=== PATIENT | female | born 1930 | race Caucasian/White ===

== ENCOUNTER → 2016-12-18 | Outpatient (CLI) | payer OTHER ==
[~2016-12-18] MED LIST: ALPR0.25 PO; ASPI81TA28 PO; ATOR10TA82 PO; CEPH-571 PO; CMD/25 PO; EFF/375 PO; FAMO20TA11 PO; LEVO75TA5 PO; METO25TA3 PO; PRMVC PV; RIVA1TAB4 PO; SYN50 PO; TPRSR50 PO
[2016-12-18 10:51] LABS: URINE APPEARANCE CLEAR (CLEAR); URINE BILIRUBIN NEG (NEG); URINE COLOR YELLOW; URINE NITRITE NEG (NEG); URINE SPECIFIC GRAVITY 1.016 (1.000-1.030); UROBILINOGEN NEG (NEG)
[2016-12-18 10:59] LABS: MANUAL MICROSCOPIC REQUIRED? NO; REVIEW REQ? NO
--- NOTE | 2016-12-21 13:50 | CODING QUERY NO DIAGNOSIS ---
TREATMENT RENDERED WITHOUT A DIAGNOSIS To promote full compliance with coding requirements relating to patient care, physician participation is requested in all cases of rail operations controller uncertainty. Please assist us with providing a diagnosis/symptom for the test(s) below: A diagnosis/symptom was not documented on your Order. A valid diagnosis/symptom is required to bill all insurances. Please remember that we are unable to code a diagnosis of rule out, probable, possible, questionable, or suspected. Tests that require a diagnosis: DOS 12/18 * Urine Culture DIAGNOSIS: Provider Signature: Date: Thank you Shw[facility] Information Management Once completed, please kindly fax back to [phone] For questions please call [phone]
== END | disposition home or self-care (01) ==
LOC: C.LABSPEC 12:49
PROVIDERS: ATTEND Internal Medicine
DX: N39.0 Urinary tract infection, site not specified (principal)

== ENCOUNTER → 2017-01-11 | Outpatient (CLI) | payer OTHER ==
--- NOTE | 2017-01-11 10:23 | DIAGNOSTIC IMAGING REPORT ---
CT HEAD WITHOUT CONTRAST (CT) CLINICAL HISTORY: Concussion. Head trauma. Patient on Coumadin. COMPARISON STUDY: 12/31/2015 TECHNIQUE: Axial CT of the brain is performed from the vertex to the skull base. IV contrast was not administered for this examination. CT DOSE: 812.17 mGycm FINDINGS: No intra or extra-axial mass lesions are visualized. There is no CT evidence of acute cortical infarction. There is no evidence of midline shift. There is no acute hemorrhage. No calvarial fractures are visualized. There are patchy white matter hypodensities likely on a small vessel basis. Since the prior study, the patient developed bifrontal infarcts. Since the prior study, the patient has developed a lacunar infarct within the left thalamus. There is no evidence of pathologic ventricular dilatation. There is chronic opacification of the right sphenoid. There is opacification of multiple ethmoid air cells. The frontal sinuses are opacified. IMPRESSION: 1. Interval development of bilateral frontal lobe infarcts. These do not appear acute 2. Interval development of a lacunar infarct within the left thalamus 3. No acute hemorrhage 4. Progressive paranasal sinus disease Electronically signed by: Reji Wallace M.D. 01/11/2017 10:22 AM Dictated Date/Time: 01/11/2017 10:19 AM
== END | disposition home or self-care (01) ==
LOC: C.CTS 09:57
PROVIDERS: ATTEND Physician Assistant
DX: S06.0X9A Concussion with loss of consciousness of unspecified duration, initial encounter (principal); X58.XXXA Exposure to other specified factors, initial encounter

== ENCOUNTER → 2017-01-17 | Outpatient (CLI) | payer OTHER ==
--- NOTE | 2017-01-17 10:47 | DIAGNOSTIC IMAGING REPORT ---
(BARIUM SWALLOW) ESOPHAGUS CLINICAL HISTORY: REFLUXdysphagia COMPARISON STUDY: None FLUOROSCOPY TIME: 1.6 minutes. FINDINGS: Patient initiated swallowing function well. There is trace amount penetration. There is no evidence for aspiration. Esophagus is normal in course and caliber. Gastroesophageal junction is normal. Patient ingested the barium tablet easily which passed easily to the stomach. IMPRESSION: 1. Trace penetration during swallowing function.. 2. No evidence for aspiration. 3. Study is otherwise normal. Electronically signed by: Catracho Krishna M.D. 01/17/2017 10:46 AM Dictated Date/Time: 01/17/2017 10:44 AM
== END | disposition home or self-care (01) ==
LOC: C.RAD 09:59
PROVIDERS: ATTEND Internal Medicine
DX: R07.9 Chest pain, unspecified (principal)

== ENCOUNTER → 2017-02-15 | Outpatient (CLI) | payer OTHER ==
[~2017-02-15] MED LIST changes: -ASPI81TA28 PO; -ATOR10TA82 PO; -CEPH-571 PO; -CMD/25 PO; -EFF/375 PO; -FAMO20TA11 PO; -LEVO75TA5 PO; -METO25TA3 PO; -PRMVC PV
[2017-02-15 14:47] LABS: URINE APPEARANCE TURBID (CLEAR); URINE BILIRUBIN NEG (NEG); URINE COLOR YELLOW; URINE EPITHELIAL CELL AUTO 0-5 /lpf (0-5); URINE NITRITE NEG (NEG); URINE PH 6.5 (4.5-7.5); URINE SPECIFIC GRAVITY 1.014 (1.000-1.030); UROBILINOGEN NEG (NEG)
[2017-02-15 14:49] LABS: MANUAL MICROSCOPIC REQUIRED? NO; REVIEW REQ? YES
== END | disposition home or self-care (01) ==
LOC: C.LAB1850 14:05
PROVIDERS: ATTEND Internal Medicine
DX: R35.8 Other polyuria (principal)

== ENCOUNTER → 2017-03-22 | Outpatient (CLI) | payer OTHER ==
--- NOTE | 2017-03-22 14:31 | SWALLOWING EVALUATION ---
HISTORY: This 86 year-old woman, from home, was referred for a VFSS at [facility]. She reports that she has no idea why she is getting this test and that she has no difficulty swallowing. reports state that she is complaining of pill dysphagia however pt. denies this. 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 Barium swallow completed 01/17/17 with no aspiration however trace aspiration. 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 PROCEDURE: The patient was seen in the Radiology Department of [facility] for the VFSS. Cursory examination of the oral cavity revealed adequate dentition. Movement of the articulators was WNL. The patient was seated on a standard chair and was viewed in both the Anterior-Posterior (A-P) and Lateral planes. Volitional phonation exercises completed in the A-P plane revealed bilateral vocal fold movement and vocal intensity was very reduced and it was very difficult to hear pt's speech. In the lateral plane, the patient was given the following barium-infused boluses: 1 tsp thin barium with oral hold 1x, self presented single cup swallow-thin barium 1x, self presented serial cup swallow 1x. 1 tsp nectar thick barium with oral hold 1x, self presented single cup swallow- nectar thick barium 1x, self presented serial cup swallows 1x. 1 tsp barium pudding-self presented 1x. Cracker with barium paste 1x. In the A-P view, pt was given 1 barium pill with water and 1 tsp barium pudding with esophageal scan. RESULTS: Oral Phase: Pt. had no labial escape of any food or liquid items presented. Pt. demonstrated a cohesive bolus between tongue and palatal seal. Timely and efficient chewing and mashing was observed with all consistencies as well as brisk tongue motion and complete oral clearance. Initiation of pharyngeal swallow began with bolus head at posterior angle of hyoid excursion. Overall WFL for oral phase of swallow. Pharyngeal Phase: Soft Palate Elevation was complete for all boluses. Laryngeal elevation was WFL demonstrating complete movement of thyroid cartilage with complete approximation of arytenoids to epiglottic base. Complete Anterior Hyoid excursion was observed as well as complete epiglottic inversion. Laryngeal Vestibular closure was complete and no air or barium noted in laryngeal vestibule. Tongue base retraction was noted with all consistencies and tongue base made effective contact with posterior pharyngeal wall throughout study. No pharyngeal residue was observed resulting in complete pharyngeal clearance of all tested items. Overall WFL for Pharyngeal stage of the swallow Esophageal Phase: Opening and closing of the UES was timely and efficient. Barium pill passes quickly and affectively into her stomach. SUMMARY/RECOMMENDATIONS: Overall pt. presented as WFL. Results of this study indicate no oral or pharyngeal dysphagia. Recommending continuation of regular diet with thin liquids. All results and recommendations were discussed with the pt. and her caregiver. Thank you for referral of this patient. Please contact me at if any additional information is needed.
--- NOTE | 2017-03-22 14:38 | DIAGNOSTIC IMAGING REPORT ---
VIDEO SWALLOW STUDY CLINICAL HISTORY: Stroke. Gastrointestinal bleeding. COMPARISON STUDY: Barium esophagram dated 01/17/2017. FLUOROSCOPY TIME: 3.5 minutes. FINDINGS: Fluoroscopic guidance was provided to the Department of Speech Pathology in performing a video swallow study. The patient swallowed barium-impregnated pudding, cracker with paste, nectar-thick liquid, and thin barium while the swallowing mechanism was observed in real-time. No penetration or aspiration was seen with any of the sampled textures. IMPRESSION: No penetration or aspiration was seen. See dedicated speech pathology report for detailed findings and recommendations. Dictated: 03/22/2017 2:19 PM Transcribed: 03/22/2017 2:37 PM [email or web address] Electronically signed by: Rajan Castro M.D. 03/22/2017 2:39 PM Dictated Date/Time: 03/22/2017 2:19 PM
--- NOTE | 2017-03-29 07:33 | CODING QUERY MEDICAL NECESSITY ---
SUPPORTING DIAGNOSIS NEEDED Dr. Quinones, A supporting diagnosis is required for the test/procedure performed on this patient in order for us to be reimbursed by the patient's insurance. Please provide a supporting diagnosis for the following test/procedure listed below next to the test name along with your signature. *If there is no additional diagnosis for this patient that would support the following test/procedure please document that below next to the test/procedure. Test(s)/Procedure(s) that require a supporting diagnosis: * ([id number]) BARIUM SWALLOW DIAGNOSIS: DATE OF SERVICE: 03/22/17 Provider Signature: Date: Thank you Tony Moncada [facility] Information Management Once completed, please kindly fax back to [phone] For questions please call [phone]
== END | disposition home or self-care (01) ==
LOC: C.RAD 12:53
PROVIDERS: ATTEND Internal Medicine
DX: I63.9 Cerebral infarction, unspecified (principal); K92.2 Gastrointestinal hemorrhage, unspecified; J45.909 Unspecified asthma, uncomplicated; R49.0 Dysphonia

== ENCOUNTER → 2017-05-04 | Outpatient (CLI) | payer OTHER ==
[2017-05-04 19:13] LABS: URINE APPEARANCE CLOUDY (CLEAR); URINE BILIRUBIN NEG (NEG); URINE COLOR YELLOW; URINE NITRITE NEG (NEG); URINE SPECIFIC GRAVITY 1.023 (1.000-1.030); UROBILINOGEN NEG (NEG)
[2017-05-04 19:14] LABS: MANUAL MICROSCOPIC REQUIRED? YES; REVIEW REQ? NO
[2017-05-04 19:36] LABS: URINE BACTERIA 1+ (NEG); URINE RBC >30 /hpf (0-4); URINE WBC >30 /hpf (0-5)
== END | disposition home or self-care (01) ==
LOC: C.LAB 17:32
PROVIDERS: ATTEND Physician Assistant
DX: N39.0 Urinary tract infection, site not specified (principal)

== ENCOUNTER 2017-06-18 13:46 | Emergency (ER) | payer OTHER ==
[~2017-06-18] VITALS: Ht 160 cm; Wt 47.2 kg
[2017-06-18 13:49] VITALS: TEMP 37.1; Ht 160 cm; Wt 47.2 kg
[2017-06-18 14:30] LABS: BASO % 0.7 %; BASO ABS # 0.06 K/uL (0-0.2); COMPLETE YES; EOS % 7.5 %; HEMATOCRIT 37.7 % (37-47); IG% 0.2 %; LYMPH % 17.1 %; MEAN CELL VOLUME 90.8 fL (80-100); MEAN CORPUSCULAR HEMOGLOBIN 30.1 pg (25-34); MEAN CORPUSCULAR HGB CONC 33.2 g/dl (32-36); MEAN PLATELET VOLUME 9.6 fL (7.4-10.4); MONO % 8.3 %; NEUT % 66.2 %; PLATELET COUNT 202 K/uL (130-400); RED BLOOD COUNT 4.15 M/uL (4.2-5.4); WHITE BLOOD COUNT 8.79 K/uL (4.8-10.8)
[2017-06-18 14:37] LABS: URINE APPEARANCE CLEAR (CLEAR); URINE BILIRUBIN NEG (NEG); URINE COLOR YELLOW; URINE EPITHELIAL CELL AUTO 0-5 /lpf (0-5); URINE NITRITE NEG (NEG); URINE SPECIFIC GRAVITY 1.016 (1.000-1.030); UROBILINOGEN NEG (NEG); ZZURINE CULT IF INDIC CATH YES
[2017-06-18 14:44] LABS: MANUAL MICROSCOPIC REQUIRED? NO; REVIEW REQ? NO
[2017-06-18 14:47] LABS: ALT/SGPT 16 U/L (12-78); BLOOD UREA NITROGEN 25 mg/dl (7-18); BUN/CREATININE RATIO 33.4 (10-20); CALCIUM 9.1 mg/dl (8.5-10.1); CARBON DIOXIDE 33 mmol/L (21-32); CHLORIDE 105 mmol/L (98-107); CREATININE 0.74 mg/dl (0.60-1.20); GLUCOSE 77 mg/dl (70-99); POTASSIUM 3.9 mmol/L (3.5-5.1); SODIUM 141 mmol/L (136-145)
[2017-06-18 14:50] LABS: ALKALINE PHOSPHATASE 80 U/L (45-117); AST/SGOT 17 U/L (15-37)
--- NOTE | 2017-06-18 15:00 | DIAGNOSTIC IMAGING REPORT ---
CHEST ONE VIEW PORTABLE CLINICAL HISTORY: 86 years-old Female presenting with weak. TECHNIQUE: Portable upright AP view of the chest was obtained. COMPARISON: 06/03/2016. FINDINGS: Median sternotomy wires and left atrial appendage occlusion device noted. Calcified mediastinal lymph nodes also noted. Mild hyperinflation. Apparent nodular opacities at the right lung base are unchanged since 2012 and may represent overlapping costochondral calcification. No new focal infiltrate. No large effusion or pneumothorax. Skin folds noted over the superior thorax. Osseous structures normal. Upper abdomen normal. IMPRESSION: 1. Mild hyperinflation. Otherwise no acute cardiopulmonary disease. Electronically signed by: Preston Bryson M.D. 06/18/2017 2:59 PM Dictated Date/Time: 06/18/2017 2:54 PM
[2017-06-18] MEDS ORDERED: EFF/375 PO (15:09)
[2017-06-18] MEDS ORDERED: ASPI81TA28 PO (15:09)
[2017-06-18] MEDS ORDERED: LEVO75TA5 PO (15:09)
[2017-06-18] MEDS ORDERED: PRMVC PV (15:09)
[2017-06-18] MEDS ORDERED: FAMO20TA11 PO (15:09)
[2017-06-18] MEDS ORDERED: CMD/25 PO ×2 (15:09)
[2017-06-18] MEDS ORDERED: METO25TA3 PO (15:09)
[2017-06-18] MEDS ORDERED: ATOR10TA82 PO (15:09)
[2017-06-18] MEDS ORDERED: CEFTRIAXONE SOD INJ 1 GM ADDVIAL IV STA (15:10)
[2017-06-18] MEDS ORDERED: CEPH-571 PO (15:26)
[2017-06-18 15:46] LABS: INR 2.6 (0.9-1.1); PROTHROMBIN TIME (PATIENT) 29.2 SECONDS (9.0-12.0)
[2017-06-18 16:20] VITALS: BP 132/64; PULSE 77; O2SAT 98
--- NOTE | 2017-06-18 21:27 | EMERGENCY ROOM VISIT NOTE ---
History Report prepared by Lali: Ravinder Banegas Under the Supervision of: Dr. José Miguel Douglas D.O. First contact with patient: 14:04 Chief Complaint: WEAKNESS Stated Complaint: WEAK, SHAKES, TIRED, BURNING W/URINATION History of Present Illness The patient is an 86 year old female who presents to the Emergency Room with complaints of persistent urinary symptoms that started 5 days ago. She says that she has been having burning and pain with urination, in addition to an increased urinary frequency. She states that after she urinates, she does not feel like she has to go again. The patient notes that she has had 3 bouts of symptoms like this in the past, and during those times she was diagnosed with a UTI. The patient says that she has not seen her primary care physician for this bout yet. She says that her last bowel movement was yesterday and it was normal. The patient denies any chest pain, shortness of breath, nausea, vomiting , diarrhea, or abdominal pain. Environmental Studies Faculty Member at bedside notes that she is currently at her baseline. Source of History: patient Onset: 5 days ago Position: other (global - urinary symptoms) Quality: other (burning urination, pain with urination, frequent urination) Timing: other (persistent) Associated Symptoms: No chest pain, No SOB, No nausea, No vomiting, No abdominal pain, No diarrhea Note: No other associated symptoms noted. Review of Systems See HPI for pertinent positives & negatives. A total of 10 systems reviewed and were otherwise negative. Past Medical & Surgical Medical Problems: (1) History of atrial fibrillation (2) Mitral valve prolapse (3) Palpitations Family History Family history omitted secondary to patient's advanced age. Social History Smoking Status: Former Smoker Alcohol Use: occasionally Drug Use: none Marital Status: Occupation Status: retired Current/Historical Medications Scheduled Aspirin (Aspirin Ec), 81 MG PO DAILY Atorvastatin (Lipitor), 10 MG PO DAILY Cephalexin (Keflex), 1 CAP PO TID Estrogens, Conjugated (Premarin), 1 DOSE PV 2XWK Famotidine (Pepcid), 20 MG PO DAILY Levothyroxine Sodium (Levothyroxine Sodium), 75 MG PO DAILY Metoprolol Succinate (Toprol Xl), 12.5 MG PO BID Venlafaxine Hcl (Effexor), 37.5 MG PO DAILY Warfarin Sod (Coumadin), 5 MG PO DAILY Warfarin Sod (Coumadin), 2.5 MG PO 6XWK Allergies Coded Allergies: Codeine (Verified Allergy, Unknown, UNK, 08/15/15) Ferrous Sulfate (Verified Allergy, Unknown, 0, 08/15/15) Folic Acid (Verified Allergy, Unknown, 0, 08/15/15) Macrolides (Verified Allergy, Unknown, UNK, 08/15/15) Morphine (Verified Allergy, Unknown, uknown, 08/15/15) Pantoprazole (Verified Allergy, Unknown, 0, 08/15/15) Penicillins (Verified Allergy, Unknown, UNK, 08/15/15) Physical Exam Vital Signs Date Time Temp Pulse Resp B/P (MAP) Pulse Ox O2 Delivery O2 Flow Rate FiO2 06/18/17 16:20 77 20 132/64 98 06/18/17 15:39 73 18 159/75 96 Room Air 06/18/17 14:09 80 06/18/17 13:49 37.1 80 18 124/67 99 Room Air Physical Exam GENERAL: Sitting up in bed, cachectic, malnourished, no distress, nontoxic EYE EXAM: normal conjunctiva. PERRL and EOM's grossly intact. OROPHARYNX: no exudate, no erythema, lips, buccal mucosa, and tongue normal and mucous membranes are moist NECK: supple, no nuchal rigidity, no adenopathy, non-tender LUNGS: Clear to auscultation. Normal chest wall mechanics HEART: no murmurs, S1 normal and S2 normal ABDOMEN: abdomen soft, non-tender, normo-active bowel sounds, no masses, no rebound or guarding. BACK: Back is symmetrical on inspection and there is no deformity, no midline tenderness, no CVA tenderness. SKIN: no rashes and no bruising UPPER EXTREMITIES: upper extremities are grossly normal. LOWER EXTREMITIES: No pitting edema. NEURO EXAM: Normal sensorium, cranial nerves II-XII grossly intact, normal speech, no gross weakness of arms, no gross weakness of legs. Medical Decision & Procedures ER Provider Diagnostic Interpretation: X-ray results as stated below per my review and the radiologist's interpretation : CHEST ONE VIEW PORTABLE CLINICAL HISTORY: 86 years-old Female presenting with weak. TECHNIQUE: Portable upright AP view of the chest was obtained. COMPARISON: 06/03/2016. FINDINGS: Median sternotomy wires and left atrial appendage occlusion device noted. Calcified mediastinal lymph nodes also noted. Mild hyperinflation. Apparent nodular opacities at the right lung base are unchanged since 2011 and may represent overlapping costochondral calcification. No new focal infiltrate. No large effusion or pneumothorax. Skin folds noted over the superior thorax. Osseous structures normal. Upper abdomen normal. IMPRESSION: 1. Mild hyperinflation. Otherwise no acute cardiopulmonary disease. Electronically signed by: Preston Bryson M.D. 06/18/2017 2:59 PM Dictated Date/Time: 06/18/2017 2:54 PM Laboratory Results 06/18/17 14:17 Red Blood Count 4.15, Mean Corpuscular Volume 90.8, Mean Corpuscular Hemoglobin 30.1, Mean Corpuscular Hemoglobin Concent 33.2, Mean Platelet Volume 9.6, Neutrophils (%) (Auto) 66.2, Lymphocytes (%) (Auto) 17.1, Monocytes (%) (Auto) 8.3, Eosinophils (%) (Auto) 7.5, Basophils (%) (Auto) 0.7, Neutrophils # (Auto) 5.82, Lymphocytes # (Auto) 1.50, Monocytes # (Auto) 0.73, Eosinophils # (Auto) 0.66, Basophils # (Auto) 0.06 06/18/17 14:17 Test 06/18/17 14:17 06/18/17 14:25 White Blood Count 8.79 K/uL (4.8-10.8) Red Blood Count 4.15 M/uL (4.2-5.4) Hemoglobin 12.5 g/dL (12.0-16.0) Hematocrit 37.7 % (37-47) Mean Corpuscular Volume 90.8 fL (80-100) Mean Corpuscular Hemoglobin 30.1 pg (25-34) Mean Corpuscular Hemoglobin Concent 33.2 g/dl (32-36) Platelet Count 202 K/uL (130-400) Mean Platelet Volume 9.6 fL (7.4-10.4) Neutrophils (%) (Auto) 66.2 % Lymphocytes (%) (Auto) 17.1 % Monocytes (%) (Auto) 8.3 % Eosinophils (%) (Auto) 7.5 % Basophils (%) (Auto) 0.7 % Neutrophils # (Auto) 5.82 K/uL (1.4-6.5) Lymphocytes # (Auto) 1.50 K/uL (1.2-3.4) Monocytes # (Auto) 0.73 K/uL (0.11-0.59) Eosinophils # (Auto) 0.66 K/uL (0-0.5) Basophils # (Auto) 0.06 K/uL (0-0.2) RDW Standard Deviation 43.7 fL (36.4-46.3) RDW Coefficient of Variation 13.2 % (11.5-14.5) Immature Granulocyte % (Auto) 0.2 % Immature Granulocyte # (Auto) 0.02 K/uL (0.00-0.02) Prothrombin Time 29.2 SECONDS (9.0-12.0) Prothromb Time International Ratio 2.6 (0.9-1.1) Anion Gap 3.0 mmol/L (3-11) Est Creatinine Clear Calc Drug Dose 39.9 ml/min Estimated GFR () 84.4 Estimated GFR (Non- 72.8 BUN/Creatinine Ratio 33.4 (10-20) Calcium Level 9.1 mg/dl (8.5-10.1) Total Bilirubin 0.3 mg/dl (0.2-1) Direct Bilirubin < 0.1 mg/dl (0-0.2) Aspartate Amino Transf (AST/SGOT) 17 U/L (15-37) Alanine Aminotransferase (ALT/SGPT) 16 U/L (12-78) Alkaline Phosphatase 80 U/L (45-117) Total Protein 7.8 gm/dl (6.4-8.2) Albumin 3.2 gm/dl (3.4-5.0) Lipase 153 U/L (73-393) Urine Color YELLOW Urine Appearance CLEAR (CLEAR) Urine pH 6.0 (4.5-7.5) Urine Specific [place] 1.016 (1.000-1.030) Urine Protein NEG (NEG) Urine Glucose (UA) NEG (NEG) Urine Ketones NEG (NEG) Urine Occult Blood 1+ (NEG) Urine Nitrite NEG (NEG) Urine Bilirubin NEG (NEG) Urine Urobilinogen NEG (NEG) Urine Leukocyte Esterase LARGE (NEG) Urine WBC (Auto) >30 /hpf (0-5) Urine RBC (Auto) 0-4 /hpf (0-4) Urine Hyaline Casts (Auto) 1-5 /lpf (0-5) Urine Epithelial Cells (Auto) 0-5 /lpf (0-5) Urine Bacteria (Auto) NEG (NEG) Laboratory results per my review. Medications Administered Medications (Trade) Dose Ordered Sig/Garrick Route Start Time Stop Time Status Last Admin Dose Admin Ceftriaxone Sodium (Rocephin Inj) 1 gm NOW STAT IV 06/18/17 15:10 06/18/17 15:11 DC 06/18/17 15:37 1 GM ED Course ED COURSE: Vital signs were reviewed and showed normal vitals. The patients medical record was reviewed The above diagnostic studies were performed and reviewed. ED treatments and interventions as stated above. 1405: The patient was evaluated in room A2. A complete history and physical examination was performed. 1510: Ordered Rocephin Inj 1 gm IV. 1524: Upon reevaluation, the patient is resting comfortably and wants to go home. I discussed my findings with the patient and her family and they understand and agree with the treatment plan. The patient's family are at bedside and say that the patient has been acting appropriately. Based on the patients age, coexisting illnesses, exam and lab findings the decision to treat as an outpatient was made. The patient remained stable while under my care. The patient appeared well at the time of discharge. 1614: I reevaluated the patient and she is doing fine. Medical Decision Differential diagnoses includes but is not limited to gastritis, peptic ulcer disease, GERD, gallbladder disease, pancreatitis, small bowel obstruction, acute coronary syndrome, pericarditis, ischemic bowel, irritable bowel disease, irritable bowel syndrome, appendicitis, diverticulitis, malignancy, hernia, urinary tract infection, torsion, /ectopic , perforation, trauma, infectious. 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 No other complaints with the exception of feeling weak. CBC all BMP, LFTs, bilirubin lipase was unremarkable. INR was therapeutic at 2.6. UA shows esterase and white cells. This is suggestive highly of a UTI especially accommodation with her symptoms. She was given IV Rocephin. She was placed on Keflex. She was discharged follow -up with her PCP per her request. I did shoot a chest x-ray as she notes she has been having a cough as well but this has been present over the past year. Family was updated bedside. She is discharged follow-up with PCP. Discussed with Pt concerning signs and symptoms to watch out for. Pt was instructed to follow up with their PCP and discussed with the patient their option to return to the ED at anytime for persistent or worsening symptoms. The appropriate anticipatory guidance and out-patient management, including indications for return to the emergency department, were explained at length to the patient and understood. Medication Reconcilliation Current Medication List: was personally reviewed by me Blood Pressure Screening Patient's blood pressure: Normal blood pressure Impression Primary Impression: UTI (urinary tract infection) Scribe Attestation The scribe's documentation has been prepared under my direction and personally reviewed by me in its entirety. I confirm that the note above accurately reflects all work, treatment, procedures, and medical decision making performed by me. Departure Information Dispostion Home / Self-Care Prescriptions Cephalexin (KEFLEX) 500 Mg Cap 1 CAP PO TID for 10 Days, #30 CAP Prov: José Miguel Douglas, DO 06/18/17 Referrals No Doctor, Assigned (PCP) Patient Instructions ED UTI Cystitis Female, My [facility] Additional Instructions Please follow up with your primary care doctor with in the next 24 hours. Any worsening of your symptoms, please return to the ED immediately. This includes any fevers greater than 100.4, worsening pain, chest pain, shortness breath, persistent nausea, vomiting, unable to eat or drink, or any other concerning signs or symptoms from your standpoint. Please take your antibiotics as prescribed. Problem Qualifiers Primary Impression: UTI (urinary tract infection) Urinary tract infection type: acute cystitis Hematuria presence: with hematuria Qualified Codes: N30.01 - Acute cystitis with hematuria
== END 2017-06-18 16:20 | disposition home or self-care (01) ==
LOC: C.EDB 13:48 → C.EDA 16:20
DX: N39.0 Urinary tract infection, site not specified (principal); I48.91 Unspecified atrial fibrillation; I34.1 Nonrheumatic mitral (valve) prolapse; Z79.82 Long term (current) use of aspirin; Z79.01 Long term (current) use of anticoagulants; Z87.891 Personal history of nicotine dependence

== ENCOUNTER → 2017-07-11 | Outpatient (CLI) | payer OTHER ==
[~2017-07-11] MED LIST changes: -ALPR0.25 PO; +ASPI81TA28 PO; +ATOR10TA82 PO; +Boost Plus Vanilla PO; +CMD/25 PO; +EFF/375 PO; +FAMO20TA11 PO; +LCTXP PO; +LEVO75TA5 PO; +METO25TA3 PO; +PRMVC PV; -RIVA1TAB4 PO; -SYN50 PO; -TPRSR50 PO; +VANC5CAP PO
[2017-07-12 15:10] LABS: URINE APPEARANCE TURBID (CLEAR); URINE BILIRUBIN NEG (NEG); URINE COLOR DK YELLOW; URINE NITRITE POS (NEG); URINE SPECIFIC GRAVITY 1.027 (1.000-1.030); UROBILINOGEN NEG (NEG); ZZUR CULT IF INDIC CLEAN CATCH YES
[2017-07-12 15:28] LABS: MANUAL MICROSCOPIC REQUIRED? NO; REVIEW REQ? YES
== END | disposition home or self-care (01) ==
LOC: C.LAB1850 11:02
PROVIDERS: ATTEND Physician Assistant
DX: N39.0 Urinary tract infection, site not specified (principal); R39.9 Unspecified symptoms and signs involving the genitourinary system

== ENCOUNTER 2017-07-12 15:21 | Inpatient (IN) | payer OTHER ==
[~2017-07-12] VITALS: Ht 160 cm; Wt 46.7 kg
[~2017-07-12 15:21] MED LIST changes: -Boost Plus Vanilla PO; -LCTXP PO; -VANC5CAP PO
[2017-07-12] MEDS ORDERED: CEFTRIAXONE SOD INJ 1 GM ADDVIAL IV STA (16:14)
--- NOTE | 2017-07-12 16:25 | EMERGENCY ROOM VISIT NOTE ---
History Report prepared by Lali: Aj Chamberlain Under the Supervision of: Dr. Greta Mcqueen D.O. First contact with patient: 15:58 Chief Complaint: ABDOMINAL PAIN Stated Complaint: ABD PAIN/WEIGHT LOSS Nursing Triage Summary: Pt presents accompanied by smog technician. Sent by ZUGGI. Lower abd pain x 6 days. Diarrhea. Urinary freq. History of Present Illness The patient is an 86 year old female who presents to the Emergency Room with complaints of intermittent abdominal pain beginning yesterday. She notes sitting down increases her discomfort. The patient states she has a history of UTIs and infections, and her last UTI was two weeks ago. She reports she has been taking antibiotics, but she is very allergic to them and cannot remember what she was taking. The patient notes she developed diarrhea 6 days ago, and she thinks it was from her health agency, not the antibiotics. She states she has also developed mild, lower back pain from being elevated into bed. The patient reports her urine is also cloudier and has pain with urination. She notes she went to [facility] earlier today and was told to come here. The patient states she has not been eating a lot, and she is having difficulty maintaining her weight. She denies vomiting, fevers, blood in urine, and blood in her diarrhea. The patient reports she has a history of chronic cystitis. Review of EMR showed the patient was here on 06/18 and diagnosed with a UTI but all other labs were stable. The patient was discharged on Keflex. Source of History: patient Onset: yesterday Position: abdomen Timing: intermittent Modifying Factors (Worsening): other (sitting) Associated Symptoms: + back pain, + diarrhea, + urinary symptoms (cloudier and pain with urination), No fevers, No vomiting Note: Associated symptoms: decreased appetite, decreased weight Denies: blood in urine, blood in diarrhea Review of Systems See HPI for pertinent positives & negatives. A total of 10 systems reviewed and were otherwise negative. Past Medical & Surgical Medical Problems: (1) Bronchitis (2) Colitis (3) History of atrial fibrillation (4) Mitral valve prolapse (5) Palpitations (6) Skin problem Family History Diabetes mellitus FH: thyroid disease FHx: cancer Lung disease Social History Smoking Status: Former Smoker Alcohol Use: occasionally Drug Use: none Marital Status: Occupation Status: retired Current/Historical Medications Scheduled Aspirin (Aspirin Ec), 81 MG PO DAILY Atorvastatin (Lipitor), 10 MG PO DAILY Estrogens, Conjugated (Premarin), 1 DOSE PV 2XWK Famotidine (Pepcid), 20 MG PO DAILY Levothyroxine Sodium (Levothyroxine Sodium), 75 MG PO DAILY Metoprolol Succinate (Toprol Xl), 12.5 MG PO BID Venlafaxine Hcl (Effexor), 37.5 MG PO DAILY Warfarin Sod (Coumadin), 5 MG PO WK Warfarin Sod (Coumadin), 2.5 MG PO 6XWK Allergies Coded Allergies: Codeine (Verified Allergy, Unknown, UNK, 07/12/17) Ferrous Sulfate (Verified Allergy, Unknown, 0, 08/15/15) Folic Acid (Verified Allergy, Unknown, 0, 07/12/17) Macrolides (Verified Allergy, Unknown, UNK, 08/15/15) Morphine (Verified Allergy, Unknown, uknown, 07/12/17) Pantoprazole (Verified Allergy, Unknown, 0, 08/15/15) Penicillins (Verified Allergy, Unknown, UNK, 07/12/17) Physical Exam Vital Signs Date Time Temp Pulse Resp B/P (MAP) Pulse Ox O2 Delivery O2 Flow Rate FiO2 07/12/17 18:53 93 18 151/78 95 Room Air 07/12/17 17:11 97 20 134/75 96 Room Air 07/12/17 15:46 37.3 73 18 125/74 95 Room Air Physical Exam GENERAL: alert, well appearing, very thin, no distress, non-toxic, elderly EYE EXAM: normal conjunctiva, PERRL and EOM's grossly intact OROPHARYNX: no exudate, no erythema, lips, buccal mucosa, and tongue normal and mucous membranes are moist NECK: supple, no nuchal rigidity, no adenopathy, non-tender LUNGS: Clear to auscultation. Normal chest wall mechanics HEART: no murmurs, S1 normal and S2 normal ABDOMEN: abdomen soft, with left-sided tenderness with palpation, normo-active bowel sounds, no masses, no rebound or guarding. BACK: Back is symmetrical on inspection and there is no deformity, no midline tenderness, no CVA tenderness. SKIN: no rashes and no bruising UPPER EXTREMITIES: upper extremities are grossly normal. LOWER EXTREMITIES: No pitting edema. NEURO EXAM: Normal sensorium, cranial nerves II-XII grossly intact, normal speech, no gross weakness of arms, no gross weakness of legs. Medical Decision & Procedures ER Provider Diagnostic Interpretation: CT:Per my review, radiologist interpretation. HEAD WITHOUT CONTRAST (CT) CT DOSE: 614.27 mGy.cm HISTORY: Mental status change ams TECHNIQUE: Multiaxial CT images of the head were performed without the use of intravenous contrast. A dose lowering technique was utilized adhering to the principles of ALARA. Comparison: 01/11/2017 Findings: Moderate mucosal thickening of the sphenoid and ethmoid sinuses. Mastoid air cells are clear. Old bifrontal infarcts. Old right temporoparietal infarct. No acute intracranial hemorrhage. Several small old periventricular infarct unchanged. No evidence for new or interval process. Impression: 1. Multiple old infarcts. 2. No acute intracranial abnormality. 3. Moderate mucosal thickening of the sphenoid and ethmoid sinuses. The above report was generated using voice recognition software. It may contain grammatical, syntax or spelling errors. Electronically signed by: Catracho Krishna M.D. 07/12/2017 6:44 PM Dictated Date/Time: 07/12/2017 6:42 PM ABD/PELVIS IV CONTRAST ONLY CT DOSE: 252.23 mGy.cm HISTORY: Pain left abd pain, uti TECHNIQUE: Multiaxial CT images of the abdomen and pelvis were performed following the use of intravenous contrast. A dose lowering technique was utilized adhering to the principles of ALARA. COMPARISON STUDY: None. FINDINGS: Mild bibasilar interstitial change. Mild pleural reactive change left lung base. Liver spleen and pancreas are uniform. Kidneys negative for hydronephrosis. Enhancement characteristics are uniform. Perinephric spaces are unremarkable. There is moderate generalized wall thickening of the bulk of the colon including sigmoid. This appearance suggests a generalized nonspecific colitis. No evidence for abscess collection or obstruction. No significant small bowel distention. No free fluid within the pelvic cul-de-sac. IMPRESSION: 1. Generalized nonspecific colitis. 2. Moderate colonic wall thickening with minimal pericolonic infiltrative change. 3. No evidence for abscess collection or obstruction. 4. Study is otherwise negative The above report was generated using voice recognition software. It may contain grammatical, syntax or spelling errors. Electronically signed by: Catracho Krishna M.D. 07/12/2017 6:47 PM Dictated Date/Time: 07/12/2017 6:45 PM Laboratory Results 07/12/17 16:49 Red Blood Count 4.15, Mean Corpuscular Volume 91.3, Mean Corpuscular Hemoglobin 30.4, Mean Corpuscular Hemoglobin Concent 33.2, Mean Platelet Volume 9.7, Neutrophils (%) (Auto) 78.2, Lymphocytes (%) (Auto) 10.5, Monocytes (%) (Auto) 9.1, Eosinophils (%) (Auto) 1.8, Basophils (%) (Auto) 0.2, Neutrophils # (Auto) 13.12, Lymphocytes # (Auto) 1.76, Monocytes # (Auto) 1.52, Eosinophils # (Auto) 0.30, Basophils # (Auto) 0.03 07/12/17 16:49 Test 07/12/17 16:49 07/12/17 17:15 White Blood Count 16.77 K/uL (4.8-10.8) Red Blood Count 4.15 M/uL (4.2-5.4) Hemoglobin 12.6 g/dL (12.0-16.0) Hematocrit 37.9 % (37-47) Mean Corpuscular Volume 91.3 fL (80-100) Mean Corpuscular Hemoglobin 30.4 pg (25-34) Mean Corpuscular Hemoglobin Concent 33.2 g/dl (32-36) Platelet Count 220 K/uL (130-400) Mean Platelet Volume 9.7 fL (7.4-10.4) Neutrophils (%) (Auto) 78.2 % Lymphocytes (%) (Auto) 10.5 % Monocytes (%) (Auto) 9.1 % Eosinophils (%) (Auto) 1.8 % Basophils (%) (Auto) 0.2 % Neutrophils # (Auto) 13.12 K/uL (1.4-6.5) Lymphocytes # (Auto) 1.76 K/uL (1.2-3.4) Monocytes # (Auto) 1.52 K/uL (0.11-0.59) Eosinophils # (Auto) 0.30 K/uL (0-0.5) Basophils # (Auto) 0.03 K/uL (0-0.2) RDW Standard Deviation 45.0 fL (36.4-46.3) RDW Coefficient of Variation 13.5 % (11.5-14.5) Immature Granulocyte % (Auto) 0.2 % Immature Granulocyte # (Auto) 0.04 K/uL (0.00-0.02) Prothrombin Time 15.1 SECONDS (9.0-12.0) Prothromb Time International Ratio 1.4 (0.9-1.1) Anion Gap 4.0 mmol/L (3-11) Est Creatinine Clear Calc Drug Dose 40.0 ml/min Estimated GFR () 85.8 Estimated GFR (Non- 74.1 BUN/Creatinine Ratio 42.4 (10-20) Lactic Acid Level 1.6 mmol/L (0.4-2.0) Calcium Level 8.8 mg/dl (8.5-10.1) Total Bilirubin 0.4 mg/dl (0.2-1) Aspartate Amino Transf (AST/SGOT) 18 U/L (15-37) Alanine Aminotransferase (ALT/SGPT) 14 U/L (12-78) Alkaline Phosphatase 80 U/L (45-117) Total Protein 8.3 gm/dl (6.4-8.2) Albumin 3.2 gm/dl (3.4-5.0) Globulin 5.1 gm/dl (2.5-4.0) Albumin/Globulin Ratio 0.6 (0.9-2) Lipase 147 U/L (73-393) Chemistry Specimen Hemolysis Urine Color YELLOW Urine Appearance CLOUDY (CLEAR) Urine pH 5.0 (4.5-7.5) Urine Specific [place] 1.027 (1.000-1.030) Urine Protein TRACE (NEG) Urine Glucose (UA) NEG (NEG) Urine Ketones TRACE (NEG) Urine Occult Blood 2+ (NEG) Urine Nitrite POS (NEG) Urine Bilirubin NEG (NEG) Urine Urobilinogen NEG (NEG) Urine Leukocyte Esterase MODERATE (NEG) Urine WBC (Auto) >30 /hpf (0-5) Urine RBC (Auto) 0-4 /hpf (0-4) Urine Hyaline Casts (Auto) >30 /lpf (0-5) Urine Epithelial Cells (Auto) 0-5 /lpf (0-5) Urine Bacteria (Auto) 4+ (NEG) Urine Crystals CALCIUM OXALATE (NONE Laboratory results per my review. Medications Administered Medications (Trade) Dose Ordered Sig/Garrick Route Start Time Stop Time Status Last Admin Dose Admin Ceftriaxone Sodium (Rocephin Inj) 1 gm NOW STAT IV 07/12/17 16:14 07/12/17 16:18 DC 07/12/17 17:11 1 GM Sodium Chloride 1,000 ml @ 999 mls/hr Q1H1M STAT IV 07/12/17 17:44 07/12/17 18:44 DC 07/12/17 18:51 999 MLS/HR Metronidazole (Flagyl Tab) 500 mg NOW STAT PO 07/12/17 19:10 07/12/17 19:11 DC 07/12/17 20:59 500 MG ECG Indication: weakness Rate (beats per minute): 95 Rhythm: normal sinus Findings: no acute ischemic change, other (normal axis, normal intervals) ED Course 1602: The patient was evaluated in room C04. A complete history and physical exam was performed. 1614: Ordered Ceftriaxone Sodium 1 gm IV 1744: Ordered Sodium Chloride 1000 ml @ 999 mls/hr IV 1901: I reevaluated the patient. I discussed her case with her and her caregiver in the room. I also talked with Shanae the patient's POA over the phone. They agree with the treatment plan. The patient will be evaluated for further management and care. 0: Metronidazole 500mg PO 1914: I paged Dr. Candelaria, [facility] Hospitalist. 0: The patient was evaluated by Dr. Candelaria in the department. Medical Decision Differential diagnoses includes but is not limited to gastritis, peptic ulcer disease, GERD, gallbladder disease, pancreatitis, small bowel obstruction, acute coronary syndrome, pericarditis, ischemic bowel, irritable bowel disease, irritable bowel syndrome, appendicitis, diverticulitis, malignancy, hernia, urinary tract infection, torsion, /ectopic , perforation, trauma, infectious. Pt hemodynamically stable. I do not suspect bacteremia/sepsis. Patient with leukocytosis likely in combination from UTI as well as colitis. Concern given recent antibiotics for recent UTI for component of C. difficile. Were waiting stool specimen at the time of admission to send for culture. Patient given one dose of oral Flagyl as a precaution. Patient did appear dehydrated, no other acute pathology noted on CT. Patient given IV Rocephin for UTI. Patient's last urinary culture did not reveal isolated organism. Patient aware of all results and I discussed results and plan with her daughter Shanae, who is also her power of agriculture intern, via the phone. She states that her mother is intermittently confused and has been so ever since sustaining a stroke earlier this year. She feels her mother is currently acting in her usual mental state. Medication Reconcilliation Current Medication List: was personally reviewed by me Blood Pressure Screening Patient's blood pressure: Elevated blood pressure Monitored by hospitalist. Impression Primary Impression: UTI (urinary tract infection) Additional Impressions: Dehydration Confusion Colitis Scribe Attestation The scribe's documentation has been prepared under my direction and personally reviewed by me in its entirety. I confirm that the note above accurately reflects all work, treatment, procedures, and medical decision making performed by me. Departure Information Dispostion Being Evaluated By Hospitalist Referrals Alejandro Quinones M.D. (PCP) Patient Instructions My [facility] Problem Qualifiers Primary Impression: UTI (urinary tract infection) Urinary tract infection type: acute cystitis Hematuria presence: with hematuria Qualified Codes: N30.01 - Acute cystitis with hematuria
[2017-07-12] MEDS ORDERED: OPTIRAY 320 IV PRN (16:30)
[2017-07-12 17:02] LABS: BASO % 0.2 %; BASO ABS # 0.03 K/uL (0-0.2); COMPLETE YES; EOS % 1.8 %; HEMATOCRIT 37.9 % (37-47); IG% 0.2 %; LYMPH % 10.5 %; LYMPH ABS # 1.76 K/uL (1.2-3.4); MEAN CELL VOLUME 91.3 fL (80-100); MEAN CORPUSCULAR HEMOGLOBIN 30.4 pg (25-34); MEAN CORPUSCULAR HGB CONC 33.2 g/dl (32-36); MEAN PLATELET VOLUME 9.7 fL (7.4-10.4); MONO % 9.1 %; NEUT % 78.2 %; PLATELET COUNT 220 K/uL (130-400); RED BLOOD COUNT 4.15 M/uL (4.2-5.4); WHITE BLOOD COUNT 16.77 K/uL (4.8-10.8)
[2017-07-12 17:13] LABS: INR 1.4 (0.9-1.1); PROTHROMBIN TIME (PATIENT) 15.1 SECONDS (9.0-12.0)
[2017-07-12 17:35] LABS: URINE APPEARANCE CLOUDY (CLEAR); URINE BILIRUBIN NEG (NEG); URINE COLOR YELLOW; URINE EPITHELIAL CELL AUTO 0-5 /lpf (0-5); URINE NITRITE POS (NEG); URINE SPECIFIC GRAVITY 1.027 (1.000-1.030); UROBILINOGEN NEG (NEG); ZZUR CULT IF INDIC CLEAN CATCH YES
[2017-07-12 17:38] LABS: ALB/GLOB RATIO 0.6 (0.9-2); BUN/CREATININE RATIO 42.4 (10-20); CALCIUM 8.8 mg/dl (8.5-10.1); CREATININE 0.73 mg/dl (0.60-1.20); POTASSIUM 3.6 mmol/L (3.5-5.1)
[2017-07-12] MEDS ORDERED: SODIUM CHLORIDE 0.9% 1000ML 1,000 ML IV STA (17:44)
[2017-07-12 17:45] LABS: MANUAL MICROSCOPIC REQUIRED? NO; REVIEW REQ? YES
--- NOTE | 2017-07-12 18:46 | DIAGNOSTIC IMAGING REPORT ---
HEAD WITHOUT CONTRAST (CT) CT DOSE: 614.27 mGy.cm HISTORY: Mental status change ams TECHNIQUE: Multiaxial CT images of the head were performed without the use of intravenous contrast. A dose lowering technique was utilized adhering to the principles of ALARA. Comparison: 01/11/2017 Findings: Moderate mucosal thickening of the sphenoid and ethmoid sinuses. Mastoid air cells are clear. Old bifrontal infarcts. Old right temporoparietal infarct. No acute intracranial hemorrhage. Several small old periventricular infarct unchanged. No evidence for new or interval process. Impression: 1. Multiple old infarcts. 2. No acute intracranial abnormality. 3. Moderate mucosal thickening of the sphenoid and ethmoid sinuses. The above report was generated using voice recognition software. It may contain grammatical, syntax or spelling errors. Electronically signed by: Catracho Krishna M.D. 07/12/2017 6:44 PM Dictated Date/Time: 07/12/2017 6:42 PM
--- NOTE | 2017-07-12 18:49 | DIAGNOSTIC IMAGING REPORT ---
ABD/PELVIS IV CONTRAST ONLY CT DOSE: 252.23 mGy.cm HISTORY: Pain left abd pain, uti TECHNIQUE: Multiaxial CT images of the abdomen and pelvis were performed following the use of intravenous contrast. A dose lowering technique was utilized adhering to the principles of ALARA. COMPARISON STUDY: None. FINDINGS: Mild bibasilar interstitial change. Mild pleural reactive change left lung base. Liver spleen and pancreas are uniform. Kidneys negative for hydronephrosis. Enhancement characteristics are uniform. Perinephric spaces are unremarkable. There is moderate generalized wall thickening of the bulk of the colon including sigmoid. This appearance suggests a generalized nonspecific colitis. No evidence for abscess collection or obstruction. No significant small bowel distention. No free fluid within the pelvic cul-de-sac. IMPRESSION: 1. Generalized nonspecific colitis. 2. Moderate colonic wall thickening with minimal pericolonic infiltrative change. 3. No evidence for abscess collection or obstruction. 4. Study is otherwise negative The above report was generated using voice recognition software. It may contain grammatical, syntax or spelling errors. Electronically signed by: Catracho Krishna M.D. 07/12/2017 6:47 PM Dictated Date/Time: 07/12/2017 6:45 PM
[2017-07-12] MEDS ORDERED: METRONIDAZOLE 250 MG TAB PO STA (19:10)
[2017-07-12] MEDS ORDERED: ALUMINUM/MAGNESIUM/SIMETH (MAALOX MAX) 30 ML UDC PO PRN (19:30)
[2017-07-12] MEDS ORDERED: MAGNESIUM HYDROXIDE SUSP 30 ML UDC PO PRN (19:30)
[2017-07-12] MEDS ORDERED: POLYETHYLENE (MIRALAX) 17 GM PACK PO PRN (19:30)
[2017-07-12] MEDS ORDERED: ONDANSETRON INJ 2 MG/ML 2 ML VIAL IV PRN (19:30)
[2017-07-12] MEDS ORDERED: ACETAMINOPHEN 325 MG TAB PO PRN (19:30)
[2017-07-12] MEDS ORDERED: LACTATED RINGER'S 1000ML 1,000 ML IV ONE (19:45)
--- NOTE | 2017-07-12 20:00 | History and Physical ---
History & Physical Date & Time of Service: Jul 12, 2017 at 19:49 Chief Complaint: Abd Pain/Weight Loss Primary Care Physician: Alejandro Quinones M.D. 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 The pt was treated for a UTI with Keflex the previous week. She has since developed diffuse abdominal pain, diarrhea and fevers as reported by her pin or clip fastener. She is a poor historian and seems to have some difficulty gathering her thoughts, although she is able to provide a past history and answers questions appropriately. She denies CP, cough or SOB. She has had some persistent dysuria. Past Medical/Surgical History 1) CVA 12/22 - The pt was in [place] when this occurred. She has recovered physically, however, per her son, she has exhibited marked cognitive decline since that time 2) Paroxysmal atrial fibrillation 3) Mitral regurge - required open repair - completed at [facility] 08/22. She suffered bleeding complications and remained hospitalized for one month 4) Dementia - unspecified 5) Hypothyroidism 6) The pt states she had an KS when visiting her daughter in a [place] in [place] - this apparently occurred 20 yrs ago 7) HPL 8) HTN Family History Diabetes mellitus FH: thyroid disease FHx: cancer Lung disease Social History Smoking Status: Former Smoker Drug Use: none Marital Status: Housing status: lives with family Occupational Status: retired Immunizations History of Influenza Vaccine: Yes History of Tetanus Vaccine?: Unknown History of Pneumococcal: Yes History of Hepatitis B Vaccine: Unknown Multi-Drug Resistant Organisms History of MDRO: No Allergies Coded Allergies: Codeine (Verified Allergy, Unknown, UNK, 07/12/17) Ferrous Sulfate (Verified Allergy, Unknown, 0, 08/15/15) Folic Acid (Verified Allergy, Unknown, 0, 07/12/17) Macrolides (Verified Allergy, Unknown, UNK, 08/15/15) Morphine (Verified Allergy, Unknown, uknown, 07/12/17) Pantoprazole (Verified Allergy, Unknown, 0, 08/15/15) Penicillins (Verified Allergy, Unknown, UNK, 07/12/17) Home Medications Scheduled Aspirin (Aspirin Ec), 81 MG PO DAILY Atorvastatin (Lipitor), 10 MG PO DAILY Estrogens, Conjugated (Premarin), 1 DOSE PV 2XWK Famotidine (Pepcid), 20 MG PO DAILY Levothyroxine Sodium (Levothyroxine Sodium), 75 MG PO DAILY Metoprolol Succinate (Toprol Xl), 12.5 MG PO BID Venlafaxine Hcl (Effexor), 37.5 MG PO DAILY Warfarin Sod (Coumadin), 5 MG PO WK Warfarin Sod (Coumadin), 2.5 MG PO 6XWK Review of Systems Constitutional: + fever, No chills, No sweats Eyes: No worsening of vision ENT: No hearing loss, No nasal symptoms Respiratory: No cough, No wheezing Cardiovascular: No chest pain, No orthopnea, No PND Abdomen: + pain, + nausea, + diarrhea, No vomiting Musculoskeletal: No joint pain Genitourinary - Female: No dysuria, No urinary frequency, No urinary urgency Neurologic: No memory loss, No paralysis, No weakness Psychiatric: No depression symptoms Endocrine: No fatigue Hematologic / Lymphatic: No abnormal bleeding/bruising Integumentary: No rash Allergic / Immunologic: No environmental allergies Physical Exam Vital Signs Date Time Temp Pulse Resp B/P (MAP) Pulse Ox O2 Delivery O2 Flow Rate FiO2 07/12/17 18:53 93 18 151/78 95 Room Air 07/12/17 17:11 97 20 134/75 96 Room Air 07/12/17 15:46 37.3 73 18 125/74 95 Room Air General Appearance: WD/WN, no apparent distress, + pertinent finding (Thin, elederly female in no distress) Head: normocephalic Eyes: normal inspection ENT: normal ENT inspection, pharynx normal Neck: supple, no JVD Respiratory/Chest: chest non-tender, lungs clear, normal breath sounds, + pertinent finding (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 She is AAO x 2 - she is slow to answer questions and cannot report an accurate timeline of her past medical events) Skin: normal color, warm/dry, no rash Diagnostics Laboratory Results Results Past 24 Hours Test 07/12/17 16:49 07/12/17 17:15 Range/Units White Blood Count 16.77 4.8-10.8 K/uL Red Blood Count 4.15 4.2-5.4 M/uL Hemoglobin 12.6 12.0-16.0 g/dL Hematocrit 37.9 37-47 % Mean Corpuscular Volume 91.3 80-100 fL Mean Corpuscular Hemoglobin 30.4 25-34 pg Mean Corpuscular Hemoglobin Concent 33.2 32-36 g/dl Platelet Count 220 130-400 K/uL Mean Platelet Volume 9.7 7.4-10.4 fL Neutrophils (%) (Auto) 78.2 % Lymphocytes (%) (Auto) 10.5 % Monocytes (%) (Auto) 9.1 % Eosinophils (%) (Auto) 1.8 % Basophils (%) (Auto) 0.2 % Neutrophils # (Auto) 13.12 1.4-6.5 K/uL Lymphocytes # (Auto) 1.76 1.2-3.4 K/uL Monocytes # (Auto) 1.52 0.11-0.59 K/uL Eosinophils # (Auto) 0.30 0-0.5 K/uL Basophils # (Auto) 0.03 0-0.2 K/uL RDW Standard Deviation 45.0 36.4-46.3 fL RDW Coefficient of Variation 13.5 11.5-14.5 % Immature Granulocyte % (Auto) 0.2 % Immature Granulocyte # (Auto) 0.04 0.00-0.02 K/uL Prothrombin Time 15.1 9.0-12.0 SECONDS Prothromb Time International Ratio 1.4 0.9-1.1 Sodium Level 138 136-145 mmol/L Potassium Level 3.6 3.5-5.1 mmol/L Chloride Level 103 98-107 mmol/L Carbon Dioxide Level 31 21-32 mmol/L Anion Gap 4.0 3-11 mmol/L Blood Urea Nitrogen 31 7-18 mg/dl Creatinine 0.73 0.60-1.20 mg/dl Est Creatinine Clear Calc Drug Dose 40.0 ml/min Estimated GFR () 85.8 Estimated GFR (Non- 74.1 BUN/Creatinine Ratio 42.4 10-20 Random Glucose 107 70-99 mg/dl Lactic Acid Level 1.6 0.4-2.0 mmol/L Calcium Level 8.8 8.5-10.1 mg/dl Total Bilirubin 0.4 0.2-1 mg/dl Aspartate Amino Transf (AST/SGOT) 18 15-37 U/L Alanine Aminotransferase (ALT/SGPT) 14 12-78 U/L Alkaline Phosphatase 80 45-117 U/L Total Protein 8.3 6.4-8.2 gm/dl Albumin 3.2 3.4-5.0 gm/dl Globulin 5.1 2.5-4.0 gm/dl Albumin/Globulin Ratio 0.6 0.9-2 Lipase 147 73-393 U/L Chemistry Specimen Hemolysis Urine Color YELLOW Urine Appearance CLOUDY CLEAR Urine pH 5.0 4.5-7.5 Urine Specific [place] 1.027 1.000-1.030 Urine Protein TRACE NEG Urine Glucose (UA) NEG NEG Urine Ketones TRACE NEG Urine Occult Blood 2+ NEG Urine Nitrite POS NEG Urine Bilirubin NEG NEG Urine Urobilinogen NEG NEG Urine Leukocyte Esterase MODERATE NEG Urine WBC (Auto) >30 0-5 /hpf Urine RBC (Auto) 0-4 0-4 /hpf Urine Hyaline Casts (Auto) >30 0-5 /lpf Urine Epithelial Cells (Auto) 0-5 0-5 /lpf Urine Bacteria (Auto) 4+ NEG Urine Crystals CALCIUM OXALATE NONE PRSENT Diagnostic Radiology CT abdomen: Generalized - nonspecific colitis EKG Sinus - 1st degree AV Impression Assessment and Plan 86 y/o F Hx recent CVA, mitral regurge, CAD, HPL, hypothyroidism. The pt was treated for a UTI with Keflex the previous week. She has since developed diffuse abdominal pain, diarrhea and fevers a reported by her pin or clip fastener. She is a poor historian and seems to have some difficulty gathering her thoughts, although she is able to provide a past history and answers questions appropriately. She denies CP, cough or SOB. She has had some persistent dysuria. 1) Colitis/abd pain/diarrhea - may be related to antibiotic use. C diff will be ruled out and she is placed on PO Flagyl based on the CT result in the interim. 2) UTI - persists - placed on Ceftriaxone pending cultures 3) PAF - pt is on Coumadin although she states that this is due to her valve repair. Her INR is subtherapeutic - she will receive an additional dose of Coumadin and a dose of Lovenox. INR will be repeated AM. 4) MV repair - as above, we will anticoagulate due to a subtherapeutic INR. 5) Recent CVA, dementia - pt's son has concerns reg her living situation which should likely be addressed with family prior to DC. Full code - Coumadin prophylaxis Total time for this admit including review of labs, meds, imaging - discussion with pt and ER attending - 38 min Level of Care Med/Surg Resuscitation Status FULL RESUSCITATION VTE Prophylaxis VTE Risk Assessment Done? Y/N: Yes Risk Level: Moderate Given or contraindicated: Warfarin (Coumadin)
[2017-07-12 21:45] VITALS: BP 143/75; PULSE 89; TEMP 37.3; O2SAT 96; Ht 160 cm; Wt 46.7 kg
[2017-07-12] MEDS ORDERED: WARFARIN SOD 5 MG TAB PO ONE (22:00)
[2017-07-12] MEDS ORDERED: IV FLUIDS COMPLETED PRN (22:15)
[2017-07-12] MEDS: METOPROLOL SUCC 25MG EXT REL TAB PO SCH (22:36)
[2017-07-12 23:33] VITALS: BP 148/77; PULSE 87; TEMP 36.7; O2SAT 94
[2017-07-13] MEDS: LEVOTHYROXINE 75 MCG TAB PO SCH (06:06)
[2017-07-13 06:30] LABS: MEAN CELL VOLUME 90.4 fL (80-100); MEAN CORPUSCULAR HEMOGLOBIN 29.5 pg (25-34); MEAN CORPUSCULAR HGB CONC 32.6 g/dl (32-36); MEAN PLATELET VOLUME 9.8 fL (7.4-10.4); PLATELET COUNT 195 K/uL (130-400); RED BLOOD COUNT 3.87 M/uL (4.2-5.4); WHITE BLOOD COUNT 11.26 K/uL (4.8-10.8)
[2017-07-13 07:21] LABS: BUN/CREATININE RATIO 33.1 (10-20); CALCIUM 7.8 mg/dl (8.5-10.1); CREATININE 0.57 mg/dl (0.60-1.20); POTASSIUM 2.8 mmol/L (3.5-5.1)
[2017-07-13 07:45] VITALS: BP 120/67; PULSE 85; TEMP 36.6; O2SAT 94
[2017-07-13] MEDS: METRONIDAZOLE 500 MG TAB PO SCH ×3 (08:26→21:16)
[2017-07-13] MEDS: ATORVASTATIN 10 MG TAB PO SCH (08:26)
[2017-07-13] MEDS: ASPIRIN 81 MG ECTAB PO SCH (08:26)
[2017-07-13] MEDS: FAMOTIDINE 20 MG TAB PO SCH (08:26)
[2017-07-13] MEDS: VENLAFAXINE HCL XR 37.5 MG CAPXR PO SCH (08:26)
[2017-07-13] MEDS: METOPROLOL SUCC 25MG EXT REL TAB PO SCH ×2 (08:27→21:15)
[2017-07-13] MEDS: POTASSIUM CHLORIDE INJ 40 MEQ in SODIUM CHLORIDE 0.9% 1000ML 1,000 ML IV SCH ×2 (10:57→21:13)
[2017-07-13 15:28] VITALS: BP 109/63; PULSE 73; TEMP 36.6; O2SAT 92
[2017-07-13 16:19] LABS: BUN/CREATININE RATIO 30.9 (10-20); CALCIUM 7.8 mg/dl (8.5-10.1); CREATININE 0.53 mg/dl (0.60-1.20); POTASSIUM 3.1 mmol/L (3.5-5.1)
[2017-07-13] MEDS: CEFTRIAXONE SOD INJ 1 GM in DEXTROSE 5% ADD-VANTAGE 50ML 50 ML IV SCH (16:37)
[2017-07-13] MEDS: WARFARIN SOD 2.5 MG TAB PO SCH (16:37)
--- NOTE | 2017-07-13 16:54 | Progress Note ---
Subjective Date of Service: Jul 13, 2017. Subjective Pt evaluation today including: conversation w/ patient, physical exam, chart review, lab review 86 yo female who comes in with history of diarrhea. Patient continues to feel somewhat tired, and fatigued. She states she has been having loose stools accompanied by generalized abdominal pain. Problem List Medical Problems: (1) Atrial fibrillation Status: Acute (2) Confusion Status: Acute (3) Dehydration Status: Acute (4) Palpitations Status: Acute (5) UTI (urinary tract infection) Status: Acute (6) UTI (urinary tract infection) Status: Acute Review of Systems Constitutional: No fever, No chills Respiratory: No cough, No sputum Cardiac: No chest pain, No orthopnea Abdomen: No pain, No nausea Musculoskeletal: No joint pain Neurologic: No memory loss, No paralysis Psychiatric: No depression symptoms, No anhedonism Endo: No fatigue Skin: No rash, No itch All Other Systems: Reviewed and Negative Medications Current Inpatient Medications Medications (Trade) Dose Ordered Sig/Garrick Route Start Time Stop Time Status Last Admin Dose Admin Ioversol (Optiray 320) 125 ml UD PRN IV 07/12/17 16:30 07/16/17 16:29 Acetaminophen (Tylenol Tab) 650 mg Q4H PRN PO 07/12/17 19:30 08/11/17 19:29 07/13/17 08:28 650 MG Al Hydrox/Mg Hydrox/Simethicone (Maalox Max Susp) 15 ml Q4H PRN PO 07/12/17 19:30 08/11/17 19:29 Magnesium Hydroxide (Milk Of Magnesia Susp) 30 ml Q6H PRN PO 07/12/17 19:30 08/11/17 19:29 Polyethylene (Miralax Powder Packet) 17 gm DAILY PRN PO 07/12/17 19:30 08/11/17 19:29 Ondansetron HCl (Zofran Inj) 4 mg Q6H PRN IV 07/12/17 19:30 08/11/17 19:29 07/13/17 08:27 4 MG Aspirin (Ecotrin Tab) 81 mg DAILY PO 07/13/17 08:00 08/12/17 08:59 07/14/17 07:58 81 MG Atorvastatin Calcium (Lipitor Tab) 10 mg DAILY PO 07/13/17 08:00 08/12/17 08:59 12/7/17 08:00 10 MG Famotidine (Pepcid Tab) 20 mg DAILY PO 07/13/17 08:00 08/12/17 08:59 07/14/17 07:59 20 MG Levothyroxine Sodium (Synthroid Tab) 75 mcg DAILYBB PO 07/13/17 06:30 08/12/17 06:29 07/14/17 05:24 75 MCG Metoprolol Succinate (Toprol Xl Tab) 12.5 mg BID PO 07/12/17 21:00 08/11/17 20:59 07/14/17 07:59 12.5 MG Venlafaxine HCl (effeXOR EXTENDED REL CAP) 37.5 mg DAILY PO 07/13/17 08:00 08/12/17 08:59 07/14/17 07:59 37.5 MG Warfarin Sodium (Coumadin Tab) 2.5 mg DAILY@1600 PO 07/13/17 16:00 08/12/17 15:59 07/13/17 16:37 2.5 MG Ceftriaxone Sodium 1 gm/ Dextrose 50 ml @ 100 mls/hr Q24H IV 07/13/17 17:00 07/22/17 16:59 07/13/17 16:37 100 MLS/HR Metronidazole (Flagyl Tab) 500 mg TID PO 07/13/17 08:00 07/23/17 07:59 07/14/17 07:59 500 MG Miscellaneous (Iv Fluids Completed) 1 ea PRN PRN N/A 07/12/17 22:15 07/12/18 22:14 07/13/17 10:58 1 EA Potassium Chloride 40 meq/ Sodium Chloride 1,020 ml @ 100 mls/hr [id number] IV 07/13/17 11:00 08/12/17 10:59 07/14/17 07:58 100 MLS/HR Potassium Chloride (Klor-Con M10) 40 meq BID PO 07/13/17 20:00 08/12/17 19:59 07/14/17 07:59 40 MEQ Objective Vital Signs Date Time Temp Pulse Resp B/P (MAP) Pulse Ox O2 Delivery O2 Flow Rate FiO2 07/13/17 15:28 36.6 73 20 109/63 (78) 92 Room Air 07/13/17 10:00 Room Air 07/13/17 07:45 36.6 85 18 120/67 (84) 94 Room Air 07/13/17 00:00 Room Air 07/12/17 23:33 36.7 87 18 148/77 (100) 94 Room Air 07/12/17 21:45 37.3 89 18 143/75 96 Room Air 07/12/17 21:17 96 18 127/67 95 07/12/17 21:00 96 18 127/67 95 Room Air 07/12/17 18:53 93 18 151/78 95 Room Air 07/12/17 17:11 97 20 134/75 96 Room Air Physical Exam General Appearance: WD/WN, no apparent distress Eyes: normal inspection ENT: normal ENT inspection Neck: supple, no adenopathy Respiratory/Chest: chest non-tender, lungs clear, normal breath sounds Cardiovascular: regular rate, rhythm, no edema, no JVD Abdomen: normal bowel sounds, soft, + tenderness (in epigastric region) Extremities: normal range of motion Skin: normal color Lymphatic: no adenopathy Laboratory Results Last 24 Hours Test 07/12/17 17:15 07/13/17 05:52 07/13/17 15:38 Urine Color YELLOW Urine Appearance CLOUDY Urine pH 5.0 Urine Specific [place] 1.027 Urine Protein TRACE Urine Glucose (UA) NEG Urine Ketones TRACE Urine Occult Blood 2+ Urine Nitrite POS Urine Bilirubin NEG Urine Urobilinogen NEG Urine Leukocyte Esterase MODERATE Urine WBC (Auto) >30 /hpf Urine RBC (Auto) 0-4 /hpf Urine Hyaline Casts (Auto) >30 /lpf Urine Epithelial Cells (Auto) 0-5 /lpf Urine Bacteria (Auto) 4+ Urine Crystals CALCIUM OXALATE White Blood Count 11.26 K/uL Red Blood Count 3.87 M/uL Hemoglobin 11.4 g/dL Hematocrit 35.0 % Mean Corpuscular Volume 90.4 fL Mean Corpuscular Hemoglobin 29.5 pg Mean Corpuscular Hemoglobin Concent 32.6 g/dl RDW Standard Deviation 43.9 fL RDW Coefficient of Variation 13.3 % Platelet Count 195 K/uL Mean Platelet Volume 9.8 fL Sodium Level 139 mmol/L 142 mmol/L Potassium Level 2.8 mmol/L 3.1 mmol/L Chloride Level 106 mmol/L 110 mmol/L Carbon Dioxide Level 26 mmol/L 28 mmol/L Anion Gap 7.0 mmol/L 4.0 mmol/L Blood Urea Nitrogen 19 mg/dl 16 mg/dl Creatinine 0.57 mg/dl 0.53 mg/dl Est Creatinine Clear Calc Drug Dose 51.3 ml/min 55.1 ml/min Estimated GFR () 96.6 98.9 Estimated GFR (Non- 83.4 85.4 BUN/Creatinine Ratio 33.1 30.9 Random Glucose 81 mg/dl 81 mg/dl Calcium Level 7.8 mg/dl 7.8 mg/dl Assessment and Plan C. Diff Colitis in an 86 y/o F Hx recent CVA, mitral regurge, CAD, HPL, hypothyroidism. The pt was treated for a UTI with Keflex the previous week. She has since developed diffuse abdominal pain, diarrhea and fevers a reported by her real time operator. She is a poor historian and seems to have some difficulty gathering her thoughts, although she is able to provide a past history and answers questions appropriately. She denies CP, cough or SOB. She has had some persistent dysuria. 1) C. Diff Colitis/abd pain/diarrhea - likely related to antibiotic use. C diff was positive in stools. Clinical picture also looks like C. diff. Will continue contact precautions. Placed on PO Flagyl. Appears to be somewhat improving. On clear liquids, will advance diet as her diarrhea improves. 2) UTI - persists - placed on Ceftriaxone pending cultures 3) PAF - pt is on Coumadin although she states that this is due to her valve repair. Her INR is subtherapeutic - she will receive an additional dose of Coumadin and a dose of Lovenox. INR will be repeated AM. 4) MV repair - as above, we will anticoagulate due to a subtherapeutic INR. 5) Recent CVA, dementia - pt's son has concerns reg her living situation which should likely be addressed with family prior to DC. Full code - Coumadin prophylaxis Continued [facility] stay due to: home environment unsafe for pt Discharge planning: uncertain
[2017-07-13] MEDS: POTASSIUM CHLORIDE 10 MEQ TABCR PO SCH (21:17)
[2017-07-13 23:10] VITALS: BP 130/68; PULSE 80; TEMP 36.8; O2SAT 95
[2017-07-14] MEDS: LEVOTHYROXINE 75 MCG TAB PO SCH (05:24)
[2017-07-14 07:19] VITALS: BP 151/75; PULSE 71; TEMP 37; O2SAT 95
[2017-07-14] MEDS: POTASSIUM CHLORIDE INJ 40 MEQ in SODIUM CHLORIDE 0.9% 1000ML 1,000 ML IV SCH (07:58)
[2017-07-14] MEDS: ASPIRIN 81 MG ECTAB PO SCH (07:58)
[2017-07-14] MEDS: POTASSIUM CHLORIDE 10 MEQ TABCR PO SCH (07:59)
[2017-07-14] MEDS: METRONIDAZOLE 500 MG TAB PO SCH ×2 (07:59→13:13)
[2017-07-14] MEDS: METOPROLOL SUCC 25MG EXT REL TAB PO SCH ×2 (07:59→20:09)
[2017-07-14] MEDS: VENLAFAXINE HCL XR 37.5 MG CAPXR PO SCH (07:59)
[2017-07-14] MEDS: FAMOTIDINE 20 MG TAB PO SCH (07:59)
[2017-07-14 08:00] VITALS: O2SAT 95
[2017-07-14] MEDS: ATORVASTATIN 10 MG TAB PO SCH (08:00)
[2017-07-14 09:23] LABS: BASO % 0.3 %; BASO ABS # 0.03 K/uL (0-0.2); COMPLETE YES; EOS % 7.6 %; HEMATOCRIT 37.1 % (37-47); IG% 0.2 %; LYMPH % 10.8 %; LYMPH ABS # 1.03 K/uL (1.2-3.4); MEAN CELL VOLUME 90.7 fL (80-100); MEAN CORPUSCULAR HEMOGLOBIN 29.6 pg (25-34); MEAN CORPUSCULAR HGB CONC 32.6 g/dl (32-36); MEAN PLATELET VOLUME 9.3 fL (7.4-10.4); MONO % 8.3 %; NEUT % 72.8 %; PLATELET COUNT 185 K/uL (130-400); RED BLOOD COUNT 4.09 M/uL (4.2-5.4); WHITE BLOOD COUNT 9.51 K/uL (4.8-10.8)
[2017-07-14 09:35] LABS: PROTHROMBIN TIME (PATIENT) 30.4 SECONDS (9.0-12.0)
[2017-07-14 09:57] LABS: BUN/CREATININE RATIO 13.7 (10-20); CALCIUM 7.8 mg/dl (8.5-10.1); CREATININE 0.66 mg/dl (0.60-1.20); MAGNESIUM 1.6 mg/dl (1.8-2.4); POTASSIUM 4.3 mmol/L (3.5-5.1)
--- NOTE | 2017-07-14 10:13 | Clinical Documentation Query ---
LEOBARDO Villar : CLINICAL DOCUMENTATION QUERY Documentation includes "altered mental status" and "confusion". Known unspecified dementia, however status altered in a manner prompting acquisition of a CT scan of the head. This was without acute intracranial abnormality. She is being treated for C. difficile colitis and UTI. As appropriate, consider clarification as suggested below. Thank you. In your clinical opinion is this patient being managed for: ( ) Metabolic encephalopathy secondary to C.difficile and/or UTI ( ) Not Agree ( ) Other explanation of clinical findings (Please Explain) ( ) Unable to determine (Please Define) ( ) Need to Discuss The medical record reflects the following clinical findings, treatment, and risk factors. Clinical Indicators: As above Treatment: IVF, Rocephin, Flagyl, stool cultures, CT scan of the head, CT of the abdomen/pelvis. Risk Factors: Age, infection. Please clarify and document your clinical opinion in the progress notes and discharge summary. Terms such as "probable", "suspected", "likely", "questionable", "possible", or "still to be ruled out" are acceptable. IF IN AGREEMENT, YOU MUST DOCUMENT ABOVE DIAGNOSTIC STATEMENT IN DAILY PROGRESS NOTES AND DISCHARGE SUMMARY. This document is not part of the patient's record. Thank You, Sebastian Padron, RN [phone]
[2017-07-14] MEDS: BOOST BREEZE NUTRITION DRINK 1 BOX PO SCH ×2 (13:14→20:35)
[2017-07-14] MEDS ORDERED: VANCOMYCIN HCL 250 MG/5 ML SOLN PO ONE (14:15)
[2017-07-14] MEDS ORDERED: RASPBERRY SYRUP 5 ML UDP PO ONE (14:15)
[2017-07-14 14:49] VITALS: BP 148/73; PULSE 77; TEMP 36.7; O2SAT 94
[2017-07-14] MEDS: CEFTRIAXONE SOD INJ 1 GM in DEXTROSE 5% ADD-VANTAGE 50ML 50 ML IV SCH (17:06)
[2017-07-14] MEDS: RASPBERRY SYRUP 5 ML UDP PO SCH ×2 (17:06→20:08)
[2017-07-14] MEDS: VANCOMYCIN HCL 250 MG/5 ML SOLN PO SCH ×2 (17:07→20:08)
[2017-07-14] MEDS: WARFARIN SOD 2.5 MG TAB PO SCH (17:09)
[2017-07-14] MEDS: SODIUM CHLORIDE 0.9% 1000ML 1,000 ML IV SCH (18:11)
[2017-07-14 20:06] VITALS: BP 167/84; PULSE 78
--- NOTE | 2017-07-14 22:17 | Progress Note ---
Subjective Date of Service: Jul 14, 2017. Subjective Pt evaluation today including: conversation w/ patient, physical exam, chart review 86 yo female is resting comfortably in bed. She states that her abdomen is sensitive". She states that she did have diarrhea. Patient is wondering when she can go home. I discussed case with nurse, she hada bout of bloody stools today, but has not had one since early afternoon. Note: Patient seen at 18:00 Problem List Medical Problems: (1) Atrial fibrillation Status: Acute (2) Confusion Status: Acute (3) Dehydration Status: Acute (4) Palpitations Status: Acute (5) UTI (urinary tract infection) Status: Acute (6) UTI (urinary tract infection) Status: Acute Review of Systems Constitutional: No fever, No chills Respiratory: No cough, No sputum Cardiac: No chest pain Abdomen: + pain, + diarrhea, No nausea, No vomiting Neurologic: No memory loss, No paralysis Skin: No rash, No itch All Other Systems: Reviewed and Negative Medications Current Inpatient Medications Medications (Trade) Dose Ordered Sig/Garrick Route Start Time Stop Time Status Last Admin Dose Admin Ioversol (Optiray 320) 125 ml UD PRN IV 07/12/17 16:30 07/16/17 16:29 Acetaminophen (Tylenol Tab) 650 mg Q4H PRN PO 07/12/17 19:30 08/11/17 19:29 07/13/17 08:28 650 MG Al Hydrox/Mg Hydrox/Simethicone (Maalox Max Susp) 15 ml Q4H PRN PO 07/12/17 19:30 08/11/17 19:29 Magnesium Hydroxide (Milk Of Magnesia Susp) 30 ml Q6H PRN PO 07/12/17 19:30 08/11/17 19:29 Polyethylene (Miralax Powder Packet) 17 gm DAILY PRN PO 07/12/17 19:30 08/11/17 19:29 Ondansetron HCl (Zofran Inj) 4 mg Q6H PRN IV 07/12/17 19:30 08/11/17 19:29 07/13/17 08:27 4 MG Aspirin (Ecotrin Tab) 81 mg DAILY PO 07/13/17 08:00 08/12/17 08:59 07/15/17 08:23 81 MG Atorvastatin Calcium (Lipitor Tab) 10 mg DAILY PO 07/13/17 08:00 08/12/17 08:59 07/15/17 08:23 10 MG Famotidine (Pepcid Tab) 20 mg DAILY PO 07/13/17 08:00 08/12/17 08:59 07/15/17 08:29 20 MG Levothyroxine Sodium (Synthroid Tab) 75 mcg DAILYBB PO 07/13/17 06:30 08/12/17 06:29 07/15/17 06:48 75 MCG Metoprolol Succinate (Toprol Xl Tab) 12.5 mg BID PO 07/12/17 21:00 08/11/17 20:59 07/15/17 08:24 12.5 MG Venlafaxine HCl (effeXOR EXTENDED REL CAP) 37.5 mg DAILY PO 07/13/17 08:00 08/12/17 08:59 07/15/17 08:29 37.5 MG Warfarin Sodium (Coumadin Tab) 2.5 mg DAILY@1600 PO 07/13/17 16:00 08/12/17 15:59 07/14/17 17:09 2.5 MG Ceftriaxone Sodium 1 gm/ Dextrose 50 ml @ 100 mls/hr Q24H IV 07/13/17 17:00 07/22/17 16:59 07/14/17 17:06 100 MLS/HR Miscellaneous (Iv Fluids Completed) 1 ea PRN PRN N/A 07/12/17 22:15 07/12/18 22:14 07/13/17 10:58 1 EA Enteral Nutritional Formula (Boost Breeze Nutritional Drink) 1 box TID PO 07/14/17 14:00 08/13/17 13:59 07/15/17 08:21 1 BOX Vancomycin HCl (Vancomycin Oral Soln) 250 mg QID PO 07/14/17 17:00 07/24/17 16:59 07/15/17 08:21 250 MG Raspberry (Raspberry Syrup 5ml Cup) 5 ml QID PO 07/14/17 17:00 07/28/17 16:59 07/15/17 08:21 5 ML Potassium Chloride 40 meq/ Sodium Chloride 1,020 ml @ 100 mls/hr [id number] IV 07/15/17 09:30 08/14/17 09:29 07/15/17 09:14 100 MLS/HR Potassium Chloride (Klor-Con Tab) 40 meq BID PO 07/15/17 20:00 08/14/17 19:59 Objective Vital Signs Date Time Temp Pulse Resp B/P (MAP) Pulse Ox O2 Delivery O2 Flow Rate FiO2 07/14/17 20:06 78 167/84 (111) 07/14/17 16:01 Room Air 07/14/17 14:49 36.7 77 18 148/73 (98) 94 Room Air 07/14/17 08:00 95 Room Air 07/14/17 07:19 37.0 71 21 151/75 (100) 95 Room Air 07/14/17 00:00 Room Air 07/13/17 23:10 36.8 80 18 130/68 (88) 95 Room Air Physical Exam Comments: General Appearance: WD/WN, no apparent distress Eyes: normal inspection ENT: normal ENT inspection Neck: supple, no adenopathy Respiratory/Chest: chest non-tender, lungs clear, normal breath sounds Cardiovascular: regular rate, rhythm, no edema, no JVD Abdomen: normal bowel sounds, soft, + tenderness (in epigastric region) Extremities: normal range of motion Skin: normal color Lymphatic: no adenopathy Laboratory Results Last 24 Hours Test 07/14/17 09:10 White Blood Count 9.51 K/uL Red Blood Count 4.09 M/uL Hemoglobin 12.1 g/dL Hematocrit 37.1 % Mean Corpuscular Volume 90.7 fL Mean Corpuscular Hemoglobin 29.6 pg Mean Corpuscular Hemoglobin Concent 32.6 g/dl Platelet Count 185 K/uL Mean Platelet Volume 9.3 fL Neutrophils (%) (Auto) 72.8 % Lymphocytes (%) (Auto) 10.8 % Monocytes (%) (Auto) 8.3 % Eosinophils (%) (Auto) 7.6 % Basophils (%) (Auto) 0.3 % Neutrophils # (Auto) 6.92 K/uL Lymphocytes # (Auto) 1.03 K/uL Monocytes # (Auto) 0.79 K/uL Eosinophils # (Auto) 0.72 K/uL Basophils # (Auto) 0.03 K/uL RDW Standard Deviation 43.7 fL RDW Coefficient of Variation 13.2 % Immature Granulocyte % (Auto) 0.2 % Immature Granulocyte # (Auto) 0.02 K/uL Prothrombin Time 30.4 SECONDS Prothromb Time International Ratio 3.0 Sodium Level 139 mmol/L Potassium Level 4.3 mmol/L Chloride Level 109 mmol/L Carbon Dioxide Level 27 mmol/L Anion Gap 4.0 mmol/L Blood Urea Nitrogen 9 mg/dl Creatinine 0.66 mg/dl Est Creatinine Clear Calc Drug Dose 44.3 ml/min Estimated GFR () 92.1 Estimated GFR (Non- 79.4 BUN/Creatinine Ratio 13.7 Random Glucose 148 mg/dl Calcium Level 7.8 mg/dl Magnesium Level 1.6 mg/dl Assessment and Plan C. Diff Colitis in an 86 y/o F Hx recent CVA, mitral regurge, CAD, HPL, hypothyroidism. The pt was treated for a UTI with Keflex the previous week. She has since developed diffuse abdominal pain, diarrhea and fevers a reported by her rat breeder. She is a poor historian and seems to have some difficulty gathering her thoughts, although she is able to provide a past history and answers questions appropriately. She denies CP, cough or SOB. She has had some persistent dysuria. 1) C. Diff Colitis/abd pain/diarrhea - likely related to antibiotic use. C diff was positive in stools. Clinical picture also looks like C. diff. Will continue contact precautions. Placed on PO Flagyl, but developed bloody stools Switched to vancomycin Appears to be somewhat improving. On clear liquids, will advance diet as her diarrhea improves. 2) Hypokalemia Likely from diarrhea. On potassium in IVF and oral intake. It improved, will recheck tomorrow. 3) UTI - persists - Concerned over possibly having pyeloneprhitis given her UA results and fact that she did not improve with oral antibiotics. placed on Ceftriaxone pending cultures 4) PAF - pt is on Coumadin although she states that this is due to her valve repair. Her INR is subtherapeutic - she will receive an additional dose of Coumadin and a dose of Lovenox. INR will be repeated AM. 5) MV repair - as above, we will anticoagulate due to a subtherapeutic INR. 6) Recent CVA, dementia - Has 24/7 care at home Full code - Coumadin prophylaxis Continued [facility] stay due to: home environment unsafe for pt Discharge planning: uncertain
[2017-07-15] VITALS: BP 156/81; PULSE 73; TEMP 36.5; O2SAT 94
[2017-07-15] MEDS: SODIUM CHLORIDE 0.9% 1000ML 1,000 ML IV SCH (03:29)
[2017-07-15] MEDS: LEVOTHYROXINE 75 MCG TAB PO SCH (06:48)
[2017-07-15 07:23] VITALS: BP 180/74; PULSE 78; TEMP 36.3; O2SAT 93
[2017-07-15 08:00] VITALS: O2SAT 93
[2017-07-15 08:04] LABS: BASO % 0.3 %; BASO ABS # 0.03 K/uL (0-0.2); COMPLETE YES; EOS % 12.9 %; HEMATOCRIT 35.9 % (37-47); IG% 0.3 %; LYMPH % 10.8 %; LYMPH ABS # 1.01 K/uL (1.2-3.4); MEAN CELL VOLUME 88.6 fL (80-100); MEAN CORPUSCULAR HEMOGLOBIN 30.1 pg (25-34); MEAN PLATELET VOLUME 9.5 fL (7.4-10.4); MONO % 9.9 %; NEUT % 65.8 %; PLATELET COUNT 224 K/uL (130-400); RED BLOOD COUNT 4.05 M/uL (4.2-5.4); WHITE BLOOD COUNT 9.37 K/uL (4.8-10.8)
[2017-07-15] MEDS: BOOST BREEZE NUTRITION DRINK 1 BOX PO SCH ×3 (08:21→19:58)
[2017-07-15] MEDS: RASPBERRY SYRUP 5 ML UDP PO SCH ×4 (08:21→19:58)
[2017-07-15] MEDS: VANCOMYCIN HCL 250 MG/5 ML SOLN PO SCH ×4 (08:21→19:58)
[2017-07-15] MEDS: ATORVASTATIN 10 MG TAB PO SCH (08:23)
[2017-07-15] MEDS: ASPIRIN 81 MG ECTAB PO SCH (08:23)
[2017-07-15] MEDS: METOPROLOL SUCC 25MG EXT REL TAB PO SCH ×2 (08:24→19:59)
[2017-07-15] MEDS: VENLAFAXINE HCL XR 37.5 MG CAPXR PO SCH (08:29)
[2017-07-15] MEDS: FAMOTIDINE 20 MG TAB PO SCH (08:29)
[2017-07-15 08:41] LABS: BUN/CREATININE RATIO 7.1 (10-20); CREATININE 0.52 mg/dl (0.60-1.20); POTASSIUM 3.5 mmol/L (3.5-5.1)
[2017-07-15] MEDS ORDERED: POTASSIUM CHLORIDE 20 MEQ TABCR PO ONE (08:48)
[2017-07-15] MEDS ORDERED: POTASSIUM CHLORIDE INJ 40 MEQ in SODIUM CHLORIDE 0.9% 1000ML 1,000 ML IV SCH (09:30)
[2017-07-15 15:10] VITALS: BP 127/64; PULSE 81; TEMP 36.3; O2SAT 97
[2017-07-15 16:00] VITALS: O2SAT 95
[2017-07-15] MEDS: CEFTRIAXONE SOD INJ 1 GM in DEXTROSE 5% ADD-VANTAGE 50ML 50 ML IV SCH (17:38)
[2017-07-15] MEDS: WARFARIN SOD 2.5 MG TAB PO SCH (17:38)
[2017-07-15] MEDS ORDERED: NURSING VERBAL MED ORDER ONE (19:15)
[2017-07-15 19:57] VITALS: BP 173/79; PULSE 78
[2017-07-15] MEDS: POTASSIUM CHLORIDE 20 MEQ TABCR PO SCH (19:58)
--- NOTE | 2017-07-15 21:50 | Progress Note ---
Subjective Date of Service: Jul 15, 2017. Subjective Pt evaluation today including: conversation w/ patient, physical exam, chart review 86 yo female reports significant improvement. Patient no longer is having abd. pain. atient reports that she still has loose stools. She reports having 2 episodes today. Patient denies fever, and chills. Patient denies nausea and vomiting. Problem List Medical Problems: (1) Atrial fibrillation Status: Acute (2) Confusion Status: Acute (3) Dehydration Status: Acute (4) Palpitations Status: Acute (5) UTI (urinary tract infection) Status: Acute (6) UTI (urinary tract infection) Status: Acute Review of Systems Constitutional: No fever, No chills Respiratory: No cough, No sputum Cardiac: No chest pain Abdomen: No pain, No nausea, No vomiting Musculoskeletal: No joint pain Neurologic: No memory loss, No paralysis Heme: No abnormal bleeding/bruising Skin: No rash All Other Systems: Reviewed and Negative Medications Current Inpatient Medications Medications (Trade) Dose Ordered Sig/Garrick Route Start Time Stop Time Status Last Admin Dose Admin Ioversol (Optiray 320) 125 ml UD PRN IV 07/12/17 16:30 07/16/17 16:29 Acetaminophen (Tylenol Tab) 650 mg Q4H PRN PO 07/12/17 19:30 08/11/17 19:29 07/13/17 08:28 650 MG Al Hydrox/Mg Hydrox/Simethicone (Maalox Max Susp) 15 ml Q4H PRN PO 07/12/17 19:30 08/11/17 19:29 Magnesium Hydroxide (Milk Of Magnesia Susp) 30 ml Q6H PRN PO 07/12/17 19:30 08/11/17 19:29 Polyethylene (Miralax Powder Packet) 17 gm DAILY PRN PO 07/12/17 19:30 08/11/17 19:29 Ondansetron HCl (Zofran Inj) 4 mg Q6H PRN IV 07/12/17 19:30 08/11/17 19:29 07/13/17 08:27 4 MG Aspirin (Ecotrin Tab) 81 mg DAILY PO 07/13/17 08:00 08/12/17 08:59 07/15/17 08:23 81 MG Atorvastatin Calcium (Lipitor Tab) 10 mg DAILY PO 07/13/17 08:00 08/12/17 08:59 12/8/17 08:23 10 MG Famotidine (Pepcid Tab) 20 mg DAILY PO 07/13/17 08:00 08/12/17 08:59 07/15/17 08:29 20 MG Levothyroxine Sodium (Synthroid Tab) 75 mcg DAILYBB PO 07/13/17 06:30 08/12/17 06:29 07/15/17 06:48 75 MCG Metoprolol Succinate (Toprol Xl Tab) 12.5 mg BID PO 07/12/17 21:00 08/11/17 20:59 07/15/17 19:59 12.5 MG Venlafaxine HCl (effeXOR EXTENDED REL CAP) 37.5 mg DAILY PO 07/13/17 08:00 08/12/17 08:59 07/15/17 08:29 37.5 MG Warfarin Sodium (Coumadin Tab) 2.5 mg DAILY@1600 PO 07/13/17 16:00 08/12/17 15:59 07/15/17 17:38 2.5 MG Ceftriaxone Sodium 1 gm/ Dextrose 50 ml @ 100 mls/hr Q24H IV 07/13/17 17:00 07/22/17 16:59 07/15/17 17:38 100 MLS/HR Miscellaneous (Iv Fluids Completed) 1 ea PRN PRN N/A 07/12/17 22:15 07/12/18 22:14 07/13/17 10:58 1 EA Enteral Nutritional Formula (Boost Breeze Nutritional Drink) 1 box TID PO 07/14/17 14:00 08/13/17 13:59 07/15/17 19:58 1 BOX Vancomycin HCl (Vancomycin Oral Soln) 250 mg QID PO 07/14/17 17:00 07/24/17 16:59 07/15/17 19:58 250 MG Raspberry (Raspberry Syrup 5ml Cup) 5 ml QID PO 07/14/17 17:00 07/28/17 16:59 07/15/17 19:58 5 ML Potassium Chloride (Klor-Con Tab) 40 meq BID PO 07/15/17 20:00 08/14/17 19:59 07/15/17 19:58 40 MEQ Objective Vital Signs Date Time Temp Pulse Resp B/P (MAP) Pulse Ox O2 Delivery O2 Flow Rate FiO2 07/15/17 19:57 78 173/79 (110) 07/15/17 16:00 95 Room Air 07/15/17 15:10 36.3 81 20 127/64 (85) 97 Room Air 07/15/17 08:00 93 Room Air 07/15/17 07:23 36.3 78 20 180/74 (109) 93 Room Air 07/15/17 00:00 36.5 73 20 156/81 (106) 94 Room Air 07/15/17 00:00 Room Air Physical Exam Comments: General Appearance: WD/WN, no apparent distress Eyes: normal inspection ENT: normal ENT inspection Neck: supple, no adenopathy Respiratory/Chest: chest non-tender, lungs clear, normal breath sounds Cardiovascular: regular rate, rhythm, no edema, no JVD Abdomen: normal bowel sounds, soft, + tenderness (in epigastric region) Extremities: normal range of motion Skin: normal color Lymphatic: no adenopathy Laboratory Results Last 24 Hours Test 07/15/17 07:44 White Blood Count 9.37 K/uL Red Blood Count 4.05 M/uL Hemoglobin 12.2 g/dL Hematocrit 35.9 % Mean Corpuscular Volume 88.6 fL Mean Corpuscular Hemoglobin 30.1 pg Mean Corpuscular Hemoglobin Concent 34.0 g/dl Platelet Count 224 K/uL Mean Platelet Volume 9.5 fL Neutrophils (%) (Auto) 65.8 % Lymphocytes (%) (Auto) 10.8 % Monocytes (%) (Auto) 9.9 % Eosinophils (%) (Auto) 12.9 % Basophils (%) (Auto) 0.3 % Neutrophils # (Auto) 6.16 K/uL Lymphocytes # (Auto) 1.01 K/uL Monocytes # (Auto) 0.93 K/uL Eosinophils # (Auto) 1.21 K/uL Basophils # (Auto) 0.03 K/uL RDW Standard Deviation 41.6 fL RDW Coefficient of Variation 12.8 % Immature Granulocyte % (Auto) 0.3 % Immature Granulocyte # (Auto) 0.03 K/uL Sodium Level 140 mmol/L Potassium Level 3.5 mmol/L Chloride Level 105 mmol/L Carbon Dioxide Level 28 mmol/L Anion Gap 6.0 mmol/L Blood Urea Nitrogen 4 mg/dl Creatinine 0.52 mg/dl Est Creatinine Clear Calc Drug Dose 56.2 ml/min Estimated GFR () 99.6 Estimated GFR (Non- 85.9 BUN/Creatinine Ratio 7.1 Random Glucose 89 mg/dl Calcium Level 8.0 mg/dl Assessment and Plan C. Diff Colitis in an 86 y/o F Hx recent CVA, mitral regurge, CAD, HPL, hypothyroidism. The pt was treated for a UTI with Keflex the previous week. She has since developed diffuse abdominal pain, diarrhea and fevers a reported by her standard machine stitcher. She is a poor historian and seems to have some difficulty gathering her thoughts, although she is able to provide a past history and answers questions appropriately. She denies CP, cough or SOB. She has had some persistent dysuria. 1) C. Diff Colitis/abd pain/diarrhea - likely related to antibiotic use. C diff was positive in stools. Clinical picture also looks like C. diff. Will continue contact precautions. Patient has improved today. Placed on PO Flagyl, but developed bloody stools Switched to vancomycin yesterday. will continue on vanco Appears to be somewhat improving. On clear liquids, will advance diet as her diarrhea improves. 2) Hypokalemia Likely from diarrhea. On potassium in IVF and oral intake. It improved, but again became borerline low. restarted IVF with potassium 3) UTI - persists - Concerned over possibly having pyeloneprhitis given her UA results and fact that she did not improve with oral antibiotics. placed on Ceftriaxone pending cultures 4) PAF - pt is on Coumadin although she states that this is due to her valve repair. Her INR is subtherapeutic - she will receive an additional dose of Coumadin and a dose of Lovenox. INR will be repeated AM. 5) MV repair - as above, we will anticoagulate due to a subtherapeutic INR. 6) Recent CVA, dementia - Has 28/02 care at home. will obtain PT/OT Full code - Coumadin prophylaxis May be discharged tomorrow or tuesday. Continued [facility] stay due to: home environment unsafe for pt Discharge planning: uncertain
[2017-07-16 00:30] VITALS: BP 162/77; PULSE 88; TEMP 36.5; O2SAT 91
[2017-07-16] MEDS: LEVOTHYROXINE 75 MCG TAB PO SCH (06:41)
[2017-07-16 07:31] VITALS: BP 155/82; PULSE 82; TEMP 36.8; O2SAT 96
[2017-07-16 07:43] LABS: BASO % 0.4 %; BASO ABS # 0.03 K/uL (0-0.2); COMPLETE YES; EOS % 13.9 %; HEMATOCRIT 37.5 % (37-47); IG% 0.2 %; LYMPH % 16.3 %; LYMPH ABS # 1.31 K/uL (1.2-3.4); MEAN CELL VOLUME 88.2 fL (80-100); MEAN CORPUSCULAR HEMOGLOBIN 29.6 pg (25-34); MEAN CORPUSCULAR HGB CONC 33.6 g/dl (32-36); MEAN PLATELET VOLUME 9.2 fL (7.4-10.4); NEUT % 58.2 %; PLATELET COUNT 222 K/uL (130-400); RED BLOOD COUNT 4.25 M/uL (4.2-5.4); WHITE BLOOD COUNT 8.03 K/uL (4.8-10.8)
[2017-07-16 07:58] LABS: PROTHROMBIN TIME (PATIENT) 39.6 SECONDS (9.0-12.0)
[2017-07-16 08:10] LABS: BUN/CREATININE RATIO 5.2 (10-20); CALCIUM 8.4 mg/dl (8.5-10.1); CREATININE 0.56 mg/dl (0.60-1.20); MAGNESIUM 1.6 mg/dl (1.8-2.4)
[2017-07-16 08:19] LABS: INR 3.9 (0.9-1.1)
[2017-07-16] MEDS: ASPIRIN 81 MG ECTAB PO SCH (08:51)
[2017-07-16] MEDS: BOOST BREEZE NUTRITION DRINK 1 BOX PO SCH (08:51)
[2017-07-16] MEDS: VENLAFAXINE HCL XR 37.5 MG CAPXR PO SCH (08:52)
[2017-07-16] MEDS: FAMOTIDINE 20 MG TAB PO SCH (08:52)
[2017-07-16] MEDS: POTASSIUM CHLORIDE 20 MEQ TABCR PO SCH ×2 (08:52→20:39)
[2017-07-16] MEDS: ATORVASTATIN 10 MG TAB PO SCH (08:52)
[2017-07-16] MEDS: RASPBERRY SYRUP 5 ML UDP PO SCH ×4 (08:53→20:39)
[2017-07-16] MEDS: VANCOMYCIN HCL 250 MG/5 ML SOLN PO SCH ×4 (08:53→20:39)
[2017-07-16] MEDS: METOPROLOL SUCC 25MG EXT REL TAB PO SCH ×2 (08:53→20:42)
[2017-07-16 14:36] VITALS: BP_SYST 116; BP_SYST 163; BP_DIAS 69; BP_DIAS 91; PULSE 104; PULSE 80; TEMP 36.5; TEMP 36.7; O2SAT 92; O2SAT 98
[2017-07-16] MEDS: BOOST PLUS VANILLA PO SCH ×4 (15:23→20:38)
[2017-07-16 16:00] VITALS: O2SAT 98
[2017-07-16] MEDS: WARFARIN SOD 2.5 MG TAB PO SCH (16:00)
[2017-07-16] MEDS: CEFTRIAXONE SOD INJ 1 GM in DEXTROSE 5% ADD-VANTAGE 50ML 50 ML IV SCH (17:31)
[2017-07-16 20:41] VITALS: BP 165/80; PULSE 81
[2017-07-16] MEDS: DiphenhydrAMINE 2%/ZINC 0.1% CREAM 28GM TUBE EXT PRN (21:09)
--- NOTE | 2017-07-16 21:20 | Progress Note ---
Subjective Date of Service: Jul 16, 2017. Subjective Pt evaluation today including: conversation w/ patient, physical exam, chart review 86 year old female continues to complain of loose stool. But overall, she states that she is feeling better. Patient denies any fever, chills, nausea, or vomiting. Problem List Medical Problems: (1) Atrial fibrillation Status: Acute (2) Confusion Status: Acute (3) Dehydration Status: Acute (4) Palpitations Status: Acute (5) UTI (urinary tract infection) Status: Acute (6) UTI (urinary tract infection) Status: Acute Review of Systems Constitutional: No fever, No chills Respiratory: No cough, No sputum Cardiac: No chest pain Abdomen: No see HPI, No pain, No nausea Musculoskeletal: No joint pain Neurologic: No memory loss, No paralysis Endo: No fatigue Skin: No rash, No itch All Other Systems: Reviewed and Negative Medications Current Inpatient Medications Medications (Trade) Dose Ordered Sig/Garrick Route Start Time Stop Time Status Last Admin Dose Admin Acetaminophen (Tylenol Tab) 650 mg Q4H PRN PO 07/12/17 19:30 08/11/17 19:29 07/13/17 08:28 650 MG Al Hydrox/Mg Hydrox/Simethicone (Maalox Max Susp) 15 ml Q4H PRN PO 07/12/17 19:30 08/11/17 19:29 Magnesium Hydroxide (Milk Of Magnesia Susp) 30 ml Q6H PRN PO 07/12/17 19:30 08/11/17 19:29 Polyethylene (Miralax Powder Packet) 17 gm DAILY PRN PO 07/12/17 19:30 08/11/17 19:29 Ondansetron HCl (Zofran Inj) 4 mg Q6H PRN IV 07/12/17 19:30 08/11/17 19:29 07/13/17 08:27 4 MG Aspirin (Ecotrin Tab) 81 mg DAILY PO 07/13/17 08:00 08/12/17 08:59 07/16/17 08:51 81 MG Atorvastatin Calcium (Lipitor Tab) 10 mg DAILY PO 07/13/17 08:00 08/12/17 08:59 07/16/17 08:52 10 MG Famotidine (Pepcid Tab) 20 mg DAILY PO 07/13/17 08:00 1/5/18 08:59 07/16/17 08:52 20 MG Levothyroxine Sodium (Synthroid Tab) 75 mcg DAILYBB PO 07/13/17 06:30 08/12/17 06:29 07/17/17 06:14 75 MCG Metoprolol Succinate (Toprol Xl Tab) 12.5 mg BID PO 07/12/17 21:00 08/11/17 20:59 07/16/17 20:42 12.5 MG Venlafaxine HCl (effeXOR EXTENDED REL CAP) 37.5 mg DAILY PO 07/13/17 08:00 08/12/17 08:59 07/16/17 08:52 37.5 MG Warfarin Sodium (Coumadin Tab) 2.5 mg DAILY@1600 PO 07/13/17 16:00 08/12/17 15:59 07/15/17 17:38 2.5 MG Ceftriaxone Sodium 1 gm/ Dextrose 50 ml @ 100 mls/hr Q24H IV 07/13/17 17:00 07/22/17 16:59 07/16/17 17:31 100 MLS/HR Miscellaneous (Iv Fluids Completed) 1 ea PRN PRN N/A 07/12/17 22:15 07/12/18 22:14 07/13/17 10:58 1 EA Vancomycin HCl (Vancomycin Oral Soln) 250 mg QID PO 07/14/17 17:00 07/24/17 16:59 07/16/17 20:39 250 MG Raspberry (Raspberry Syrup 5ml Cup) 5 ml QID PO 07/14/17 17:00 07/28/17 16:59 07/16/17 20:39 5 ML Potassium Chloride (Klor-Con Tab) 40 meq BID PO 07/15/17 20:00 08/14/17 19:59 07/16/17 20:39 40 MEQ Diphenhydramine HCl (Benadryl Extra Strength Cream) 1 appln Q8H PRN EXT 07/15/17 21:45 08/14/17 21:44 07/17/17 06:16 1 APPLN Enteral Nutritional Formula (Boost Plus Vanilla) 1 can TID PO 07/16/17 14:00 08/15/17 13:59 07/16/17 20:38 1 CAN Objective Vital Signs Date Time Temp Pulse Resp B/P (MAP) Pulse Ox O2 Delivery O2 Flow Rate FiO2 07/16/17 20:41 81 165/80 (108) 07/16/17 16:00 98 Room Air 07/16/17 14:36 36.5 80 18 163/91 (115) 98 Room Air 07/16/17 09:33 Room Air 07/16/17 07:31 36.8 82 20 155/82 (106) 96 07/16/17 00:30 36.5 88 18 162/77 (105) 91 Room Air 07/16/17 00:00 Room Air Physical Exam Comments: General Appearance: WD/WN, no apparent distress Eyes: normal inspection ENT: normal ENT inspection Neck: supple, no adenopathy Respiratory/Chest: chest non-tender, lungs clear, normal breath sounds Cardiovascular: regular rate, rhythm, no edema, no JVD Abdomen: normal bowel sounds, soft, no tenderness Extremities: normal range of motion Skin: normal color Lymphatic: no adenopathy Laboratory Results Last 24 Hours Test 07/16/17 07:28 White Blood Count 8.03 K/uL Red Blood Count 4.25 M/uL Hemoglobin 12.6 g/dL Hematocrit 37.5 % Mean Corpuscular Volume 88.2 fL Mean Corpuscular Hemoglobin 29.6 pg Mean Corpuscular Hemoglobin Concent 33.6 g/dl Platelet Count 222 K/uL Mean Platelet Volume 9.2 fL Neutrophils (%) (Auto) 58.2 % Lymphocytes (%) (Auto) 16.3 % Monocytes (%) (Auto) 11.0 % Eosinophils (%) (Auto) 13.9 % Basophils (%) (Auto) 0.4 % Neutrophils # (Auto) 4.67 K/uL Lymphocytes # (Auto) 1.31 K/uL Monocytes # (Auto) 0.88 K/uL Eosinophils # (Auto) 1.12 K/uL Basophils # (Auto) 0.03 K/uL RDW Standard Deviation 41.5 fL RDW Coefficient of Variation 13.1 % Immature Granulocyte % (Auto) 0.2 % Immature Granulocyte # (Auto) 0.02 K/uL Prothrombin Time 39.6 SECONDS Prothromb Time International Ratio 3.9 Sodium Level 141 mmol/L Potassium Level 4.0 mmol/L Chloride Level 109 mmol/L Carbon Dioxide Level 26 mmol/L Anion Gap 6.0 mmol/L Blood Urea Nitrogen 3 mg/dl Creatinine 0.56 mg/dl Est Creatinine Clear Calc Drug Dose 52.2 ml/min Estimated GFR () 97.2 Estimated GFR (Non- 83.8 BUN/Creatinine Ratio 5.2 Random Glucose 89 mg/dl Calcium Level 8.4 mg/dl Magnesium Level 1.6 mg/dl Assessment and Plan C. Diff Colitis in an 86 y/o F Hx recent CVA, mitral regurge, CAD, HPL, hypothyroidism. The pt was treated for a UTI with Keflex the previous week. She has since developed diffuse abdominal pain, diarrhea and fevers a reported by her primary care coordinator. She is a poor historian and seems to have some difficulty gathering her thoughts, although she is able to provide a past history and answers questions appropriately. She denies CP, cough or SOB. She has had some persistent dysuria. 1) C. Diff Colitis/abd pain/diarrhea - likely related to antibiotic use. Improving with PO vanco Goal is to continue up to 10 days of treatment. C diff was positive in stools. Clinical picture also looks like C. diff. Will continue contact precautions. Initially placed on PO Flagyl, but developed bloody stools Switched to vancomycin 2 days ago. will continue on vanco will continue to advance diet 2) Hypokalemia improved. will monitor. continue to replace. 3) UTI - persists - Concerned over possibly having pyeloneprhitis given her UA results and fact that she did not improve with oral antibiotics. placed on Ceftriaxone will repeat Urine analysis today 4) PAF - INR is supratherapeutic. will hold todays dose. 5) MV repair - as above, we will anticoagulate due to a subtherapeutic INR. 6) Recent CVA, dementia - Has 28/02 care at home. will obtain PT/OT Full code - Coumadin prophylaxis May be discharged tomorrow as home health services not ready today. Continued [facility] stay due to: home environment unsafe for pt Discharge planning: uncertain
[2017-07-16 22:27] LABS: URINE APPEARANCE CLEAR (CLEAR); URINE BILIRUBIN NEG (NEG); URINE COLOR YELLOW; URINE NITRITE NEG (NEG); URINE PH 6.5 (4.5-7.5); URINE SPECIFIC GRAVITY 1.013 (1.000-1.030); UROBILINOGEN NEG (NEG)
[2017-07-16 22:28] LABS: MANUAL MICROSCOPIC REQUIRED? NO; REVIEW REQ? NO
[2017-07-16 23:18] VITALS: BP 145/75; PULSE 78; TEMP 36.3; O2SAT 97
[2017-07-17] MEDS: LEVOTHYROXINE 75 MCG TAB PO SCH (06:14)
[2017-07-17] MEDS: DiphenhydrAMINE 2%/ZINC 0.1% CREAM 28GM TUBE EXT PRN ×2 (06:16→13:39)
[2017-07-17 07:43] VITALS: BP 119/64; PULSE 76; TEMP 36.3; O2SAT 94
[2017-07-17 08:50] LABS: INR 3.4 (0.9-1.1); PROTHROMBIN TIME (PATIENT) 34.7 SECONDS (9.0-12.0)
[2017-07-17] MEDS: METOPROLOL SUCC 25MG EXT REL TAB PO SCH ×2 (10:22→20:29)
[2017-07-17] MEDS: VENLAFAXINE HCL XR 37.5 MG CAPXR PO SCH (10:22)
[2017-07-17] MEDS: ASPIRIN 81 MG ECTAB PO SCH (10:22)
[2017-07-17] MEDS: VANCOMYCIN HCL 250 MG/5 ML SOLN PO SCH ×4 (10:22→20:29)
[2017-07-17] MEDS: RASPBERRY SYRUP 5 ML UDP PO SCH ×4 (10:22→20:29)
[2017-07-17] MEDS: BOOST PLUS VANILLA PO SCH ×6 (10:22→20:00)
[2017-07-17] MEDS: POTASSIUM CHLORIDE 20 MEQ TABCR PO SCH ×2 (10:23→20:28)
[2017-07-17] MEDS: ATORVASTATIN 10 MG TAB PO SCH (10:23)
[2017-07-17] MEDS: FAMOTIDINE 20 MG TAB PO SCH (10:23)
--- NOTE | 2017-07-17 12:20 | Progress Note ---
Subjective Date of Service: Jul 17, 2017. Subjective Pt evaluation today including: conversation w/ patient, physical exam, chart review 86 yo female presents with UTI and C. Diff colitis. Patient today feels like she returned to her baseline. Patient denies any fever , chills, nausea, and vomiting. Patient has continued with a soft diet and does not want to go back to regular food as of yet. ROS today was negative. Problem List Medical Problems: (1) Atrial fibrillation Status: Acute (2) Confusion Status: Acute (3) Dehydration Status: Acute (4) Palpitations Status: Acute (5) UTI (urinary tract infection) Status: Acute (6) UTI (urinary tract infection) Status: Acute Review of Systems All Other Systems: Reviewed and Negative Medications Current Inpatient Medications Medications (Trade) Dose Ordered Sig/Garrick Route Start Time Stop Time Status Last Admin Dose Admin Acetaminophen (Tylenol Tab) 650 mg Q4H PRN PO 07/12/17 19:30 08/11/17 19:29 07/13/17 08:28 650 MG Al Hydrox/Mg Hydrox/Simethicone (Maalox Max Susp) 15 ml Q4H PRN PO 07/12/17 19:30 08/11/17 19:29 Magnesium Hydroxide (Milk Of Magnesia Susp) 30 ml Q6H PRN PO 07/12/17 19:30 08/11/17 19:29 Polyethylene (Miralax Powder Packet) 17 gm DAILY PRN PO 07/12/17 19:30 08/11/17 19:29 Ondansetron HCl (Zofran Inj) 4 mg Q6H PRN IV 07/12/17 19:30 08/11/17 19:29 07/13/17 08:27 4 MG Aspirin (Ecotrin Tab) 81 mg DAILY PO 07/13/17 08:00 08/12/17 08:59 07/17/17 10:22 81 MG Atorvastatin Calcium (Lipitor Tab) 10 mg DAILY PO 07/13/17 08:00 08/12/17 08:59 07/17/17 10:23 10 MG Famotidine (Pepcid Tab) 20 mg DAILY PO 07/13/17 08:00 08/12/17 08:59 07/17/17 10:23 20 MG Levothyroxine Sodium (Synthroid Tab) 75 mcg DAILYBB PO 07/13/17 06:30 08/12/17 06:29 07/17/17 06:14 75 MCG Metoprolol Succinate (Toprol Xl Tab) 12.5 mg BID PO 07/12/17 21:00 08/11/17 20:59 07/17/17 10:22 12.5 MG Venlafaxine HCl (effeXOR EXTENDED REL CAP) 37.5 mg DAILY PO 07/13/17 08:00 08/12/17 08:59 07/17/17 10:22 37.5 MG Warfarin Sodium (Coumadin Tab) 2.5 mg DAILY@1600 PO 07/13/17 16:00 08/12/17 15:59 07/15/17 17:38 2.5 MG Ceftriaxone Sodium 1 gm/ Dextrose 50 ml @ 100 mls/hr Q24H IV 07/13/17 17:00 07/22/17 16:59 07/16/17 17:31 100 MLS/HR Miscellaneous (Iv Fluids Completed) 1 ea PRN PRN N/A 07/12/17 22:15 07/12/18 22:14 07/13/17 10:58 1 EA Vancomycin HCl (Vancomycin Oral Soln) 250 mg QID PO 07/14/17 17:00 07/24/17 16:59 07/17/17 10:22 250 MG Raspberry (Raspberry Syrup 5ml Cup) 5 ml QID PO 07/14/17 17:00 07/28/17 16:59 07/17/17 10:22 5 ML Potassium Chloride (Klor-Con Tab) 40 meq BID PO 07/15/17 20:00 08/14/17 19:59 07/17/17 10:23 40 MEQ Diphenhydramine HCl (Benadryl Extra Strength Cream) 1 appln Q8H PRN EXT 07/15/17 21:45 08/14/17 21:44 07/17/17 06:16 1 APPLN Enteral Nutritional Formula (Boost Plus Vanilla) 1 can TID PO 07/16/17 14:00 08/15/17 13:59 07/17/17 10:22 1 CAN Lactobacillus Acidophilus (Lactinex Granules Pack) 1 gm TIDM PO 07/17/17 12:00 08/16/17 11:59 UNV Objective Vital Signs Date Time Temp Pulse Resp B/P (MAP) Pulse Ox O2 Delivery O2 Flow Rate FiO2 07/17/17 10:43 Room Air 07/17/17 07:43 36.3 76 18 119/64 (82) 94 Room Air 07/17/17 04:00 Room Air 07/16/17 23:18 36.3 78 18 145/75 (98) 97 Room Air 07/16/17 20:41 81 165/80 (108) 07/16/17 16:00 98 Room Air 07/16/17 14:36 36.5 80 18 163/91 (115) 98 Room Air Physical Exam Comments: General Appearance: WD/WN, no apparent distress, + pertinent finding (Thin, elderly female in no distress) Head: normocephalic Eyes: normal inspection ENT: normal ENT inspection, pharynx normal Neck: supple, no JVD Respiratory/Chest: chest non-tender, lungs clear, normal breath sounds, + pertinent finding (large sternotomy scar in central chest) Cardiovascular: regular rate, rhythm, no edema, no gallop, no JVD, + systolic murmur Abdomen/GI: normal bowel sounds, non tender, soft Extremities/Musculoskeletal: normal inspection, no calf tenderness, normal capillary refill Neurologic/Psych: + pertinent finding (There is a degree of global ataxia and she seems to favor her L side - there are no acute deficits. She is AAO x 2 -s) Skin: normal color, warm/dry, no rash Laboratory Results Last 24 Hours Test 07/16/17 21:06 07/17/17 08:25 Urine Color YELLOW Urine Appearance CLEAR Urine pH 6.5 Urine Specific [place] 1.013 Urine Protein NEG Urine Glucose (UA) NEG Urine Ketones NEG Urine Occult Blood NEG Urine Nitrite NEG Urine Bilirubin NEG Urine Urobilinogen NEG Urine Leukocyte Esterase TRACE Urine WBC (Auto) 1-5 /hpf Urine RBC (Auto) 0-4 /hpf Urine Hyaline Casts (Auto) 0 /lpf Urine Epithelial Cells (Auto) 10-20 /lpf Urine Bacteria (Auto) NEG Prothrombin Time 34.7 SECONDS Prothromb Time International Ratio 3.4 Assessment and Plan C. Diff Colitis in an 86 y/o F Hx recent CVA, mitral regurge, CAD, HPL, hypothyroidism. The pt was treated for a UTI with Keflex the previous week. She has since developed diffuse abdominal pain, diarrhea and fevers a reported by her solar panel installer. She is a poor historian and seems to have some difficulty gathering her thoughts, although she is able to provide a past history and answers questions appropriately. She denies CP, cough or SOB. She has had some persistent dysuria. 1) C. Diff Colitis/abd pain/diarrhea - likely related to antibiotic use. Improving with PO vanco. Currently on day 3/10. Started on 12/7 in the afternoon. Goal is to continue up to 10 days of treatment. C diff was positive in stools. Clinical picture also looked like C. diff. Will continue contact precautions. Initially placed on PO Flagyl, but developed bloody stools will continue to advance diet reordered lactobacillus 2) Hypokalemia improved. will monitor. 3) UTI - improved. Patient has had multiple reinfections of likely cystitis Patient has received 4 doses of rocephin while here. Culture finalized. Urine improved today as well. Doubt pyelonephritis as patient did not have costovertebral tenderness, fever chills. However, given the significance of her urine, unsure if this was perhaps an early episode. CT scan did not show any abscess. switch to PO cephalexin tonight. May benefit by prophylactic antibiotics given her recurrent infections. Will see urologist as an outpatient. 4) PAF - INR is supratherapeutic. will hold todays dose. 5) MV repair - as above, we will anticoagulate due to a subtherapeutic INR. 6) Recent CVA, dementia - Has 24/7 care at home. will obtain PT/OT Full code - Coumadin prophylaxis Home health services are not available today. Will discharge patient home tomorrow. Informed daughter. Reordered Physical therapy as she no longer has loose stools. Continued [facility] stay due to: home environment unsafe for pt Discharge planning: uncertain
[2017-07-17] MEDS: LACTOBACILLUS ACIDOPHILUS 1 GM PACK PO SCH ×2 (14:44→16:32)
[2017-07-17 16:00] VITALS: O2SAT 94
[2017-07-17] MEDS: WARFARIN SOD 2.5 MG TAB PO SCH (16:32)
[2017-07-17 20:26] VITALS: BP 115/73; PULSE 76
[2017-07-17] MEDS: CEPHALEXIN MONOHYDRATE 500 MG CAP PO SCH (20:27)
[2017-07-17 23:59] VITALS: BP 121/71; PULSE 74; TEMP 36.4; O2SAT 94
[2017-07-18] MEDS: LEVOTHYROXINE 75 MCG TAB PO SCH (06:27)
[2017-07-18 07:36] VITALS: BP 134/75; PULSE 71; TEMP 36.7; O2SAT 96
[2017-07-18] MEDS: LACTOBACILLUS ACIDOPHILUS 1 GM PACK PO SCH ×2 (08:24→12:02)
[2017-07-18] MEDS: VENLAFAXINE HCL XR 37.5 MG CAPXR PO SCH (08:24)
[2017-07-18] MEDS: ATORVASTATIN 10 MG TAB PO SCH (08:24)
[2017-07-18] MEDS: ASPIRIN 81 MG ECTAB PO SCH (08:24)
[2017-07-18] MEDS: FAMOTIDINE 20 MG TAB PO SCH (08:24)
[2017-07-18] MEDS: RASPBERRY SYRUP 5 ML UDP PO SCH ×2 (08:25→12:02)
[2017-07-18] MEDS: CEPHALEXIN MONOHYDRATE 500 MG CAP PO SCH (08:25)
[2017-07-18] MEDS: POTASSIUM CHLORIDE 20 MEQ TABCR PO SCH (08:25)
[2017-07-18] MEDS: METOPROLOL SUCC 25MG EXT REL TAB PO SCH (08:26)
[2017-07-18] MEDS: BOOST PLUS VANILLA PO SCH ×4 (08:31→12:25)
[2017-07-18] MEDS: VANCOMYCIN HCL 250 MG/5 ML SOLN PO SCH ×2 (08:31→12:02)
[2017-07-18] MEDS ORDERED: VANC5CAP PO (09:26)
[2017-07-18] MEDS ORDERED: LCTXP PO (09:26)
--- NOTE | 2017-07-18 10:54 | Discharge Instructions ---
Discharge Instructions Date of Service Jul 18, 2017. Admission Reason for Admission: Colitis, Uti Discharge Discharge Diagnosis / Problem: Clostridium difficile Colitis Discharge Goals Goal(s): Decrease discomfort, Improve function, Increase independence Activity Recommendations Activity Limitations: resume your previous activity . Instructions / Follow-Up Instructions / Follow-Up Clostridium Difficile Colitis: - This condition is normally caused by antibiotics that cause the good bacteria in the intestines to be killed off allowing C. diff to grow. - Ironically this condition is treated by a different antibiotic. You will continue Vancomycin 125 mg four times a day for 14 days total. You will finish this medication on 07/27/17 - We will provide a prescription for probiotics (good bacteria). You can use these or you can get them over the counter and continue to take to help with the infection - Recommend to stay hydrated and continue to eat foods that do not upset your stomach - We will have you follow-up with your family doctor to monitor this condition - Your stool should continue to get more formed and should reduce in number over the next few days Urinary Tract Infection: - You have completed the treatment for the urinary tract infection - Recommend to see a urologist to better prevent returning urinary tract infections - your family doctor can help set this up too. You may continue taking your previous medications as prescribed. Recommend to see your family doctor in the next 7-10 days Current Hospital Diet Patient's current hospital diet: AHA Diet (Heart Healthy) Discharge Diet Recommended Diet: AHA Diet (Heart Healthy) Pending Studies Studies pending at discharge: no Medical Emergencies . Who to Call and When: Medical Emergencies: If at any time you feel your situation is an emergency, please call 911 immediately. . Non-Emergent Contact Non-Emergency issues call your: Primary Care Provider Call Non-Emergent contact if: you have a fever, your pain is concerning you, you have any medication questions . . "Provider Documentation" section prepared by Arminda Ortez. . VTE Core Measure Inpt VTE Proph given/why not?: Warfarin (Coumadin)
[2017-07-18] MEDS ORDERED: Boost Plus Vanilla PO (10:58)
[2017-07-18 11:28] VITALS: BP 134/75; PULSE 71; TEMP 36.7; O2SAT 96
--- NOTE | 2017-07-18 13:09 | Discharge Summary ---
Discharge Summary Date of Service Jul 18, 2017. Discharge Summary Admission Date: Jul 13, 2017 at 16:54 Discharge Date: Jul 18, 2017 Discharge Disposition: Home with services Principal Diagnosis: C. Diff Colitis Problems/Secondary Diagnoses: 1. CVA (December 2016) - Physically resolved; Son notes marked cognitive decline since 2. Dementia 3. Paroxysmal Atrial Fibrillation 4. Mitral Regurgitation S/P Repair (Aug 2014) 5. Hypothyroidism 6. Possible ID 7. HLD Immunizations: Have You Had Influenza Vaccine: Yes History of Tetanus Vaccine?: Unknown History of Pneumococcal: Yes History of Hepatitis B Vaccine: Unknown Procedures: ABD/PELVIS IV CONTRAST ONLY FINDINGS: Mild bibasilar interstitial change. Mild pleural reactive change left lung base. Liver spleen and pancreas are uniform. Kidneys negative for hydronephrosis. Enhancement characteristics are uniform. Perinephric spaces are unremarkable. There is moderate generalized wall thickening of the bulk of the colon including sigmoid. This appearance suggests a generalized nonspecific colitis. No evidence for abscess collection or obstruction. No significant small bowel distention. No free fluid within the pelvic cul-de-sac. IMPRESSION: 1. Generalized nonspecific colitis. 2. Moderate colonic wall thickening with minimal pericolonic infiltrative change. 3. No evidence for abscess collection or obstruction. 4. Study is otherwise negative HEAD WITHOUT CONTRAST (CT) Findings: Moderate mucosal thickening of the sphenoid and ethmoid sinuses. Mastoid air cells are clear. Old bifrontal infarcts. Old right temporoparietal infarct. No acute intracranial hemorrhage. Several small old periventricular infarct unchanged. No evidence for new or interval process. Impression: 1. Multiple old infarcts. 2. No acute intracranial abnormality. 3. Moderate mucosal thickening of the sphenoid and ethmoid sinuses. Medication Reconciliation New Medications: Vancomycin Hcl (Vancomycin) 125 Mg Cap 125 MG PO QID, #38 TAB Lactobacillus Acidophilus (Lactinex Granules) 1 Gm Pack 1 GM PO TIDM for 14 Days [Boost Plus Vanilla] () 1 CAN LIQD 1 CAN PO TID for 30 Days Continued Medications: Aspirin (Aspirin Ec) 81 Mg Tab 81 MG PO DAILY Atorvastatin (Lipitor) 10 Mg Tab 10 MG PO DAILY, TAB Estrogens, Conjugated (Premarin) 14 Appln/30 Gm Cr 1 DOSE PV 2XWK Famotidine (Pepcid) 20 Mg Tab 20 MG PO DAILY, TAB Levothyroxine Sodium (Levothyroxine Sodium) 75 Mcg Tab 75 MG PO DAILY for 90 Days, TAB 3 Refills Metoprolol Succinate (Toprol Xl) 25 Mg Tabcr 12.5 MG PO BID, #30 TAB Venlafaxine Hcl (Effexor) 37.5 Mg Tab 37.5 MG PO DAILY, TAB Warfarin Sod (Coumadin) 2.5 Mg Tab 5 MG PO WK, TAB Warfarin Sod (Coumadin) 2.5 Mg Tab 2.5 MG PO 6XWK, TAB Discharge Exam Review of Systems: Constitutional: No fever, No chills ENT: No nasal symptoms, No sore throat Respiratory: No cough, No shortness of breath Cardiovascular: No chest pain Abdomen: + diarrhea, No pain, No nausea, No vomiting, No constipation, No GI bleeding Musculoskeletal: No swelling, No calf pain Genitourinary - Female: No dysuria Integumentary: No rash Physical Exam: General Appearance: no apparent distress, + thin Eyes: sclerae normal ENT: hearing grossly normal Neck: supple, no JVD, trachea midline Respiratory/Chest: lungs clear, normal breath sounds, no respiratory distress, no accessory muscle use Cardiovascular: regular rate, rhythm, no gallop, no murmur Abdomen / GI: normal bowel sounds, non tender, soft Extremities: no pedal edema Neurologic/Psychiatric: alert, oriented x 3 Skin: normal color, warm/dry Hospital Course ADMISSION: 86 y/o F Hx CVA 12/22, mitral regurge, PAF, CAD, HPL, hypothyroidism , dementia. The pt was treated for a UTI with Keflex the previous week. She has since developed diffuse abdominal pain, diarrhea and fevers as reported by her mail handler equipment operator. She is a poor historian and seems to have some difficulty gathering her thoughts, although she is able to provide a past history and answers questions appropriately. She denies CP, cough or SOB. She has had some persistent dysuria. HOSPITAL COURSE: Ms. Theodore was admitted for C. Diff Colitis after recent Abx use from UTI. She has completed treatment for UTI and will continue on oral Vancomycin for C. Diff. She will complete a course on 07/27 to cover for 14 days. She will be continued on probiotics and Boost supplementation. She was initially had bloody stools but these have resolved. Recommendations given for outpatient urology visit due to recurrent UTIs. Consideration for possible suppressive antibiotics? Patient was seen by PT services that evaluated that she is functionally safe to return home. She does have 24/7 private caregivers. Follow-up appointments set for PCP and coag-clinic. i personally examined pt and verified all patel points w A Pérez PAC feeling better wants to go home extensive discussions vitals noted nad breathing unlabored no pallor or icterus Cdiff colitis - stable for home UTI - finish abx, outpt urology stable for home Total Time Spent: Greater than 30 minutes This includes examination of the patient, discharge planning, medication reconciliation, and communication with other providers. Discharge Instructions Please refer to the electronic Patient Visit Report (Discharge Instructions) for additional information. Additional Copies To Alejandro Quinones M.D.; Virginia Desai, PA
--- NOTE | 2017-07-21 11:17 | EDITING REQUIRED CODING QUERY ---
CODING QUERY To promote full compliance with coding requirements relating to patient care, provider participation is requested in all cases of engineering supervisor uncertainty. Please assist us with the question(s) below: Coding Question(s): Patient admitted with clostridium difficile due to antibiotics. The Discharge Summary documents Myocardial Infarction. Please check below the diagnosis that was treated during this Inpatient Stay. Thank you. Krzysztof Rosales [facility] Physician's Response(s): The patient was treated for PA, Present on Admission The patient was treated for PA, not Present on Admissio ___xx The patient did not have an PA Other/ Please document: Principal Diagnosis: "_that condition established after study, to be chiefly responsible for occasioning the admission of the patient to the hospital for care." Co-Existing Principal Diagnosis: "_when two or more diagnoses equally meet the criteria for principal diagnosis as determined by the circumstances of admission, diagnostic work up, and/or therapy provided, and the Alphabetic Index, Tabular List, or another coding guideline does not provide sequencing direction, any one of the diagnoses may be sequenced first." "When the physician has documented what appears to be a current diagnosis in the body of the record, but has not included the diagnosis in the final diagnostic statement, the physician should be asked whether the diagnosis should be added." (Source Coding Clinic 2 QTR90. p3-4)
== END 2017-07-18 15:40 | disposition home health service (06) | DRG 918 ==
LOC: C.EDB 15:23 → C.4E 19:33 → ENRESERV 19:47 → OBSVTOIN 07-13 16:54
PROVIDERS: ADMIT Internal Medicine; ATTEND Family Medicine
DX: T36.1X1A Poisoning by cephalosporins and other beta-lactam antibiotics, accidental (unintentional), initial encounter (principal); K52.1 Toxic gastroenteritis and colitis; A04.72 Enterocolitis due to Clostridium difficile, not specified as recurrent; N12 Tubulo-interstitial nephritis, not specified as acute or chronic; I48.0 Paroxysmal atrial fibrillation; Z95.2 Presence of prosthetic heart valve; Z87.891 Personal history of nicotine dependence; Z79.82 Long term (current) use of aspirin; Z79.01 Long term (current) use of anticoagulants; Z88.0 Allergy status to penicillin; E86.0 Dehydration; E78.5 Hyperlipidemia, unspecified; E03.9 Hypothyroidism, unspecified; F03.90 Unspecified dementia, unspecified severity, without behavioral disturbance, psychotic disturbance, mood disturbance, and anxiety; I10 Essential (primary) hypertension; Z86.73 Personal history of transient ischemic attack (TIA), and cerebral infarction without residual deficits; Z87.440 Personal history of urinary (tract) infections; E87.6 Hypokalemia; Z79.2 Long term (current) use of antibiotics; Y92.019 Unspecified place in single-family (private) house as the place of occurrence of the external cause

== ENCOUNTER → 2017-08-15 | Outpatient (CLI) | payer OTHER ==
[~2017-08-15] MED LIST changes: +Boost Plus Vanilla PO; +LCTXP PO; +VANC5CAP PO
== END | disposition home or self-care (01) ==
LOC: C.LAB1850 13:45
PROVIDERS: ATTEND Internal Medicine
DX: I10 Essential (primary) hypertension (principal)

== ENCOUNTER 2017-08-28 16:20 | Inpatient (IN) | payer OTHER ==
[~2017-08-28] VITALS: Ht 160 cm; Wt 47.0 kg
[~2017-08-28 16:20] MED LIST changes: -METO25TA3 PO; +METO25TA4 PO
[2017-08-28] MEDS ORDERED: ONDANSETRON INJ 2 MG/ML 2 ML VIAL IV STA (16:37)
[2017-08-28] MEDS ORDERED: SODIUM CHLORIDE 0.9% 1000ML 1,000 ML IV STA (16:37)
[2017-08-28] MEDS ORDERED: OPTIRAY 320 IV PRN (16:45)
[2017-08-28 17:03] LABS: BASO % 0.3 %; BASO ABS # 0.02 K/uL (0-0.2); EOS % 1.4 %; EOS ABS # 0.08 K/uL (0-0.5); HEMATOCRIT 40.2 % (37-47); HEMOGLOBIN 13.2 g/dL (12.0-16.0); IG# 0.01 K/uL (0.00-0.02); LYMPH % 15.3 %; LYMPH ABS # 0.88 K/uL (1.2-3.4); MEAN CELL VOLUME 91.2 fL (80-100); MEAN CORPUSCULAR HEMOGLOBIN 29.9 pg (25-34); MEAN CORPUSCULAR HGB CONC 32.8 g/dl (32-36); MEAN PLATELET VOLUME 10.2 fL (7.4-10.4); MONO % 15.4 %; MONO ABS # 0.89 K/uL (0.11-0.59); NEUT % 67.4 %; NEUT ABS # 3.89 K/uL (1.4-6.5); PLATELET COUNT 177 K/uL (130-400); RED CELL DISTRIBUTION WIDTH CV 13.9 % (11.5-14.5); RED CELL DISTRIBUTION WIDTH SD 47.1 fL (36.4-46.3); WHITE BLOOD COUNT 5.77 K/uL (4.8-10.8)
[2017-08-28 17:25] LABS: ALBUMIN 3.5 gm/dl (3.4-5.0); ALT/SGPT 22 U/L (12-78); BLOOD UREA NITROGEN 24 mg/dl (7-18); CALCIUM 9.3 mg/dl (8.5-10.1); CARBON DIOXIDE 29 mmol/L (21-32); CREATININE 0.85 mg/dl (0.60-1.20); GLUCOSE 139 mg/dl (70-99); LIPASE 129 U/L (73-393); POTASSIUM 3.6 mmol/L (3.5-5.1); SODIUM 137 mmol/L (136-145)
[2017-08-28 17:28] LABS: ALKALINE PHOSPHATASE 74 U/L (45-117); AST/SGOT 27 U/L (15-37); TOTAL PROTEIN 8.2 gm/dl (6.4-8.2)
[2017-08-28 17:31] LABS: INFLUENZA B ANTIGEN Neg for Influ B (NEG)
--- NOTE | 2017-08-28 18:20 | DIAGNOSTIC IMAGING REPORT ---
ABDOMEN AND PELVIS CT WITH IV CONTRAST CT DOSE: 361.46 mGy.cm HISTORY: Acute generalized abdominal pain. Prior appendectomy. abd pain TECHNIQUE: Multiaxial CT images of the abdomen and pelvis were performed following the use of intravenous contrast. A dose lowering technique was utilized adhering to the principles of ALARA. COMPARISON STUDY: CT abdomen and pelvis 07/12/2017 FINDINGS: Lung bases are generally clear. Minimal dependent subsegmental bibasilar atelectasis. Pleural-based linear nodular densities of the right middle lobe seen anteriorly measuring up to 4 mm. These findings suggest scarring, however follow-up can be considered to exclude progressive abnormality. There is no pneumatosis or pneumoperitoneum. Study is limited secondary to positioning of the patient's arms. The imaged inferior cardiac chambers are mildly enlarged. Coronary arterial disease. Gallbladder is partially collapsed. The liver, spleen, pancreas and right adrenal gland are unremarkable. There is mild thickening of the left adrenal gland. There is of cortical scarring are noted within the interpolar and lower pole left kidney. Right kidney is unremarkable. There is no renal calculi or hydronephrosis. Pelvic structures are subvisualized secondary to streak artifact from bilateral hip arthroplasties. There is suggestion of trace fluid within the endometrial canal. No adnexal mass lesions identified. Moderate atherosclerosis and tortuosity of the abdominal aorta. No bulky adenopathy. No bowel obstruction identified. Extensive colonic diverticulosis without CT evidence of acute diverticulitis. There is mild wall thickening with surrounding stranding involving the splenic flexure and descending colon. Soft tissues are unremarkable. The bones appear intact. Bones are moderately demineralized with severe multilevel discogenic degenerative changes. IMPRESSION: 1. Mild wall thickening of the splenic flexure and descending colon may secondary to nondistention, however is suspicious for mild colitis. Infectious, inflammatory or ischemic etiology should be considered. 2. No bowel obstruction. 3. Colonic diverticulosis without CT evidence of acute diverticulitis. 4. Trace fluid within the endometrial canal could be further evaluated with pelvic ultrasound. 5. 4 mm solid pulmonary nodule of the right middle lobe. Electronically signed by: Vargas Mccord M.D. 08/28/2017 6:19 PM Dictated Date/Time: 08/28/2017 6:09 PM
[2017-08-28] MEDS ORDERED: CEFTRIAXONE SOD INJ 1 GM ADDVIAL IV STA (18:56)
[2017-08-28] MEDS ORDERED: OSELTAMIVIR PHOSPHATE 75 MG CAP PO STA (19:01)
--- NOTE | 2017-08-28 19:15 | DIAGNOSTIC IMAGING REPORT ---
CHEST ONE VIEW PORTABLE HISTORY: 86 years-old Female cough acute cough COMPARISON: Chest radiograph 06/18/2017, CT abdomen and pelvis 08/28/2017 TECHNIQUE: Portable AP view of the chest FINDINGS: Left atrial exclusion device is noted. Prior median sternotomy. Indeterminate 2.9 cm opaque structure overlies the right lung base. There is no pneumothorax, pleural effusion, focal airspace consolidation or overt pulmonary edema. Linear subsegmental atelectasis or scarring of the left lower lobe. The bones of the chest appear demineralized. Fusion hardware of the cervical spine. IMPRESSION: Linear subsegmental atelectasis or scarring of the left lower lobe with otherwise clear chest. The above report was generated using voice recognition software. It may contain grammatical, syntax or spelling errors. Electronically signed by: Vargas Mccord M.D. 08/28/2017 7:13 PM Dictated Date/Time: 08/28/2017 7:12 PM
--- NOTE | 2017-08-28 19:24 | EMERGENCY ROOM VISIT NOTE ---
History Report prepared by Lali: Julieth Rdz Under the Supervision of: Angela GiangO. First contact with patient: 16:29 Chief Complaint: VOMITING Stated Complaint: COUGHING,DIARRHEA, THROWING UP, RUNNY NOSE Nursing Triage Summary: Pt ambulatory slowly to triage. N/V started yesterday. Diarrhea today. Cough, runny nose. Denies fevers. History of Present Illness The patient is a 86 year old female who presents to the Emergency Room with complaints of persistent vomiting that began 1 day ago. The patient states that she began having diarrhea today. She notes she has chills and pain with urination itches been present for the past week. She saw her physician for her urinary symptoms to do not treat. The patient states that she had a stroke one year ago, noting she has left sided weakness. Patient also admits to a cough and runny nose which has been present for the past several days. She notes she had open heart surgery and has a hernia. The patient was recently diagnosed with Cdiff. She was treated for C. difficile in early July. Her symptoms have resolved up until today when her diarrhea restarted. She notes she got a flu shot this year. The shaking diffuse body chills has been present for the past week and getting worse. Pt denies sore throat, abdominal pain, headache, change in vision, chest pain, shortness of breath, and melena. Source of History: patient Onset: 1 day ago Position: other (global) Quality: other (vomiting) Timing: other (persistent) Associated Symptoms: + chills, + cough, + diarrhea, + urinary symptoms, No fevers, No headache, No chest pain, No SOB, No abdominal pain, No melena Review of Systems See HPI for pertinent positives & negatives. A total of 10 systems reviewed and were otherwise negative. Past Medical & Surgical Medical Problems: (1) Bronchitis (2) C. difficile colitis (3) C. difficile diarrhea (4) Colitis (5) History of atrial fibrillation (6) Influenza A (7) Mitral valve prolapse (8) Palpitations (9) Skin problem Family History Diabetes mellitus FH: thyroid disease FHx: cancer Lung disease Social History Smoking Status: Never Smoker Alcohol Use: occasionally Drug Use: none Marital Status: Occupation Status: retired Current/Historical Medications Scheduled Aspirin (Aspirin Ec), 81 MG PO DAILY Atorvastatin (Lipitor), 10 MG PO DAILY Estrogens, Conjugated (Premarin), 1 DOSE PV 2XWK Famotidine (Pepcid), 20 MG PO DAILY Lactobacillus Acidophilus (Lactinex Granules), 1 GM PO TIDM Levothyroxine Sodium (Levothyroxine Sodium), 75 MG PO DAILY Metoprolol Succinate (Toprol Xl), 12.5 MG PO BID Venlafaxine Hcl (Effexor), 37.5 MG PO DAILY Warfarin Sod (Coumadin), 2.5 MG PO QAM Allergies Coded Allergies: Codeine (Verified Allergy, Unknown, UNK, 08/28/17) Ferrous Sulfate (Verified Allergy, Unknown, 0, 08/28/17) Folic Acid (Verified Allergy, Unknown, 0, 08/28/17) Macrolides and Ketolides (Verified Allergy, Unknown, `, 08/28/17) Pantoprazole (Verified Allergy, Unknown, 0, 08/28/17) Penicillins (Verified Allergy, Unknown, UNK-TOLERATES CEPHS, 08/28/17) Morphine (Verified Adverse Reaction, Unknown, HYPOTENSION, 08/28/17) HYPOTENSION Physical Exam Vital Signs Date Time Temp Pulse Resp B/P (MAP) Pulse Ox O2 Delivery O2 Flow Rate FiO2 08/28/17 18:00 36.7 77 16 141/60 96 Room Air 08/28/17 16:23 36.2 79 16 137/73 97 Room Air Physical Exam GENERAL: Sitting up in bed, alert, chronically ill- appearing, diffuse shaking in bed EYE EXAM: normal conjunctiva. OROPHARYNX: no exudate, no erythema, lips, buccal mucosa, and tongue normal and mucous membranes are dry NECK: supple, no nuchal rigidity, no adenopathy, non-tender LUNGS: Diminished sounds at bases. Normal chest wall mechanics HEART: no murmurs, S1 normal and S2 normal ABDOMEN: Faint tenderness in right lower quadrant. Abdomen soft, normo-active bowel sounds, no masses, no rebound or guarding. BACK: Back is symmetrical on inspection and there is no deformity, no midline tenderness, no CVA tenderness. SKIN: no rashes and no bruising UPPER EXTREMITIES: upper extremities are grossly normal. LOWER EXTREMITIES: No pitting edema. NEURO EXAM: Awake, alert, and oriented to person, place, but not year. cranial nerves II-XII grossly intact, normal speech, no gross weakness of arms, no gross weakness of legs. Medical Decision & Procedures ER Provider Diagnostic Interpretation: Radiology results as stated below per my review and the radiologist's interpretation: CHEST ONE VIEW PORTABLE HISTORY: 86 years-old Female cough acute cough COMPARISON: Chest radiograph 06/18/2017, CT abdomen and pelvis 08/28/2017 TECHNIQUE: Portable AP view of the chest FINDINGS: Left atrial exclusion device is noted. Prior median sternotomy. Indeterminate 2.9 cm opaque structure overlies the right lung base. There is no pneumothorax, pleural effusion, focal airspace consolidation or overt pulmonary edema. Linear subsegmental atelectasis or scarring of the left lower lobe. The bones of the chest appear demineralized. Fusion hardware of the cervical spine. IMPRESSION: Linear subsegmental atelectasis or scarring of the left lower lobe with otherwise clear chest. The above report was generated using voice recognition software. It may contain grammatical, syntax or spelling errors. Electronically signed by: Vargas Mccord M.D. 08/28/2017 7:13 PM Dictated Date/Time: 08/28/2017 7:12 PM ABDOMEN AND PELVIS CT WITH IV CONTRAST CT DOSE: 361.46 mGy.cm HISTORY: Acute generalized abdominal pain. Prior appendectomy. abd pain TECHNIQUE: Multiaxial CT images of the abdomen and pelvis were performed following the use of intravenous contrast. A dose lowering technique was utilized adhering to the principles of ALARA. COMPARISON STUDY: CT abdomen and pelvis 07/12/2017 FINDINGS: Lung bases are generally clear. Minimal dependent subsegmental bibasilar atelectasis. Pleural-based linear nodular densities of the right middle lobe seen anteriorly measuring up to 4 mm. These findings suggest scarring, however follow-up can be considered to exclude progressive abnormality. There is no pneumatosis or pneumoperitoneum. Study is limited secondary to positioning of the patient's arms. The imaged inferior cardiac chambers are mildly enlarged. Coronary arterial disease. Gallbladder is partially collapsed. The liver, spleen, pancreas and right adrenal gland are unremarkable. There is mild thickening of the left adrenal gland. There is of cortical scarring are noted within the interpolar and lower pole left kidney. Right kidney is unremarkable. There is no renal calculi or hydronephrosis. Pelvic structures are subvisualized secondary to streak artifact from bilateral hip arthroplasties. There is suggestion of trace fluid within the endometrial canal. No adnexal mass lesions identified. Moderate atherosclerosis and tortuosity of the abdominal aorta. No bulky adenopathy. No bowel obstruction identified. Extensive colonic diverticulosis without CT evidence of acute diverticulitis. There is mild wall thickening with surrounding stranding involving the splenic flexure and descending colon. Soft tissues are unremarkable. The bones appear intact. Bones are moderately demineralized with severe multilevel discogenic degenerative changes. IMPRESSION: 1. Mild wall thickening of the splenic flexure and descending colon may secondary to nondistention, however is suspicious for mild colitis. Infectious, inflammatory or ischemic etiology should be considered. 2. No bowel obstruction. 3. Colonic diverticulosis without CT evidence of acute diverticulitis. 4. Trace fluid within the endometrial canal could be further evaluated with pelvic ultrasound. 5. 4 mm solid pulmonary nodule of the right middle lobe. Electronically signed by: Vargas Mccord M.D. 08/28/2017 6:19 PM Dictated Date/Time: 08/28/2017 6:09 PM Laboratory Results 08/28/17 16:45 Red Blood Count 4.41, Mean Corpuscular Volume 91.2, Mean Corpuscular Hemoglobin 29.9, Mean Corpuscular Hemoglobin Concent 32.8, Mean Platelet Volume 10.2, Neutrophils (%) (Auto) 67.4, Lymphocytes (%) (Auto) 15.3, Monocytes (%) (Auto) 15.4, Eosinophils (%) (Auto) 1.4, Basophils (%) (Auto) 0.3, Neutrophils # (Auto ) 3.89, Lymphocytes # (Auto) 0.88, Monocytes # (Auto) 0.89, Eosinophils # (Auto ) 0.08, Basophils # (Auto) 0.02 08/28/17 16:45 Test 08/28/17 16:45 08/28/17 16:52 08/28/17 17:20 White Blood Count 5.77 K/uL (4.8-10.8) Red Blood Count 4.41 M/uL (4.2-5.4) Hemoglobin 13.2 g/dL (12.0-16.0) Hematocrit 40.2 % (37-47) Mean Corpuscular Volume 91.2 fL (80-100) Mean Corpuscular Hemoglobin 29.9 pg (25-34) Mean Corpuscular Hemoglobin Concent 32.8 g/dl (32-36) Platelet Count 177 K/uL (130-400) Mean Platelet Volume 10.2 fL (7.4-10.4) Neutrophils (%) (Auto) 67.4 % Lymphocytes (%) (Auto) 15.3 % Monocytes (%) (Auto) 15.4 % Eosinophils (%) (Auto) 1.4 % Basophils (%) (Auto) 0.3 % Neutrophils # (Auto) 3.89 K/uL (1.4-6.5) Lymphocytes # (Auto) 0.88 K/uL (1.2-3.4) Monocytes # (Auto) 0.89 K/uL (0.11-0.59) Eosinophils # (Auto) 0.08 K/uL (0-0.5) Basophils # (Auto) 0.02 K/uL (0-0.2) RDW Standard Deviation 47.1 fL (36.4-46.3) RDW Coefficient of Variation 13.9 % (11.5-14.5) Immature Granulocyte % (Auto) 0.2 % Immature Granulocyte # (Auto) 0.01 K/uL (0.00-0.02) Prothrombin Time 14.9 SECONDS (9.0-12.0) Prothromb Time International Ratio 1.4 (0.9-1.1) Anion Gap 11.0 mmol/L (3-11) Est Creatinine Clear Calc Drug Dose 34.6 ml/min Estimated GFR () 71.4 Estimated GFR (Non- 61.6 BUN/Creatinine Ratio 28.5 (10-20) Calcium Level 9.3 mg/dl (8.5-10.1) Total Bilirubin 0.3 mg/dl (0.2-1) Direct Bilirubin < 0.1 mg/dl (0-0.2) Aspartate Amino Transf (AST/SGOT) 27 U/L (15-37) Alanine Aminotransferase (ALT/SGPT) 22 U/L (12-78) Alkaline Phosphatase 74 U/L (45-117) Total Protein 8.2 gm/dl (6.4-8.2) Albumin 3.5 gm/dl (3.4-5.0) Lipase 129 U/L (73-393) Influenza Type A Antigen POS for Influ A (NEG) Influenza Type B Antigen Neg for Influ B (NEG) Bedside Lactic Acid Venous 2.29 mmol/L (0.90-1.70) Urine Color DK YELLOW Urine Appearance CLOUDY (CLEAR) Urine pH 5.0 (4.5-7.5) Urine Specific [place] 1.033 (1.000-1.030) Urine Protein 1+ (NEG) Urine Glucose (UA) NEG (NEG) Urine Ketones TRACE (NEG) Urine Occult Blood NEG (NEG) Urine Nitrite POS (NEG) Urine Bilirubin NEG (NEG) Urine Urobilinogen NEG (NEG) Urine Leukocyte Esterase SMALL (NEG) Urine WBC (Auto) >30 /hpf (0-5) Urine RBC (Auto) 5-10 /hpf (0-4) Urine Hyaline Casts (Auto) 10-30 /lpf (0-5) Urine Epithelial Cells (Auto) 0-5 /lpf (0-5) Urine Bacteria (Auto) 4+ (NEG) Laboratory results per my review. Medications Administered Medications (Trade) Dose Ordered Sig/Garrick Route Start Time Stop Time Status Last Admin Dose Admin Sodium Chloride 1,000 ml @ 999 mls/hr Q1H1M STAT IV 08/28/17 16:37 08/28/17 17:37 DC 08/28/17 16:59 999 MLS/HR Ondansetron HCl (Zofran Inj) 4 mg NOW STAT IV 08/28/17 16:37 08/28/17 16:39 DC 08/28/17 16:58 4 MG Ceftriaxone Sodium (Rocephin Inj) 1 gm NOW STAT IV 08/28/17 18:56 08/28/17 18:57 DC 08/28/17 19:04 1 GM Oseltamivir Phosphate (Tamiflu Cap) 75 mg NOW STAT PO 08/28/17 19:01 08/28/17 19:02 DC 08/28/17 19:01 75 MG ED Course ED COURSE: Vital signs were reviewed and showed normal vitals. The patients medical record was reviewed The above diagnostic studies were performed and reviewed. ED treatments and interventions as stated above. 1630: The patient was evaluated in room B2. A complete history and physical examination was performed. 1637: Ordered Zofran Inj 4mg IV and Sodium Chloride 1000 ml @ 999 mls/hr IV. 1645: Ordered Ioversol 100 ml IV. 1856: Ordered Rocephin Inj 1gm IV. 1901: Ordered Tamiflu Cap 1gm IV. I reevaluated the patient and updated her on test findings. The patient agrees to stay as inpatient. 1908: I reviewed the patient's case with BENIGNO Nicolas. He will evaluate the patient for further management. Medical Decision Differential diagnosis: Etiologies such as viral syndrome, otitis, pharyngitis, pneumonia, influenza, meningitis, urinary tract infection, sepsis, bacteremia, as well as others were entertained. Patient is an 86-year-old female who presents to ER for nausea, vomiting and diarrhea. She has upper respiratory symptoms which have been present for several days. She also admits to dysuria, urgency and frequency which has been present for the past week. She has follow-up with her PCP. She does admit to shaking chills present for 1 week as well. Blood work was obtained. CBC was unremarkable. Lactate was elevated at 2.3. She does have rigors on exam. Influenza A was positive. She was given Tamiflu. She was given IV normal saline. CT of the abdomen and pelvis was unremarkable with exception of a colitis. She was recently treated for C. difficile favor this likely cause. Do not feel as though this is ischemic. UA was positive for a UTI. Previous cultures reviewed. Given Rocephin. Patient family were updated at bedside. Case is discussed with internal medicine for admission for Rigors along with a UTI and influenza A. Medication Reconcilliation Current Medication List: was personally reviewed by me Consults Time Called: 1908 Consulting Physician: BENIGNO Reilly Returned Call: 1908 I reviewed the patient's case with Dr. [facility]. He recommends the patient follow up as an outpatient. Impression Primary Impression: UTI (urinary tract infection) Additional Impressions: Influenza A Lactic acid acidosis Scribe Attestation The scribe's documentation has been prepared under my direction and personally reviewed by me in its entirety. I confirm that the note above accurately reflects all work, treatment, procedures, and medical decision making performed by me. Departure Information Dispostion Being Evaluated By Hospitalist Referrals Alejandro Quinones M.D. (PCP) Forms HOME CARE DOCUMENTATION FORM, IMPORTANT VISIT INFORMATION Patient Instructions My [facility] Problem Qualifiers Primary Impression: UTI (urinary tract infection) Urinary tract infection type: site unspecified Hematuria presence: with hematuria Qualified Codes: N39.0 - Urinary tract infection, site not specified ; R31.9 - Hematuria, unspecified
[2017-08-28] MEDS ORDERED: ALUMINUM/MAGNESIUM/SIMETH (MAALOX MAX) 30 ML UDC PO PRN (19:30)
[2017-08-28] MEDS ORDERED: POLYETHYLENE (MIRALAX) 17 GM PACK PO PRN (19:30)
[2017-08-28] MEDS ORDERED: MAGNESIUM HYDROXIDE SUSP 30 ML UDC PO PRN (19:30)
[2017-08-28] MEDS ORDERED: ACETAMINOPHEN 325 MG TAB PO PRN (19:30)
[2017-08-28] MEDS ORDERED: ONDANSETRON INJ 2 MG/ML 2 ML VIAL IV PRN (19:30)
--- NOTE | 2017-08-28 19:37 | History and Physical ---
History & Physical Date & Time of Service: Aug 28, 2017 at 19:30 Chief Complaint: Coughing,Diarrhea, Throwing Up, Runny Nose Primary Care Physician: Alejandro Quinones M.D. 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 Currently being treated for C diff colitis. Presents with acute onset N/V, weakness and has had persistent diarrhea. Also c/o a cough over the past 2 days. She denies CP, SOB, dysuria. Initial labs reveal a (+) influenza and a (+) UA. She is a poor historian. She is afebrile on admission. A CT abdomen revealed Colitis at the splenic flexure. Past Medical/Surgical History 1) CVA 12/22 - The pt was in [place] when this occurred. She has recovered physically, however, per her son, she has exhibited marked cognitive decline since that time 2) Paroxysmal atrial fibrillation 3) Mitral regurge - required open repair - completed at [facility] 08/22. She suffered bleeding complications and remained hospitalized for one month 4) Dementia - unspecified 5) Hypothyroidism 6) The pt states she had an MA when visiting her [place] in [place] - this apparently occurred 20 yrs ago 7) HPL 8) HTN 9) C diff Family History Diabetes mellitus FH: thyroid disease FHx: cancer Lung disease Social History Smoking Status: Never Smoker Drug Use: none Marital Status: Housing status: lives with family Occupational Status: retired Immunizations History of Influenza Vaccine: Yes History of Tetanus Vaccine?: Unknown History of Pneumococcal: Yes History of Hepatitis B Vaccine: Unknown Multi-Drug Resistant Organisms History of MDRO: No Allergies Coded Allergies: Codeine (Verified Allergy, Unknown, UNK, 08/28/17) Ferrous Sulfate (Verified Allergy, Unknown, 0, 08/28/17) Folic Acid (Verified Allergy, Unknown, 0, 08/28/17) Macrolides (Verified Allergy, Unknown, UNK, 08/28/17) Pantoprazole (Verified Allergy, Unknown, 0, 08/28/17) Penicillins (Verified Allergy, Unknown, UNK-TOLERATES CEPHS, 08/28/17) Morphine (Verified Adverse Reaction, Unknown, HYPOTENSION, 08/28/17) HYPOTENSION Home Medications Scheduled Aspirin (Aspirin Ec), 81 MG PO DAILY Atorvastatin (Lipitor), 10 MG PO DAILY Estrogens, Conjugated (Premarin), 1 DOSE PV 2XWK Famotidine (Pepcid), 20 MG PO DAILY Lactobacillus Acidophilus (Lactinex Granules), 1 GM PO TIDM Levothyroxine Sodium (Levothyroxine Sodium), 75 MG PO DAILY Metoprolol Succinate (Toprol Xl), 12.5 MG PO BID Venlafaxine Hcl (Effexor), 37.5 MG PO DAILY Warfarin Sod (Coumadin), 2.5 MG PO QAM Review of Systems Constitutional: + weakness, No fever, No chills, No sweats Eyes: No worsening of vision ENT: No hearing loss, No unusual epistaxis, No nasal symptoms Respiratory: No cough, No sputum, No wheezing Cardiovascular: No chest pain Abdomen: + nausea, + vomiting, + diarrhea, No pain Musculoskeletal: No joint pain Genitourinary - Female: No dysuria, No urinary frequency Neurologic: + weakness, No memory loss, No paralysis Psychiatric: No depression symptoms Endocrine: No fatigue Hematologic / Lymphatic: No abnormal bleeding/bruising Integumentary: No rash Allergic / Immunologic: No environmental allergies Physical Exam Vital Signs Date Time Temp Pulse Resp B/P (MAP) Pulse Ox O2 Delivery O2 Flow Rate FiO2 08/28/17 18:00 36.7 77 16 141/60 96 Room Air 08/28/17 16:23 36.2 79 16 137/73 97 Room Air General Appearance: no apparent distress, + thin Head: normocephalic Eyes: normal inspection, EOMI ENT: normal ENT inspection, pharynx normal Neck: supple, no JVD Respiratory/Chest: chest non-tender, lungs clear, normal breath sounds Cardiovascular: regular rate, rhythm, no edema, no gallop Back: normal inspection, no CVA tenderness Neurologic/Psych: silo man II-XII nml as tested, no motor/sensory deficits, alert Diagnostics Laboratory Results Results Past 24 Hours Test 08/28/17 16:45 08/28/17 16:52 08/28/17 17:20 Range/Units White Blood Count 5.77 4.8-10.8 K/uL Red Blood Count 4.41 4.2-5.4 M/uL Hemoglobin 13.2 12.0-16.0 g/dL Hematocrit 40.2 37-47 % Mean Corpuscular Volume 91.2 80-100 fL Mean Corpuscular Hemoglobin 29.9 25-34 pg Mean Corpuscular Hemoglobin Concent 32.8 32-36 g/dl Platelet Count 177 130-400 K/uL Mean Platelet Volume 10.2 7.4-10.4 fL Neutrophils (%) (Auto) 67.4 % Lymphocytes (%) (Auto) 15.3 % Monocytes (%) (Auto) 15.4 % Eosinophils (%) (Auto) 1.4 % Basophils (%) (Auto) 0.3 % Neutrophils # (Auto) 3.89 1.4-6.5 K/uL Lymphocytes # (Auto) 0.88 1.2-3.4 K/uL Monocytes # (Auto) 0.89 0.11-0.59 K/uL Eosinophils # (Auto) 0.08 0-0.5 K/uL Basophils # (Auto) 0.02 0-0.2 K/uL RDW Standard Deviation 47.1 36.4-46.3 fL RDW Coefficient of Variation 13.9 11.5-14.5 % Immature Granulocyte % (Auto) 0.2 % Immature Granulocyte # (Auto) 0.01 0.00-0.02 K/uL Sodium Level 137 136-145 mmol/L Potassium Level 3.6 3.5-5.1 mmol/L Chloride Level 98 98-107 mmol/L Carbon Dioxide Level 29 21-32 mmol/L Anion Gap 11.0 3-11 mmol/L Blood Urea Nitrogen 24 7-18 mg/dl Creatinine 0.85 0.60-1.20 mg/dl Est Creatinine Clear Calc Drug Dose 34.6 ml/min Estimated GFR () 71.4 Estimated GFR (Non- 61.6 BUN/Creatinine Ratio 28.5 10-20 Random Glucose 139 70-99 mg/dl Calcium Level 9.3 8.5-10.1 mg/dl Total Bilirubin 0.3 0.2-1 mg/dl Direct Bilirubin < 0.1 0-0.2 mg/dl Aspartate Amino Transf (AST/SGOT) 27 15-37 U/L Alanine Aminotransferase (ALT/SGPT) 22 12-78 U/L Alkaline Phosphatase 74 45-117 U/L Total Protein 8.2 6.4-8.2 gm/dl Albumin 3.5 3.4-5.0 gm/dl Lipase 129 73-393 U/L Influenza Type A Antigen POS for Influ A NEG Influenza Type B Antigen Neg for Influ B NEG Bedside Lactic Acid Venous 2.29 0.90-1.70 mmol/L Urine Color DK YELLOW Urine Appearance CLOUDY CLEAR Urine pH 5.0 4.5-7.5 Urine Specific [place] 1.033 1.000-1.030 Urine Protein 1+ NEG Urine Glucose (UA) NEG NEG Urine Ketones TRACE NEG Urine Occult Blood NEG NEG Urine Nitrite POS NEG Urine Bilirubin NEG NEG Urine Urobilinogen NEG NEG Urine Leukocyte Esterase SMALL NEG Urine WBC (Auto) >30 0-5 /hpf Urine RBC (Auto) 5-10 0-4 /hpf Urine Hyaline Casts (Auto) 10-30 0-5 /lpf Urine Epithelial Cells (Auto) 0-5 0-5 /lpf Urine Bacteria (Auto) 4+ NEG Microbiology Results 08/28/17 Urine Culture, Received Pending Diagnostic Radiology CT abdomen: Colitis at Splenic flexure Impression Assessment and Plan 86 y/o F 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 Currently being treated for C diff colitis. Presents with acute onset N/V, weakness and has had persistent diarrhea. Also c/o a cough over the past 2 days. She denies CP, SOB, dysuria. Initial labs reveal a (+) influenza and a (+) UA. She is a poor historian. She is afebrile on admission. A CT abdomen revealed Colitis at the splenic flexure. 1) Nausea, vomiting, diarrhea - likely related to C -diff - will cont oral vanc - if vomiting persists and she cannot tolerate PO, we will switch to IV Flagyl. IVF provided. 2) Influenza A - Tamiflu provided. 3) UTI - placed on Ceftriaxone pending cultures 4) PAF - cont Coumadin, cont Metoprolol- sinus rhythm on admission 5) CAD - no evidence of ACS - cont ASA, Statin, Bblocker 6) Hypothyroidism - cont Synthroid Full code - Coumadin prophylaxis Total time for this admit including review of labs, meds, imaging, records - discussion with pt and ER attending - 37 min Level of Care Med/Surg Resuscitation Status FULL RESUSCITATION VTE Prophylaxis Given or contraindicated: Warfarin (Coumadin)
[2017-08-28 19:52] LABS: INR 1.4 (0.9-1.1)
[2017-08-28 20:48] VITALS: BP 168/66; PULSE 78; TEMP 37.3; O2SAT 96; Ht 160 cm; Wt 47.0 kg
[2017-08-28] MEDS ORDERED: IV FLUIDS COMPLETED PRN (21:00)
[2017-08-28] MEDS ORDERED: OSELTAMIVIR PHOSPHATE 75 MG CAP PO SCH (21:00)
[2017-08-28] MEDS ORDERED: WARFARIN SOD 2.5 MG TAB PO ONE (22:00)
[2017-08-28] MEDS ORDERED: OSELTAMIVIR PHOSPHATE SUSP 30 MG/5 ML UDP PO ONE (22:00)
[2017-08-28] MEDS: NSS + 20MEQ KCL 1000ML 1,000 ML IV SCH (23:08)
[2017-08-28] MEDS: METOPROLOL SUCC 25MG EXT REL TAB PO SCH (23:09)
[2017-08-29 00:05] VITALS: BP 136/74; PULSE 72; TEMP 37.3; O2SAT 98
[2017-08-29 00:35] VITALS: O2SAT 98
[2017-08-29] MEDS: VANCOMYCIN HCL 250 MG/5 ML SOLN PO SCH ×5 (02:26→21:09)
[2017-08-29] MEDS: RASPBERRY SYRUP 5 ML UDP PO SCH ×5 (02:26→21:09)
[2017-08-29] MEDS: LEVOTHYROXINE 75 MCG TAB PO SCH (06:08)
[2017-08-29 08:20] VITALS: BP 103/64; PULSE 77; TEMP 37.5; O2SAT 94
[2017-08-29] MEDS: VENLAFAXINE HCL 37.5 MG TAB PO SCH (08:40)
[2017-08-29] MEDS: FAMOTIDINE 20 MG TAB PO SCH (08:40)
[2017-08-29] MEDS: ASPIRIN 81 MG ECTAB PO SCH (08:40)
[2017-08-29] MEDS: ATORVASTATIN 10 MG TAB PO SCH (08:40)
[2017-08-29] MEDS: LACTOBACILLUS ACIDOPHILUS 1 GM PACK PO SCH ×3 (08:40→17:13)
[2017-08-29] MEDS: NSS + 20MEQ KCL 1000ML 1,000 ML IV SCH (08:41)
[2017-08-29] MEDS: METOPROLOL SUCC 25MG EXT REL TAB PO SCH ×2 (08:41→21:14)
[2017-08-29] MEDS: OSELTAMIVIR PHOSPHATE SUSP 30 MG/5 ML UDP PO SCH ×2 (08:41→21:10)
[2017-08-29 10:12] LABS: HEMATOCRIT 34.7 % (37-47); HEMOGLOBIN 11.6 g/dL (12.0-16.0); MEAN CELL VOLUME 89.9 fL (80-100); MEAN CORPUSCULAR HEMOGLOBIN 30.1 pg (25-34); MEAN CORPUSCULAR HGB CONC 33.4 g/dl (32-36); PLATELET COUNT 157 K/uL (130-400); RED CELL DISTRIBUTION WIDTH CV 13.8 % (11.5-14.5); RED CELL DISTRIBUTION WIDTH SD 45.6 fL (36.4-46.3); WHITE BLOOD COUNT 2.86 K/uL (4.8-10.8)
[2017-08-29 10:40] LABS: CALCIUM 8.1 mg/dl (8.5-10.1); CREATININE 0.55 mg/dl (0.60-1.20); POTASSIUM 3.5 mmol/L (3.5-5.1)
--- NOTE | 2017-08-29 12:41 | Hospitalist Progress Note ---
Hospitalist Progress Note Date of Service Aug 29, 2017. Subjective Pt evaluation today including: conversation w/ patient, physical exam, chart review, lab review, review of inpatient medication list Voiding: no voiding problems Ms. Theodore reports feeling very weak and fatigued and appears that way as I am talking to her. She denies any further diarrhea, she is nauseas but no vomiting. ROS Constitutional: no chills, aches, sweats or fever Respiratory: no sob,cough, sputum, or wheezing Cardiac: no chest pain, palpitations, edema, orthopnea or lightheadedness GI: see HPI : no dysuria or hesitancy Extremities: no joint pain or weakness Skin: no rash All other systems reviewed and negative Medications Medications Administered Medications (Trade) Dose Ordered Sig/Garrick Route Start Time Stop Time Status Last Admin Dose Admin Sodium Chloride 1,000 ml @ 999 mls/hr Q1H1M STAT IV 08/28/17 16:37 08/28/17 17:37 DC 08/28/17 16:59 999 MLS/HR Ondansetron HCl (Zofran Inj) 4 mg NOW STAT IV 08/28/17 16:37 08/28/17 16:39 DC 08/28/17 16:58 4 MG Ceftriaxone Sodium (Rocephin Inj) 1 gm NOW STAT IV 08/28/17 18:56 08/28/17 18:57 DC 08/28/17 19:04 1 GM Oseltamivir Phosphate (Tamiflu Cap) 75 mg NOW STAT PO 08/28/17 19:01 08/28/17 19:02 DC 08/28/17 19:01 75 MG Potassium Chloride/Sodium Chloride 1,000 ml @ 100 mls/hr Q10H IV 08/28/17 22:00 08/29/17 17:59 08/29/17 08:41 100 MLS/HR Aspirin (Ecotrin Tab) 81 mg DAILY PO 08/29/17 09:00 09/28/17 08:59 08/29/17 08:40 81 MG Atorvastatin Calcium (Lipitor Tab) 10 mg DAILY PO 08/29/17 09:00 09/28/17 08:59 08/29/17 08:40 10 MG Famotidine (Pepcid Tab) 20 mg DAILY PO 08/29/17 09:00 09/28/17 08:59 08/29/17 08:40 20 MG Lactobacillus Acidophilus (Lactinex Granules Pack) 1 gm TIDM PO 08/29/17 08:00 09/28/17 07:59 08/29/17 08:40 1 GM Levothyroxine Sodium (Synthroid Tab) 75 mcg DAILYBB PO 08/29/17 06:30 09/28/17 06:29 08/29/17 06:08 75 MCG Metoprolol Succinate (Toprol Xl Tab) 12.5 mg BID PO 08/28/17 21:00 09/27/17 20:59 08/29/17 08:41 12.5 MG Venlafaxine HCl (effeXOR TAB) 37.5 mg DAILY PO 08/29/17 09:00 09/28/17 08:59 08/29/17 08:40 37.5 MG Ondansetron HCl (Zofran Inj) 4 mg Q6H PRN IV 08/28/17 19:30 09/27/17 19:29 08/29/17 10:30 4 MG Warfarin Sodium (Coumadin Tab) 2.5 mg ONE ONCE PO 08/28/17 22:00 08/28/17 22:01 DC 08/28/17 23:11 2.5 MG Oseltamivir Phosphate (Tamiflu Susp) 30 mg BID PO 08/29/17 09:00 09/03/17 08:59 08/29/17 08:41 30 MG Oseltamivir Phosphate (Tamiflu Susp) 30 mg ONE ONCE PO 08/28/17 22:00 08/28/17 22:01 DC 08/28/17 23:09 30 MG Vancomycin HCl (Vancomycin Oral Soln) 250 mg QID PO 08/29/17 01:30 09/08/17 01:29 08/29/17 08:40 250 MG Raspberry (Raspberry Syrup 5ml Cup) 5 ml QID PO 08/29/17 01:30 09/12/17 01:29 08/29/17 08:40 5 ML Objective Vital Signs Date Time Temp Pulse Resp B/P (MAP) Pulse Ox O2 Delivery O2 Flow Rate FiO2 08/29/17 08:20 37.5 77 18 103/64 (77) 94 08/29/17 08:00 Room Air 08/29/17 00:35 98 Room Air 08/29/17 00:05 37.3 72 18 136/74 (94) 98 Room Air 08/28/17 20:48 37.3 78 16 168/66 96 Room Air 08/28/17 18:00 36.7 77 16 141/60 96 Room Air 08/28/17 16:23 36.2 79 16 137/73 97 Room Air Physical Exam Notes: General: no distress Eyes: normal inspection, PERLL Respiratory: chest non tender, clear to auscultation, normal breath sounds, no respiratory distress, no accessory muscle use Cardiac: regular rate and rhythm, no rub or gallop, no murmur, no edema, no jvd GI/: active bowel sounds, no abd pain or tenderness, soft, non distended Extremities: normal range of motion, normal strength, non tender Neuro/Psych: alert and oriented x 3, normal mood and affect Skin: normal color, dry Laboratory Results Last 24 Hours Test 08/28/17 16:45 08/28/17 16:52 08/28/17 17:20 08/29/17 10:02 White Blood Count 5.77 K/uL 2.86 K/uL Red Blood Count 4.41 M/uL 3.86 M/uL Hemoglobin 13.2 g/dL 11.6 g/dL Hematocrit 40.2 % 34.7 % Mean Corpuscular Volume 91.2 fL 89.9 fL Mean Corpuscular Hemoglobin 29.9 pg 30.1 pg Mean Corpuscular Hemoglobin Concent 32.8 g/dl 33.4 g/dl Platelet Count 177 K/uL 157 K/uL Mean Platelet Volume 10.2 fL 10.0 fL Neutrophils (%) (Auto) 67.4 % Lymphocytes (%) (Auto) 15.3 % Monocytes (%) (Auto) 15.4 % Eosinophils (%) (Auto) 1.4 % Basophils (%) (Auto) 0.3 % Neutrophils # (Auto) 3.89 K/uL Lymphocytes # (Auto) 0.88 K/uL Monocytes # (Auto) 0.89 K/uL Eosinophils # (Auto) 0.08 K/uL Basophils # (Auto) 0.02 K/uL RDW Standard Deviation 47.1 fL 45.6 fL RDW Coefficient of Variation 13.9 % 13.8 % Immature Granulocyte % (Auto) 0.2 % Immature Granulocyte # (Auto) 0.01 K/uL Prothrombin Time 14.9 SECONDS Prothromb Time International Ratio 1.4 Sodium Level 137 mmol/L 139 mmol/L Potassium Level 3.6 mmol/L 3.5 mmol/L Chloride Level 98 mmol/L 103 mmol/L Carbon Dioxide Level 29 mmol/L 30 mmol/L Anion Gap 11.0 mmol/L 6.0 mmol/L Blood Urea Nitrogen 24 mg/dl 15 mg/dl Creatinine 0.85 mg/dl 0.55 mg/dl Est Creatinine Clear Calc Drug Dose 34.6 ml/min 53.5 ml/min Estimated GFR () 71.4 97.7 Estimated GFR (Non- 61.6 84.3 BUN/Creatinine Ratio 28.5 26.8 Random Glucose 139 mg/dl 119 mg/dl Calcium Level 9.3 mg/dl 8.1 mg/dl Total Bilirubin 0.3 mg/dl Direct Bilirubin < 0.1 mg/dl Aspartate Amino Transf (AST/SGOT) 27 U/L Alanine Aminotransferase (ALT/SGPT) 22 U/L Alkaline Phosphatase 74 U/L Total Protein 8.2 gm/dl Albumin 3.5 gm/dl Lipase 129 U/L Influenza Type A Antigen POS for Influ A Influenza Type B Antigen Neg for Influ B Bedside Lactic Acid Venous 2.29 mmol/L Urine Color DK YELLOW Urine Appearance CLOUDY Urine pH 5.0 Urine Specific [place] 1.033 Urine Protein 1+ Urine Glucose (UA) NEG Urine Ketones TRACE Urine Occult Blood NEG Urine Nitrite POS Urine Bilirubin NEG Urine Urobilinogen NEG Urine Leukocyte Esterase SMALL Urine WBC (Auto) >30 /hpf Urine RBC (Auto) 5-10 /hpf Urine Hyaline Casts (Auto) 10-30 /lpf Urine Epithelial Cells (Auto) 0-5 /lpf Urine Bacteria (Auto) 4+ Lactic Acid Level 0.6 mmol/L Assessment and Plan Ms. Theodore is an 86 year old woman here for n/v/d/ and weakness Nausea, vomiting, diarrhea - likely combination of C -diff, UTI, and flu - will cont oral vanc - at the moment she is denying emesis but if vomiting persists and she cannot tolerate PO, we will switch to IV Flagyl. - lactic elevated to 2.29 but has come down wnl with IVF - Potassium 3.5 - IVF with 20K, check mag Influenza A - continue Tamiflu and IVF UTI - placed on Ceftriaxone pending cultures PAF - cont Coumadin - subtherapeutic on admission -possibly due to change in po intake - will keep home dose and trend INR - cont Metoprolol - sinus rhythm on admission CAD - no evidence of ACS - cont ASA, Statin, Bblocker Hypothyroidism - cont Synthroid
[2017-08-29 15:58] VITALS: BP 117/68; PULSE 65; TEMP 36.7; O2SAT 95
[2017-08-29 16:00] VITALS: O2SAT 95
[2017-08-29] MEDS ORDERED: MAGNESIUM SULFATE 1GM / D5W 1 GM in PREMIXED IN D5W 100 ML IV ONE (16:00)
[2017-08-29] MEDS: WARFARIN SOD 2.5 MG TAB PO SCH (16:23)
[2017-08-29] MEDS: CEFTRIAXONE SOD INJ 1 GM in DEXTROSE 5% ADD-VANTAGE 50ML 50 ML IV SCH (18:53)
[2017-08-29 23:27] VITALS: BP 144/78; PULSE 67; TEMP 36.9; O2SAT 92
[2017-08-30] MEDS: LEVOTHYROXINE 75 MCG TAB PO SCH (05:46)
[2017-08-30 08:08] VITALS: BP 146/75; PULSE 66; TEMP 37.1; O2SAT 93
[2017-08-30 08:16] LABS: HEMATOCRIT 38.3 % (37-47); HEMOGLOBIN 12.8 g/dL (12.0-16.0); MEAN CELL VOLUME 90.3 fL (80-100); MEAN CORPUSCULAR HEMOGLOBIN 30.2 pg (25-34); MEAN CORPUSCULAR HGB CONC 33.4 g/dl (32-36); MEAN PLATELET VOLUME 9.8 fL (7.4-10.4); PLATELET COUNT 157 K/uL (130-400); RED CELL DISTRIBUTION WIDTH CV 13.6 % (11.5-14.5); RED CELL DISTRIBUTION WIDTH SD 45.5 fL (36.4-46.3); WHITE BLOOD COUNT 3.66 K/uL (4.8-10.8)
[2017-08-30 08:52] LABS: CALCIUM 8.4 mg/dl (8.5-10.1); CREATININE 0.6 mg/dl (0.60-1.20); POTASSIUM 3.6 mmol/L (3.5-5.1)
[2017-08-30] MEDS: ASPIRIN 81 MG ECTAB PO SCH (09:08)
[2017-08-30] MEDS: LACTOBACILLUS ACIDOPHILUS 1 GM PACK PO SCH ×3 (09:08→17:11)
[2017-08-30] MEDS: VENLAFAXINE HCL 37.5 MG TAB PO SCH (09:08)
[2017-08-30] MEDS: FAMOTIDINE 20 MG TAB PO SCH (09:08)
[2017-08-30] MEDS: VANCOMYCIN HCL 250 MG/5 ML SOLN PO SCH (09:08)
[2017-08-30] MEDS: RASPBERRY SYRUP 5 ML UDP PO SCH (09:08)
[2017-08-30] MEDS: ATORVASTATIN 10 MG TAB PO SCH (09:08)
[2017-08-30] MEDS: OSELTAMIVIR PHOSPHATE SUSP 30 MG/5 ML UDP PO SCH ×2 (09:09→19:43)
[2017-08-30] MEDS: METOPROLOL SUCC 25MG EXT REL TAB PO SCH ×2 (09:09→19:44)
[2017-08-30 15:25] VITALS: BP 128/71; PULSE 67; TEMP 36.4; O2SAT 96
--- NOTE | 2017-08-30 15:38 | Progress Note ---
Subjective Date of Service: Aug 30, 2017. Subjective Pt evaluation today including: conversation w/ patient, physical exam, lab review, review of studies, review of inpatient medication list Pain: no pain PO Intake: improved Voiding: no voiding problems patient with some more energy today no diarrhea, no vomiting, no dyspnea + urinary frequency discussed case with Dr. Quinones her PCP who knows her well will treat the UTI since she has positive culture and > 30WBC on UA Problem List Medical Problems: (1) Atrial fibrillation Status: Acute (2) Confusion Status: Acute (3) Dehydration Status: Acute (4) Lactic acid acidosis Status: Acute (5) Palpitations Status: Acute (6) UTI (urinary tract infection) Status: Acute (7) UTI (urinary tract infection) Status: Acute Review of Systems Constitutional: + weakness, + fatigue Female : + dysuria, + urinary frequency All Other Systems: Reviewed and Negative Medications Current Inpatient Medications Medications (Trade) Dose Ordered Sig/Garrick Route Start Time Stop Time Status Last Admin Dose Admin Ioversol (Optiray 320) 100 ml UD PRN IV 08/28/17 16:45 09/01/17 16:44 Ceftriaxone Sodium 1 gm/ Dextrose 50 ml @ 100 mls/hr Q24H IV 08/29/17 19:00 09/02/17 18:59 08/29/17 18:53 100 MLS/HR Aspirin (Ecotrin Tab) 81 mg DAILY PO 08/29/17 09:00 09/28/17 08:59 08/30/17 09:08 81 MG Atorvastatin Calcium (Lipitor Tab) 10 mg DAILY PO 08/29/17 09:00 09/28/17 08:59 08/30/17 09:08 10 MG Famotidine (Pepcid Tab) 20 mg DAILY PO 08/29/17 09:00 09/28/17 08:59 08/30/17 09:08 20 MG Lactobacillus Acidophilus (Lactinex Granules Pack) 1 gm TIDM PO 08/29/17 08:00 09/28/17 07:59 08/30/17 12:49 1 GM Levothyroxine Sodium (Synthroid Tab) 75 mcg DAILYBB PO 08/29/17 06:30 09/28/17 06:29 08/30/17 05:46 75 MCG Metoprolol Succinate (Toprol Xl Tab) 12.5 mg BID PO 08/28/17 21:00 09/27/17 20:59 08/30/17 09:09 12.5 MG Venlafaxine HCl (effeXOR TAB) 37.5 mg DAILY PO 08/29/17 09:00 09/28/17 08:59 08/30/17 09:08 37.5 MG Warfarin Sodium (Coumadin Tab) 2.5 mg DAILY@1600 PO 08/29/17 16:00 09/28/17 15:59 08/29/17 16:23 2.5 MG Acetaminophen (Tylenol Tab) 650 mg Q4H PRN PO 08/28/17 19:30 09/27/17 19:29 Al Hydrox/Mg Hydrox/Simethicone (Maalox Max Susp) 15 ml Q4H PRN PO 08/28/17 19:30 09/27/17 19:29 Magnesium Hydroxide (Milk Of Magnesia Susp) 30 ml Q6H PRN PO 08/28/17 19:30 09/27/17 19:29 Polyethylene (Miralax Powder Packet) 17 gm DAILY PRN PO 08/28/17 19:30 09/27/17 19:29 Ondansetron HCl (Zofran Inj) 4 mg Q6H PRN IV 08/28/17 19:30 09/27/17 19:29 08/29/17 10:30 4 MG Miscellaneous (Iv Fluids Completed) 1 ea PRN PRN N/A 08/28/17 21:00 08/28/18 20:59 08/29/17 21:51 1 EA Oseltamivir Phosphate (Tamiflu Susp) 30 mg BID PO 08/29/17 09:00 09/03/17 08:59 08/30/17 09:09 30 MG Objective Vital Signs Date Time Temp Pulse Resp B/P (MAP) Pulse Ox O2 Delivery O2 Flow Rate FiO2 08/30/17 15:25 36.4 67 18 128/71 (90) 96 Room Air 08/30/17 08:08 37.1 66 18 146/75 (98) 93 08/30/17 08:00 Room Air 08/30/17 00:00 Room Air 08/29/17 23:27 36.9 67 18 144/78 (100) 92 Room Air 08/29/17 16:00 95 Room Air 08/29/17 15:58 36.7 65 20 117/68 (84) 95 Physical Exam General Appearance: no apparent distress, + thin Eyes: normal inspection, EOMI, sclerae normal ENT: normal ENT inspection, hearing grossly normal, pharynx normal Neck: supple, no adenopathy, no JVD, trachea midline Respiratory/Chest: chest non-tender, lungs clear, normal breath sounds, no respiratory distress, no accessory muscle use Cardiovascular: regular rate, rhythm, no edema, no gallop, no JVD, no murmur Abdomen: normal bowel sounds, non tender, soft, no organomegaly Extremities: normal range of motion, non-tender, normal inspection, no pedal edema, no calf tenderness, pelvis stable Neurologic/Psychiatric: travel registered nurse icu II-XII nml as tested, alert, normal mood/affect, oriented x 3, + motor weakness Skin: normal color, warm/dry, no rash Laboratory Results Last 24 Hours Test 08/30/17 08:02 White Blood Count 3.66 K/uL Red Blood Count 4.24 M/uL Hemoglobin 12.8 g/dL Hematocrit 38.3 % Mean Corpuscular Volume 90.3 fL Mean Corpuscular Hemoglobin 30.2 pg Mean Corpuscular Hemoglobin Concent 33.4 g/dl RDW Standard Deviation 45.5 fL RDW Coefficient of Variation 13.6 % Platelet Count 157 K/uL Mean Platelet Volume 9.8 fL Prothrombin Time 21.1 SECONDS Prothromb Time International Ratio 2.0 Sodium Level 138 mmol/L Potassium Level 3.6 mmol/L Chloride Level 102 mmol/L Carbon Dioxide Level 30 mmol/L Anion Gap 6.0 mmol/L Blood Urea Nitrogen 11 mg/dl Creatinine 0.60 mg/dl Est Creatinine Clear Calc Drug Dose 49.0 ml/min Estimated GFR () 95.0 Estimated GFR (Non- 82.0 BUN/Creatinine Ratio 18.5 Random Glucose 83 mg/dl Calcium Level 8.4 mg/dl Assessment and Plan Ms. Theodore is an 86 year old woman here for nausea, vomiting, diarrhea Weakness, diarrhea - stop Vancomycin PO as her C diff was negative - there was evidence of colitis on CT in the splenic flexure, likely just viral since micro testing negative Influenza A - continue Tamiflu x 5 days, stop IVF - breathing stable on room air UTI - E coli on urine culture, > 30 WBC on UA, + dysuria, no fever - initially treated with Rocephin, switch to Keflex tomorrow PAF - cont Coumadin - INR therapeutic at 2.0 - cont Metoprolol - sinus rhythm on admission H/o stroke after mitral valve repair - mild left sided weakness at baseline, cognitive deficits CAD - no evidence of ACS - cont ASA, Statin, Bblocker Hypothyroidism - cont Synthroid PT/OT consults
[2017-08-30 16:00] VITALS: O2SAT 96
[2017-08-30] MEDS: WARFARIN SOD 2.5 MG TAB PO SCH (16:17)
[2017-08-30] MEDS: CEFTRIAXONE SOD INJ 1 GM in DEXTROSE 5% ADD-VANTAGE 50ML 50 ML IV SCH (19:06)
[2017-08-30 23:37] VITALS: BP 117/74; PULSE 65; TEMP 36.3; O2SAT 96
[2017-08-31] MEDS: LEVOTHYROXINE 75 MCG TAB PO SCH (06:41)
[2017-08-31 07:15] VITALS: BP 135/67; PULSE 66; TEMP 36.6; O2SAT 96
[2017-08-31 07:59] LABS: HEMATOCRIT 36.1 % (37-47); HEMOGLOBIN 12.1 g/dL (12.0-16.0); MEAN CELL VOLUME 89.1 fL (80-100); MEAN CORPUSCULAR HEMOGLOBIN 29.9 pg (25-34); MEAN CORPUSCULAR HGB CONC 33.5 g/dl (32-36); MEAN PLATELET VOLUME 9.9 fL (7.4-10.4); PLATELET COUNT 140 K/uL (130-400); RED CELL DISTRIBUTION WIDTH CV 13.4 % (11.5-14.5); RED CELL DISTRIBUTION WIDTH SD 44.2 fL (36.4-46.3); WHITE BLOOD COUNT 3.17 K/uL (4.8-10.8)
[2017-08-31 08:06] LABS: INR 2.3 (0.9-1.1)
[2017-08-31 08:18] LABS: CALCIUM 8.6 mg/dl (8.5-10.1); CREATININE 0.45 mg/dl (0.60-1.20); POTASSIUM 3.6 mmol/L (3.5-5.1)
--- NOTE | 2017-08-31 09:07 | Clinical Documentation Query ---
CLINICAL DOCUMENTATION QUERY A 86 year old female who presents to the Emergency Room with complaints of persistent vomiting that began 1 day ago. The patient states that she began having diarrhea today. She notes she has chills and pain with urination itches been present for the past week. In order to capture the patient's BMI of 18.4 severity, documentation of the patient's appearance must be present. In your clinical opinion is this patient being managed for: ( ) Cachexia (x ) Underweight ( ) Not Agree ( ) Other explanation of clinical findings (Please Explain) ( ) Unable to determine (Please Define) ( ) Need to Discuss The medical record reflects the following clinical findings, treatment, and risk factors. Clinical Indicators: BMI 18.4, thin description Treatment: I&O, diet Risk Factors: Age, influenza, vomiting, diarrhea Please clarify and document your clinical opinion in the progress notes and discharge summary. Terms such as "probable", "suspected", "likely", "questionable", "possible", or "still to be ruled out" are acceptable. IF IN AGREEMENT, YOU MUST DOCUMENT ABOVE DIAGNOSTIC STATEMENT IN DAILY PROGRESS NOTES AND DISCHARGE SUMMARY. This document is not part of the patient's record. Thank You, Mari Valiente RN [phone]
[2017-08-31] MEDS: LACTOBACILLUS ACIDOPHILUS 1 GM PACK PO SCH ×3 (09:41→17:30)
[2017-08-31] MEDS: VENLAFAXINE HCL 37.5 MG TAB PO SCH (09:42)
[2017-08-31] MEDS: ASPIRIN 81 MG ECTAB PO SCH (09:42)
[2017-08-31] MEDS: OSELTAMIVIR PHOSPHATE SUSP 30 MG/5 ML UDP PO SCH ×2 (09:42→20:55)
[2017-08-31] MEDS: CEPHALEXIN MONOHYDRATE 500 MG CAP PO SCH ×2 (09:42→20:55)
[2017-08-31] MEDS: FAMOTIDINE 20 MG TAB PO SCH (09:42)
[2017-08-31] MEDS: ATORVASTATIN 10 MG TAB PO SCH (09:42)
[2017-08-31] MEDS: METOPROLOL SUCC 25MG EXT REL TAB PO SCH ×2 (09:43→20:55)
[2017-08-31 16:00] VITALS: O2SAT 96
[2017-08-31] MEDS: WARFARIN SOD 2.5 MG TAB PO SCH (16:43)
[2017-08-31 17:03] VITALS: BP 139/76; PULSE 64; TEMP 36.8; O2SAT 95
--- NOTE | 2017-08-31 21:10 | Progress Note ---
Subjective Date of Service: Aug 31, 2017. Subjective Pt evaluation today including: conversation w/ patient, physical exam, lab review, review of inpatient medication list Pain: no pain PO Intake: adequate Voiding: no voiding problems patient c/o diarrhea today, d/w RN, she had one BM that was slightly loose today patient slightly confused appears weak PT/OT pending discussed plan with patient about possible rehab Problem List Medical Problems: (1) Atrial fibrillation Status: Acute (2) Confusion Status: Acute (3) Dehydration Status: Acute (4) Lactic acid acidosis Status: Acute (5) Palpitations Status: Acute (6) UTI (urinary tract infection) Status: Acute (7) UTI (urinary tract infection) Status: Acute Review of Systems Constitutional: + chills, + weakness, + fatigue Abdomen: + diarrhea All Other Systems: Reviewed and Negative Medications Current Inpatient Medications Medications (Trade) Dose Ordered Sig/Garrick Route Start Time Stop Time Status Last Admin Dose Admin Ioversol (Optiray 320) 100 ml UD PRN IV 08/28/17 16:45 09/01/17 16:44 Aspirin (Ecotrin Tab) 81 mg DAILY PO 08/29/17 09:00 09/28/17 08:59 08/31/17 09:42 81 MG Atorvastatin Calcium (Lipitor Tab) 10 mg DAILY PO 08/29/17 09:00 09/28/17 08:59 08/31/17 09:42 10 MG Famotidine (Pepcid Tab) 20 mg DAILY PO 08/29/17 09:00 09/28/17 08:59 08/31/17 09:42 20 MG Lactobacillus Acidophilus (Lactinex Granules Pack) 1 gm TIDM PO 08/29/17 08:00 09/28/17 07:59 08/31/17 17:30 1 GM Levothyroxine Sodium (Synthroid Tab) 75 mcg DAILYBB PO 08/29/17 06:30 09/28/17 06:29 08/31/17 06:41 75 MCG Metoprolol Succinate (Toprol Xl Tab) 12.5 mg BID PO 08/28/17 21:00 09/27/17 20:59 08/31/17 20:55 12.5 MG Venlafaxine HCl (effeXOR TAB) 37.5 mg DAILY PO 08/29/17 09:00 09/28/17 08:59 08/31/17 09:42 37.5 MG Warfarin Sodium (Coumadin Tab) 2.5 mg DAILY@1600 PO 08/29/17 16:00 09/28/17 15:59 08/31/17 16:43 2.5 MG Acetaminophen (Tylenol Tab) 650 mg Q4H PRN PO 08/28/17 19:30 09/27/17 19:29 08/31/17 12:22 650 MG Al Hydrox/Mg Hydrox/Simethicone (Maalox Max Susp) 15 ml Q4H PRN PO 08/28/17 19:30 09/27/17 19:29 Magnesium Hydroxide (Milk Of Magnesia Susp) 30 ml Q6H PRN PO 08/28/17 19:30 09/27/17 19:29 Polyethylene (Miralax Powder Packet) 17 gm DAILY PRN PO 08/28/17 19:30 09/27/17 19:29 Ondansetron HCl (Zofran Inj) 4 mg Q6H PRN IV 08/28/17 19:30 09/27/17 19:29 08/29/17 10:30 4 MG Miscellaneous (Iv Fluids Completed) 1 ea PRN PRN N/A 08/28/17 21:00 08/28/18 20:59 08/29/17 21:51 1 EA Oseltamivir Phosphate (Tamiflu Susp) 30 mg BID PO 08/29/17 09:00 09/03/17 08:59 08/31/17 20:55 30 MG Cephalexin Monohydrate (Keflex Cap) 500 mg BID PO 08/31/17 09:00 09/05/17 08:59 08/31/17 20:55 500 MG Objective Vital Signs Date Time Temp Pulse Resp B/P (MAP) Pulse Ox O2 Delivery O2 Flow Rate FiO2 08/31/17 17:03 36.8 64 18 139/76 (97) 95 Room Air 08/31/17 16:00 96 Room Air 08/31/17 08:45 Room Air 08/31/17 07:15 36.6 66 18 135/67 (89) 96 Room Air 08/31/17 01:59 Room Air 08/30/17 23:37 36.3 65 18 117/74 (88) 96 Room Air Physical Exam General Appearance: no apparent distress, + thin Eyes: normal inspection, EOMI, sclerae normal ENT: normal ENT inspection, hearing grossly normal, pharynx normal Neck: supple, no adenopathy, no JVD, trachea midline Respiratory/Chest: chest non-tender, lungs clear, normal breath sounds, no respiratory distress, no accessory muscle use Cardiovascular: regular rate, rhythm, no edema, no gallop, no JVD, no murmur Abdomen: normal bowel sounds, non tender, soft, no organomegaly Extremities: normal range of motion, non-tender, normal inspection, no pedal edema, no calf tenderness, pelvis stable 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, no motor/sensory deficits, alert, normal mood/affect, oriented x 3 Skin: normal color, warm/dry, no rash Laboratory Results Last 24 Hours Test 08/31/17 07:38 White Blood Count 3.17 K/uL Red Blood Count 4.05 M/uL Hemoglobin 12.1 g/dL Hematocrit 36.1 % Mean Corpuscular Volume 89.1 fL Mean Corpuscular Hemoglobin 29.9 pg Mean Corpuscular Hemoglobin Concent 33.5 g/dl RDW Standard Deviation 44.2 fL RDW Coefficient of Variation 13.4 % Platelet Count 140 K/uL Mean Platelet Volume 9.9 fL Prothrombin Time 23.8 SECONDS Prothromb Time International Ratio 2.3 Sodium Level 139 mmol/L Potassium Level 3.6 mmol/L Chloride Level 104 mmol/L Carbon Dioxide Level 29 mmol/L Anion Gap 6.0 mmol/L Blood Urea Nitrogen 16 mg/dl Creatinine 0.45 mg/dl Est Creatinine Clear Calc Drug Dose 65.3 ml/min Estimated GFR () 104.4 Estimated GFR (Non- 90.1 BUN/Creatinine Ratio 35.6 Random Glucose 82 mg/dl Calcium Level 8.6 mg/dl Assessment and Plan Ms. Theodore is an 86 year old woman here for nausea, vomiting, diarrhea Weakness, diarrhea - stop Vancomycin PO as her C diff was negative - there was evidence of colitis on CT in the splenic flexure, likely just viral since micro testing negative - one loose BM today, does not qualify as diarrhea Influenza A - continue Tamiflu x 5 days, stop IVF - breathing stable on room air UTI - E coli on urine culture, > 30 WBC on UA, + dysuria, no fever - initially treated with Rocephin, switch to Keflex today, complete 7 days treatment PAF - cont Coumadin - INR therapeutic - cont Metoprolol - sinus rhythm on admission 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
[2017-09-01] VITALS (7 sets, daily range): BP systolic 103–132; BP diastolic 64–76; PULSE 61–79; TEMP 36.5–36.8; O2SAT 94–97
[2017-09-01] MEDS: LEVOTHYROXINE 75 MCG TAB PO SCH (06:06)
[2017-09-01 07:12] LABS: HEMATOCRIT 36.9 % (37-47); HEMOGLOBIN 12.4 g/dL (12.0-16.0); MEAN CELL VOLUME 89.3 fL (80-100); MEAN CORPUSCULAR HGB CONC 33.6 g/dl (32-36); PLATELET COUNT 144 K/uL (130-400); RED CELL DISTRIBUTION WIDTH CV 13.6 % (11.5-14.5); WHITE BLOOD COUNT 3.72 K/uL (4.8-10.8)
[2017-09-01 07:22] LABS: INR 2.3 (0.9-1.1)
[2017-09-01] MEDS: OSELTAMIVIR PHOSPHATE SUSP 30 MG/5 ML UDP PO SCH ×2 (07:28→20:47)
[2017-09-01] MEDS: ASPIRIN 81 MG ECTAB PO SCH (07:28)
[2017-09-01] MEDS: FAMOTIDINE 20 MG TAB PO SCH (07:28)
[2017-09-01] MEDS: ATORVASTATIN 10 MG TAB PO SCH (07:29)
[2017-09-01] MEDS: VENLAFAXINE HCL 37.5 MG TAB PO SCH (07:29)
[2017-09-01] MEDS: CEPHALEXIN MONOHYDRATE 500 MG CAP PO SCH ×2 (07:29→20:47)
[2017-09-01] MEDS: LACTOBACILLUS ACIDOPHILUS 1 GM PACK PO SCH ×3 (07:29→16:38)
[2017-09-01] MEDS: METOPROLOL SUCC 25MG EXT REL TAB PO SCH ×2 (07:29→20:47)
[2017-09-01 07:43] LABS: CALCIUM 8.2 mg/dl (8.5-10.1); CREATININE 0.57 mg/dl (0.60-1.20); POTASSIUM 3.5 mmol/L (3.5-5.1)
--- NOTE | 2017-09-01 13:24 | Progress Note ---
Subjective Date of Service: Sep 01, 2017. Subjective Pt evaluation today including: conversation w/ patient, physical exam, lab review, review of inpatient medication list Pain: no pain PO Intake: adequate Voiding: no voiding problems patient doing well today, OOB in chair, eating lunch one loose stool today, no pain, no dysuria labs stable discussed with her child care director at the bedside, they should be at full strength by Tuesday Problem List Medical Problems: (1) Atrial fibrillation Status: Acute (2) Confusion Status: Acute (3) Dehydration Status: Acute (4) Lactic acid acidosis Status: Acute (5) Palpitations Status: Acute (6) UTI (urinary tract infection) Status: Acute (7) UTI (urinary tract infection) Status: Acute Review of Systems Constitutional: + weakness, + fatigue Abdomen: + diarrhea All Other Systems: Reviewed and Negative Medications Current Inpatient Medications Medications (Trade) Dose Ordered Sig/Garrick Route Start Time Stop Time Status Last Admin Dose Admin Ioversol (Optiray 320) 100 ml UD PRN IV 08/28/17 16:45 09/01/17 16:44 Aspirin (Ecotrin Tab) 81 mg DAILY PO 08/29/17 09:00 09/28/17 08:59 09/01/17 07:28 81 MG Atorvastatin Calcium (Lipitor Tab) 10 mg DAILY PO 08/29/17 09:00 09/28/17 08:59 09/01/17 07:29 10 MG Famotidine (Pepcid Tab) 20 mg DAILY PO 08/29/17 09:00 09/28/17 08:59 09/01/17 07:28 20 MG Lactobacillus Acidophilus (Lactinex Granules Pack) 1 gm TIDM PO 08/29/17 08:00 09/28/17 07:59 09/01/17 11:47 1 GM Levothyroxine Sodium (Synthroid Tab) 75 mcg DAILYBB PO 08/29/17 06:30 09/28/17 06:29 09/01/17 06:06 75 MCG Metoprolol Succinate (Toprol Xl Tab) 12.5 mg BID PO 08/28/17 21:00 09/27/17 20:59 09/01/17 07:29 12.5 MG Venlafaxine HCl (effeXOR TAB) 37.5 mg DAILY PO 08/29/17 09:00 09/28/17 08:59 09/01/17 07:29 37.5 MG Warfarin Sodium (Coumadin Tab) 2.5 mg DAILY@1600 PO 08/29/17 16:00 09/28/17 15:59 08/31/17 16:43 2.5 MG Acetaminophen (Tylenol Tab) 650 mg Q4H PRN PO 08/28/17 19:30 09/27/17 19:29 08/31/17 12:22 650 MG Al Hydrox/Mg Hydrox/Simethicone (Maalox Max Susp) 15 ml Q4H PRN PO 08/28/17 19:30 09/27/17 19:29 Magnesium Hydroxide (Milk Of Magnesia Susp) 30 ml Q6H PRN PO 08/28/17 19:30 09/27/17 19:29 Polyethylene (Miralax Powder Packet) 17 gm DAILY PRN PO 08/28/17 19:30 09/27/17 19:29 Ondansetron HCl (Zofran Inj) 4 mg Q6H PRN IV 08/28/17 19:30 09/27/17 19:29 08/29/17 10:30 4 MG Miscellaneous (Iv Fluids Completed) 1 ea PRN PRN N/A 08/28/17 21:00 08/28/18 20:59 08/29/17 21:51 1 EA Oseltamivir Phosphate (Tamiflu Susp) 30 mg BID PO 08/29/17 09:00 09/03/17 08:59 09/01/17 07:28 30 MG Cephalexin Monohydrate (Keflex Cap) 500 mg BID PO 08/31/17 09:00 09/05/17 08:59 09/01/17 07:29 500 MG Objective Vital Signs Date Time Temp Pulse Resp B/P (MAP) Pulse Ox O2 Delivery O2 Flow Rate FiO2 09/01/17 08:13 36.5 65 16 132/71 (91) 97 09/01/17 08:00 Room Air 09/01/17 00:19 96 Room Air 09/01/17 00:10 36.8 61 20 127/68 (87) 94 Room Air 08/31/17 17:03 36.8 64 18 139/76 (97) 95 Room Air 08/31/17 16:00 96 Room Air Physical Exam General Appearance: no apparent distress, + thin Eyes: normal inspection, EOMI, sclerae normal ENT: normal ENT inspection, hearing grossly normal, pharynx normal Neck: supple, no adenopathy, no JVD, trachea midline Respiratory/Chest: chest non-tender, lungs clear, normal breath sounds, no respiratory distress, no accessory muscle use Cardiovascular: regular rate, rhythm, no edema, no gallop, no JVD, no murmur Abdomen: normal bowel sounds, non tender, soft, no organomegaly Extremities: normal range of motion, non-tender, normal inspection, no pedal edema, no calf tenderness, pelvis stable 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, no motor/sensory deficits, alert, normal mood/affect, oriented x 3 Skin: normal color, warm/dry, no rash Lymphatic: no adenopathy Laboratory Results Last 24 Hours Test 09/01/17 06:35 White Blood Count 3.72 K/uL Red Blood Count 4.13 M/uL Hemoglobin 12.4 g/dL Hematocrit 36.9 % Mean Corpuscular Volume 89.3 fL Mean Corpuscular Hemoglobin 30.0 pg Mean Corpuscular Hemoglobin Concent 33.6 g/dl RDW Standard Deviation 45.0 fL RDW Coefficient of Variation 13.6 % Platelet Count 144 K/uL Mean Platelet Volume 10.0 fL Prothrombin Time 23.8 SECONDS Prothromb Time International Ratio 2.3 Sodium Level 138 mmol/L Potassium Level 3.5 mmol/L Chloride Level 104 mmol/L Carbon Dioxide Level 30 mmol/L Anion Gap 4.0 mmol/L Blood Urea Nitrogen 19 mg/dl Creatinine 0.57 mg/dl Est Creatinine Clear Calc Drug Dose 51.6 ml/min Estimated GFR () 96.6 Estimated GFR (Non- 83.4 BUN/Creatinine Ratio 33.4 Random Glucose 71 mg/dl Calcium Level 8.2 mg/dl Assessment and Plan Ms. Theodore is an 86 year old woman here for nausea, vomiting, diarrhea Weakness, diarrhea - stop Vancomycin PO as her C diff was negative - there was evidence of colitis on CT in the splenic flexure, likely just viral since micro testing negative - one loose BM daily, not consistent with diarrhea Influenza A - continue Tamiflu x 5 days, today is day #4 - breathing stable on room air UTI - E coli on urine culture, > 30 WBC on UA, + dysuria, no fever - initially treated with Rocephin, switch to Keflex on 08/31, complete 7 days treatment PAF - cont Coumadin - INR therapeutic at 2.3 - cont Metoprolol - sinus rhythm on admission 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
--- NOTE | 2017-09-01 13:57 | Medical Student: [facility] ---
Med Student Progress Note Date of Service Sep 01, 2017. Subjective Ms. Theodore is a 86-year-old female with at history of CVA in December of 2016, MR, PAF, CAD, HLD, hypothyroidism, and recurrent UTI who presented to [facility] with nausea, vomiting, and diarrhea and influenza positive. She says she is "sometimes good and sometimes bad." On further elaboration she describes struggle with being in the hospital where she isn't being cared for by her home health nurse who can "anticipate her every need." She is also concerned that she is being wiped improperly, worsening her UTI. She denies SOB, fevers, chills , dysuria. She is eating and sleeping well. Has 1-2 loose stools daily. Review of Systems Notes: see hpi Objective Vital Signs Date Time Temp Pulse Resp B/P (MAP) Pulse Ox O2 Delivery O2 Flow Rate FiO2 09/01/17 08:13 36.5 65 16 132/71 (91) 97 09/01/17 08:00 Room Air 09/01/17 00:19 96 Room Air 09/01/17 00:10 36.8 61 20 127/68 (87) 94 Room Air 08/31/17 17:03 36.8 64 18 139/76 (97) 95 Room Air 08/31/17 16:00 96 Room Air Physical Exam General Appearance: WD/WN, no apparent distress (sitting up in bedside chair) Respiratory/Chest: no respiratory distress, + crackles Cardiovascular: regular rate, rhythm, no edema, no gallop, + systolic murmur ( over mitral area) Abdomen: normal bowel sounds, non tender, soft Extremities: normal inspection, no pedal edema, no calf tenderness Laboratory Results Last 24 Hours Test 09/01/17 06:35 White Blood Count 3.72 K/uL Red Blood Count 4.13 M/uL Hemoglobin 12.4 g/dL Hematocrit 36.9 % Mean Corpuscular Volume 89.3 fL Mean Corpuscular Hemoglobin 30.0 pg Mean Corpuscular Hemoglobin Concent 33.6 g/dl RDW Standard Deviation 45.0 fL RDW Coefficient of Variation 13.6 % Platelet Count 144 K/uL Mean Platelet Volume 10.0 fL Prothrombin Time 23.8 SECONDS Prothromb Time International Ratio 2.3 Sodium Level 138 mmol/L Potassium Level 3.5 mmol/L Chloride Level 104 mmol/L Carbon Dioxide Level 30 mmol/L Anion Gap 4.0 mmol/L Blood Urea Nitrogen 19 mg/dl Creatinine 0.57 mg/dl Est Creatinine Clear Calc Drug Dose 51.6 ml/min Estimated GFR () 96.6 Estimated GFR (Non- 83.4 BUN/Creatinine Ratio 33.4 Random Glucose 71 mg/dl Calcium Level 8.2 mg/dl Assessment and Plan Assessment and Plan: This is a 86 yo F admitted for diarrhea, influenza, and UTI. Continues to improve clinically but is dissatisfied with care in hospital compared to home nursing who knows her well. DIARRHEA C diff negative - likely secondary to abx usage though. Continue lactobacillus INFLUENZA Pt reports continued cough, but overall improvement. Continue Tamiflu UTI Denies dysuria Continue Keflex PAF & hx of CVA Continue Coumadin HYPOTHYROIDISM Continue synthroid GERD Continue famotidine
[2017-09-01] MEDS: WARFARIN SOD 2.5 MG TAB PO SCH (15:54)
[2017-09-02] VITALS: O2SAT 97
[2017-09-02] MEDS: LEVOTHYROXINE 75 MCG TAB PO SCH (04:32)
[2017-09-02 06:37] LABS: HEMATOCRIT 38.9 % (37-47); HEMOGLOBIN 13.3 g/dL (12.0-16.0); MEAN CELL VOLUME 88.6 fL (80-100); MEAN CORPUSCULAR HEMOGLOBIN 30.3 pg (25-34); MEAN CORPUSCULAR HGB CONC 34.2 g/dl (32-36); MEAN PLATELET VOLUME 9.9 fL (7.4-10.4); PLATELET COUNT 153 K/uL (130-400); RED CELL DISTRIBUTION WIDTH CV 13.5 % (11.5-14.5); RED CELL DISTRIBUTION WIDTH SD 43.9 fL (36.4-46.3); WHITE BLOOD COUNT 4.21 K/uL (4.8-10.8)
[2017-09-02 06:46] LABS: INR 2.5 (0.9-1.1)
[2017-09-02 07:07] LABS: CALCIUM 8.7 mg/dl (8.5-10.1); CREATININE 0.65 mg/dl (0.60-1.20); POTASSIUM 3.7 mmol/L (3.5-5.1)
[2017-09-02 07:27] VITALS: BP 106/69; PULSE 74; TEMP 36.6; O2SAT 97
[2017-09-02] MEDS: LACTOBACILLUS ACIDOPHILUS 1 GM PACK PO SCH ×3 (08:27→16:34)
[2017-09-02] MEDS: CEPHALEXIN MONOHYDRATE 500 MG CAP PO SCH ×2 (08:27→20:43)
[2017-09-02] MEDS: METOPROLOL SUCC 25MG EXT REL TAB PO SCH ×2 (08:28→20:43)
[2017-09-02] MEDS: ATORVASTATIN 10 MG TAB PO SCH (08:28)
[2017-09-02] MEDS: FAMOTIDINE 20 MG TAB PO SCH (08:28)
[2017-09-02] MEDS: VENLAFAXINE HCL 37.5 MG TAB PO SCH (08:28)
[2017-09-02] MEDS: ASPIRIN 81 MG ECTAB PO SCH (08:28)
[2017-09-02] MEDS: OSELTAMIVIR PHOSPHATE SUSP 30 MG/5 ML UDP PO SCH ×2 (08:35→20:43)
[2017-09-02 15:56] VITALS: BP 111/65; PULSE 74; TEMP 36.3; O2SAT 98
[2017-09-02] MEDS: WARFARIN SOD 2.5 MG TAB PO SCH (16:34)
--- NOTE | 2017-09-02 19:39 | Progress Note ---
Subjective Date of Service: Sep 02, 2017. Subjective Pt evaluation today including: conversation w/ patient, physical exam, lab review, review of inpatient medication list Pain: no pain PO Intake: adequate Voiding: no voiding problems patient feeling well, sitting up in chair, ambulating better she feels ready to go home, explained that she will need to wait til her caregivers are better Problem List Medical Problems: (1) Atrial fibrillation Status: Acute (2) Confusion Status: Acute (3) Dehydration Status: Acute (4) Lactic acid acidosis Status: Acute (5) Palpitations Status: Acute (6) UTI (urinary tract infection) Status: Acute (7) UTI (urinary tract infection) Status: Acute Review of Systems Constitutional: + weakness, + fatigue All Other Systems: Reviewed and Negative Medications Current Inpatient Medications Medications (Trade) Dose Ordered Sig/Garrick Route Start Time Stop Time Status Last Admin Dose Admin Aspirin (Ecotrin Tab) 81 mg DAILY PO 08/29/17 09:00 09/28/17 08:59 09/02/17 08:28 81 MG Atorvastatin Calcium (Lipitor Tab) 10 mg DAILY PO 08/29/17 09:00 09/28/17 08:59 09/02/17 08:28 10 MG Famotidine (Pepcid Tab) 20 mg DAILY PO 08/29/17 09:00 09/28/17 08:59 09/02/17 08:28 20 MG Lactobacillus Acidophilus (Lactinex Granules Pack) 1 gm TIDM PO 08/29/17 08:00 09/28/17 07:59 09/02/17 16:34 1 GM Levothyroxine Sodium (Synthroid Tab) 75 mcg DAILYBB PO 08/29/17 06:30 09/28/17 06:29 09/02/17 04:32 75 MCG Metoprolol Succinate (Toprol Xl Tab) 12.5 mg BID PO 08/28/17 21:00 09/27/17 20:59 09/02/17 08:28 12.5 MG Venlafaxine HCl (effeXOR TAB) 37.5 mg DAILY PO 08/29/17 09:00 09/28/17 08:59 09/02/17 08:28 37.5 MG Warfarin Sodium (Coumadin Tab) 2.5 mg DAILY@1600 PO 08/29/17 16:00 09/28/17 15:59 09/02/17 16:34 2.5 MG Acetaminophen (Tylenol Tab) 650 mg Q4H PRN PO 08/28/17 19:30 09/27/17 19:29 08/31/17 12:22 650 MG Al Hydrox/Mg Hydrox/Simethicone (Maalox Max Susp) 15 ml Q4H PRN PO 08/28/17 19:30 09/27/17 19:29 Magnesium Hydroxide (Milk Of Magnesia Susp) 30 ml Q6H PRN PO 08/28/17 19:30 09/27/17 19:29 Polyethylene (Miralax Powder Packet) 17 gm DAILY PRN PO 08/28/17 19:30 09/27/17 19:29 Ondansetron HCl (Zofran Inj) 4 mg Q6H PRN IV 08/28/17 19:30 09/27/17 19:29 08/29/17 10:30 4 MG Miscellaneous (Iv Fluids Completed) 1 ea PRN PRN N/A 08/28/17 21:00 08/28/18 20:59 08/29/17 21:51 1 EA Oseltamivir Phosphate (Tamiflu Susp) 30 mg BID PO 08/29/17 09:00 09/03/17 08:59 09/02/17 08:35 30 MG Cephalexin Monohydrate (Keflex Cap) 500 mg BID PO 08/31/17 09:00 09/05/17 08:59 09/02/17 08:27 500 MG Objective Vital Signs Date Time Temp Pulse Resp B/P (MAP) Pulse Ox O2 Delivery O2 Flow Rate FiO2 09/02/17 15:56 36.3 74 18 111/65 (80) 98 Room Air 09/02/17 08:30 Room Air 09/02/17 07:27 36.6 74 18 106/69 (81) 97 Room Air 09/02/17 00:00 97 Room Air 09/01/17 23:13 36.5 66 16 131/76 (94) 96 Room Air 09/01/17 20:47 73 112/64 (80) 09/01/17 20:04 Room Air Physical Exam General Appearance: no apparent distress, + thin Eyes: normal inspection, EOMI, sclerae normal ENT: normal ENT inspection, hearing grossly normal, pharynx normal Neck: supple, no adenopathy, no JVD, trachea midline Respiratory/Chest: chest non-tender, lungs clear, normal breath sounds, no respiratory distress, no accessory muscle use Cardiovascular: regular rate, rhythm, no edema, no gallop, no JVD, no murmur Abdomen: normal bowel sounds, non tender, soft, no organomegaly Extremities: normal range of motion, non-tender, normal inspection, no pedal edema, no calf tenderness, pelvis stable Neurologic/Psychiatric: 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 tested, no motor/sensory deficits, alert, normal mood/affect, oriented x 3 Skin: normal color, warm/dry, no rash Laboratory Results Last 24 Hours Test 09/02/17 06:08 White Blood Count 4.21 K/uL Red Blood Count 4.39 M/uL Hemoglobin 13.3 g/dL Hematocrit 38.9 % Mean Corpuscular Volume 88.6 fL Mean Corpuscular Hemoglobin 30.3 pg Mean Corpuscular Hemoglobin Concent 34.2 g/dl RDW Standard Deviation 43.9 fL RDW Coefficient of Variation 13.5 % Platelet Count 153 K/uL Mean Platelet Volume 9.9 fL Prothrombin Time 26.1 SECONDS Prothromb Time International Ratio 2.5 Sodium Level 138 mmol/L Potassium Level 3.7 mmol/L Chloride Level 104 mmol/L Carbon Dioxide Level 29 mmol/L Anion Gap 5.0 mmol/L Blood Urea Nitrogen 18 mg/dl Creatinine 0.65 mg/dl Est Creatinine Clear Calc Drug Dose 45.2 ml/min Estimated GFR () 92.5 Estimated GFR (Non- 79.8 BUN/Creatinine Ratio 28.3 Random Glucose 84 mg/dl Calcium Level 8.7 mg/dl Assessment and Plan Ms. Theodore is an 86 year old woman here for nausea, vomiting, diarrhea Weakness, diarrhea - C diff was negative - there was evidence of colitis on CT in the splenic flexure, likely just viral since micro testing negative - one loose BM daily, not consistent with diarrhea, eating well Influenza A - continue Tamiflu x 5 days, today is day #5 - breathing stable on room air UTI - E coli on urine culture, > 30 WBC on UA, + dysuria, no fever - initially treated with Rocephin, switch to Keflex on 08/31, complete 7 days treatment PAF - cont Coumadin - INR therapeutic at 2.5 - cont Metoprolol - sinus rhythm on admission 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
[2017-09-02 20:38] VITALS: BP 118/69; PULSE 73
[2017-09-03 00:28] VITALS: BP 113/64; PULSE 70; TEMP 36.3; O2SAT 96
[2017-09-03] MEDS: LEVOTHYROXINE 75 MCG TAB PO SCH (06:31)
[2017-09-03 06:55] LABS: HEMATOCRIT 39.3 % (37-47); HEMOGLOBIN 13.2 g/dL (12.0-16.0); MEAN CELL VOLUME 89.1 fL (80-100); MEAN CORPUSCULAR HEMOGLOBIN 29.9 pg (25-34); MEAN CORPUSCULAR HGB CONC 33.6 g/dl (32-36); PLATELET COUNT 173 K/uL (130-400); RED CELL DISTRIBUTION WIDTH CV 13.4 % (11.5-14.5); RED CELL DISTRIBUTION WIDTH SD 44.3 fL (36.4-46.3); WHITE BLOOD COUNT 4.18 K/uL (4.8-10.8)
[2017-09-03 07:05] LABS: INR 2.4 (0.9-1.1)
[2017-09-03 07:27] LABS: CALCIUM 8.7 mg/dl (8.5-10.1); CREATININE 0.68 mg/dl (0.60-1.20); POTASSIUM 3.6 mmol/L (3.5-5.1)
[2017-09-03 07:28] VITALS: BP 115/70; PULSE 71; TEMP 36.9; O2SAT 95
[2017-09-03] MEDS: ATORVASTATIN 10 MG TAB PO SCH (09:30)
[2017-09-03] MEDS: LACTOBACILLUS ACIDOPHILUS 1 GM PACK PO SCH ×3 (09:30→17:28)
[2017-09-03] MEDS: FAMOTIDINE 20 MG TAB PO SCH (09:30)
[2017-09-03] MEDS: ASPIRIN 81 MG ECTAB PO SCH (09:30)
[2017-09-03] MEDS: METOPROLOL SUCC 25MG EXT REL TAB PO SCH (09:30)
[2017-09-03] MEDS: VENLAFAXINE HCL 37.5 MG TAB PO SCH (09:30)
[2017-09-03] MEDS: CEPHALEXIN MONOHYDRATE 500 MG CAP PO SCH ×2 (09:31→17:28)
--- NOTE | 2017-09-03 11:07 | Discharge Instructions ---
Discharge Instructions Date of Service Sep 03, 2017. Admission Reason for Admission: Influenza A, E coli UTI Discharge Discharge Diagnosis / Problem: Influenza A, E coli UTI Discharge Goals Goal(s): Decrease discomfort, Improve function Activity Recommendations Activity Limitations: resume your previous activity . Instructions / Follow-Up Instructions / Follow-Up Medications: no new medications Influenza A: you completed 5 days of Tamiflu and were treated with IV fluids no further treatment needed E coli UTI: sensitive to cephalosporins, you were started on Rocephin, changed to Keflex, completed 7 days of treatment, no further treatment needed no fever, WBC normal, vitals stable FOLLOW UP - Dr. Quinones next week, call his office to arrange for follow up visit Current Hospital Diet Patient's current hospital diet: AHA Diet (Heart Healthy) Discharge Diet Recommended Diet: AHA Diet (Heart Healthy) Pending Studies Studies pending at discharge: no Medical Emergencies . Who to Call and When: Medical Emergencies: If at any time you feel your situation is an emergency, please call 911 immediately. . Non-Emergent Contact Non-Emergency issues call your: Primary Care Provider Call Non-Emergent contact if: you have any medication questions . . "Provider Documentation" section prepared by Reggie Werner. . VTE Core Measure Inpt VTE Proph given/why not?: Warfarin (Coumadin) [place] Drug Monitoring Program Search Results: no issues identified
[2017-09-03] MEDS ORDERED: NURSING VERBAL MED ORDER ONE (11:15)
[2017-09-03 15:11] VITALS: BP 100/62; PULSE 74; TEMP 37; O2SAT 97
[2017-09-03] MEDS: WARFARIN SOD 2.5 MG TAB PO SCH (15:49)
--- NOTE | 2017-09-04 08:33 | Discharge Summary ---
Discharge Summary Date of Service Sep 03, 2017. 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 Immunizations: Have You Had Influenza Vaccine: Yes History of Tetanus Vaccine?: Unknown History of Pneumococcal: Yes History of Hepatitis B Vaccine: Unknown Procedures: none Consultations: none Medication Reconciliation Continued Medications: Aspirin (Aspirin Ec) 81 Mg Tab 81 MG PO DAILY Atorvastatin (Lipitor) 10 Mg Tab 10 MG PO DAILY, TAB Estrogens, Conjugated (Premarin) 14 Appln/30 Gm Cr 1 DOSE PV 2XWK SATURDAYS & TUESDAYS Famotidine (Pepcid) 20 Mg Tab 20 MG PO DAILY, TAB Lactobacillus Acidophilus (Lactinex Granules) 1 Gm Pack 1 GM PO TIDM for 14 Days Levothyroxine Sodium (Levothyroxine Sodium) 75 Mcg Tab 75 MG PO DAILY for 90 Days, TAB 3 Refills Metoprolol Succinate (Toprol Xl) 25 Mg Tabcr 12.5 MG PO BID, #30 TAB Venlafaxine Hcl (Effexor) 37.5 Mg Tab 37.5 MG PO DAILY, TAB Warfarin Sod (Coumadin) 2.5 Mg Tab 2.5 MG PO QAM, TAB PER CAREGIVER, PT IS ON 1 TABLET OF 2.5MG 7 DAYS A WEEK Discharge Exam Patient was doing well, sitting up in chair eating lunch. No new complaints. Breathing stable. No further diarrhea. Review of Systems: Constitutional: + weakness (chronic), + fatigue, No fever, No chills, No sweats, No weight loss, No problem reported Eyes: No worsening of vision, No eye pain, No redness, No discharge, No diplopia, No problem reported ENT: No hearing loss, No unusual epistaxis, No nasal symptoms, No sore throat, No tinnitus, No dental problems, No trouble swallowing, No problem reported Respiratory: + cough (non-productive), No sputum, No wheezing, No shortness of breath, No dyspnea on exertion, No dyspnea at rest, No hemoptysis, No problem reported Cardiovascular: No chest pain, No orthopnea, No PND, No edema, No claudication, No palpitations, No problem reported Abdomen: + diarrhea (one loose stool a day, not true diarrhea), No pain, No nausea, No vomiting, No constipation, No GI bleeding, No problem reported Musculoskeletal: No joint pain, No muscle pain, No swelling, No calf pain, No problem reported Genitourinary - Female: No dysuria, No urinary frequency, No urinary urgency , No urinary incontinence Neurologic: + weakness (left sided, from prior stroke), No memory loss, No paralysis, No numbness/tingling, No vertigo, No balance problems, No problem reported Psychiatric: No depression symptoms, No anhedonism, No anxiety, No insomnia , No substance abuse, No problem reported Hematologic / Lymphatic: No abnormal bleeding/bruising, No clotting problems , No swollen lymph nodes, No night sweats, No problem reported Integumentary: No rash, No itch, No new/changing skin lesions, No color change, No bleeding, No problem reported Physical Exam: General Appearance: no apparent distress, + thin Eyes: normal inspection, EOMI, sclerae normal ENT: normal ENT inspection, hearing grossly normal, pharynx normal Neck: supple, no adenopathy, no JVD, trachea midline Respiratory/Chest: chest non-tender, lungs clear, normal breath sounds, no respiratory distress, no accessory muscle use Cardiovascular: regular rate, rhythm, no edema, no gallop, no JVD, no murmur , normal peripheral pulses Abdomen / GI: normal bowel sounds, non tender, soft, no organomegaly Extremities: normal inspection, no calf tenderness, normal capillary refill , no pedal edema, normal range of motion, pelvis stable Neurologic/Psychiatric: detasseler II-XII nml as tested, alert, normal mood/affect , normal reflexes, oriented x 3, + motor weakness (generalized, more on the left side, chronic) Skin: normal color, warm/dry, no rash Lymphatic: no adenopathy Hospital Course Ms. Theodore is an 86 year old woman here for nausea, vomiting, diarrhea Weakness, diarrhea - C diff was negative - there was evidence of colitis on CT in the splenic flexure, likely just viral since micro testing negative - one loose BM daily, not consistent with diarrhea, eating well Influenza A - completed 5 days of Tamiflu, no further treatment needed - breathing stable on room air UTI - E coli on urine culture, > 30 WBC on UA, + dysuria, no fever - initially treated with Rocephin, switched to Keflex on 08/31, completed 7 days treatment while inpatient - no further dysuria, no fevers PAF - cont Coumadin - INR therapeutic at 2.5 - cont Metoprolol - sinus rhythm on admission H/o stroke after mitral valve repair - mild left sided weakness at baseline, cognitive deficits - 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 Discharge Instructions Please refer to the electronic Patient Visit Report (Discharge Instructions) for additional information. Follow-Up Dr. Quinones in one week Additional Copies To Alejandro Quinones M.D.
--- NOTE | 2017-09-26 09:12 | EDITING REQUIRED CODING QUERY ---
BMI To promote full compliance with coding requirements relating to patient care, physician participation is requested in all cases of plant changer uncertainty. Please assist us with the question(s) below: Please place an X within the parenthesis (x). If other, please document: BMI 18.4 was documented in this record for this patient. If the BMI is significant, please check the box that provides a more specific associated diagnosis: ( ) Overweight/Obese ( ) Obesity ( ) Morbid obesity ( ) Obesity Hypoventilation Syndrome (OHS) ( x ) Heathy weight, not significant ( ) Underweight/Thin ( ) Other, please specify Thank you Teressa Epstein
== END 2017-09-03 18:00 | disposition home health service (06) | DRG 194 ==
LOC: C.EDB 16:21 → C.MS2W 19:39 → UNDOADMOB 19:39 → ENRESERV 20:01 → INTOOBSV 08-30 13:10 → OBSVTOIN 08-30 13:10
PROVIDERS: ADMIT Internal Medicine; ATTEND Internal Medicine
DX: J10.1 Influenza due to other identified influenza virus with other respiratory manifestations (principal); N39.0 Urinary tract infection, site not specified; Z68.1 Body mass index [BMI] 19.9 or less, adult; E78.5 Hyperlipidemia, unspecified; I48.0 Paroxysmal atrial fibrillation; E03.9 Hypothyroidism, unspecified; F03.90 Unspecified dementia, unspecified severity, without behavioral disturbance, psychotic disturbance, mood disturbance, and anxiety; I10 Essential (primary) hypertension; A49.8 Other bacterial infections of unspecified site; Z87.440 Personal history of urinary (tract) infections; Z79.01 Long term (current) use of anticoagulants; Z86.73 Personal history of transient ischemic attack (TIA), and cerebral infarction without residual deficits; Z95.2 Presence of prosthetic heart valve; Z88.5 Allergy status to narcotic agent; Z88.0 Allergy status to penicillin; Z79.82 Long term (current) use of aspirin; Z80.9 Family history of malignant neoplasm, unspecified; Z83.3 Family history of diabetes mellitus

== ENCOUNTER 2017-09-04 15:06 | Emergency (ER) | payer OTHER ==
[~2017-09-04] VITALS: Ht 160 cm; Wt 45.0 kg
[~2017-09-04 15:06] MED LIST changes: -Boost Plus Vanilla PO; +METO25TA3 PO; -METO25TA4 PO; -VANC5CAP PO
[2017-09-04 15:34] VITALS: TEMP 36.8; Ht 160 cm; Wt 45.0 kg
[2017-09-04] MEDS ORDERED: SODIUM CHLORIDE 0.9% 1000ML 1,000 ML IV STA (15:42)
--- NOTE | 2017-09-04 16:47 | EMERGENCY ROOM VISIT NOTE ---
History Report prepared by Lali: Bonnie Desai Under the Supervision of: Dr. Liz Galloway M.D. First contact with patient: 15:40 Chief Complaint: FLU LIKE SX Stated Complaint: FLU History of Present Illness The patient is an 86 year old female who presents to the Emergency Room with complaints of sudden flu-like symptoms starting yesterday. The patient states that she was just discharged from the hospital at 1800 yesterday. She reports that when she got home, she started having diarrhea and dry heaving. The patient notes that she did not have either symptom in the hospital. She states that she has had two episodes of diarrhea today with the last being 5 hours ago. The patient complains of being shaky and unsteady. The patient denies vomiting, loss of appetite, and fever. The patient notes abdominal pain from a right sided hernia. The daughter notes that she thinks the patient has C-Diff since she was on antibiotics in the hospital. Source of History: patient, family Onset: yesterday Position: other (gloal) Quality: other (flu-like) Timing: other (sudden) Associated Symptoms: + abdominal pain, + diarrhea, No fevers, No vomiting Note: The patient complains of dry heaving, being shaky, and unsteady. The patient denies loss of appetite. Review of Systems See HPI for pertinent positives & negatives. A total of 10 systems reviewed and were otherwise negative. Past Medical & Surgical Medical Problems: (1) Bronchitis (2) C. difficile colitis (3) C. difficile diarrhea (4) Colitis (5) History of atrial fibrillation (6) Influenza A (7) Mitral valve prolapse (8) Palpitations (9) Skin problem Family History Diabetes mellitus FH: thyroid disease FHx: cancer Lung disease Social History Smoking Status: Never Smoker Alcohol Use: occasionally Drug Use: none Marital Status: Housing Status: assisted living Occupation Status: retired Current/Historical Medications Scheduled Aspirin (Aspirin Ec), 81 MG PO DAILY Atorvastatin (Lipitor), 10 MG PO DAILY Estrogens, Conjugated (Premarin), 1 DOSE PV Q2D Levothyroxine Sodium (Levothyroxine Sodium), 75 MG PO DAILY Metoprolol Succinate (Toprol Xl), 25 MG PO DAILY Venlafaxine Hcl (Effexor), 37.5 MG PO DAILY Warfarin Sod (Coumadin), 2.5 MG PO QAM Allergies Coded Allergies: Codeine (Verified Allergy, Unknown, UNK, 09/04/17) Ferrous Sulfate (Verified Allergy, Unknown, 0, 09/04/17) Folic Acid (Verified Allergy, Unknown, 0, 09/04/17) Macrolides and Ketolides (Verified Allergy, Unknown, `, 09/04/17) Pantoprazole (Verified Allergy, Unknown, 0, 09/04/17) Penicillins (Verified Allergy, Unknown, UNK-TOLERATES CEPHS, 09/04/17) Morphine (Verified Adverse Reaction, Unknown, HYPOTENSION, 08/28/17) HYPOTENSION Physical Exam Vital Signs Date Time Temp Pulse Resp B/P (MAP) Pulse Ox O2 Delivery O2 Flow Rate FiO2 09/04/17 18:48 72 18 135/62 97 09/04/17 17:54 76 20 159/71 99 Room Air 09/04/17 16:24 70 09/04/17 15:34 36.8 77 20 123/66 99 Room Air Physical Exam Vital signs reviewed. General: Chronically ill-appearing, elderly, in no significant distress. HEENT: No scleral icterus, PERRLA, neck supple. Atraumatic. Cardiovascular: Regular rate and rhythm, no extra sounds. Pulmonary: Clear to auscultation bilaterally, normal work of breathing. Abdomen: Soft, nondistended, positive bowel sounds, mild right sided abdominal tenderness without rebound or guarding. Musculoskeletal: Atraumatic, no peripheral edema. Neurologic: Patient awake alert and oriented x 3, full strength in all 4 extremities. Cranial nerves 2 through 12 grossly intact. Skin: Warm, dry, no rash Medical Decision & Procedures ER Provider Diagnostic Interpretation: Radiology results as stated below per my review and radiologist interpretation: CHEST AND ABDOMEN 2 VIEWS HISTORY: influenza, weakness, diarrhea COMPARISON: Chest and abdomen and pelvis CT 08/28/2017. FINDINGS: The lungs are clear. The cardiomediastinal silhouette is within normal limits. Cervical spinal fusion hardware. Poststernotomy changes. Calcified AP window lymph nodes. Bilateral total hip arthroplasties. There is no pneumoperitoneum or pneumatosis. The bowel gas pattern is unremarkable. No evidence for bowel obstruction. No renal or ureteral calculi. IMPRESSION: No acute cardiopulmonary process. No evidence for bowel obstruction. Electronically signed by: Ankit Castaneda M.D. 09/04/2017 5:51 PM Dictated Date/Time: 09/04/2017 5:48 PM Laboratory Results 09/04/17 16:29 Red Blood Count 4.47, Mean Corpuscular Volume 89.3, Mean Corpuscular Hemoglobin 29.8, Mean Corpuscular Hemoglobin Concent 33.3, Mean Platelet Volume 10.1, Neutrophils (%) (Auto) 75.8, Lymphocytes (%) (Auto) 13.3, Monocytes (%) (Auto) 9.5, Eosinophils (%) (Auto) 0.8, Basophils (%) (Auto) 0.3, Neutrophils # (Auto) 6.08, Lymphocytes # (Auto) 1.06, Monocytes # (Auto) 0.76, Eosinophils # (Auto) 0.06, Basophils # (Auto) 0.02 09/04/17 16:29 Test 09/04/17 16:29 09/04/17 17:55 White Blood Count 8.00 K/uL (4.8-10.8) Red Blood Count 4.47 M/uL (4.2-5.4) Hemoglobin 13.3 g/dL (12.0-16.0) Hematocrit 39.9 % (37-47) Mean Corpuscular Volume 89.3 fL (80-100) Mean Corpuscular Hemoglobin 29.8 pg (25-34) Mean Corpuscular Hemoglobin Concent 33.3 g/dl (32-36) Platelet Count 180 K/uL (130-400) Mean Platelet Volume 10.1 fL (7.4-10.4) Neutrophils (%) (Auto) 75.8 % Lymphocytes (%) (Auto) 13.3 % Monocytes (%) (Auto) 9.5 % Eosinophils (%) (Auto) 0.8 % Basophils (%) (Auto) 0.3 % Neutrophils # (Auto) 6.08 K/uL (1.4-6.5) Lymphocytes # (Auto) 1.06 K/uL (1.2-3.4) Monocytes # (Auto) 0.76 K/uL (0.11-0.59) Eosinophils # (Auto) 0.06 K/uL (0-0.5) Basophils # (Auto) 0.02 K/uL (0-0.2) RDW Standard Deviation 44.4 fL (36.4-46.3) RDW Coefficient of Variation 13.5 % (11.5-14.5) Immature Granulocyte % (Auto) 0.3 % Immature Granulocyte # (Auto) 0.02 K/uL (0.00-0.02) Anion Gap 5.0 mmol/L (3-11) Est Creatinine Clear Calc Drug Dose 37.5 ml/min Estimated GFR () 83.1 Estimated GFR (Non- 71.7 BUN/Creatinine Ratio 32.2 (10-20) Calcium Level 9.1 mg/dl (8.5-10.1) Magnesium Level 1.9 mg/dl (1.8-2.4) Total Bilirubin 0.5 mg/dl (0.2-1) Direct Bilirubin < 0.1 mg/dl (0-0.2) Aspartate Amino Transf (AST/SGOT) 15 U/L (15-37) Alanine Aminotransferase (ALT/SGPT) 15 U/L (12-78) Alkaline Phosphatase 79 U/L (45-117) Total Protein 8.1 gm/dl (6.4-8.2) Albumin 3.2 gm/dl (3.4-5.0) Lipase 112 U/L (73-393) Urine Color YELLOW Urine Appearance CLEAR (CLEAR) Urine pH 6.0 (4.5-7.5) Urine Specific [place] 1.023 (1.000-1.030) Urine Protein NEG (NEG) Urine Glucose (UA) NEG (NEG) Urine Ketones NEG (NEG) Urine Occult Blood TRACE (NEG) Urine Nitrite NEG (NEG) Urine Bilirubin NEG (NEG) Urine Urobilinogen NEG (NEG) Urine Leukocyte Esterase NEG (NEG) Urine WBC (Auto) 1-5 /hpf (0-5) Urine RBC (Auto) 5-10 /hpf (0-4) Urine Hyaline Casts (Auto) 0 /lpf (0-5) Urine Epithelial Cells (Auto) 5-10 /lpf (0-5) Urine Bacteria (Auto) NEG (NEG) Laboratory results per my review. Medications Administered Medications (Trade) Dose Ordered Sig/Garrick Route Start Time Stop Time Status Last Admin Dose Admin Sodium Chloride 1,000 ml @ 200 mls/hr Q5H STAT IV 09/04/17 15:42 09/04/17 19:19 DC 09/04/17 15:42 200 MLS/HR ECG Indication: abdominal pain Rate (beats per minute): 71 Rhythm: normal sinus Findings: nonspecific-ST abn, no acute ischemic change, other (Poor quality baseline) Comparison ECG Date: 08/29/2017 Change: no significant change Change: Patient's electrocardiogram interpreted by me. ED Course 1542: Ordered NSS 1000 ml @ 200 mls/hr IV. 1548: Past medical records reviewed. The patient was evaluated in room B6. A complete history and physical examination was performed. 1753: Upon reevaluation, the patient appeared to have improvement of her symptoms. I discussed findings with her. She verbalized agreement of the treatment plan. The patient was discharged home. Medical Decision Differential diagnosis: Etiologies such as metabolic, infection, hypo/hyperglycemia, electrolyte abnormalities, cardiac sources, intracerebral event, toxicologic, neurologic, as well as others were entertained. This patient was evaluated and appeared to be in no significant distress. IV access was obtained and laboratory work was drawn. The patient was hydrated with normal saline solution. Laboratory work reveals a stable H&H. Stool specimen is negative for C. difficile. Laboratory work is otherwise unrevealing. The patient was informed of the findings. She will be advised to follow-up with gastroenterology as soon as possible for reevaluation and consideration of further imaging. The patient was made aware of this plan and agrees. Medication Reconcilliation Current Medication List: was personally reviewed by me Blood Pressure Screening Patient's blood pressure: Elevated blood pressure Blood pressure disposition: Elevated BP felt to be situational Impression Primary Impression: Diarrhea Additional Impression: Nausea in adult Scribe Attestation The scribe's documentation has been prepared under my direction and personally reviewed by me in its entirety. I confirm that the note above accurately reflects all work, treatment, procedures, and medical decision making performed by me. Departure Information Dispostion Home / Self-Care Referrals No Doctor, Assigned (PCP) Forms HOME CARE DOCUMENTATION FORM, IMPORTANT VISIT INFORMATION Patient Instructions My [facility] Additional Instructions Diagnosis: Nausea, diarrhea Zofran 4 mg ODT every 6 hours as needed for nausea. Drink plenty of clear fluids. Obtain a stool specimen for C. difficile testing. Follow-up with your physician this week for reevaluation. Return to the ER for worsening of symptoms or any medical concerns. Problem Qualifiers
[2017-09-04 16:54] LABS: BASO % 0.3 %; BASO ABS # 0.02 K/uL (0-0.2); EOS % 0.8 %; EOS ABS # 0.06 K/uL (0-0.5); HEMATOCRIT 39.9 % (37-47); HEMOGLOBIN 13.3 g/dL (12.0-16.0); IG# 0.02 K/uL (0.00-0.02); LYMPH % 13.3 %; LYMPH ABS # 1.06 K/uL (1.2-3.4); MEAN CELL VOLUME 89.3 fL (80-100); MEAN CORPUSCULAR HEMOGLOBIN 29.8 pg (25-34); MEAN CORPUSCULAR HGB CONC 33.3 g/dl (32-36); MEAN PLATELET VOLUME 10.1 fL (7.4-10.4); MONO % 9.5 %; MONO ABS # 0.76 K/uL (0.11-0.59); NEUT % 75.8 %; NEUT ABS # 6.08 K/uL (1.4-6.5); PLATELET COUNT 180 K/uL (130-400); RED CELL DISTRIBUTION WIDTH CV 13.5 % (11.5-14.5); RED CELL DISTRIBUTION WIDTH SD 44.4 fL (36.4-46.3)
[2017-09-04 17:13] LABS: ALBUMIN 3.2 gm/dl (3.4-5.0); ALT/SGPT 15 U/L (12-78); AST/SGOT 15 U/L (15-37); BLOOD UREA NITROGEN 24 mg/dl (7-18); CALCIUM 9.1 mg/dl (8.5-10.1); CARBON DIOXIDE 32 mmol/L (21-32); CREATININE 0.75 mg/dl (0.60-1.20); GLUCOSE 111 mg/dl (70-99); LIPASE 112 U/L (73-393); SODIUM 141 mmol/L (136-145)
[2017-09-04 17:16] LABS: ALKALINE PHOSPHATASE 79 U/L (45-117); TOTAL PROTEIN 8.1 gm/dl (6.4-8.2)
--- NOTE | 2017-09-04 17:52 | DIAGNOSTIC IMAGING REPORT ---
CHEST AND ABDOMEN 2 VIEWS HISTORY: influenza, weakness, diarrhea COMPARISON: Chest and abdomen and pelvis CT 08/28/2017. FINDINGS: The lungs are clear. The cardiomediastinal silhouette is within normal limits. Cervical spinal fusion hardware. Poststernotomy changes. Calcified AP window lymph nodes. Bilateral total hip arthroplasties. There is no pneumoperitoneum or pneumatosis. The bowel gas pattern is unremarkable. No evidence for bowel obstruction. No renal or ureteral calculi. IMPRESSION: No acute cardiopulmonary process. No evidence for bowel obstruction. Electronically signed by: Ankit Castaneda M.D. 09/04/2017 5:51 PM Dictated Date/Time: 09/04/2017 5:48 PM
[2017-09-04 18:48] VITALS: BP 135/62; PULSE 72; O2SAT 97
== END 2017-09-04 18:50 | disposition home or self-care (01) ==
LOC: C.EDB 15:07
DX: R19.7 Diarrhea, unspecified (principal); R11.0 Nausea; I48.91 Unspecified atrial fibrillation; I34.1 Nonrheumatic mitral (valve) prolapse; Z83.3 Family history of diabetes mellitus; Z80.9 Family history of malignant neoplasm, unspecified; Z79.82 Long term (current) use of aspirin; Z79.899 Other long term (current) drug therapy; Z79.01 Long term (current) use of anticoagulants

== ENCOUNTER → 2017-11-21 | Outpatient (CLI) | payer OTHER ==
[~2017-11-21] MED LIST changes: -FAMO20TA11 PO; -LCTXP PO; -METO25TA3 PO; +METO25TA4 PO
== END | disposition home or self-care (01) ==
LOC: C.LAB1850 13:16
PROVIDERS: ATTEND Internal Medicine
DX: R39.9 Unspecified symptoms and signs involving the genitourinary system (principal)

== ENCOUNTER 2017-12-19 19:29 | Emergency (ER) | payer OTHER ==
[~2017-12-19] VITALS: Ht 160 cm; Wt 43.9 kg
[2017-12-19 19:35] VITALS: Ht 160 cm; Wt 43.9 kg
--- NOTE | 2017-12-19 20:50 | DIAGNOSTIC IMAGING REPORT ---
R HIP UNILATERAL 2 VIEWS CLINICAL HISTORY: 87 years-old Female presenting with Fall, hip pain. TECHNIQUE: Frontal and frog-leg lateral views right hip were obtained. COMPARISON: CT from 08/28/2017. FINDINGS: Post surgical changes of total right hip arthroplasty. No hardware complication. No periprosthetic fracture or malalignment. Visualized portion of the bony pelvis intact. No radiographic soft tissue abnormality. IMPRESSION: Total right hip arthroplasty without complication. No acute osseous injury. Electronically signed by: Preston Bryson M.D. 12/19/2017 8:49 PM Dictated Date/Time: 12/19/2017 8:47 PM
[2017-12-19 21:09] LABS: INR 1.6 (0.9-1.1)
--- NOTE | 2017-12-19 21:43 | DIAGNOSTIC IMAGING REPORT ---
HEAD WITHOUT CONTRAST (CT) CLINICAL HISTORY: 87 years-old Female presenting with fall. TECHNIQUE: Multidetector CT imaging of the head was performed without the use of intravenous contrast. IV contrast: None. A dose lowering technique was used consistent with the principles of ALARA (as low as reasonably achievable). COMPARISON: 07/12/2017. CT DOSE (mGy.cm): The estimated cumulative dose is 537.48 mGy.cm. FINDINGS: Political Cartoonist topogram: Unremarkable. Proportional ventricular and sulcal prominence, likely age-related parenchymal volume loss. Periventricular and subcortical white matter hypoattenuation, nonspecific but likely indicative of chronic small vessel ischemic change. Chronic infarct in the bilateral frontal lobes and right posterior temporoparietal region. Old lacunar infarcts in the left thalamus and bilateral caudate heads. No mass effect or midline shift. No hemorrhage or acute territorial infarct. No extra-axial fluid collection. Extensive opacification of the left frontal sinus, right sphenoid sinus, and ethmoid air cells. Calvarium intact. IMPRESSION: 1. No significant change compared to the prior study. Chronic infarcts unchanged. No acute intracranial abnormality. 2. Extensive sinus opacification, unchanged. Electronically signed by: Preston Bryson M.D. 12/19/2017 9:41 PM Dictated Date/Time: 12/19/2017 9:37 PM
--- NOTE | 2017-12-19 22:09 | EMERGENCY ROOM VISIT NOTE ---
History Report prepared by Lali: Cortney Bell Under the Supervision of: Dr. Fab Cook M.D. First contact with patient: 19:50 Chief Complaint: FALL Stated Complaint: FALL, HEAD & HIP PAIN History of Present Illness The patient is an 87 year old female who presents to the Emergency Room with complaints of an episode of fall around 0 today. The patient fell outside while waiting for the door to be opened. She grabbed a flower pot on the way down. She landed mostly on her right hip and buttock and hit her head on the brick. She currently complains of head pain and right hip pain. She is on Coumadin. Her INR was last checked 4 days ago. She has a history of stroke, mitral valve prolapse, and hypertension. Pt denies LOC, visual changes, neck pain, chest pain, breathing difficulties, nausea, vomiting, abdominal pain, back pain, other extremity pain, numbness, weakness, open wounds, active bleeding, or other complaints. Source of History: patient, nursing staff Onset: 1900 Position: head, other (right hip) Quality: other (fall) Timing: other (episodic) Associated Symptoms: + headache Note: Pt reports right hip pain. Review of Systems See HPI for pertinent positives and negatives. A total of ten systems were reviewed and were otherwise negative. Past Medical & Surgical Medical Problems: (1) Bronchitis (2) C. difficile colitis (3) C. difficile diarrhea (4) Colitis (5) History of atrial fibrillation (6) Influenza A (7) Mitral valve prolapse (8) Palpitations (9) Skin problem Family History Diabetes mellitus FH: thyroid disease FHx: cancer Lung disease Social History Smoking Status: Never Smoker Alcohol Use: occasionally Drug Use: none Marital Status: Housing Status: assisted living Occupation Status: retired Current/Historical Medications Scheduled Aspirin (Aspirin Ec), 81 MG PO DAILY Atorvastatin (Lipitor), 10 MG PO DAILY Estrogens, Conjugated (Premarin), 1 DOSE PV Q2D Levothyroxine Sodium (Levothyroxine Sodium), 75 MG PO DAILY Metoprolol Succinate (Toprol Xl), 25 MG PO DAILY Venlafaxine Hcl (Effexor), 37.5 MG PO DAILY Warfarin Sod (Coumadin), 2.5 MG PO QAM Allergies Coded Allergies: Codeine (Verified Allergy, Unknown, UNK, 09/04/17) Ferrous Sulfate (Verified Allergy, Unknown, 0, 09/04/17) Folic Acid (Verified Allergy, Unknown, 0, 09/04/17) Macrolides and Ketolides (Verified Allergy, Unknown, `, 09/04/17) Pantoprazole (Verified Allergy, Unknown, 0, 09/04/17) Penicillins (Verified Allergy, Unknown, UNK-TOLERATES CEPHS, 09/04/17) Morphine (Verified Adverse Reaction, Unknown, HYPOTENSION, 08/28/17) HYPOTENSION Physical Exam Vital Signs Date Time Temp Pulse Resp B/P (MAP) Pulse Ox O2 Delivery O2 Flow Rate FiO2 12/19/17 20:55 86 14 165/118 97 Room Air 12/19/17 19:35 81 14 183/78 94 Room Air Physical Exam GENERAL: Awake, alert, uncomfortable appearing, no distress HEAD: Mild contusion on the scalp. No fish sign. No raccoon eyes. EYES: Normal conjunctiva. PERRL. EARS: External ears normal. Right TM normal. Left TM normal. NOSE: Atraumatic OROPHARYNX: Lips, tongue, and mucosa unremarkable. No erythema or exudate. NECK: Supple. FROM. No tracheal deviation or JVD. No posterior midline tenderness. No step offs noted. RESPIRATORY: CTA bilaterally. Breath sounds equal. No wheezes. No rhonchi. Normal respiratory effort. CARDIAC: Regular rate, normal rhythm. No murmurs. No rubs. ABDOMEN: Inspection reveals no abnormalities. Soft, non distended. No tenderness to palpation. No hernias. BACK: Kyphotic. No midline step offs or tenderness to palpation. PELVIS: Stable to rock. SKIN: Normal. LYMPH: No adenopathy. MUSCULOSKELETAL: Tenderness in the right hip, ROM somewhat limited secondary to pain. Upper extremities, LLE, and remainder of RLE atraumatic. NEURO: GCS 15. Normal sensorium. No sensory or motor deficits noted. Medical Decision & Procedures ER Provider Diagnostic Interpretation: Radiology results as stated below per my review and radiologist interpretation: R HIP UNILATERAL 2 VIEWS CLINICAL HISTORY: 87 years-old Female presenting with Fall, hip pain. TECHNIQUE: Frontal and frog-leg lateral views right hip were obtained. COMPARISON: CT from 08/28/2017. FINDINGS: Post surgical changes of total right hip arthroplasty. No hardware complication. No periprosthetic fracture or malalignment. Visualized portion of the bony pelvis intact. No radiographic soft tissue abnormality. IMPRESSION: Total right hip arthroplasty without complication. No acute osseous injury. Electronically signed by: Preston Bryson M.D. 12/19/2017 8:49 PM Dictated Date/Time: 12/19/2017 8:47 PM HEAD WITHOUT CONTRAST (CT) CLINICAL HISTORY: 87 years-old Female presenting with fall. TECHNIQUE: Multidetector CT imaging of the head was performed without the use of intravenous contrast. IV contrast: None. A dose lowering technique was used consistent with the principles of ALARA (as low as reasonably achievable). COMPARISON: 07/12/2017. CT DOSE (mGy.cm): The estimated cumulative dose is 537.48 mGy.cm. FINDINGS: Pellet Post Inspector topogram: Unremarkable. Proportional ventricular and sulcal prominence, likely age-related parenchymal volume loss. Periventricular and subcortical white matter hypoattenuation, nonspecific but likely indicative of chronic small vessel ischemic change. Chronic infarct in the bilateral frontal lobes and right posterior temporoparietal region. Old lacunar infarcts in the left thalamus and bilateral caudate heads. No mass effect or midline shift. No hemorrhage or acute territorial infarct. No extra-axial fluid collection. Extensive opacification of the left frontal sinus, right sphenoid sinus, and ethmoid air cells. Calvarium intact. IMPRESSION: 1. No significant change compared to the prior study. Chronic infarcts unchanged. No acute intracranial abnormality. 2. Extensive sinus opacification, unchanged. Electronically signed by: Preston Bryson M.D. 12/19/2017 9:41 PM Dictated Date/Time: 12/19/2017 9:37 PM Laboratory Results Test 12/19/17 20:30 Prothrombin Time 16.7 SECONDS (9.0-12.0) Prothromb Time International Ratio 1.6 (0.9-1.1) Activated Partial Thromboplast Time 29.0 SECONDS (21.0-31.0) Partial Thromboplastin Ratio 1.1 Laboratory results reviewed by me ED Course 1952: The patient was evaluated in room A3. A complete history and physical exam was performed. 2142: I reevaluated the patient. She is doing well. I updated her on the results. 2146: I reevaluated the patient. Discussed results and discharge instructions: She verbalized understanding and agreement. The patient is ready for discharge. Medical Decision Prior records/ancillary studies reviewed. Triage Nursing notes reviewed and agree them. Additional history obtained from family. The patient's history was concerning for traumatic head and hip injury Differential diagnosis: Etiologies such as contusion, fracture, subdural hematoma, concussion, epidural hematoma, intraparenchymal hemorrhage, as well as other traumatic pathologies were entertained. Physical examination findings: As above. ER treatment provided: Patient declined any analgesia Ice pack On reassessment the patient felt better. Diagnostics interpreted by me: The labs revealed a slightly subtherapeutic INR. The patient will continue her current medication and follow-up as an outpatient. Imaging studies: X-ray and CAT scans as above It appears the patient has a very slight concussion. The patient was able to ambulate without difficulty. There is no evidence of periprosthetic fracture or dislocation of her hip. By the evaluation outlined above emergent etiologies such as fracture, subdural hematoma, epidural hematoma, intraparenchymal hemorrhage, as well as others were deemed relatively unlikely. The patient and family were informed about the findings as listed above. All questions were answered and they were pleased with the treatment. Return instructions were outlined and the patient was discharged in stable condition. Referral: The patient was referred back to her primary care physician for follow-up in 2 to 3 days for a recheck of the current condition. Head Trauma GCS Score: 15 Medication Reconcilliation Current Medication List: was personally reviewed by me Blood Pressure Screening Patient's blood pressure: Elevated blood pressure Blood pressure disposition: Referred to PCP Impression Primary Impression: Fall Additional Impressions: Closed head injury Contusion of right hip Scribe Attestation The scribe's documentation has been prepared under my direction and personally reviewed by me in its entirety. I confirm that the note above accurately reflects all work, treatment, procedures, and medical decision making performed by me. Departure Information Dispostion Home / Self-Care Referrals Alejandro Quinones M.D. Forms HOME CARE DOCUMENTATION FORM, IMPORTANT VISIT INFORMATION Patient Instructions My [facility] Additional Instructions Rest and avoid strenuous activities for the next few days. Get 8-10 hours of sleep per night. Tylenol(acetaminophen) may be used for headaches. Use 650 mg every six hours as needed. Ice compresses for 20 minutes at a time four times daily for 2-3 days. Avoid anti-inflammatories such as aspirin, ibuprofen, Alleve, naprosyn, Motrin, or Advil as these can interfere with blood clotting and lead to bleeding within the brain after a traumatic injury. FOLLOW UP INSTRUCTIONS: Follow-up with your primary care physician in 2 to 3 days for a recheck of your current condition. Problems could arise over the next 24 to 48 hours. You should not be left alone and MUST go to the hospital immediately if you: -Have a headache that suddenly gets worse. -Are very drowsy or cannot be woken up from sleep. -Can't recognize people or places. -Have repeated vomiting. -Behave unusually, seemed confused, or start acting irritable. -Have a seizure (arms and legs start jerking uncontrollably). -Have weak or numb arms or legs. -Are unsteady on your feet -Experience slurred speech or difficulty speaking. Problem Qualifiers
[2017-12-19] MEDS ORDERED: ACETAMINOPHEN 325 MG TAB PO STA (22:20)
[2017-12-19 22:27] VITALS: BP 168/90; PULSE 82; O2SAT 96
== END 2017-12-19 22:29 | disposition home or self-care (01) ==
LOC: EDBD 19:29 → C.EDA 19:29
DX: S09.90XA Unspecified injury of head, initial encounter (principal); S70.01XA Contusion of right hip, initial encounter; W19.XXXA Unspecified fall, initial encounter; Y92.019 Unspecified place in single-family (private) house as the place of occurrence of the external cause; Z86.73 Personal history of transient ischemic attack (TIA), and cerebral infarction without residual deficits; I10 Essential (primary) hypertension; I34.1 Nonrheumatic mitral (valve) prolapse; Z79.01 Long term (current) use of anticoagulants; Z79.82 Long term (current) use of aspirin; Z79.899 Other long term (current) drug therapy; Z88.5 Allergy status to narcotic agent; Z88.8 Allergy status to other drugs, medicaments and biological substances; Z88.0 Allergy status to penicillin

== ENCOUNTER → 2017-12-22 | Outpatient (CLI) | payer OTHER | END | disposition home or self-care (01) | LOC: C.LAB1850 13:25 | PROVIDERS: ATTEND Internal Medicine Cardiovascular Disease | DX: I63.9 Cerebral infarction, unspecified (principal) ==

== ENCOUNTER → 2018-03-07 | Outpatient (CLI) | payer OTHER ==
[~2018-03-07] MED LIST changes: +FAMO20TA11 PO; +WARF2.5T8 PO
== END | disposition home or self-care (01) ==
LOC: C.LAB1850 12:55
PROVIDERS: ATTEND Internal Medicine
DX: N39.0 Urinary tract infection, site not specified (principal)

== ENCOUNTER 2019-04-06 15:02 | Inpatient (IN) ==
[2019-04-06 15:52] LABS: Basophils # (auto) 0.03 K/uL (0-0.2); Basophils % (auto) 0.5 %; Eosinophils # (auto) 0.38 K/uL (0-0.5); Hematocrit (blood only) 36.3 % (37-47); Hemoglobin 12.2 g/dL (12.0-16.0); Lymphocytes # (auto) 1.14 K/uL (1.2-3.4); Mean Corpuscular Hemoglobin 29.9 pg (25-34); Mean Corpuscular Hgb Conc 33.6 g/dL (32-36); Mean Platelet Volume 9.8 fL (7.4-10.4); Monocytes # (auto) 0.69 K/uL (0.11-0.59); Monocytes % (auto) 10.9 %; Neutrophils # (auto) 4.09 K/uL (1.4-6.5); Neutrophils % (auto) 64.6 %; Platelet Count 184 K/uL (130-400); RDW Coefficient of Variation 13.4 % (11.5-14.5); RDW Standard Deviation 43.2 fL (36.4-46.3); Red Blood Count 4.08 M/uL (4.2-5.4); White Blood Count 6.33 K/uL (4.8-10.8)
[2019-04-06 16:03] LABS: INR 1.1 (0.9-1.1); Partial Thromboplastin Time 27.2 Seconds (21.0-31.0)
[2019-04-06 16:25] LABS: Albumin Globulin Ratio 0.7 (0.9-2); Albumin Level 3.2 gm/dl (3.4-5.0); BUN Creatinine Ratio 25.8 (10-20); Bilirubin,Total 0.3 mg/dl (0.2-1); Calcium 8.6 mg/dl (8.5-10.1); Est GFR (African American) 54.5; Globulin 4.6 gm/dl (2.5-4.0); Total Protein 7.8 gm/dl (6.4-8.2)
--- NOTE | 2019-04-06 17:10 | History & Physical Report ---
Date of Service April 06, 2019 Assessment & Plan (1) GI bleed: - Admit to tele - Heme positive in the ER, guiac all stools, differential would include external hemorrhoid vs internal bleed secondary to being anticoagulated, will ask GI to make recommendations. Allow full liquid diet for now, NPO after midnight if needs for c-scope. - Hold xarelto - Famotidine 20 mg IV BID - Gi consult, follows with [facility] - Cardiology consult, Dr. Farncois - Follow am cbc, trend troponin - INR normal - Heme positive in the ER, guiac all stools, possible that this is due to an external hemorrhoid, so will ask GI to make recommendations. Allow full liquid diet for now, NPO after midnight if needs for c-scope. (2) intermediate (current) use of anticoagulants: - Hold xarelto for now, pt is currently NSR. Appears afib has been well controlled for some time per her outpatient PCP notes. Discussed the risk of CVA in the setting of holding xarelto vs the benefit of holding it secondary to having acute GI bleed. Pt is agreeable to holding the medication at this time. (3) CVA (cerebral vascular accident): - Hx of such, ischemic right frontotemporoparietal in November 2016 with resultant aphasia and mild left hemiparesis. Aphasia still is an issue, and vascular dementia worsened after the VCA. She requires assistance by caregivers for the majority of ADLs. (4) Vascular dementia: - noted, developed after CVA (5) Vascular parkinsonism: - noted (6) Atrial fibrillation: - Hx of such, paroxysmal, s/p MAZE in Aug 2015. Hold xarelto as above. (7) Hypothyroidism: - Cont levothyroxine 75 mg daily (8) Hx of recurrent urinary tract infection: - Multiple bouts of e.coli UTI, continue on trimethoprim 50 mg HS as prophylaxis for now. Was started in February [address] Quinones. 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 This repair and MAZE was done at [facility] 09/05/15. Postoperative course was complicated by excessive bleeded that required 19 U PRBCs, platelets, plasma. She had issues with afib with RVR and eventually required electrical cardioversion. (10) Left hemiparesis: - PT/OT consults (11) DVT prophylaxis: - teds, no chemical ppx in the setting of GI bleed Dispo: From home, PT/OT consults, admit to the hospital for 2 days. History of Present Illness Primary Care Provider: Alejandro Quinones MD This is an 88 yo F with PMHx of afib on xarelto, hx of mitral valve repair, HTN, HLD, hx of CVA in , vascular dementia, seizure who presents with the acute onset of rectal bleeding x 2 days. Pt has 2 caregivers at bedside. They note that she has been developing blood streaking on toilet paper but has not seen large quantity of BRBPR. She reports having streaking blood on toilet paper since Tuesday with each BM. She had eaten prunes on Tuesday and Tuesday as was dealing with constipation. She had loose stools since tuesday after eating the prunes. Caregivers deny that she has had any dark tarry stools, hematemesis, nausea, vomiting, or abdominal pain. She has been eating and drinking without any difficulty. She has used sanitary napkin/disposable briefs but has not soaked through with blood on these. Patient's caregivers also not that she has woken up and had some of what appeared to be dried blood on the sides of her mouth in the past 2 days. She denies any seizure like trauma, painful lesions, ulcers, dental issues or nasal bleeds. Patient notes that she was told by her PCP, Dr. Quinones, that she would be better suited being watched in the hospital than at home in case bleeding progressed. Allergies Allergy/AdvReac Type Severity Reaction Status Date / Time codeine Allergy Unknown UNK Verified 04/06/19 16:13 ferrous sulfate Allergy Unknown 0 Verified 04/06/19 16:13 folic acid Allergy Unknown 0 Verified 04/06/19 16:13 Macrolide Antibiotics Allergy Unknown ` Verified 04/06/19 16:13 pantoprazole Allergy Unknown 0 Verified 04/06/19 16:13 Penicillins Allergy Unknown UNK-TOLERATES Verified 04/06/19 16:13 CEPHS morphine AdvReac Unknown HYPOTENSION Verified 04/06/19 16:13 Home Medications Home Medications Medication Instructions Recorded Confirmed Type aspirin 81 mg PO QAM #0 06/18/17 04/06/19 History atorvastatin 10 mg PO QAM #0 tab 06/18/17 04/06/19 History levothyroxine 75 mg PO QAM 90 Days #0 tab 06/18/17 04/06/19 History metoprolol succinate 25 mg PO QAM #30 tab 06/18/17 04/06/19 History venlafaxine 37.5 mg PO QAM #0 tab 06/18/17 04/06/19 History famotidine 20 mg PO QAM #0 tab 02/07/18 04/06/19 History cranberry 450 mg PO BID 06/26/18 04/06/19 History Saccharomyces boulardii [Florastor] 250 mg PO QAM 08/29/18 04/06/19 History trimethoprim 100 mg tablet 50 mg PO HS tab 03/06/19 04/06/19 History acetaminophen 500 mg tablet 500 mg PO Q4 PRN tab MDD 6 TABS 03/22/19 04/06/19 History DAILY rivaroxaban [Xarelto] 15 mg PO DAILY 04/06/19 04/06/19 History Past Med/Surg History Medical History CVA (cerebral vascular accident) Vascular parkinsonism Vascular dementia Mitral valve prolapse (Chronic) History of atrial fibrillation (Chronic) Atrial fibrillation (Chronic) Seizure Syncope (Acute) UTI (urinary tract infection) (Acute) Social History Preferred Language: Korean Communication Ability: Impaired Visual Impairment: No Limitations Hearing Ability: Normal Wicker Worker Required: No Beliefs That Will Affect Care: None Current Living Situation: Alone Current Living Situation Comment: 28/02 caregivers current occupational status: retired Other Information That Helps Us Care for You: No Feels Safe at Home: Yes Smoking Status: Never smoker Do You Dip or Chew Tobacco: No ; Second Hand Exposure: No ; Tobacco Cessation Education Requested by Patient: No Hx Alcohol Use: Yes Alcohol type: wine Hx Substance Use: No Review of Systems Review of Systems: Constitutional: No fever, sweats or chills Eyes: No diplopia, no worsening or blurred vision ENT: normal hearing, no trouble swallowing Respiratory: No cough, sputum, dyspnea at rest or on exertion Cardiovascular: No chest pain, tightness or palpitations Abdomen: No pain, nausea, vomiting, diarrhea or constipation Musculoskeletal: No joint pain, calf pain, swelling Neurologic: No weakness, numbness/tingling, or balance problems Psychiatric: No anxiety or depression Skin: No rash or itch Physical Exam Physical Exam: General: awake, alert, no apparent distress, + thin Head: Normocephalic, atraumatic ENT: PERRL, EOMI, no pharyngeal exudate, mucous membranes moist, no trauma or ulcerations. Chest: Clear to auscultation, on room air, no adventitious breath sounds Cardiac: Regular rate and rhythm, no murmur, no JVD, normal peripheral pulses, good capillary refill Abdominal: NABS x 4 quadrants, soft, nontender to palpation, no rebound, guarding or tenderness Extremities: Normal inspection, no peripheral edema or erythema, calfs nontender to palpation Psych: Normal mood and affect Neuro: AAO x 3, no gross motor deficits, speech is clear, no peripheral sensory deficits Results & Data Vital Signs (Past 12 Hours) Vital Signs Temp Pulse Pulse Resp BP Pulse Ox 04/06/19 16:03 70 19 132/69 97 04/06/19 16:00 70 21 96 04/06/19 15:43 72 17 97 04/06/19 15:38 72 19 95 04/06/19 15:06 36.6 C 83 20 135/62 98 ECG Additional Comments: 06-APR-2019 15:31:15 [facility]-EDSTAT ROUTINE RETRIEVAL Normal sinus rhythm Incomplete right bundle branch block Borderline ECG When compared with ECG of 29-DEC-2018 15:20, No significant change was found 25mm/s 10mm/mV 150Hz 9.0.9 12SL 241 TACO: 16 Referred by: Alejandro Quinones Unconfirmed Vent. rate 73 BPM MA interval 194 ms QRS duration 108 ms QT/QTc 432/475 ms P-R-T axes 71 67 70 Code Status & VTE Plan Code Status DNR - discussed with the patient at bedside, as well as two caregivers. Supervising Physician Co-Signing Physician Notes I have seen the patient with Moni Alicia and agree with exam , assessment and plan. PG Care Time/CCT Total # of Minutes Spent Total Time Spent with Patient: Total time spent is greater than 50% in coordination of care (as documented) at patient's floor/unit and/or counseling patient:
[2019-04-06] MEDS ORDERED: ACETAMINOPHEN 325 MG TAB PO PRN (17:32)
[2019-04-06] MEDS ORDERED: ONDANSETRON INJ 2 MG/ML 2 ML VIAL IV PRN (17:32)
--- NOTE | 2019-04-06 20:13 | Emergency Department Note ---
Entered by Pratima Berry acting as a scribe for History of Present Illness General Chief complaint: Rectal Bleed Stated complaint: RECTAL BLEEDING - REF DR. QUINONES Time Seen by Provider: 04/06/19 15:12 Source: patient History of Present Illness Provider complaint: Rectal Bleeding Onset (ago): day(s) 4 Location: buttocks Pain Consistency: + intermittent Relieved By: + none Exacerbated By: + none Associated symptoms: + denies other symptoms (Negative Abdominal Pain); no nausea/vomiting The patient is a 88 year old white female w/ PMHx of atrial fibrillation, dementia, hypertension, and hyperlipidemia who presents to the ED w/ CC of intermittent rectal bleeding that started 4 days prior. The patient was referred here by Dr. Quinones for her symptoms. The patient denies any abdominal pain, nausea, or vomiting. Additionally, the patient's family denies any alcohol or tobacco usage. The patient's family reports the patient uses a walker at home and a cane the rest of the time. The patient's family mentioned the patient's last colonoscopy was about 8 years ago and she has a history of a stroke which left her on 24 hour care. Home Medications Home Medications Medication Instructions Recorded Confirmed Type aspirin 81 mg PO QAM #0 06/18/17 04/06/19 History atorvastatin 10 mg PO QAM #0 tab 06/18/17 04/06/19 History levothyroxine 75 mg PO QAM 90 Days #0 tab 06/18/17 04/06/19 History metoprolol succinate 25 mg PO QAM #30 tab 06/18/17 04/06/19 History venlafaxine 37.5 mg PO QAM #0 tab 06/18/17 04/06/19 History famotidine 20 mg PO QAM #0 tab 02/07/18 04/06/19 History cranberry 450 mg PO BID 06/26/18 04/06/19 History Saccharomyces boulardii [Florastor] 250 mg PO QAM 08/29/18 04/06/19 History trimethoprim 100 mg tablet 50 mg PO HS tab 03/06/19 04/06/19 History acetaminophen 500 mg tablet 500 mg PO Q4 PRN tab MDD 6 TABS 03/22/19 04/06/19 History DAILY rivaroxaban [Xarelto] 15 mg PO DAILY 04/06/19 04/06/19 History Allergies Allergy/AdvReac Type Severity Reaction Status Date / Time codeine Allergy Unknown UNK Verified 04/06/19 16:13 ferrous sulfate Allergy Unknown 0 Verified 04/06/19 16:13 folic acid Allergy Unknown 0 Verified 04/06/19 16:13 Macrolide Antibiotics Allergy Unknown ` Verified 04/06/19 16:13 pantoprazole Allergy Unknown 0 Verified 04/06/19 16:13 Penicillins Allergy Unknown UNK-TOLERATES Verified 04/06/19 16:13 CEPHS morphine AdvReac Unknown HYPOTENSION Verified 04/06/19 16:13 Past Med/Surg History Medical History CVA (cerebral vascular accident) Vascular parkinsonism Vascular dementia Mitral valve prolapse (Chronic) History of atrial fibrillation (Chronic) Atrial fibrillation (Chronic) Seizure Syncope (Acute) UTI (urinary tract infection) (Acute) Social History Preferred Language: Occitan Communication Ability: Impaired Visual Impairment: No Limitations Hearing Ability: Normal 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 and A total of 10 systems reviewed and were otherwise negative Physical Exam Vital Signs Vital Signs - 24 hr 04/06/19 15:06 04/06/19 15:38 04/06/19 15:43 Temperature 36.6 C Temperature Source Oral Sepsis Recent Fever Within 48 Hours No Sepsis Action Taken by Nursing No Action Required Pulse Rate 83 72 Pulse Rate [Finger] 72 Pulse Rate from SpO2 Sensor 72 Pulse Rhythm [Finger] Pulse Strength Normal Pulse Strength [Finger] Respiratory Rate 20 19 17 Respiratory Effort / Characteristics Non-Labored Respiratory Depth Normal Respiratory Pattern Regular Blood Pressure 135/62 Blood Pressure [Left Arm] Blood Pressure Mean 86 Blood Pressure Mean [Left Arm] Blood Pressure Position [Left Arm] Pulse Oximetry 98 95 97 Oxygen Delivery Method Room Air Room Air 04/06/19 16:00 04/06/19 16:03 04/06/19 17:24 Temperature Temperature Source Sepsis Recent Fever Within 48 Hours Sepsis Action Taken by Nursing Pulse Rate 70 70 Pulse Rate [Finger] 74 Pulse Rate from SpO2 Sensor 70 71 Pulse Rhythm [Finger] Regular Pulse Strength Pulse Strength [Finger] Normal Respiratory Rate 21 19 18 Respiratory Effort / Characteristics Non-Labored Spontaneous Respiratory Depth Normal Respiratory Pattern Blood Pressure 132/69 Blood Pressure [Left Arm] 160/79 H Blood Pressure Mean 90 Blood Pressure Mean [Left Arm] 106 Blood Pressure Position [Left Arm] Lying Pulse Oximetry 96 97 98 Oxygen Delivery Method GENERAL: Well appearing, well nourished, NAD, non-toxic. Appears younger than stated age. EYE EXAM: Normal conjunctiva. PERRL, no anisocoria and EOM's grossly intact w/o pain. OROPHARYNX: Moist mucous membranes. No exudate, posterior pharynx is clear, no tonsillar/uvular deviation or swelling. No obvious gingival or oral bleeding. NECK: Supple, no nuchal rigidity, no adenopathy, non-tender. No signs of meningismus. LUNGS: Clear to auscultation. Normal chest wall mechanics. HEART: NSR, no MRG. ABDOMEN: Abdomen soft, non-tender, normo-active bowel sounds, no masses, no rebound or guarding. BACK: No CVA TTP. SKIN: No rashes and no bruising. UPPER EXTREMITIES: Upper extremities are grossly normal. RECTAL: Non-bleeding, non-thrombosed hemorrhoid at 6 o'clock position. No fissures. Trace bright red blood per rectum. Heme positive stool. LOWER EXTREMITIES: No pitting edema. No calf pain. NEURO EXAM: A&O x3, cranial nerves II-XII grossly intact, normal speech, moves all 4 extremities on command w/o issue. Course 1522: Past medical records reviewed. The patient was evaluated in room A03. A complete history and physical exam was performed. 1706: I spoke with Moni Alicia- Hospitalist about the patient's case and the patient will be referred to Dr. Lim for further evaluation. Medical Decision Making Differential Diagnosis Differential diagnosis: Etiologies such as esophagitis, variceal bleed, [place], [place] tear, gastritis, peptic ulcer disease, AVM, inflammatory bowel disease, ischemia, diverticulosis, colitis, malignancy, coagulopathy, thrombocytopenia, fissure, hemorrhoid, epistaxis , as well as others were entertained. Medical Records Attestation: I reviewed the patient's medical records. Home Medications Current Medication List: was personally reviewed by me Laboratory Data Attestation: I reviewed the patient's lab results. Result diagrams: 04/06/19 15:40 04/06/19 15:40 Lab Results 04/06/19 04/06/19 04/06/19 Range/Units 15:40 15:40 15:40 WBC 6.33 (4.8-10.8) K/uL RBC 4.08 L (4.2-5.4) M/uL Hgb 12.2 (12.0-16.0) g/dL Hct 36.3 L (37-47) % MCV 89.0 (80-100) fL MCH 29.9 (25-34) pg MCHC 33.6 (32-36) g/dL RDW Std Deviation 43.2 (36.4-46.3) fL RDW Coeff of Clarita 13.4 (11.5-14.5) % Plt Count 184 (130-400) K/uL MPV 9.8 (7.4-10.4) fL Immature Gran % (Auto) 0.0 % Neut % (Auto) 64.6 % Lymph % (Auto) 18.0 % [place] % (Auto) 10.9 % Eos % (Auto) 6.0 % Baso % (Auto) 0.5 % Immature Gran # (Auto) 0.00 (0.00-0.02) K/uL Neut # (Auto) 4.09 (1.4-6.5) K/uL Lymph # (Auto) 1.14 L (1.2-3.4) K/uL [place] # (Auto) 0.69 H (0.11-0.59) K/uL Eos # (Auto) 0.38 (0-0.5) K/uL Baso # (Auto) 0.03 (0-0.2) K/uL PT 11.0 (9.0-12.0) Seconds INR 1.1 (0.9-1.1) APTT 27.2 (21.0-31.0) Seconds PTT Ratio 1.0 Sodium 141 (136-145) mmol/L Potassium 4.0 (3.5-5.1) mmol/L Chloride 106 (98-107) mmol/L Carbon Dioxide 30 (21-32) mmol/L Anion Gap 5.0 (3-11) BUN 27 H (7-18) mg/dl Creatinine 1.05 (0.6-1.2) mg/dl Est Cr Clr Drug Dosing 28.0 ml/min Est GFR ( Amer) 54.5 Est GFR (Non-Af Amer) 47.0 BUN/Creatinine Ratio 25.8 H (10-20) Glucose 101 H (70-99) mg/dl Calcium 8.6 (8.5-10.1) mg/dl Total Bilirubin 0.3 (0.2-1) mg/dl AST 16 (15-37) U/L ALT 12 (12-78) U/L Alkaline Phosphatase 92 (45-117) U/L Total Protein 7.8 (6.4-8.2) gm/dl Albumin 3.2 L (3.4-5.0) gm/dl Globulin 4.6 H (2.5-4.0) gm/dl Albumin/Globulin Ratio 0.7 L (0.9-2) Specimen Hemolysis POC Stool Occult Blood (Negative) Blood Type Antibody Screen 04/06/19 04/06/19 Range/Units 15:41 15:53 WBC (4.8-10.8) K/uL RBC (4.2-5.4) M/uL Hgb (12.0-16.0) g/dL Hct (37-47) % MCV (80-100) fL MCH (25-34) pg MCHC (32-36) g/dL RDW Std Deviation (36.4-46.3) fL RDW Coeff of Clarita (11.5-14.5) % Plt Count (130-400) K/uL MPV (7.4-10.4) fL Immature Gran % (Auto) % Neut % (Auto) % Lymph % (Auto) % [place] % (Auto) % Eos % (Auto) % Baso % (Auto) % Immature Gran # (Auto) (0.00-0.02) K/uL Neut # (Auto) (1.4-6.5) K/uL Lymph # (Auto) (1.2-3.4) K/uL [place] # (Auto) (0.11-0.59) K/uL Eos # (Auto) (0-0.5) K/uL Baso # (Auto) (0-0.2) K/uL PT (9.0-12.0) Seconds INR (0.9-1.1) APTT (21.0-31.0) Seconds PTT Ratio Sodium (136-145) mmol/L Potassium (3.5-5.1) mmol/L Chloride (98-107) mmol/L Carbon Dioxide (21-32) mmol/L Anion Gap (3-11) BUN (7-18) mg/dl Creatinine (0.6-1.2) mg/dl Est Cr Clr Drug Dosing ml/min Est GFR ( Amer) Est GFR (Non-Af Amer) BUN/Creatinine Ratio (10-20) Glucose (70-99) mg/dl Calcium (8.5-10.1) mg/dl Total Bilirubin (0.2-1) mg/dl AST (15-37) U/L ALT (12-78) U/L Alkaline Phosphatase (45-117) U/L Total Protein (6.4-8.2) gm/dl Albumin (3.4-5.0) gm/dl Globulin (2.5-4.0) gm/dl Albumin/Globulin Ratio (0.9-2) Specimen Hemolysis POC Stool Occult Blood Positive A (Negative) Blood Type Cancelled Antibody Screen Cancelled Blood Pressure Blood Pressure Findings: Normal blood pressure MDM Narrative The patient is a 88 year old white female w/ PMHx of atrial fibrillation, dementia, hypertension, and hyperlipidemia who presents to the ED w/ CC of intermittent rectal bleeding that started 4 days prior. Patient was seen and evaluated the bedside. The patient does present with concern for vaginal but primarily rectal bleeding. The patient was on Coumadin and was transitioned to Xarelto. The patient noticed some blood on the stool today and is present with her primary caregiver. The patient's son is the power of workers compensation defense attorney and medical decision maker. The patient does not complain of any abdominal pain. The patient relates that she did have a self-reported unremarkable colonoscopy years ago. The patient was referred here from her primary Dr. Quinones. The patient did have blood work completed in for lab work appears stable. The patient's INR is not elevated. The patient does have a positive rectal exam. Given the concern for the A. fib with the continued anticoagulant use and associated rectal bleeding without an obvious source I did speak the on-call hospitalist agreed to further evaluate treat the patient. The patient was admitted to the medicine service. Impression & Plan Rectal bleeding, History of anticoagulant use Discharge Plan Visit Data *Final* Discharge Date/Time: 04/06/19 18:51 Chief Complaint: Rectal Bleed Stated Complaint: RECTAL BLEEDING - REF DR. QUINONES ED Provider: Francisco Andersen Discharge Problem: Rectal bleeding, History of anticoagulant use Patient Disposition: Admitted As Inpatient Discharge Instructions Interventions: ED Discharge Assessment Last Done: 04/06/19 18:51 The scribe's documentation has been prepared under my direction and personally reviewed by me in its entirety. I confirm that the note above accurately reflects all work, treatment, procedures, and medical decision making performed by me.
[2019-04-06] MEDS: FAMOTIDINE 20 MG in SYRINGE 3 ML IV SCH (20:33)
[2019-04-06] MEDS ORDERED: FAMOTIDINE 20MG/5ML IV PUSH IV SCH (21:00)
[2019-04-07 00:43] LABS: Basophils # (auto) 0.04 K/uL (0-0.2); Basophils % (auto) 0.7 %; Eosinophils % (auto) 6.8 %; Hematocrit (blood only) 33.6 % (37-47); Hemoglobin 11.3 g/dL (12.0-16.0); Lymphocytes # (auto) 1.55 K/uL (1.2-3.4); Lymphocytes % (auto) 26.5 %; Mean Corpuscular Hemoglobin 29.6 pg (25-34); Mean Corpuscular Hgb Conc 33.6 g/dL (32-36); Mean Platelet Volume 9.3 fL (7.4-10.4); Monocytes % (auto) 10.3 %; Neutrophils # (auto) 3.26 K/uL (1.4-6.5); Neutrophils % (auto) 55.7 %; Platelet Count 161 K/uL (130-400); RDW Coefficient of Variation 13.3 % (11.5-14.5); RDW Standard Deviation 42.8 fL (36.4-46.3); Red Blood Count 3.82 M/uL (4.2-5.4); White Blood Count 5.85 K/uL (4.8-10.8)
[2019-04-07] MEDS: LEVOTHYROXINE SODIUM 75 MCG TABLET PO SCH (05:16)
[2019-04-07 06:15] LABS: Hematocrit (blood only) 35.8 % (37-47); Hemoglobin 12.1 g/dL (12.0-16.0); Mean Corpuscular Hemoglobin 29.7 pg (25-34); Mean Corpuscular Hgb Conc 33.8 g/dL (32-36); Platelet Count 176 K/uL (130-400); RDW Coefficient of Variation 13.2 % (11.5-14.5); RDW Standard Deviation 42.8 fL (36.4-46.3); Red Blood Count 4.07 M/uL (4.2-5.4); White Blood Count 5.06 K/uL (4.8-10.8)
[2019-04-07 06:25] LABS: INR 1.1 (0.9-1.1); Prothrombin Time 10.8 Seconds (9.0-12.0)
[2019-04-07 06:44] LABS: BUN Creatinine Ratio 26.5 (10-20); Calcium 8.6 mg/dl (8.5-10.1); Creatinine Clr Calc Pharmacy 35.6 ml/min; Est GFR (African American) 73.5; Est GFR (Non-African American) 63.4; Potassium 3.8 mmol/L (3.5-5.1)
[2019-04-07 06:47] LABS: Albumin Globulin Ratio 0.7 (0.9-2); Bilirubin,Total 0.6 mg/dl (0.2-1); Globulin 4.1 gm/dl (2.5-4.0); Total Protein 7.1 gm/dl (6.4-8.2)
[2019-04-07] MEDS: ATORVASTATIN 10 MG TAB PO SCH (08:15)
[2019-04-07] MEDS: METOPROLOL SUCC 25MG EXT REL TAB PO SCH (08:15)
[2019-04-07] MEDS: ASPIRIN 81 MG ECTAB PO SCH (08:15)
[2019-04-07] MEDS: VENLAFAXINE HCL 37.5 MG TAB PO SCH (08:15)
[2019-04-07] MEDS: FAMOTIDINE 20 MG in SYRINGE 3 ML IV SCH (08:18)
[2019-04-07 08:26] LABS: Hematocrit (blood only) 35.4 % (37-47); Hemoglobin 11.9 g/dL (12.0-16.0); Mean Corpuscular Hemoglobin 29.5 pg (25-34); Mean Corpuscular Hgb Conc 33.6 g/dL (32-36); Mean Corpuscular Volume 87.8 fL (80-100); Mean Platelet Volume 9.9 fL (7.4-10.4); Platelet Count 171 K/uL (130-400); RDW Coefficient of Variation 13.3 % (11.5-14.5); RDW Standard Deviation 42.7 fL (36.4-46.3); Red Blood Count 4.03 M/uL (4.2-5.4); White Blood Count 5.13 K/uL (4.8-10.8)
--- NOTE | 2019-04-07 09:27 | History & Physical Report ---
Date of Service April 07, 2019 History of Present Illness Chief Complaint: Rectal bleeding Primary Care Provider: Alejandro Quinones MD 88 yo fm with a history of prior cva, afib on xarelto, htn, hl, admitted overn e. GI consulted for rectal bleeding per the request of Estrella Alicia. Per chart review, she has been noticing blood with wiping primarily since Tuesday. Admitted for rectal bleeding. No overt GI bleeding hematochezia noted. Vitals have been stable. Hgb relatively stable. Chronic bun elevation without significant rise. Overnite- Xarelto held. No belly pain noted. Caregiver at bedside- states her bowel movements are always hard. No brisk bleeding or hematochezia, still with pain when she wipes. no overt pain with bowel movements. Allergies Allergy/AdvReac Type Severity Reaction Status Date / Time codeine Allergy Unknown UNK Verified 04/06/19 16:13 ferrous sulfate Allergy Unknown 0 Verified 04/06/19 16:13 folic acid Allergy Unknown 0 Verified 04/06/19 16:13 Macrolide Antibiotics Allergy Unknown ` Verified 04/06/19 16:13 pantoprazole Allergy Unknown 0 Verified 04/06/19 16:13 Penicillins Allergy Unknown UNK-TOLERATES Verified 04/06/19 16:13 CEPHS morphine AdvReac Unknown HYPOTENSION Verified 04/06/19 16:13 Home Medications Home Medications Medication Instructions Recorded Confirmed Type aspirin 81 mg PO QAM #0 06/18/17 04/06/19 History atorvastatin 10 mg PO QAM #0 tab 06/18/17 04/06/19 History levothyroxine 75 mg PO QAM 90 Days #0 tab 06/18/17 04/06/19 History metoprolol succinate 25 mg PO QAM #30 tab 06/18/17 04/06/19 History venlafaxine 37.5 mg PO QAM #0 tab 06/18/17 04/06/19 History famotidine 20 mg PO QAM #0 tab 02/07/18 04/06/19 History cranberry 450 mg PO BID 06/26/18 04/06/19 History Saccharomyces boulardii [Florastor] 250 mg PO QAM 08/29/18 04/06/19 History trimethoprim 100 mg tablet 50 mg PO HS tab 03/06/19 04/06/19 History acetaminophen 500 mg tablet 500 mg PO Q4 PRN tab MDD 6 TABS 03/22/19 04/06/19 History DAILY rivaroxaban [Xarelto] 15 mg PO DAILY 04/06/19 04/06/19 History Past Med/Surg History Medical History CVA (cerebral vascular accident) Vascular parkinsonism Vascular dementia Mitral valve prolapse (Chronic) History of atrial fibrillation (Chronic) Atrial fibrillation (Chronic) Seizure Syncope (Acute) UTI (urinary tract infection) (Acute) Social History Preferred Language: Pakistani Communication Ability: Effective Visual Impairment: No Limitations Hearing Ability: Normal 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 Beliefs That Will Affect Care: None marital status: / Current Living Situation: Alone Current Living Situation Comment: 28/02 caregivers current occupational status: retired Other Information That Helps Us Care for You: No Feels Safe at Home: Yes Smoking Status: Never smoker Do You Dip or Chew Tobacco: No ; Second Hand Exposure: No ; Tobacco Cessation Education Requested by Patient: No Hx Alcohol Use: Yes Alcohol type: wine Hx Substance Use: No Review of Systems All systems reviewed & are unremarkable except as noted in HPI & below Physical Exam Physical Exam: Thin frail white female in nad Eyes: PERRL, conjunctivae normal, anicteric sclerae Cardiovascular: RRR, no murmur, no edema Gastrointestinal (Abdomen): normal bowel sounds, soft, nontender, no hepatosplenomegaly Rectal exam with diaper on - what felt like a palpable he morhoid at lois 12-1 o clock. Results & Data Vital Signs (Past 12 Hours) Vital Signs Temp Pulse Resp BP BP Pulse Ox 04/07/19 07:20 37.0 C 72 16 122/77 96 04/07/19 04:46 36.5 C 74 20 152/84 H 96 04/06/19 23:42 36.4 C L 70 18 117/71 92 Labs reviewed hgb stable Bun stable No new imaging Last egd/colon in 2011- basically findings of sigmoid tics Supervising Physician Co-Signing Physician Notes 88 yo fm with a history of afib on xarelto (being held), htn, hl, prior cva, has 2 caretakers, for which GI is being consulted for rectal bleeding that is described as when she wipes. She appears to have been hemodynamically stable without significant bun rise to exclude an ugi source for rectal bleeding. Known sigmoid tics per [place] [address] Smith. The bleeding she describes is more with wiping suggestive of a hemorrhoid. PE with rectal exam today also suggestive of an external hemorrhoid. She stated to me she pulled it out. At the current time, IV pepcid is fine. Trend hgb. Would ensure she is on a bowel regimen to help bowel movements to be soft, miralax and every other day dulcolax. Prn sitz baths. Suspect this is outlet in origin. No indication or plans for c-scope as will likely be low yield.
[2019-04-07] MEDS: HYDROCORTISONE ACETATE 25 MG SUPP PR SCH ×3 (14:33→21:18)
[2019-04-07 16:29] LABS: Hematocrit (blood only) 36.5 % (37-47); Hemoglobin 12.3 g/dL (12.0-16.0); Mean Corpuscular Hemoglobin 29.9 pg (25-34); Mean Corpuscular Hgb Conc 33.7 g/dL (32-36); Mean Corpuscular Volume 88.8 fL (80-100); Mean Platelet Volume 9.6 fL (7.4-10.4); Platelet Count 177 K/uL (130-400); RDW Coefficient of Variation 13.3 % (11.5-14.5); RDW Standard Deviation 43.3 fL (36.4-46.3); Red Blood Count 4.11 M/uL (4.2-5.4); White Blood Count 6.06 K/uL (4.8-10.8)
--- NOTE | 2019-04-07 17:51 | Cardiology Consultation ---
Date of Consultation April 07, 2019 Assessment & Plan (1) Atrial fibrillation: The patient carries a history of paroxysmal atrial fibrillation having undergone a MAZE procedure back in August of 2015. Currently, her Xarelto has been placed on hold due to rectal bleeding (the patient aggravated a hemorrhoid). Would resume Xarelto once her rectal bleeding resolves. (2) Rectal bleeding: As above, the patient pulled on 1 of her external hemorrhoids and likely caused her rectal bleeding. (3) History of anticoagulant use: As above, Xarelto currently on hold. (4) S/P mitral valve repair: The patient underwent a mitral valve repair because of a partial flail for posterior mitral leaflet and severe mitral regurgitation. This occurred in August 2015. Her postoperative course was complicated. History of Present Illness Attending Physician: Alejandro Monroe History of Present Illness Mrs. Theodore is an 88-year-old admitted yesterday with rectal bleeding. This consultation order to assist in her management. Of note, the patient is well known to me from the outpatient setting. The patient was in her usual state of health until approximately 2 days prior to presentation. She began to note blood on her toilet tissue. She admits to pulling on her hemorrhoid" just prior to noticing blood on her toilet tissue. The patient carries a history of paroxysmal atrial fibrillation. She was seen in the office on March 22 and she was changed from warfarin to Xarelto. The patient's cardiac history began in August 2015 when she underwent a mitral valve repair because of posterior mitral leaflet partial flail and severe mitral regurgitation. She also had a MAZE procedure performed because of her paroxysmal atrial fibrillation. Unfortunately, following her surgery, she had significant hemorrhagic complications and required 19 units of packed red blood cells, platelets, and plasma. The patient did well until March 2017 which she suffered an ischemic right- sided CVA (frontotemporoparietal event). The patient does not experience exertional chest pain or limiting dyspnea. She further denies syncope, presyncope, PND, orthopnea, lower extremity edema, and claudication. Past medical and surgical history 1. Hypertension 2. LVH 3. Diastolic dysfunction 4. Mitral valve repair-August 2015-see above 5. MAZE procedure-August 2015 6. Paroxysmal atrial fibrillation 7. 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 Vascular dementia 9. Seizure disorder 10. Hypothyroidism Social history , lives alone 24 hour care No tobacco or alcohol Family history Noncontributory Review of systems A 10 point review of systems was undertaken and negative except for that described above. Allergies Allergy/AdvReac Type Severity Reaction Status Date / Time codeine Allergy Unknown UNK Verified 04/06/19 16:13 ferrous sulfate Allergy Unknown 0 Verified 04/06/19 16:13 folic acid Allergy Unknown 0 Verified 04/06/19 16:13 Macrolide Antibiotics Allergy Unknown ` Verified 04/06/19 16:13 pantoprazole Allergy Unknown 0 Verified 04/06/19 16:13 Penicillins Allergy Unknown UNK-TOLERATES Verified 04/06/19 16:13 CEPHS morphine AdvReac Unknown HYPOTENSION Verified 04/06/19 16:13 Home Medications Home Medications Medication Instructions Recorded Confirmed Type aspirin 81 mg PO QAM #0 06/18/17 04/06/19 History atorvastatin 10 mg PO QAM #0 tab 06/18/17 04/06/19 History levothyroxine 75 mg PO QAM 90 Days #0 tab 06/18/17 04/06/19 History metoprolol succinate 25 mg PO QAM #30 tab 06/18/17 04/06/19 History venlafaxine 37.5 mg PO QAM #0 tab 06/18/17 04/06/19 History famotidine 20 mg PO QAM #0 tab 02/07/18 04/06/19 History cranberry 450 mg PO BID 06/26/18 04/06/19 History Saccharomyces boulardii [Florastor] 250 mg PO QAM 08/29/18 04/06/19 History trimethoprim 100 mg tablet 50 mg PO HS tab 03/06/19 04/06/19 History acetaminophen 500 mg tablet 500 mg PO Q4 PRN tab MDD 6 TABS 03/22/19 04/06/19 History DAILY rivaroxaban [Xarelto] 15 mg PO DAILY 04/06/19 04/06/19 History Patient History Medical History CVA (cerebral vascular accident) Vascular parkinsonism Vascular dementia Mitral valve prolapse (Chronic) History of atrial fibrillation (Chronic) Atrial fibrillation (Chronic) Seizure Syncope (Acute) UTI (urinary tract infection) (Acute) Social History Preferred Language: Japanese Communication Ability: Effective Visual Impairment: No Limitations Hearing Ability: Normal 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 HEENT exam is negative. Neck is supple with full carotid upstrokes. There are no carotid bruits. Jugular venous pressure is flat at 90. There is no thyromegaly. Cardiovascular exam reveals a regular rhythm with a normal S1 and S2. No S3, S4, or murmurs are noted. Chest reveals a well-healed midline scar. Lungs are clear without rales, rhonchi, or wheezes. Abdomen is soft and nontender without bruits. Extremities reveal intact radial artery and posterior tibial pulses bilaterally. There is no peripheral edema. Results & Data Vital Signs (Past 12 Hours) Vital Signs Temp Pulse Pulse Resp BP BP Pulse Ox 04/07/19 15:06 36.2 C L 80 18 105/58 L 92 04/07/19 15:01 85 04/07/19 11:15 36.5 C 71 16 137/75 95 04/07/19 09:00 66 04/07/19 07:20 37.0 C 72 16 122/77 96 Laboratory Results CBC notes hemoglobin 11.9, hematocrit 35.4, white count 5.1, platelet count [id number]. Electrolytes note a sodium of 142, potassium 3.8, chloride 1 await, bicarb 31, BUN 22, creatinine 0.82, glucose of 81. Troponin I levels less than 0.015. Diagnostic Findings EKG notes normal sinus rhythm and an incomplete right bundle-branch block. potline monitor is benign. No atrial fibrillation. PG Care Time/CCT Total # of Minutes Spent Total Time Spent with Patient: Total time spent is greater than 50% in coordination of care (as documented) at patient's floor/unit and/or counseling patient:
--- NOTE | 2019-04-07 18:45 | Hospitalist Progress Note ---
Date of Service April 07, 2019 Assessment & Plan (1) Rectal bleeding: likely due to internal hemorrhoids. STABLE. H/H stable at 12 since admission. start anusol HC [place] qid x 5-7 days. should be on bowel regimen as well. has diverticular disease on past CT abd/pelvis but would suspect that if this was diverticular it would be larger volume and there would be more of a drop in H/H since admission. additionally she has had no brbpr since admission. (2) Hemorrhoids, internal, with bleeding: has had such on prior colonoscopy and I can feel them on LOUIE today. LOUIE was chaperoned by nursing staff. start anusol suppositories 25mg q6h for 5-7 days. bowel regimen. (3) History of anticoagulant use: holding xarelto. if no bleeding never 2-3 days then could likely resume it. (4) Hypothyroidism: TSH 06/2018 wnl. cont synthroid. will be due for TSH check later this fall. (5) Vascular dementia: noted no issues/behavioral disturbance at this time. (6) Atrial fibrillation: cont metoprolol stable telemetry holding anticoagulation as above (7) Chronic kidney disease, stage 3a: creatinine stable (8) DVT prophylaxis: SCDs for now hold xarelto if stable overnight can likely d/c home tomorrow left message for son on his [employer] - 04/08/19 advance diet Subjective staff report no gross rectal bleeding today. pt w/ history of hemorrhoids and over the last week the patient has been complaining of rectal discomfort. she has been taking her hand and placing it in the rectal area because of this irritation. ?bleeding from the mouth this week as well (per the caregiver at bedside). no epistaxis by report. no dysphagia, oral lesions or oral pain. no abd pain. tele stable overnight. Review of Systems Review of Systems: Unobtainable due to cognitive status Physical Exam Constitutional: + thin and + altered mental status (mild confusion due to dementia); no acute distress ENMT: external ear and nose normal, oropharynx normal Nose: no external nose abnormality, no nasal mucous membrane abnormality, no septum abnormality, no nasal discharge and no epistaxis Respiratory: normal respiratory effort, lungs clear to auscultation Cardiovascular: Rate/Rhythm: regular rate and regular rhythm Heart Sounds: normal S1 and normal S2 Vessels: posterior tibial pulses present and dorsalis pedis pulses present; no JVD Gastrointestinal (Abdomen): normal bowel sounds, soft, nontender, no hepatosplenomegaly Rectal Exam: + hemorrhoids (internal - mildly tender to palpation; no gross blood); no rectal mass, no stool abnormal, no fecal impaction and no rectal fissure Psychiatric: Orientation: alert and oriented to person; + not oriented to place and + not oriented to time Results & Data Vital Signs (Past 12 Hours) Vital Signs Temp Pulse Pulse Resp BP BP Pulse Ox 04/07/19 15:06 36.2 C L 80 18 105/58 L 92 04/07/19 15:01 85 04/07/19 11:15 36.5 C 71 16 137/75 95 04/07/19 09:00 66 04/07/19 07:20 37.0 C 72 16 122/77 96 Laboratory Results Hemoglobin about 12 since admission on serial checks PG Care Time/CCT Total # of Minutes Spent Total Time Spent with Patient: Total time spent is greater than 50% in coordination of care (as documented) at patient's floor/unit and/or counseling patient: (1) Hypothyroidism Hypothyroidism type: acquired Qualified Code(s): E03.9 - Hypothyroidism, unspecified (2) Vascular dementia Dementia behavioral disturbance: without behavioral disturbance Qualified Code(s): F01.50 - Vascular dementia without behavioral disturbance (3) Atrial fibrillation Atrial fibrillation type: paroxysmal Qualified Code(s): I48.0 - Paroxysmal atrial fibrillation
[2019-04-08] MEDS: LEVOTHYROXINE SODIUM 75 MCG TABLET PO SCH (05:41)
[2019-04-08 06:56] LABS: Hematocrit (blood only) 36.1 % (37-47); Hemoglobin 12.2 g/dL (12.0-16.0); Mean Corpuscular Hemoglobin 29.7 pg (25-34); Mean Corpuscular Hgb Conc 33.8 g/dL (32-36); Mean Corpuscular Volume 87.8 fL (80-100); Mean Platelet Volume 10.1 fL (7.4-10.4); Platelet Count 169 K/uL (130-400); RDW Coefficient of Variation 13.2 % (11.5-14.5); RDW Standard Deviation 42.6 fL (36.4-46.3); Red Blood Count 4.11 M/uL (4.2-5.4); White Blood Count 5.16 K/uL (4.8-10.8)
[2019-04-08 07:05] VITALS: TEMP 98.1
[2019-04-08 07:36] LABS: Albumin Level 2.8 gm/dl (3.4-5.0); BUN Creatinine Ratio 26.2 (10-20); Calcium 8.8 mg/dl (8.5-10.1); Creatinine Clr Calc Pharmacy 37.4 ml/min; Est GFR (African American) 79.3; Est GFR (Non-African American) 68.5; Potassium 3.9 mmol/L (3.5-5.1)
[2019-04-08 07:39] LABS: Albumin Globulin Ratio 0.7 (0.9-2); Bilirubin,Total 0.4 mg/dl (0.2-1); Total Protein 6.8 gm/dl (6.4-8.2)
[2019-04-08] MEDS: VENLAFAXINE HCL 37.5 MG TAB PO SCH (08:21)
[2019-04-08] MEDS: ASPIRIN 81 MG ECTAB PO SCH (08:21)
[2019-04-08] MEDS: METOPROLOL SUCC 25MG EXT REL TAB PO SCH (08:21)
[2019-04-08] MEDS: HYDROCORTISONE ACETATE 25 MG SUPP PR SCH (08:21)
[2019-04-08] MEDS: ATORVASTATIN 10 MG TAB PO SCH (08:21)
[2019-04-08] MEDS ORDERED: FAMOTIDINE 20 MG TAB PO SCH (09:00)
--- NOTE | 2019-04-08 09:52 | Gastroenterology Progress Note ---
Date of Service April 08, 2019 Supervising Physician Co-Signing Physician Notes Chart reviewed and hgb stable, no reports of further bleeding Hemorrhoid on yesterday's exam- outlet bleeding likely the cause for her rectal bleeding. Discussed risks/benefits of colonoscopy with her yesterday- she would like to defer this and i think the yield would be low. Resume AC if necessary. GI will sign off- ensure she is on a regular bowel regimen to help her bowel movements be soft. Results & Data Vital Signs (Past 12 Hours) Vital Signs Temp Pulse Pulse Resp BP Pulse Ox 04/08/19 08:34 67 04/08/19 07:02 36.7 C 63 17 133/72 96 04/08/19 03:32 36.4 C L 64 19 104/61 96 04/08/19 00:46 64 04/07/19 23:33 36.8 C 66 19 117/69 94
[2019-04-08 11:48] VITALS: PULSE 80
[2019-04-08 13:26] VITALS: BP 122/77
--- NOTE | 2019-04-08 14:40 | Cardiology Progress Note ---
Date of Service April 08, 2019 Assessment & Plan (1) Atrial fibrillation: The patient has a history of paroxysmal atrial fibrillation having undergone a MAZE procedure in August of 2015. Currently, her Xarelto has been placed on hold due to rectal bleeding (the patient aggravated a hemorrhoid). Would resume Xarelto once her rectal bleeding resolves. (2) Rectal bleeding: As above, the patient pulled on one of her external hemorrhoids and likely caused her rectal bleeding. (3) History of anticoagulant use: As above, Xarelto currently on hold. 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 This occurred in August 2015. Her postoperative course was complicated requiring numerous transfusions. Subjective The patient is resting comfortably bedside chair without complaints of chest pain, dyspnea, or palpitations. Physical Exam Physical Exam: In general this is a thin, elderly white female in no acute distress. HEENT exam is negative. Neck is supple with full carotid upstrokes. There are no carotid bruits. Jugular venous pressure is flat at 90. There is no thyromegaly. Cardiovascular exam reveals a regular rhythm with a normal S1 and S2. No S3, S4, or murmurs are noted. Chest reveals a well-healed midline scar. Lungs are clear without rales, rhonchi, or wheezes. Abdomen is soft and nontender without bruits. Extremities reveal intact radial artery and posterior tibial pulses bilaterally. There is no peripheral edema. Results & Data Vital Signs (Past 12 Hours) Vital Signs Temp Pulse Pulse Resp BP BP Pulse Ox 04/08/19 13:24 36.7 C 80 20 122/77 101/62 96 04/08/19 11:45 36.7 C 80 20 101/62 96 04/08/19 08:34 67 04/08/19 07:02 36.7 C 63 17 133/72 96 04/08/19 03:32 36.4 C L 64 19 104/61 96 Diagnostic Findings transport analyst notes normal sinus rhythm. There are no paroxysms of atrial fibrillation. PG Care Time/CCT Total # of Minutes Spent Total Time Spent with Patient: Total time spent is greater than 50% in coordination of care (as documented) at patient's floor/unit and/or counseling patient: (1) Atrial fibrillation Atrial fibrillation type: paroxysmal Qualified Code(s): I48.0 - Paroxysmal atrial fibrillation
[2019-04-08 14:52] VITALS: O2SAT 98
--- NOTE | 2019-04-16 05:32 | Discharge Summary ---
Date of Service date of admission - 04/06/19 date of discharge - 04/08/19 Admission HPI Per Admitting Provider 88 yo female with PMHx of afib on xarelto, hx of mitral valve repair, HTN, HLD, hx of CVA in , vascular dementia, seizure who presents with the acute onset of rectal bleeding x 2 days. Pt has 2 caregivers at bedside. They note that she has been developing blood streaking on toilet paper but has not seen large quantity of BRBPR. She reports having streaking blood on toilet paper since Tuesday with each BM. She had eaten prunes on Tuesday and Tuesday as was dealing with constipation. She had loose stools since tuesday after eating the prunes. Caregivers deny that she has had any dark tarry stools, hematemesis, nausea, vomiting, or abdominal pain. She has been eating and drinking without any difficulty. She has used sanitary napkin/disposable briefs but has not so aked through with blood on these. Patient's caregivers also not that she has woken up and had some of what appeared to be dried blood on the sides of her mouth in the past 2 days. She denies any seizure like trauma, painful lesions, ulcers, dental issues or nasal bleeds. Principal Diagnosis bright red blood per rectum 2nd to hemorrhoids Discharge Exam Constitutional + thin and + altered mental status (mild confusion due to dementia); no acute distress ENMT external ear and nose normal, oropharynx normal Nose: no external nose abnormality, no nasal mucous membrane abnormality, no se ptum abnormality, no nasal discharge and no epistaxis Respiratory normal respiratory effort, lungs clear to auscultation Cardiovascular Rate/Rhythm: regular rate and regular rhythm Heart Sounds: normal S1 and normal S2 Vessels: posterior tibial pulses present and dorsalis pedis pulses present; no JVD Gastrointestinal (Abdomen) normal bowel sounds, soft, nontender, no hepatosplenomegaly Rectal Exam: + hemorrhoids (internal - mildly tender to palpation; no gross blood); no rectal mass, no stool abnormal, no fecal impaction and no rectal fissure Psychiatric Orientation: alert and oriented to person; + not oriented to place and + not oriented to time Discharge Data Allergies Allergy/AdvReac Type Severity Reaction Status Date / Time codeine Allergy Unknown UNK Verified 04/12/19 11:25 ferrous sulfate Allergy Unknown 0 Verified 04/12/19 11:25 folic acid Allergy Unknown 0 Verified 04/12/19 11:25 Macrolide Antibiotics Allergy Unknown ` Verified 04/12/19 11:25 pantoprazole Allergy Unknown 0 Verified 04/12/19 11:25 Penicillins Allergy Unknown UNK-TOLERATES Verified 04/12/19 11:25 CEPHS morphine AdvReac Unknown HYPOTENSION Verified 04/12/19 11:25 Consultations [facility]astroenter[facility] Cardiology PT Hospital Course (1) Rectal bleeding: Likely due to internal hemorrhoids. STABLE, improved, no further bleeding while hospitalized. Hemoglobin was 12.2 at admission. Discharge hemoglobin was 12.2 as well. Seen by [facility] - they, too, felt that bleeding was due to hemorrhoids. Has diverticular disease on past CT abd/pelvis but would suspect that if the bleeding was diverticular it would be larger volume and there would be more of a drop in H/H since admission. Started anusol HC [place] qid x 5-7 days. Advised to use at home for a few days. Should be on bowel regimen as well to avoid straining at stool. (2) Hemorrhoids, internal, with bleeding: Had such on prior colonoscopy and they were palpable on LOUIE. started anusol suppositories 25mg q6h for 5-7 days. bowel regimen. (3) History of anticoagulant use: aspirin and xarelto were both held during the hospitalization. advised that if no bleeding for an additional 24 hours post-discharge could cautiously resume the xarelto and aspirin at that time. (4) Hypothyroidism: TSH 06/2018 wnl. cont synthroid. will be due for TSH check later this fall. (5) Vascular dementia: no issues/behavioral disturbance during the visit. (6) Atrial fibrillation: cont metoprolol stable telemetry while hospitalized held anticoagulation as above; can likely resume 24 hours post-discharge (7) Chronic kidney disease, stage 3a: creatinine stable at 0.77 to 1 during the visit Total Time Total Time Spent Total Time Spent (In Minutes): 25 Total Time Includes: Examination of the Patient, Discharge Planning and Medication Reconciliation Discharge Plan Discharge Items Patient Disposition: Home - Home Health Services Reason For Visit: rectal bleeding Discharge Diagnosis: rectal bleeding - likely due to hemorrhoids. blood counts (red cells) remained stable your entire stay. Discharge Goals: Decrease discomfort, Diagnostic testing and Therapeutic intervention Activity: Resume your previous activity Non-emergency contact: Primary Care Provider Call non-emergency contact if: you have any medication questions, your symptoms worsen, your pain is not controlled, your pain is worsening and your temperature is above 100.5 Follow-up/Referrals: Alejandro Quinones MD [Primary Care Provider] - (see Dr Quinones within 5-7 days) Diet: Regular Addtl Provider Instructions: You were admitted for bleeding from your rectum. It was felt that the bleeding was due to hemorrhoids. These could be seen and felt on examination. Despite the recent blood your hemoglobin (blood counts / red cells) stayed stable the entire stay at about 12. You were seen by the gastrointestinal specialist and she, too, felt your bleeding was due to hemorrhoids. Recommendations - 1. HOLD your aspirin and xarelto today, 04/08/19. If you have no further bleeding from your rectum you can resume both medications on 04/09/19. 2. Continue the anusol suppositories 3-4 times each day (about 6 hours apart) for 5 more days. This will shrink the hemorrhoid and make it more comfortable. Hopefully it will also help prevent additional bleeding. 3. Take miralax (glycolax, polyethylene glycol) [id number] 1 packet or serving EVERY DAY for prevention/treatment of constipation. Constipation will make your hemorrhoids worse. Follow-up - see Dr Quinones late this week. Return to [facility] if - * you have severe abdominal pain * you have large amounts of blood in your stools or in the toilet bowl * you have severe rectal pain * you have dizziness or lightheadedness * any other concerns Prescriptions: Continued atorvastatin 10 mg Tablet 10 mg PO QAM Qty: 0 RF: 0 aspirin 81 mg Tablet,Delayed Release (Dr/Ec) 81 mg PO QAM Qty: 0 RF: 0 levothyroxine 75 mcg Tablet 75 mg PO QAM 90 Days Qty: 0 RF: 3 venlafaxine 37.5 mg Tablet 37.5 mg PO QAM Qty: 0 RF: 0 metoprolol succinate 25 mg Tablet Extended Release 24 Hr 25 mg PO QAM Qty: 30 RF: 0 famotidine 20 mg Tablet 20 mg PO QAM Qty: 0 RF: 0 trimethoprim 100 mg tablet 50 mg PO HS RF: 0 cranberry 450 mg Tablet 450 mg PO BID RF: 0 acetaminophen [Acetaminophen Extra Strength] 500 mg tablet 500 mg PO Q4 MDD 6 TABS DAILY PRN (Reason: pain/fever) RF: 0 No Action trimethoprim 50 mg/5 mL solution 100 mg PO Q12H RF: 0 Xarelto 15 mg tablet 20 mg PO DAILY RF: 0 Florastor 250 mg capsule 250 mg PO QAM Qty: 90 RF: 3 Stand-Alone Forms: [facility]/Other Patient Handouts: Hydrocortisone Acetate Rectal suppository, Polyethylene Glycol 3350 Oral solution, Bleeding Gastrointestinal, Hemorrhoids Self Care, Hemorrhoids Discharge Orders: Discharge Order (Routine); Ordered 04/08/19 Ordered By: Alejandro Monroe Admission Data Admit Date/Time: 04/06/19 17:32 Attending Provider: Alejandro Monroe Admit Provider: Estrella Alicia Primary Care Provider: Alejandro Quinones Other Providers: Kar Francois Service: Telemetry Other Interventions: Discharge Summary Assessment (RN) Last Done: 04/08/19 13:24 Pending Studies at Discharge: No DC Date/Time DO NOT enter until pt leaves facility: 04/08/19 14:01
== END 2019-04-08 14:01 | disposition home health service (06) | DRG 394 ==
LOC: ED 15:02 → SUATTDRO 17:32 → 2S 17:32
DX: I69.354 Hemiplegia and hemiparesis following cerebral infarction affecting left non-dominant side; Z87.440 Personal history of urinary (tract) infections; F01.50 Vascular dementia, unspecified severity, without behavioral disturbance, psychotic disturbance, mood disturbance, and anxiety; G21.4 Vascular parkinsonism; E78.5 Hyperlipidemia, unspecified; Z88.5 Allergy status to narcotic agent; Z79.899 Other long term (current) drug therapy; N18.3 Chronic kidney disease, stage 3 (moderate); Z88.1 Allergy status to other antibiotic agents; Z88.8 Allergy status to other drugs, medicaments and biological substances; I12.9 Hypertensive chronic kidney disease with stage 1 through stage 4 chronic kidney disease, or unspecified chronic kidney disease; Z88.0 Allergy status to penicillin; K64.4 Residual hemorrhoidal skin tags; I69.320 Aphasia following cerebral infarction; Z79.82 Long term (current) use of aspirin; I69.319 Unspecified symptoms and signs involving cognitive functions following cerebral infarction; I48.0 Paroxysmal atrial fibrillation; Z79.01 Long term (current) use of anticoagulants; E03.9 Hypothyroidism, unspecified; Z86.79 Personal history of other diseases of the circulatory system; Z66 Do not resuscitate

== ENCOUNTER 2019-05-21 19:20 | Inpatient (IN) ==
[2019-05-21] MEDS ORDERED: SODIUM CHLORIDE 0.9% 500 ML IV ONE (20:01)
--- NOTE | 2019-05-21 20:31 | XRay Report ---
XR chest 1V portable CLINICAL HISTORY: 88 years-old Female presenting with Chest Pain. TECHNIQUE: Portable upright AP view of the chest was obtained. COMPARISON: 12/29/2018. FINDINGS: Median sternotomy wires and left atrial appendage occlusion device. Atherosclerosis of the aortic arc h. Cardiac silhouette normal in size. Lungs are hyperinflated. No focal opacity. No pleural effusion or pneumothorax. Osteopenia may be present. Cervical fusion hardware noted. Upper abdomen normal. IMPRESSION: 1. Findings suggest emphysema. No focal infiltrate to suggest pneumonia. Electronically signed by: Preston Bryson M.D. 05/21/2019 8:30 PM
[2019-05-21 20:42] LABS: Basophils # (auto) 0.02 K/uL (0-0.2); Basophils % (auto) 0.2 %; Eosinophils # (auto) 0.08 K/uL (0-0.5); Eosinophils % (auto) 0.9 %; Hematocrit (blood only) 39.3 % (37-47); Hemoglobin 13.1 g/dL (12.0-16.0); Immature Granulocytes # (auto) 0.01 K/uL (0.00-0.02); Immature Granulocytes % (auto) 0.1 %; Lymphocytes # (auto) 0.68 K/uL (1.2-3.4); Lymphocytes % (auto) 7.4 %; Mean Corpuscular Hemoglobin 30.2 pg (25-34); Mean Corpuscular Hgb Conc 33.3 g/dL (32-36); Mean Corpuscular Volume 90.6 fL (80-100); Mean Platelet Volume 9.9 fL (7.4-10.4); Monocytes # (auto) 0.65 K/uL (0.11-0.59); Neutrophils # (auto) 7.79 K/uL (1.4-6.5); Neutrophils % (auto) 84.4 %; Platelet Count 175 K/uL (130-400); RDW Coefficient of Variation 13.3 % (11.5-14.5); RDW Standard Deviation 44.1 fL (36.4-46.3); Red Blood Count 4.34 M/uL (4.2-5.4); White Blood Count 9.23 K/uL (4.8-10.8)
[2019-05-21 20:50] LABS: INR 1.1 (0.9-1.1); Prothrombin Time 11.3 Seconds (9.0-12.0)
[2019-05-21 20:52] LABS: iSTAT Hemoglobin 12.6 g/dl (12.0-16.0); iSTAT Ionized Calcium 1.08 mmol/l (1.12-1.32); iSTAT Potassium 4.2 mEq/L (3.3-5.0)
[2019-05-21 21:08] LABS: Albumin Level 3.3 gm/dl (3.4-5.0); BUN Creatinine Ratio 27.1 (10-20); Blood Urea Nitrogen 27 mg/dl (7-18); Calcium 9.1 mg/dl (8.5-10.1); Carbon Dioxide 28 mmol/L (21-32); Chloride 104 mmol/L (98-107); Est GFR (African American) 57.2; Est GFR (Non-African American) 49.3; Glucose 103 mg/dl (70-99); Lipase 64 U/L (73-393); Magnesium 1.9 mg/dl (1.8-2.4); Potassium 4.2 mmol/L (3.5-5.1); Sodium 138 mmol/L (136-145)
--- NOTE | 2019-05-21 21:09 | CT Scan Report ---
CT head/brain wo con CLINICAL HISTORY: 88 years-old Female presenting with confusion. TECHNIQUE: Multidetector CT imaging of the head was performed without the use of intravenous contrast . IV contrast: None. One or more dose lowering techniques were used consistent with the principles of ALARA (as low as reasonably achievable), including automatic exposure control, mA or kV adjustment t o individual patient size, and/or use of iterative reconstruction. COMPARISON: 08/29/2018. CT DOSE (mGy.cm): The estimated cumulative dose is 537.48 mGy.cm. FINDINGS: Card Dealer topogram: Unremarkable. Proportional ventricular and sulcal prominence, likely age-related parenchymal volume loss. No hemorr mabel. Periventricular and subcortical white matter hypoattenuation, nonspecific but likely indicative of chronic small vessel ischemic change. Old infarcts in the frontal lobes, right greater than left. Additional cortical infarct in the right temporal lobe. These are unchanged from prior. Old lacunar infarct in the left thalamus. No acute territorial infarct. No mass effect or midline shift. No extra -axial fluid collection. Extensive mucosal thickening in ethmoid air cells and sphenoid sinuses as we ll as the left frontal sinus. Aerated secretions in the sphenoid sinuses. Calvarium intact. IMPRESSION: 1. Chronic small vessel ischemic change and multifocal old infarcts. No acute intracranial abnormali ty. 2. Paranasal sinus disease with findings suggesting acute sinusitis in the sphenoid sinuses. Correla te clinically. Electronically signed by: Preston Bryson M.D. 05/21/2019 9:08 PM
[2019-05-21 21:19] LABS: Alanine Aminotransferase 10 U/L (12-78); Albumin Globulin Ratio 0.8 (0.9-2); Alkaline Phosphatase 87 U/L (45-117); Aspartate Aminotransferase 14 U/L (15-37); Bilirubin,Total 0.5 mg/dl (0.2-1); Globulin 4.3 gm/dl (2.5-4.0); Phosphorus 3.6 mg/dl (2.5-4.9); Thyroid Stimulating Hormone 0.242 uIu/ml (0.300-4.500); Total Protein 7.6 gm/dl (6.4-8.2); Troponin I 0.018 ng/ml (0-0.045)
[2019-05-21 21:31] LABS: T4 Free Thyroxine 1.81 ng/dl (0.8-1.6)
--- NOTE | 2019-05-21 23:37 | History & Physical Report ---
Date of Service May 21, 2019 Assessment & Plan (1) Confusion and disorientation: No metabolic or infectious explanation is apparent. CT of head without acute findings other than a sphenoid sinusitis, which will be treated with ceftriaxone IV We will order an MRI of the brain without contrast to assess for possible new occult CVA. Admit to monitored bed. 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 She will be getting an MRI of the brain as noted above, and if there is no other explanation for symptoms, a trial of levodopa/carbidopa may be indicated. Present on Admission?: Yes (3) Vascular dementia: Would suggest secondary to CVA 3 years ago. Her field operations technician reports that she did have some decline in function associated with that CVA. 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 When she is out and about, she uses a cane. When she is home she uses a walker. Present on Admission?: Yes (6) Atrial fibrillation: Atrial fibrillation/long-term use of anticoagulation- Continue Xarelto 15 mg p.o. at bedtime, and metoprolol succinate 25 mg every morning. 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 Present on Admission?: Yes (9) Hyperlipidemia LDL goal <70: Continue atorvastatin 10 mg daily. Check a fasting lipid panel Present on Admission?: Yes (10) Anxiety: Continue venlafaxine 37.5 mg every morning. Present on Admission?: Yes (11) Hypothyroidism: Continue levothyroxine sodium 75 mcg every morning. Laboratories reveal a TSH of 0.242, and free T4 of 1.81. She should follow-up with her outpatient physician, as it is unknown if she is on this for suppressive indications. Not likely contributing to her present confusion and disorientation Present on Admission?: Yes (12) Chronic kidney disease, stage 3a: BMP stable. Present on Admission?: Yes History of Present Illness Chief Complaint: The patient is brought to the emergency department with report of worsening lethargy, disorientation, generalized weakness and fatigue over the past 5 days. Primary Care Provider: Alejandro Quinones MD The patient is an 88-year-old female with a past medical history including dementia, UTI, chronic kidney disease, residual left hemiparesis from CVA 3 years ago, status post mitral valve repair, parkinsonism, and atrial fibrillation. She was brought to the emergency department after 1 of her caretakers was told that the patient was confused, had worsening generalized weakness, lethargic and disoriented over the past 5 days. Her field operations technician describes her as being "listless", often staring off into space. Allergies Allergy/AdvReac Type Severity Reaction Status Date / Time codeine Allergy Unknown UNK Verified 05/19/19 10:55 ferrous sulfate Allergy Unknown 0 Verified 05/19/19 10:55 folic acid Allergy Unknown 0 Verified 05/19/19 10:55 Macrolide Antibiotics Allergy Unknown ` Verified 05/19/19 10:55 pantoprazole Allergy Unknown 0 Verified 05/19/19 10:55 Penicillins Allergy Unknown UNK-TOLERATES Verified 05/19/19 10:55 CEPHS morphine AdvReac Unknown HYPOTENSION Verified 05/19/19 10:55 Home Medications Home Medications Medication Instructions Recorded Confirmed Type aspirin 81 mg PO QAM #0 06/18/17 05/21/19 History atorvastatin 10 mg PO QAM #0 tab 06/18/17 05/21/19 History levothyroxine 75 mg PO QAM 90 Days #0 tab 06/18/17 05/21/19 History metoprolol succinate 25 mg PO QAM #30 tab 06/18/17 05/21/19 History venlafaxine 37.5 mg PO QAM #0 tab 06/18/17 05/21/19 History famotidine 20 mg PO QAM #0 tab 02/07/18 05/21/19 History cranberry 450 mg PO BID 06/26/18 05/21/19 History acetaminophen 500 mg tablet 500 mg PO Q4 PRN tab MDD 6 TABS 03/22/19 05/21/19 History DAILY benzonatate 100 mg capsule 100 mg PO TID PRN #30 cap 05/19/19 05/21/19 Rx fluticasone propionate 50 2 sprays INTNAS DAILY #15.8 gm 05/19/19 05/21/19 Rx mcg/actuation nasal spray,suspension Saccharomyces boulardii [Florastor] 250 mg PO Q12H 05/21/19 05/21/19 History rivaroxaban [Xarelto] 15 mg PO HS 05/21/19 05/21/19 History trimethoprim 50 mg PO HS 05/21/19 05/21/19 History Past Med/Surg History Medical History Rectal bleeding (Acute) History of anticoagulant use (Acute) Left hemiparesis (Chronic) Hx of recurrent urinary tract infection (Chronic) Hypothyroidism (Chronic) GI bleed (Acute) 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 (Acute) CVA (cerebral vascular accident) (Inactive) Vascular parkinsonism (Chronic) Vascular dementia (Chronic) Mitral valve prolapse (Chronic) History of atrial fibrillation (Chronic) Chest pain on breathing (Acute) Atrial fibrillation (Chronic) Seizure (Ruled-out) Syncope (Inactive) UTI (urinary tract infection) (Acute) Surgical History S/P mitral valve repair (Chronic) Family History Other Anxiety Atrial fibrillation Chest pain on breathing GI bleed History of anticoagulant use History of atrial fibrillation Hx of recurrent urinary tract infection Hypothyroidism Left hemiparesis group home (current) use of anticoagulants Mitral valve prolapse Rectal bleeding S/P mitral valve repair Seizure Stroke Syncope Vascular dementia Vascular parkinsonism Social History Preferred Language: Nepalese Communication Ability: Effective Visual Impairment: No Limitations Hearing Ability: Normal Physicist Acoustics Required: No Beliefs That Will Affect Care: None marital status: / Current Living Situation: Alone Current Living Situation Comment: caregivers current occupational status: retired Feels Safe at Home: Yes Safety Concerns: Feels Safe At This Time Smoking Status: Never smoker Second Hand Exposure: No ; Hx Alcohol Use: No Hx Substance Use: No Review of Systems Review of Systems: The patient denies chest pain, palpitations, shortness of breath, dyspnea on exertion, cough, lower extremity swelling, sore throat, fevers, chills, sweats,nausea, vomiting, diarrhea, constipation, abdominal pain, pelvic pain, blood in urine or stool, dysuria, urinary frequency or urgency, loss of consciousness, rash, abnormal bruising or bleeding, generalized arthralgias or myalgias, back or neck pain, or night sweats. The review of systems is otherwise negative other than for that already noted above, and at least 10 systems have been reviewed. Physical Exam Physical Exam: The patient is somewhat lethargic, masked facies, sitting upright in bed and in no acute distress. HEENT--PERRL, EOMI, mucous membranes and oropharynx dry. Neck--supple. No JVD. No bruits. Thyroid normal, trachea midline, no adenopathy. Heart--normal S1 and S2. No murmurs, rubs or gallops. Lungs--clear bilaterally, no respiratory distress, no accessory muscle use. Abdomen--normal bowel sounds and soft. Nontender. Nondistended. Extremities--no cyanosis or clubbing. No edema. There are good distal pulses b/l. Dermatologic--normal skin turgor, normal color, no abnormal lymph nodes, no rash. Neurologic--cranial nerves II through XII grossly intact. Left-sided weakness. Rheumatologic--limited examination Psychiatric--flat affect Results & Data Vital Signs (Past 12 Hours) Vital Signs Temp Pulse Resp BP Pulse Ox 05/21/19 23:32 69 23 154/84 H 96 05/21/19 22:04 75 18 159/71 H 97 05/21/19 21:47 125/62 05/21/19 20:23 98 05/21/19 19:25 97.9 F 83 16 116/73 95 Laboratory Results Laboratory Results WBC 9.23 K/uL (4.8-10.8) 05/21/19 20:02 RBC 4.34 M/uL (4.2-5.4) 05/21/19 20:02 Hgb 13.1 g/dL (12.0-16.0) 05/21/19 20:02 POC Hgb 12.6 g/dl (12.0-16.0) 05/21/19 20:39 Hct 39.3 % (37-47) 05/21/19 20:02 POC Hct 37 % (37-47) 05/21/19 20:39 MCV 90.6 fL (80-100) 05/21/19 20:02 MCH 30.2 pg (25-34) 05/21/19 20:02 MCHC 33.3 g/dL (32-36) 05/21/19 20:02 RDW Std Deviation 44.1 fL (36.4-46.3) 05/21/19 20:02 RDW Coeff of Clarita 13.3 % (11.5-14.5) 05/21/19 20:02 Plt Count 175 K/uL (130-400) 05/21/19 20:02 MPV 9.9 fL (7.4-10.4) 05/21/19 20:02 Immature Gran % (Auto) 0.1 % 05/21/19 20:02 Neut % (Auto) 84.4 % 05/21/19 20: Lymph % (Auto) 7.4 % 05/21/19 20:02 [place] % (Auto) 7.0 % 05/21/19 20:02 Eos % (Auto) 0.9 % 05/21/19 20: Baso % (Auto) 0.2 % 05/21/19 20:02 Immature Gran # (Auto) 0.01 K/uL (0.00-0.02) 05/21/19 20:02 Neut # (Auto) 7.79 K/uL (1.4-6.5) H 05/21/19 20:02 Lymph # (Auto) 0.68 K/uL (1.2-3.4) L 05/21/19 20:02 [place] # (Auto) 0.65 K/uL (0.11-0.59) H 05/21/19 20:02 Eos # (Auto) 0.08 K/uL (0-0.5) 05/21/19 20:02 Baso # (Auto) 0.02 K/uL (0-0.2) 05/21/19 20: PT 11.3 Seconds (9.0-12.0) 05/21/19 20:02 INR 1.1 (0.9-1.1) 05/21/19 20:02 POC Sodium 139 mEq/L (135-144) 05/21/19 20:39 Sodium 138 mmol/L (136-145) 05/21/19 20:02 POC Potassium 4.2 mEq/L (3.3-5.0) 05/21/19 20:39 Potassium 4.2 mmol/L (3.5-5.1) 05/21/19 20:02 POC Chloride 104 mEq/L (101-112) 05/21/19 20:39 Chloride 104 mmol/L (98-107) 05/21/19 20:02 Carbon Dioxide 28 mmol/L (21-32) 05/21/19 20:02 POC Total CO2 27 mEq/l (24-31) 05/21/19 20:39 Anion Gap 6.0 (3-11) 05/21/19 20:02 POC Anion Gap 13.0 mmol/L (16-25) L 05/21/19 20:39 POC BUN 28 mg/dl (7-18) H 05/21/19 20:39 BUN 27 mg/dl (7-18) H 05/21/19 20:02 Creatinine 1.01 mg/dl (0.6-1.2) 05/21/19 20:02 POC Creatinine 1.0 mg/dl (0.6-1.3) 05/21/19 20:39 Est Cr Clr Drug Dosing Not Reportable 05/21/19 20:02 Est GFR ( Amer) 57.2 05/21/19 20:02 Est GFR (Non-Af Amer) 49.3 05/21/19 20:02 BUN/Creatinine Ratio 27.1 (10-20) H 05/21/19 20:02 Glucose 103 mg/dl (70-99) H 05/21/19 20:02 POC Glucose (other) 101 mg/dl (70-99) H 05/21/19 20:39 Calcium 9.1 mg/dl (8.5-10.1) 05/21/19 20:02 POC Ioniz Calcium Johnathan 1.08 mmol/l (1.12-1.32) L 05/21/19 20: Phosphorus 3.6 mg/dl (2.5-4.9) 05/21/19 20:02 Magnesium 1.9 mg/dl (1.8-2.4) 05/21/19 20:02 Total Bilirubin 0.5 mg/dl (0.2-1) 05/21/19 20:02 AST 14 U/L (15-37) L 05/21/19 20:02 ALT 10 U/L (12-78) L 05/21/19 20:02 Alkaline Phosphatase 87 U/L (45-117) 05/21/19 20:02 Troponin I 0.018 ng/ml (0-0.045) 05/21/19 20:02 Total Protein 7.6 gm/dl (6.4-8.2) 05/21/19 20:02 Albumin 3.3 gm/dl (3.4-5.0) L 05/21/19 20:02 Globulin 4.3 gm/dl (2.5-4.0) H 05/21/19 20:02 Albumin/Globulin Ratio 0.8 (0.9-2) L 05/21/19 20: Lipase 64 U/L (73-393) L 05/21/19 20: TSH 0.242 uIu/ml (0.300-4.500) L 05/21/19 20:02 Free T4 1.81 ng/dl (0.8-1.6) H 05/21/19 20:02 Urine Color Yellow 05/21/19 23:30 Urine Appearance Clear (Clear) 05/21/19 23:30 Urine pH 5.5 (4.5-7.5) 05/21/19 23:30 Ur Specific [place] 1.018 (1.000-1.030) 05/21/19 23:30 Urine Protein Negative (Negative) 05/21/19 23:30 Urine Glucose (UA) Negative (Negative) 05/21/19 23:30 Urine Ketones 1+ (Negative) H 05/21/19 23:30 Urine Blood Trace (Negative) H 05/21/19 23:30 Urine Nitrite Positive (Negative) A 05/21/19 23:30 Urine Bilirubin Negative (Negative) 05/21/19 23:30 Urine Urobilinogen Negative (Negative) 05/21/19 23:30 Ur Leukocyte Esterase 1+ (Negative) H 05/21/19 23:30 Urine WBC (Auto) 10-30 /hpf (0-5) H 05/21/19 23:30 Urine RBC (Auto) 0-4 /hpf (0-4) 05/21/19 23:30 U Hyaline Cast (Auto) 1-5 /lpf (0-5) 05/21/19 23:30 U Epithel Cells (Auto) 0-5 /lpf (0-5) 05/21/19 23:30 Urine Bacteria (Auto) 4+ (Negative) H 05/21/19 23:[address] [facility], [place] [phone] XRay Report Patient: KRISTAN AGUSTINAdmit Date: 05/21/19 MR#: [id number]: [address] Acct ID:[id number]: Date: 1930[facility] Zip: [place] [address] Age: 88Location: ED Sex: F Room/Bed: Att Phy:Diagnosis: LETHARGIC,DISORIENTED,NECK PAIN Dominga Phy: Alejandro Quinoneservice Date: 05/21/19 Fam Phy:Interpreting Phy: Preston Bryson MD Admit Phy: Ordering Phy: Bruce Shepard M.D. cc: ~ XR chest 1V portable CLINICAL HISTORY: 88 years-old Female presenting with Chest Pain. TECHNIQUE: Portable upright AP view of the chest was obtained. COMPARISON: 12/29/2018. FINDINGS: Median sternotomy wires and left atrial appendage occlusion device. Atherosclerosis of the aortic arch. Cardiac silhouette normal in size. Lungs are hyperinflated. No focal opacity. No pleural effusion or pneumothorax. Osteopenia may be present. Cervical fusion hardware noted. Upper abdomen normal. IMPRESSION: 1. Findings suggest emphysema. No focal infiltrate to suggest pneumonia. Electronically signed by: Preston Bryson M.D. 05/21/2019 8:30 PM Dictated: 05/21/192028 Transcribed: 05/21/192028 [facility], [place] [phone] CT Scan Report Patient: KRISTAN AGUSTINAdmit Date: 05/21/19 MR#: [id number]: [address] Acct ID:[id number]: Date: 1930[facility] Zip: [place] [address] Age: 88Location: ED Sex: F Room/Bed: Att Phy:Diagnosis: LETHARGIC,DISORIENTED,NECK PAIN Dominga Phy: Alejandro Quinones MDService Date: 05/21/19 Fam Phy:Interpreting Phy: Preston Bryosn MD Admit Phy: Ordering Phy: Bruce Shepard M.D. cc: ~ CT head/brain wo con CLINICAL HISTORY: 88 years-old Female presenting with confusion. TECHNIQUE: Multidetector CT imaging of the head was performed without the use of intravenous contrast. IV contrast: None. One or more dose lowering techniques were used consistent with the principles of ALARA (as low as reasonably achievable), including automatic exposure control, mA or kV adjustment to individual patient size, and/or use of iterative reconstruction. COMPARISON: 08/29/2018. CT DOSE (mGy.cm): The estimated cumulative dose is 537.48 mGy.cm. FINDINGS: Processing Lead topogram: Unremarkable. Proportional ventricular and sulcal prominence, likely age-related parenchymal volume loss. No hemorrhage. Periventricular and subcortical white matter hypoattenuation, nonspecific but likely indicative of chronic small vessel ischemic change. Old infarcts in the frontal lobes, right greater than left. Additional cortical infarct in the right temporal lobe. These are unchanged from prior. Old lacunar infarct in the left thalamus. No acute territorial infarct. No mass effect or midline shift. No extra-axial fluid collection. Extensive mucosal thickening in ethmoid air cells and sphenoid sinuses as well as the left frontal sinus. Aerated secretions in the sphenoid sinuses. Calvarium intact. IMPRESSION: 1. Chronic small vessel ischemic change and multifocal old infarcts. No acute intracranial abnormality. 2. Paranasal sinus disease with findings suggesting acute sinusitis in the sphenoid sinuses. Correlate clinically. Electronically signed by: Preston Bryson M.D. 05/21/2019 9:08 PM Dictated: 05/21/192103 Transcribed: 05/21/192103 Code Status & VTE Plan Code Status DNR/DNI VTE Prophylaxis Plan VTE Prophylaxis will be ordered: Yes PG Care Time/CCT Total # of Minutes Spent Total Time Spent with Patient: Total time spent is greater than 50% in coordination of care (as documented) at patient's floor/unit and/or counseling patient: (1) Hypothyroidism Hypothyroidism type: acquired Qualified Code(s): E03.9 - Hypothyroidism, unspecified (2) Vascular dementia Dementia behavioral disturbance: without behavioral disturbance Qualified Code(s): F01.50 - Vascular dementia without behavioral disturbance (3) Atrial fibrillation Atrial fibrillation type: paroxysmal Qualified Code(s): I48.0 - Paroxysmal atrial fibrillation
[2019-05-22 00:01] LABS: Appearance Urine Clear (Clear); Bacteria Urine Automated 4+ (Negative); Bilirubin Urine Negative (Negative); Blood Urine Trace (Negative); Color Urine Yellow; Epithelial Cell Urine Auto 0-5 /lpf (0-5); Glucose Urine UA Negative (Negative); Ketones Urine 1+ (Negative); Leukocyte Esterase Urine 1+ (Negative); Nitrite Urine Positive (Negative); Protein Urine Negative (Negative); RBC Urine Automated 0-4 /hpf (0-4); Specific Gravity Urine 1.018 (1.000-1.030); Urobilinogen Urine Negative (Negative); pH Urine 5.5 (4.5-7.5)
--- NOTE | 2019-05-22 00:23 | Emergency Department Note ---
Entered by Pratima Berry acting as a scribe for Bruce Shepard MD History of Present Illness General Chief complaint: Lethargic Stated complaint: LETHARGIC,DISORIENTED,NECK PAIN Time Seen by Provider: 05/21/19 20:01 Source: patient History of Present Illness Provider complaint: Lethargic Onset (ago): day(s) 5 Radiation: non-radiation Relieved By: + none Exacerbated By: + none Associated symptoms: + confusion, + weakness and + other (Neck pain) The patient is a 88 year old female who presents to the Emergency Room with complaints of lethargy that began 5 days ago. The patient's hydraulic operator states the patient's symptoms do not radiate anywhere else on her body and are not relieved nor exacerbated by anything specific. The patient's hydraulic operator reports the patient has been experiencing confusion, weakness, and neck pain. Home Medications Home Medications Medication Instructions Recorded Confirmed Type aspirin 81 mg PO QAM #0 06/18/17 05/21/19 History atorvastatin 10 mg PO QAM #0 tab 06/18/17 05/21/19 History levothyroxine 75 mg PO QAM 90 Days #0 tab 06/18/17 05/21/19 History metoprolol succinate 25 mg PO QAM #30 tab 06/18/17 05/21/19 History venlafaxine 37.5 mg PO QAM #0 tab 06/18/17 05/21/19 History famotidine 20 mg PO QAM #0 tab 02/07/18 05/21/19 History cranberry 450 mg PO BID 06/26/18 05/21/19 History acetaminophen 500 mg tablet 500 mg PO Q4 PRN tab MDD 6 TABS 03/22/19 05/21/19 History DAILY benzonatate 100 mg capsule 100 mg PO TID PRN #30 cap 05/19/19 05/21/19 Rx fluticasone propionate 50 2 sprays INTNAS DAILY #15.8 gm 05/19/19 05/21/19 Rx mcg/actuation nasal spray,suspension Saccharomyces boulardii [Florastor] 250 mg PO Q12H 05/21/19 05/21/19 History rivaroxaban [Xarelto] 15 mg PO HS 05/21/19 05/21/19 History trimethoprim 50 mg PO HS 05/21/19 05/21/19 History Allergies Allergy/AdvReac Type Severity Reaction Status Date / Time codeine Allergy Unknown UNK Verified 05/19/19 10:55 ferrous sulfate Allergy Unknown 0 Verified 05/19/19 10:55 folic acid Allergy Unknown 0 Verified 05/19/19 10:55 Macrolide Antibiotics Allergy Unknown ` Verified 05/19/19 10:55 pantoprazole Allergy Unknown 0 Verified 05/19/19 10:55 Penicillins Allergy Unknown UNK-TOLERATES Verified 05/19/19 10:55 CEPHS morphine AdvReac Unknown HYPOTENSION Verified 05/19/19 10:55 Past Med/Surg History Medical History Rectal bleeding (Acute) History of anticoagulant use (Acute) Left hemiparesis (Chronic) Hx of recurrent urinary tract infection (Chronic) Hypothyroidism (Chronic) GI bleed (Acute) jail (current) use of anticoagulants (Acute) CVA (cerebral vascular accident) (Inactive) Vascular parkinsonism (Chronic) Vascular dementia (Chronic) Mitral valve prolapse (Chronic) History of atrial fibrillation (Chronic) Chest pain on breathing (Acute) Atrial fibrillation (Chronic) Seizure (Ruled-out) Syncope (Inactive) UTI (urinary tract infection) (Acute) Surgical History S/P mitral valve repair (Chronic) Family History Other Anxiety Atrial fibrillation Chest pain on breathing GI bleed History of anticoagulant use History of atrial fibrillation Hx of recurrent urinary tract infection Hypothyroidism 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 Mitral valve prolapse Rectal bleeding S/P mitral valve repair Seizure Stroke Syncope Vascular dementia Vascular parkinsonism Social History Preferred Language: Bulgarian Communication Ability: Effective Visual Impairment: No Limitations Hearing Ability: Normal Car Dryer Required: No Beliefs That Will Affect Care: None marital status: / Current Living Situation: Alone Current Living Situation Comment: caregivers current occupational status: retired Feels Safe at Home: Yes Safety Concerns: Feels Safe At This Time Smoking Status: Never smoker Second Hand Exposure: No ; Hx Alcohol Use: No Hx Substance Use: No Review of Systems See HPI for pertinent positives & negatives. and A total of 10 systems reviewed and were otherwise negative Physical Exam Vital Signs Vital Signs - 24 hr 05/21/19 19:25 05/21/19 20:23 05/21/19 21:47 Temperature 36.6 C Temperature Source Oral Sepsis Recent Fever Within 48 Hours No Sepsis Action Taken by Nursing No Action Required Pulse Rate 83 Pulse Rate from SpO2 Sensor Respiratory Rate 16 Respiratory Depth Normal Respiratory Pattern Regular Blood Pressure 116/73 125/62 Blood Pressure Mean 87 83 Pulse Oximetry 95 98 Oxygen Delivery Method Room Air Room Air 05/21/19 22:04 05/21/19 23:32 Temperature Temperature Source Sepsis Recent Fever Within 48 Hours Sepsis Action Taken by Nursing Pulse Rate 75 69 Pulse Rate from SpO2 Sensor 73 71 Respiratory Rate 18 23 Respiratory Depth Respiratory Pattern Blood Pressure 159/71 H 154/84 H Blood Pressure Mean 100 107 Pulse Oximetry 97 96 Oxygen Delivery Method GENERAL: Awake, alert, fatigued-appearing, in no distress HENT: Normocephalic, atraumatic. Oropharynx with dry mucous membranes and otherwise unremarkable. EYES: Normal conjunctiva. Sclera non-icteric. EOMI. No nystamgus. PEARRL. NECK: Supple. No nuchal rigidity. FROM. No JVD. RESPIRATORY: CTAB. CARDIAC: Regular rate, normal rhythm. Extremities warm and well perfused. Pulses equal. ABDOMEN: Soft, non-distended. No tenderness to palpation. No rebound or guarding. No masses. RECTAL: Deferred. MUSCULOSKELETAL: Chest examination reveals no tenderness. The back is symmetrical on inspection without obvious abnormality. There is no CVA tenderness to palpation. No joint edema. LOWER EXTREMITIES: Calves are equal size bilaterally and non-tender. No edema. No discoloration. NEURO: Normal sensorium. No sensory or motor deficits noted. 5/5 strength and SILT x4 extremities. Intake finger to nose. Course 2008: Past medical records reviewed. The patient was evaluated in room C11B. A complete history and physical exam was performed. 2041: I spoke with the patient's son and he says the patient has severe dementia and her functional status has been waning over the past year. The son thinks that it may be time to consider placing the patient in a correction facility but the patient prefers to stay at home. 2219: I spoke with Dr. [facility] about the patient's case and he will accept the patient for further evaluation. Administered Medications Discontinued Medications Sodium Chloride (Nss) 500 mls @ 999 mls/hr IV .Q31M ONE Stop: 05/21/19 20:31 Last Infusion: 05/21/19 21:07 Dose: 0 mls/hr Documented by: [id number] Admin: 05/21/19 20:39 Dose: 999 mls/hr Documented by: [id number] Medical Decision Making Differential Diagnosis Differential Diagnosis includes but is not limited to dehydration, stroke, anemia, hypoglycemia, hyponatremia, hypernatremia, urinary tract infection, pneumonia, bronchitis, sepsis, gastroenteritis, additional abdominal pathology, metabolic abnormalities and infections. Medical Records Attestation: I reviewed the patient's medical records. Home Medications Current Medication List: was personally reviewed by me Laboratory Data Attestation: I reviewed the patient's lab results. Result diagrams: 05/21/19 20:02 05/21/19 20:02 Lab Results 05/21/19 05/21/19 05/21/19 Range/Units 20:02 20:02 20:02 WBC 9.23 (4.8-10.8) K/uL RBC 4.34 (4.2-5.4) M/uL Hgb 13.1 (12.0-16.0) g/dL POC Hgb (12.0-16.0) g/dl Hct 39.3 (37-47) % POC Hct (37-47) % MCV 90.6 (80-100) fL MCH 30.2 (25-34) pg MCHC 33.3 (32-36) g/dL RDW Std Deviation 44.1 (36.4-46.3) fL RDW Coeff of Clarita 13.3 (11.5-14.5) % Plt Count 175 (130-400) K/uL MPV 9.9 (7.4-10.4) fL Immature Gran % (Auto) 0.1 % Neut % (Auto) 84.4 % Lymph % (Auto) 7.4 % Charlotte % (Auto) 7.0 % Eos % (Auto) 0.9 % Baso % (Auto) 0.2 % Immature Gran # (Auto) 0.01 (0.00-0.02) K/uL Neut # (Auto) 7.79 H (1.4-6.5) K/uL Lymph # (Auto) 0.68 L (1.2-3.4) K/uL Charlotte # (Auto) 0.65 H (0.11-0.59) K/uL Eos # (Auto) 0.08 (0-0.5) K/uL Baso # (Auto) 0.02 (0-0.2) K/uL PT 11.3 (9.0-12.0) Seconds INR 1.1 (0.9-1.1) POC Sodium (135-144) mEq/L Sodium 138 (136-145) mmol/L POC Potassium (3.3-5.0) mEq/L Potassium 4.2 (3.5-5.1) mmol/L POC Chloride (101-112) mEq/L Chloride 104 (98-107) mmol/L Carbon Dioxide 28 (21-32) mmol/L POC Total CO2 (24-31) mEq/l Anion Gap 6.0 (3-11) POC Anion Gap (16-25) mmol/L POC BUN (7-18) mg/dl BUN 27 H (7-18) mg/dl Creatinine 1.01 (0.6-1.2) mg/dl POC Creatinine (0.6-1.3) mg/dl Est Cr Clr Drug Dosing Not Reportable Est GFR ( Amer) 57.2 Est GFR (Non-Af Amer) 49.3 BUN/Creatinine Ratio 27.1 H (10-20) Glucose 103 H (70-99) mg/dl POC Glucose (other) (70-99) mg/dl Calcium 9.1 (8.5-10.1) mg/dl POC Ioniz Calcium Johnathan (1.12-1.32) mmol/l Phosphorus 3.6 (2.5-4.9) mg/dl Magnesium 1.9 (1.8-2.4) mg/dl Total Bilirubin 0.5 (0.2-1) mg/dl AST 14 L (15-37) U/L ALT 10 L (12-78) U/L Alkaline Phosphatase 87 (45-117) U/L Troponin I 0.018 (0-0.045) ng/ml Total Protein 7.6 (6.4-8.2) gm/dl Albumin 3.3 L (3.4-5.0) gm/dl Globulin 4.3 H (2.5-4.0) gm/dl Albumin/Globulin Ratio 0.8 L (0.9-2) Lipase 64 L (73-393) U/L TSH 0.242 L (0.300-4.500) uIu/ml Free T4 1.81 H (0.8-1.6) ng/dl Urine Color Urine Appearance (Clear) Urine pH (4.5-7.5) Ur Specific Taiban (1.000-1.030) Urine Protein (Negative) Urine Glucose (UA) (Negative) Urine Ketones (Negative) Urine Blood (Negative) Urine Nitrite (Negative) Urine Bilirubin (Negative) Urine Urobilinogen (Negative) Ur Leukocyte Esterase (Negative) Urine WBC (Auto) (0-5) /hpf Urine RBC (Auto) (0-4) /hpf U Hyaline Cast (Auto) (0-5) /lpf U Epithel Cells (Auto) (0-5) /lpf Urine Bacteria (Auto) (Negative) 05/21/19 05/21/19 Range/Units 20:39 23:30 WBC (4.8-10.8) K/uL RBC (4.2-5.4) M/uL Hgb (12.0-16.0) g/dL POC Hgb 12.6 (12.0-16.0) g/dl Hct (37-47) % POC Hct 37 (37-47) % MCV (80-100) fL MCH (25-34) pg MCHC (32-36) g/dL RDW Std Deviation (36.4-46.3) fL RDW Coeff of Clarita (11.5-14.5) % Plt Count (130-400) K/uL MPV (7.4-10.4) fL Immature Gran % (Auto) % Neut % (Auto) % Lymph % (Auto) % Charlotte % (Auto) % Eos % (Auto) % Baso % (Auto) % Immature Gran # (Auto) (0.00-0.02) K/uL Neut # (Auto) (1.4-6.5) K/uL Lymph # (Auto) (1.2-3.4) K/uL Charlotte # (Auto) (0.11-0.59) K/uL Eos # (Auto) (0-0.5) K/uL Baso # (Auto) (0-0.2) K/uL PT (9.0-12.0) Seconds INR (0.9-1.1) POC Sodium 139 (135-144) mEq/L Sodium (136-145) mmol/L POC Potassium 4.2 (3.3-5.0) mEq/L Potassium (3.5-5.1) mmol/L POC Chloride 104 (101-112) mEq/L Chloride (98-107) mmol/L Carbon Dioxide (21-32) mmol/L POC Total CO2 27 (24-31) mEq/l Anion Gap (3-11) POC Anion Gap 13.0 L (16-25) mmol/L POC BUN 28 H (7-18) mg/dl BUN (7-18) mg/dl Creatinine (0.6-1.2) mg/dl POC Creatinine 1.0 (0.6-1.3) mg/dl Est Cr Clr Drug Dosing Est GFR ( Amer) Est GFR (Non-Af Amer) BUN/Creatinine Ratio (10-20) Glucose (70-99) mg/dl POC Glucose (other) 101 H (70-99) mg/dl Calcium (8.5-10.1) mg/dl POC Ioniz Calcium Johnathan 1.08 L (1.12-1.32) mmol/l Phosphorus (2.5-4.9) mg/dl Magnesium (1.8-2.4) mg/dl Total Bilirubin (0.2-1) mg/dl AST (15-37) U/L ALT (12-78) U/L Alkaline Phosphatase (45-117) U/L Troponin I (0-0.045) ng/ml Total Protein (6.4-8.2) gm/dl Albumin (3.4-5.0) gm/dl Globulin (2.5-4.0) gm/dl Albumin/Globulin Ratio (0.9-2) Lipase (73-393) U/L TSH (0.300-4.500) uIu/ml Free T4 (0.8-1.6) ng/dl Urine Color Yellow Urine Appearance Clear (Clear) Urine pH 5.5 (4.5-7.5) Ur Specific Taiban 1.018 (1.000-1.030) Urine Protein Negative (Negative) Urine Glucose (UA) Negative (Negative) Urine Ketones 1+ H (Negative) Urine Blood Trace H (Negative) Urine Nitrite Positive A (Negative) Urine Bilirubin Negative (Negative) Urine Urobilinogen Negative (Negative) Ur Leukocyte Esterase 1+ H (Negative) Urine WBC (Auto) 10-30 H (0-5) /hpf Urine RBC (Auto) 0-4 (0-4) /hpf U Hyaline Cast (Auto) 1-5 (0-5) /lpf U Epithel Cells (Auto) 0-5 (0-5) /lpf Urine Bacteria (Auto) 4+ H (Negative) Imaging Data Radiologist's Impression: Radiology results as stated below per my review and the radiologist's interpretation: XR chest 1V portable CLINICAL HISTORY: 88 years-old Female presenting with Chest Pain. TECHNIQUE: Portable upright AP view of the chest was obtained. COMPARISON: 12/29/2018. FINDINGS: Median sternotomy wires and left atrial appendage occlusion device. Atherosclerosis of the aortic arch. Cardiac silhouette normal in size. Lungs are hyperinflated. No focal opacity. No pleural effusion or pneumothorax. Os teopenia may be present. Cervical fusion hardware noted. Upper abdomen normal. IMPRESSION: 1. Findings suggest emphysema. No focal infiltrate to suggest pneumonia. Electronically signed by: Preston Bryson M.D. 05/21/2019 8:[address] head/brain wo con CLINICAL HISTORY: 88 years-old Female presenting with confusion. TECHNIQUE: Multidetector CT imaging of the head was performed without the use of intravenous contrast. IV contrast: None. One or more dose lowering techniques were used consistent with the principles of ALARA (as low as reasonably achiev able), including automatic exposure control, mA or kV adjustment to individual patient size, and/or use of iterative reconstruction. COMPARISON: 08/29/2018. CT DOSE (mGy.cm): The estimated cumulative dose is 537.48 mGy.cm. FINDINGS: Rnp topogram: Unremarkable. Proportional ventricular and sulcal prominence, likely age-related parenchymal volume loss. No hemorrhage. Periventricular and subcortical white matter hypoattenuation, nonspecific but likely indicative of chronic small vessel ischemic change. Old infarcts in the frontal lobes, right greater than left. Additional cortical infarct in the right temporal lobe. These are unchanged from prior. Old lacunar infarct in the left thalamus. No acute territorial infarct. No mass effect or midline shift. No extra-axial fluid collection. Extensive mucosal thickening in ethmoid air cells and sphenoid sinuses as well as the left frontal sinus. Aerated secretions in the sphenoid sinuses. Calvarium intact. IMPRESSION: 1. Chronic small vessel ischemic change and multifocal old infarcts. No acute intracranial abnormality. 2. Paranasal sinus disease with findings suggesting acute sinusitis in the sphenoid sinuses. Correlate clinically. Electronically signed by: Preston Bryson M.D. 05/21/2019 9:08 PM ECG Data Attestation: I personally reviewed and interpreted this ECG as follows: Indication: other (Lethargy) Rate (beats per minute): 74 Rhythm: sinus rhythm Findings: + RBBB (Incomplete); no PAC, no PVC and no acute ischemic change Blood Pressure Blood Pressure Findings: Normal blood pressure Blood Pressure Disposition: further management by hospitalist MDM Narrative The patient is a pleasant 88-year-old woman with a past medical history of CVA, afib on Xarelto, dementia who presents emergency department accompanied by her caregiver for worsening confusion and weakness over the past several days per hpi. On arrival the patient is no acute distress, afebrile stable vital signs. Patient appears clinically dry. Patient is pleasantly confused alert to self and place. When asked if she knew why she was in the hospital she reported her "heart stopped last night". Patient exhibits no focal neurologic deficits and is moving all extremities equally. EKG without overt acute ischemia. Chest x- ray negative for acute process. WBC, H/H and platelets within normal limits. Chemistry without acidosis. BUN/creatinine > 20 consistent with the patient's clinically dry appearance. Troponin within normal limits. TSH 0.24 with free T4 slightly elevated at 0.8. CT head negative for acute process. UA was ordered and pending. However, the hydraulic operator at the bedside does explain that the patient's generalized weakness has worsened to the degree where she is no longer able to function safely at home and therefore believes admission would be appropriate. The patient is agreeable with admission. Although it should be noted that she is unable to clearly describe her medical condition and risks and benefits of treatments and alternatives and therefore does not have medical decision-making capacity. I did discuss the patient's visit with her son over the phone Bryant Theodore who further explains that he feels the patient has been worsening over the past several months and while they were attempting to keep the patient at home with 24/7 caregivers he feels it is likely time to consider placement. He agrees with plan for admission. Case was discussed with Dr. Cooper, [facility] hospitalist, who will evaluate the patient for admission. UA subsequently c/w UTI with nitrite, LE, WBC and bacteria. Treatment per admitting team. Impression & Plan Generalized weakness, Dementia, Dehydration, UTI (urinary tract infection) Discharge Plan Visit Data *Final* Discharge Date/Time: 05/22/19 01:15 Chief Complaint: Lethargic Stated Complaint: LETHARGIC,DISORIENTED,NECK PAIN ED Provider: Bruce Shepard Discharge Problem: Generalized weakness, Dementia, Dehydration, UTI (urinary tract infection) Patient Disposition: Admitted As Inpatient Discharge Instructions Interventions: ED Discharge Assessment Last Done: 05/22/19 01:15 The scribe's documentation has been prepared under my direction and personally reviewed by me in its entirety. I confirm that the note above accurately reflects all work, treatment, procedures, and medical decision making performed by me.
[2019-05-22] MEDS ORDERED: ALUMINUM/MAGNESIUM SUSP 30 ML UDC PO PRN (01:41)
[2019-05-22] MEDS ORDERED: ONDANSETRON INJ 2 MG/ML 2 ML VIAL IV PRN (01:41)
[2019-05-22] MEDS ORDERED: MAGNESIUM HYDROXIDE SUSP 30 ML UDC PO PRN (01:41)
[2019-05-22] MEDS ORDERED: ACETAMINOPHEN 325 MG TAB PO PRN (01:41)
[2019-05-22] MEDS: cefTRIAXone SODIUM 1,000 MG in DEXTROSE 5% 50 ML IV SCH (05:40)
[2019-05-22] MEDS: FAMOTIDINE 20 MG TAB PO SCH (08:44)
[2019-05-22] MEDS: SACCHAROMYCES BOULARDII 250 MG CAP PO SCH ×2 (08:45→19:58)
[2019-05-22] MEDS: METOPROLOL SUCC 25MG EXT REL TAB PO SCH (08:45)
[2019-05-22] MEDS: VENLAFAXINE HCL 37.5 MG TAB PO SCH (08:45)
[2019-05-22] MEDS: ASPIRIN 81 MG ECTAB PO SCH (08:45)
[2019-05-22] MEDS: LEVOTHYROXINE SODIUM 75 MCG TABLET PO SCH (08:45)
[2019-05-22] MEDS: ATORVASTATIN 10 MG TAB PO SCH (08:45)
--- NOTE | 2019-05-22 10:14 | Magnetic Resonance Report ---
MR brain wo con HISTORY: Mental status change altered mental status TECHNIQUE: Multiplanar multisequence MRI of the brain was performed without the use of contrast. COMPARISON STUDY: 04/08/2018 FINDINGS: There are no areas of restricted diffusion to suggest acute infarction. The midline structu res are intact. The paranasal sinuses are clear. The mastoid air cells are clear. The ventricles and sulci are within normal limits for age. There is no mass, hematoma, midline shift. The major vascular flow-voids at the skull base are well maintained. Several periventricular old infarcts are present. Considerable chronic small vessel change is present. The ventricular system is midline. Mild compensa tory prominence of the ventricular system is present. Small focus of small vessel ischemic change med ial aspect left cerebellum also consider pre-existing. IMPRESSION: 1. No acute intracranial abnormality. 2. No evidence for an acute ischemic event. 3. Several old periventricular infarct with considerable chronic small vessel change and moderate atr ophy. 4. Incidental note is made of moderate mucosal thickening of the ethmoid and sphenoid sinuses. The above report was generated using voice recognition software. It may contain grammatical, syntax or spelling errors. Electronically signed by: Catracho Krishna M.D. 05/22/2019 10:13 AM
--- NOTE | 2019-05-22 17:20 | Family Medicine Progress Note ---
Date of Service May 22, 2019 Assessment & Plan (1) Confusion and disorientation: - Ms. Theodore has a history of underlying vascular dementia but is awake, alert and oriented x 3 on exam today. - Electrolytes WNL, LFTs WNL (no apparent metabolic derangements) - UA + for nitrites, 1+ for leuk est, 4+ bacteria (possible infectious etiology); started on ceftriaxone IV; urine culture pending - CT of head without acute findings (no subdural hematoma) other than a sphenoid sinusitis (possible infectious etiology) - MRI of brain: no acute intracranial abnormality or ischemic event Dispo: Floor FENGI: Regular Diet DVT: on Xaraelto Code Status: DNR/DNI (2) Vascular dementia: - Known CVA 3 year ago - head CT shows chronic small vessel ischemic change and multifocal old infarcts - continue home ASA 81mg and Atorvastatin 10 for risk factor management (3) Vascular parkinsonism: (4) CVA (cerebral vascular accident): - suffered approximately 3 years ago - as residual left hemiparesis - no acute findings on head CT or brain MRI 05/22 (5) Left hemiparesis: Secondary to CVA of 3 years ago. (6) Atrial fibrillation: Continue Xarelto 15 mg p.o. at bedtime, and metoprolol succinate 25 mg qAM -EKG on admission showed sinus rhythm with a rate of 74 (7) halfway (current) use of anticoagulants: secondary to a-fib INR 1.1 today (8) S/P mitral valve repair: Stable. (9) Hyperlipidemia LDL goal <70: Continue atorvastatin 10 mg daily (10) Anxiety: Continue venlafaxine 37.5 mg every morning. (11) Hypothyroidism: Continue levothyroxine sodium 75 mcg every morning. Laboratories reveal a TSH of 0.242, and free T4 of 1.81. levels may be altered in acute illness; unlikely relevant to current admission (12) Chronic kidney disease, stage 3a: Cr 1.01 on admission Supervising Physician Co-Signing Physician Notes Patient seen and examined with Dr. Cornelius. I agree with their exam findings, review of systems, assessment and plan. I have personally reviewed the lab work and imaging from today. patient awake and conversive, oriented x 3, remembers recent history she denies pain, fevers, nausea discussed plan for treating UTI, hope to return home, she agrees Exam: thin female, NAD, AAOx 3, lungs CTA bilaterally, normal effort, heart regular no murmurs, abdomen soft, NT, ND, +BS - Metabolic encephalopathy due to UTI: resolved with antibiotics - Possible UTI: follow up on final urine cultures, continue on Rocephin - Acute sinusitis: symptoms of sinus tenderness for a week, post nasal drip, sinusitis findings on CT head treat with Rocephin for now PT/OT consults, hope for d/c to home on 05/23 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 Patient reports preceding history of rhinorrhea, post-nasal drip, and sinus headaches. eating well Review of Systems Ear, Nose, Mouth, Throat: as per Subjective / HPI Physical Exam Constitutional: + frail appearing; no acute distress Eyes: + anicteric sclerae ENMT: external ear and nose normal, oropharynx normal Nose: + facial tenderness (bilateral frontal sinuses); no nasal discharge No allergic cobblestoning on posterior oropharynx Neck: trachea midline Respiratory: normal respiratory effort, lungs clear to auscultation Cardiovascular: RRR, no murmur, no edema Heart Sounds: normal S1 and normal S2 Extremities: no pedal edema Gastrointestinal (Abdomen): Inspection/Auscultation: abdomen normal to inspection; abdomen not distended Percussion/Palpation: abdomen soft; abdomen nontender Skin: no rashes, warm and dry Psychiatric: A+Ox3, euthymic affect Results & Data Vital Signs (Past 12 Hours) Vital Signs Temp Pulse Pulse Resp BP BP BP 05/22/19 12:16 36.4 C L 64 16 146/65 H 05/22/19 08:33 68 05/22/19 07:59 36.6 C 63 18 182/76 H 05/22/19 04:00 36.5 C 66 20 128/68 05/22/19 01:25 36.4 C L 65 18 188/85 H 05/22/19 01:15 78 18 147/71 H Pulse Ox 05/22/19 12:16 95 05/22/19 08:33 05/22/19 07:59 96 05/22/19 04:00 95 05/22/19 01:25 98 05/22/19 01:15 97 Laboratory Results 05/21/19 05/21/19 05/21/19 Range/Units 23:30 20:39 20:02 WBC (4.8-10.8) K/uL RBC (4.2-5.4) M/uL Hgb (12.0-16.0) g/dL POC Hgb 12.6 (12.0-16.0) g/dl Hct (37-47) % POC Hct 37 (37-47) % MCV (80-100) fL MCH (25-34) pg MCHC (32-36) g/dL RDW Std Deviation (36.4-46.3) fL RDW Coeff of Clarita (11.5-14.5) % Plt Count (130-400) K/uL MPV (7.4-10.4) fL Immature Gran % (Auto) % Neut % (Auto) % Lymph % (Auto) % Pike % (Auto) % Eos % (Auto) % Baso % (Auto) % Immature Gran # (Auto) (0.00-0.02) K/uL Neut # (Auto) (1.4-6.5) K/uL Lymph # (Auto) (1.2-3.4) K/uL Pike # (Auto) (0.11-0.59) K/uL Eos # (Auto) (0-0.5) K/uL Baso # (Auto) (0-0.2) K/uL PT (9.0-12.0) Seconds INR (0.9-1.1) POC Sodium 139 (135-144) mEq/L Sodium 138 (136-145) mmol/L POC Potassium 4.2 (3.3-5.0) mEq/L Potassium 4.2 (3.5-5.1) mmol/L POC Chloride 104 (101-112) mEq/L Chloride 104 (98-107) mmol/L Carbon Dioxide 28 (21-32) mmol/L POC Total CO2 27 (24-31) mEq/l Anion Gap 6.0 (3-11) POC Anion Gap 13.0 L (16-25) mmol/L POC BUN 28 H (7-18) mg/dl BUN 27 H (7-18) mg/dl Creatinine 1.01 (0.6-1.2) mg/dl POC Creatinine 1.0 (0.6-1.3) mg/dl Est Cr Clr Drug Dosing Not Reportable Est GFR ( Amer) 57.2 Est GFR (Non-Af Amer) 49.3 BUN/Creatinine Ratio 27.1 H (10-20) Glucose 103 H (70-99) mg/dl POC Glucose (other) 101 H (70-99) mg/dl Calcium 9.1 (8.5-10.1) mg/dl POC Ioniz Calcium Johnathan 1.08 L (1.12-1.32) mmol/l Phosphorus 3.6 (2.5-4.9) mg/dl Magnesium 1.9 (1.8-2.4) mg/dl Total Bilirubin 0.5 (0.2-1) mg/dl AST 14 L (15-37) U/L ALT 10 L (12-78) U/L Alkaline Phosphatase 87 (45-117) U/L Troponin I 0.018 (0-0.045) ng/ml Total Protein 7.6 (6.4-8.2) gm/dl Albumin 3.3 L (3.4-5.0) gm/dl Globulin 4.3 H (2.5-4.0) gm/dl Albumin/Globulin Ratio 0.8 L (0.9-2) Lipase 64 L (73-393) U/L TSH 0.242 L (0.300-4.500) uIu/ml Free T4 1.81 H (0.8-1.6) ng/dl Urine Color Yellow Urine Appearance Clear (Clear) Urine pH 5.5 (4.5-7.5) Ur Specific Roslyn 1.018 (1.000-1.030) Urine Protein Negative (Negative) Urine Glucose (UA) Negative (Negative) Urine Ketones 1+ H (Negative) Urine Blood Trace H (Negative) Urine Nitrite Positive A (Negative) Urine Bilirubin Negative (Negative) Urine Urobilinogen Negative (Negative) Ur Leukocyte Esterase 1+ H (Negative) Urine WBC (Auto) 10-30 H (0-5) /hpf Urine RBC (Auto) 0-4 (0-4) /hpf U Hyaline Cast (Auto) 1-5 (0-5) /lpf U Epithel Cells (Auto) 0-5 (0-5) /lpf Urine Bacteria (Auto) 4+ H (Negative) 05/21/19 05/21/19 Range/Units 20:02 20:02 WBC 9.23 (4.8-10.8) K/uL RBC 4.34 (4.2-5.4) M/uL Hgb 13.1 (12.0-16.0) g/dL POC Hgb (12.0-16.0) g/dl Hct 39.3 (37-47) % POC Hct (37-47) % MCV 90.6 (80-100) fL MCH 30.2 (25-34) pg MCHC 33.3 (32-36) g/dL RDW Std Deviation 44.1 (36.4-46.3) fL RDW Coeff of Clarita 13.3 (11.5-14.5) % Plt Count 175 (130-400) K/uL MPV 9.9 (7.4-10.4) fL Immature Gran % (Auto) 0.1 % Neut % (Auto) 84.4 % Lymph % (Auto) 7.4 % Pike % (Auto) 7.0 % Eos % (Auto) 0.9 % Baso % (Auto) 0.2 % Immature Gran # (Auto) 0.01 (0.00-0.02) K/uL Neut # (Auto) 7.79 H (1.4-6.5) K/uL Lymph # (Auto) 0.68 L (1.2-3.4) K/uL Pike # (Auto) 0.65 H (0.11-0.59) K/uL Eos # (Auto) 0.08 (0-0.5) K/uL Baso # (Auto) 0.02 (0-0.2) K/uL PT 11.3 (9.0-12.0) Seconds INR 1.1 (0.9-1.1) POC Sodium (135-144) mEq/L Sodium (136-145) mmol/L POC Potassium (3.3-5.0) mEq/L Potassium (3.5-5.1) mmol/L POC Chloride (101-112) mEq/L Chloride (98-107) mmol/L Carbon Dioxide (21-32) mmol/L POC Total CO2 (24-31) mEq/l Anion Gap (3-11) POC Anion Gap (16-25) mmol/L POC BUN (7-18) mg/dl BUN (7-18) mg/dl Creatinine (0.6-1.2) mg/dl POC Creatinine (0.6-1.3) mg/dl Est Cr Clr Drug Dosing Est GFR ( Amer) Est GFR (Non-Af Amer) BUN/Creatinine Ratio (10-20) Glucose (70-99) mg/dl POC Glucose (other) (70-99) mg/dl Calcium (8.5-10.1) mg/dl POC Ioniz Calcium Johnathan (1.12-1.32) mmol/l Phosphorus (2.5-4.9) mg/dl Magnesium (1.8-2.4) mg/dl Total Bilirubin (0.2-1) mg/dl AST (15-37) U/L ALT (12-78) U/L Alkaline Phosphatase (45-117) U/L Troponin I (0-0.045) ng/ml Total Protein (6.4-8.2) gm/dl Albumin (3.4-5.0) gm/dl Globulin (2.5-4.0) gm/dl Albumin/Globulin Ratio (0.9-2) Lipase (73-393) U/L TSH (0.300-4.500) uIu/ml Free T4 (0.8-1.6) ng/dl Urine Color Urine Appearance (Clear) Urine pH (4.5-7.5) Ur Specific Roslyn (1.000-1.030) Urine Protein (Negative) Urine Glucose (UA) (Negative) Urine Ketones (Negative) Urine Blood (Negative) Urine Nitrite (Negative) Urine Bilirubin (Negative) Urine Urobilinogen (Negative) Ur Leukocyte Esterase (Negative) Urine WBC (Auto) (0-5) /hpf Urine RBC (Auto) (0-4) /hpf U Hyaline Cast (Auto) (0-5) /lpf U Epithel Cells (Auto) (0-5) /lpf Urine Bacteria (Auto) (Negative) Diagnostic Findings MR brain wo con HISTORY: Mental status change altered mental status TECHNIQUE: Multiplanar multisequence MRI of the brain was performed without the use of contrast. COMPARISON STUDY: 04/08/2018 FINDINGS: There are no areas of restricted diffusion to suggest acute infarction. The midline structures are intact. The paranasal sinuses are clear. The mastoid air cells are clear. The ventricles and sulci are within normal limits for age. There is no mass, hematoma, midline shift. The major vascular flow-voids at the skull base are well maintained. Several periventricular old infarcts are present. Considerable chronic small vessel change is present. The ventricular system is midline. Mild compensatory prominence of the ventricular system is present. Small focus of small vessel ischemic change medial aspect left cerebellum also consider pre-existing. IMPRESSION: 1. No acute intracranial abnormality. 2. No evidence for an acute ischemic event. 3. Several old periventricular infarct with considerable chronic small vessel change and moderate atrophy. 4. Incidental note is made of moderate mucosal thickening of the ethmoid and sphenoid sinuses. PG Care Time/CCT Total # of Minutes Spent Total Time Spent with Patient: Total time spent is greater than 50% in coordination of care (as documented) at patient's floor/unit and/or counseling patient: Resident Activity Tracking Resident Involvement: Resident Care Provided Care Provided: Adult Hospital Medicine (1) Vascular dementia Dementia behavioral disturbance: without behavioral disturbance Qualified Code(s): F01.50 - Vascular dementia without behavioral disturbance (2) Atrial fibrillation Atrial fibrillation type: paroxysmal Qualified Code(s): I48.0 - Paroxysmal atrial fibrillation (3) Hypothyroidism Hypothyroidism type: acquired Qualified Code(s): E03.9 - Hypothyroidism, unspecified
[2019-05-22] MEDS ORDERED: RIVAROXABAN 15 MG TAB PO SCH (21:00)
[2019-05-23] MEDS: cefTRIAXone SODIUM 1,000 MG in DEXTROSE 5% 50 ML IV SCH (05:55)
[2019-05-23] MEDS: LEVOTHYROXINE SODIUM 75 MCG TABLET PO SCH (05:56)
[2019-05-23 07:54] VITALS: TEMP 97.5; O2SAT 97
[2019-05-23] MEDS: ASPIRIN 81 MG ECTAB PO SCH (08:07)
[2019-05-23] MEDS: METOPROLOL SUCC 25MG EXT REL TAB PO SCH (08:07)
[2019-05-23] MEDS: FAMOTIDINE 20 MG TAB PO SCH (08:08)
[2019-05-23] MEDS: ATORVASTATIN 10 MG TAB PO SCH (08:08)
[2019-05-23] MEDS: VENLAFAXINE HCL 37.5 MG TAB PO SCH (08:08)
[2019-05-23] MEDS: SACCHAROMYCES BOULARDII 250 MG CAP PO SCH (08:08)
--- NOTE | 2019-05-23 09:57 | Discharge Summary ---
Date of Service May 23, 2019 Admission HPI Per Admitting Provider The patient is an 88-year-old female with a past medical history including dementia, UTI, chronic kidney disease, residual left hemiparesis from CVA 3 years ago, status post mitral valve repair, parkinsonism, and atrial fibrillation. She was brought to the emergency department after 1 of her caretakers was told that the patient was confused, had worsening generalized weakness, lethargic and disoriented over the past 5 days. 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 Admission Exam Per Admitting Provider The patient is somewhat lethargic, masked facies, sitting upright in bed and in no acute distress. HEENT--PERRL, EOMI, mucous membranes and oropharynx dry. Neck--supple. No JVD. No bruits. Thyroid normal, trachea midline, no adenopathy. Heart--normal S1 and S2. No murmurs, rubs or gallops. Lungs--clear bilaterally, no respiratory distress, no accessory muscle use. Abdomen--normal bowel sounds and soft. Nontender. Nondistended. Extremities--no cyanosis or clubbing. No edema. There are good distal pulses b/l. Dermatologic--normal skin turgor, normal color, no abnormal lymph nodes, no rash. Neurologic--cranial nerves II through XII grossly intact. Left-sided weakness. Rheumatologic--limited examination Psychiatric--flat affect Principal Diagnosis Urinary Tract Infection Discharge Exam Constitutional + frail appearing; no acute distress Eyes + anicteric sclerae ENMT external ear and nose normal, oropharynx normal Nose: + facial tenderness (bilateral frontal sinuses); no nasal discharge Neck trachea midline Respiratory normal respiratory effort, lungs clear to auscultation Cardiovascular RRR, no murmur, no edema Heart Sounds: normal S1 and normal S2 Extremities: no pedal edema Gastrointestinal (Abdomen) Inspection/Auscultation: abdomen normal to inspection; abdomen not distended Percussion/Palpation: abdomen soft; abdomen nontender Skin no rashes, warm and dry Psychiatric A+Ox3, euthymic affect Discharge Data Allergies Allergy/AdvReac Type Severity Reaction Status Date / Time codeine Allergy Unknown UNK Verified 05/19/19 10:55 ferrous sulfate Allergy Unknown 0 Verified 05/19/19 10:55 folic acid Allergy Unknown 0 Verified 05/19/19 10:55 Macrolide Antibiotics Allergy Unknown ` Verified 05/19/19 10:55 pantoprazole Allergy Unknown 0 Verified 05/19/19 10:55 Penicillins Allergy Unknown UNK-TOLERATES Verified 05/19/19 10:55 CEPHS morphine AdvReac Unknown HYPOTENSION Verified 05/19/19 10:55 Consultations 05/21/19 23:00 ED Decision to Admit Stat Ordered Studies 05/21/19 20:43 CT head/brain wo con Stat IMPRESSION: 1. Chronic small vessel ischemic change and multifocal old infarcts. No acute intracranial abnormality. 2. Paranasal sinus disease with findings suggesting acute sinusitis in the sphenoid sinuses. Correlate clinically 05/22/19 05:09 MR brain wo con Routine IMPRESSION: 1. No acute intracranial abnormality. 2. No evidence for an acute ischemic event. 3. Several old periventricular infarct with considerable chronic small vessel change and moderate atrophy. 4. Incidental note is made of moderate mucosal thickening of the ethmoid and sphenoid sinuses. Hospital Course (1) Confusion and disorientation: Ms. Theodore is a 88 yo woman with a PMHx of underlying vascular dementia who was admitted to [facility] on 05/21/19 when her caregivers noticed a change from her baseline mental status. Throughout her hospital stay Ms. Theodore was alert and oriented to person, place and time. The work-up for her altered mental status revealed no metabolic derangements, as her electrolytes and liver function tests were WNL. Both a head CT and a brain MRI were performed, which showed no acute changes except for a sphenoid sinusitis. Ms. Theodore did admit to having rhinorrhea and frontal headaches in the days preceding her admission. Despite her compliance with trimethoprim, 50mg, daily for UTI prophylaxis, Ms. Theodore's urine analysis on admission was + for nitrites, 1+ for leuk est, and 4+ bacteria. Urine culture subsequently grew out e.coli. Sensitivities were not available prior to discharge, but review of previous urine cultures in the EMR showed a history of castro-sensitive e.coli. Ms. Theodore was treated with IV Rocephin during her hospital stay, and was sent home with a script for Levaquin. Pharmacy was consulted and recommended taking 500mg dose for 1 day starting the day after discharge, followed by a 250mg dose for 4 days. Levaquin was selected for coverage of both the UTI and the potential sinusitis. (2) Vascular dementia: Known CVA approximately [address] 05/21 showed chronic small vessel ischemic change and multifocal old infarcts. Brain MRI 05/22 showed several old periventricular infarcts with considerable chronic small vessel change and moderate atrophy but no evidence for an acute ischemic event. Ms. Theodore's home ASA 81mg and Atorvastatin 10mg were continued during her hospital stay for risk factor management. (3) Vascular parkinsonism: MRI report as attached. It does not appear Ms. Theodore is currently on carbidopa/levodopa. Outpatient items to do: consider trial of carbidopa/levodopa (4) CVA (cerebral vascular accident): Suffered approximately 3 years ago. Patient with residual left hemiparesis. No acute findings on head CT 05/21 or brain MRI 05/22. Continue risk factor management. (5) Left hemiparesis: Secondary to CVA of 3 years ago. (6) Atrial fibrillation: EKG on admission showed sinus rhythm with a rate of 74. Xarelto 15 mg p.o. at bedtime, and metoprolol succinate 25 mg qAM were continued during hospital stay. 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 INR 1.1 on 05/21. Xarelto 15 mg p.o. at bedtime continued while hospitalized. (8) S/P mitral valve repair: Stable. (9) Hyperlipidemia LDL goal <70: Continue atorvastatin 10 mg daily Outpatient items to do: follow lipid panels (10) Anxiety: Continue venlafaxine 37.5 mg every morning. (11) Hypothyroidism: Continue levothyroxine sodium 75 mcg every morning. Laboratories 05/21 reveal a TSH of 0.242, and free T4 of 1.81. Mild abnormality may be secondary to acute illness Outpatient items to do: repeat TSH and free T4 levels (12) Chronic kidney disease, stage 3a: Cr 1.01 on admission Total Time Total Time Spent Total Time Spent (In Minutes): see attending attestation Discharge Plan Discharge Items Patient Disposition: Home - Home Health Services Reason For Visit: altered mental status Discharge Diagnosis: Urinary Tract Infection Activity: Resume your previous activity Non-emergency contact: Primary Care Provider Call non-emergency contact if: you have any medication questions Follow-up/Referrals: Alejandro Quinones MD [Primary Care Provider] - Diet: Regular Addtl Attending Provider Instructions: You were admitted to [facility] on 05/21/19 to 05/23/19 for evaluation of altered mental status. You were found to have a urinary tract infection. This was initially treated with IV antibiotics. You were prescribed an antibiotic to take at home for 5 days to completely treat the infection. Please take Levaquin, 250mg, 2 capsules, by mouth, for one day, beginning the day after discharge. Take Levaquin, 250mg, 1 capsule, by mouth for the following four days. A cat scan of your head was also performed during your visit, which showed a congestion in your sinuses. It is possible you may be suffering from a sinus infection. The antibiotic Levquin will treat both the urine and the potential sinus infection. Please follow up with your primary care doctor within 1-2 weeks after discharge. Pending Studies at Discharge: No Stand-Alone Forms: My [facility] Medications and DC Order Prescriptions: New levofloxacin [Levaquin] 500 mg tablet 250 mg PO DAILY 5 Days Qty: 6 RF: 0 Continued atorvastatin 10 mg Tablet 10 mg PO QAM Qty: 0 RF: 0 aspirin 81 mg Tablet,Delayed Release (Dr/Ec) 81 mg PO QAM Qty: 0 RF: 0 levothyroxine 75 mcg Tablet 75 mcg PO QAM 90 Days Qty: 0 RF: 3 venlafaxine 37.5 mg Tablet 37.5 mg PO QAM Qty: 0 RF: 0 metoprolol succinate 25 mg Tablet Extended Release 24 Hr 25 mg PO QAM Qty: 30 RF: 0 famotidine 20 mg Tablet 20 mg PO QAM Qty: 0 RF: 0 benzonatate [Tessalon Perles] 100 mg capsule 100 mg PO TID PRN (Reason: cough) Qty: 30 RF: 0 fluticasone propionate [Flonase Allergy Relief] 50 mcg/actuation spray,suspension 2 sprays INTNAS DAILY Qty: 15.8 RF: 0 cranberry 450 mg Tablet 450 mg PO BID RF: 0 acetaminophen [Acetaminophen Extra Strength] 500 mg tablet 500 mg PO Q4 MDD 6 TABS DAILY PRN (Reason: pain/fever) RF: 0 Florastor 250 mg capsule 250 mg PO Q12H RF: 0 Xarelto 15 mg tablet 15 mg PO HS RF: 0 trimethoprim 100 mg tablet 50 mg PO HS RF: 0 Discharge Orders: Discharge Order (Routine); Ordered 05/23/19 Ordered By: Rahel Cornelius Admission Data Admit Date/Time: 05/21/19 23:53 Attending Provider: Reggie Werner Admit Provider: Néstor Cooper Primary Care Provider: Alejandro Quinones Other Providers: Néstor Cooper Other Interventions: Discharge Summary Assessment (RN) Last Done: 05/23/19 10:06 DC Date/Time DO NOT enter until pt leaves facility: 05/23/19 11:28 Supervising Physician Co-Signing Physician Notes Patient seen and examined with Dr. Cornelius. I agree with their exam findings, review of systems, assessment and plan. I have personally reviewed the lab work and imaging from today. patient feeling well, back to baseline, eating well, no dyspnea, no pain reviewed culture showing E coli Exam: thin female, NAD, AAOx 3, lungs CTA bilaterally, normal effort, heart re gular no murmurs, abdomen soft, NT, ND, +BS - Metabolic encephalopathy due to UTI: resolved with antibiotics - E coli UTI: change to Levaquin PO on discharge to treat sinusitis simultaneously, complete 500mg tomorrow then 250mg daily - Acute sinusitis: symptoms of sinus tenderness for a week, post nasal drip, sinusitis findings on CT head will finish a five day course of Levaquin on discharge, see above d/c to home with 24 hour care, f/u with PCP Resident Activity Tracking Resident Involvement: Resident Care Provided Care Provided: Adult Hospital Medicine
[2019-05-23 10:10] VITALS: BP 116/57; PULSE 82
== END 2019-05-23 11:28 | disposition home health service (06) | DRG 689 ==
LOC: ED 19:20 → 2N 23:53 → SUATTDRO 23:53 → 2N 05-22 01:15

== ENCOUNTER 2019-07-30 14:21 | Inpatient (IN) ==
[2019-07-30] MEDS ORDERED: SODIUM CHLORIDE 0.9% 1000ML 500 ML IV ONE (14:57)
--- NOTE | 2019-07-30 15:04 | Emergency Department Note ---
ED Visit Note This patient was seen in concert with Dr. Andersen and we discussed and agreed upon the history, physical, assessment and plan. See attending's note for details. Resident Activity Tracking Resident Involvement: Resident Care Provided Care Provided: Pediatric Care ED
[2019-07-30 15:33] LABS: Basophils # (auto) 0.03 K/uL (0-0.2); Basophils % (auto) 0.5 %; Eosinophils # (auto) 0.44 K/uL (0-0.5); Eosinophils % (auto) 7.4 %; Hematocrit (blood only) 35.4 % (37-47); Hemoglobin 11.7 g/dL (12.0-16.0); Lymphocytes # (auto) 1.23 K/uL (1.2-3.4); Lymphocytes % (auto) 20.8 %; Mean Corpuscular Hemoglobin 30.5 pg (25-34); Mean Corpuscular Hgb Conc 33.1 g/dL (32-36); Mean Corpuscular Volume 92.4 fL (80-100); Mean Platelet Volume 9.9 fL (7.4-10.4); Monocytes # (auto) 0.61 K/uL (0.11-0.59); Monocytes % (auto) 10.3 %; Neutrophils # (auto) 3.61 K/uL (1.4-6.5); Platelet Count 197 K/uL (130-400); RDW Coefficient of Variation 13.5 % (11.5-14.5); RDW Standard Deviation 45.4 fL (36.4-46.3); Red Blood Count 3.83 M/uL (4.2-5.4); White Blood Count 5.92 K/uL (4.8-10.8)
[2019-07-30 15:48] LABS: Alanine Aminotransferase 16 U/L (12-78); Aspartate Aminotransferase 16 U/L (15-37); BUN Creatinine Ratio 29.8 (10-20); Blood Urea Nitrogen 27 mg/dl (7-18); Calcium 8.8 mg/dl (8.5-10.1); Carbon Dioxide 30 mmol/L (21-32); Chloride 107 mmol/L (98-107); Est GFR (African American) 66.6; Est GFR (Non-African American) 57.5; Glucose 83 mg/dl (70-99); Sodium 141 mmol/L (136-145)
[2019-07-30 15:51] LABS: Albumin Globulin Ratio 0.7 (0.9-2); Alkaline Phosphatase 88 U/L (45-117); Bilirubin,Total 0.4 mg/dl (0.2-1); Globulin 4.1 gm/dl (2.5-4.0); Total Protein 7.1 gm/dl (6.4-8.2)
--- NOTE | 2019-07-30 15:51 | CT Scan Report ---
CT OF THE HEAD WITHOUT CONTRAST CLINICAL HISTORY: falls, dementia, worsening mental status COMPARISON STUDY: Head CT May 21, 2019. MRI of the brain May 22, 2019. CT DOSE: 729.78 mGycm TECHNIQUE: Helical axial images of the head were obtained without IV contrast. Automated exposure con trol was utilized for the study. A dose lowering technique was utilized adhering to the principles o f ALARA. FINDINGS: No acute intracranial hemorrhage, midline shift or mass effect is present. Ventricular syst em is stable. The basilar cisterns are patent. There are no extra-axial collections. Multiple old inf arcts are unchanged since MRI of May 22, [address] May 21, 2019. A left anterior infer ior frontal lobe infarct is new since prior exams, shown on axial images and . However, th is does not appear acute. There is no calvarial fracture. Left frontal, ethmoid and right sphenoid si nus opacification is noted. This is likely chronic. IMPRESSION: 1. No acute intracranial hemorrhage or mass effect. 2. Interval, but likely chronic, infarct within the left frontal lobe since prior imaging studies. 3. Numerous additional old infarcts. 4. Left frontal, ethmoid and right sphenoid sinus opacification. ACT 112: Negative or not required by law. Electronically signed by: Alek Mcqueen M.D. 07/30/2019 3:50 PM
[2019-07-30] MEDS ORDERED: SODIUM CHLORIDE 0.9% 1000ML 1,000 ML IV ONE (15:52)
[2019-07-30 15:55] LABS: Appearance Urine Clear (Clear); Bilirubin Urine Negative (Negative); Blood Urine Negative (Negative); Color Urine Yellow; Glucose Urine UA Negative (Negative); Ketones Urine Negative (Negative); Leukocyte Esterase Urine Negative (Negative); Nitrite Urine Negative (Negative); Protein Urine Negative (Negative); Specific Gravity Urine 1.013 (1.000-1.030); Urobilinogen Urine Negative (Negative)
[2019-07-30] MEDS ORDERED: ASPIRIN CHEW 324 MG PO STA (16:49)
[2019-07-30] MEDS ORDERED: OPTIRAY 320 125ml IV PRN (17:15)
--- NOTE | 2019-07-30 17:31 | CT Scan Report ---
CT angio head w con CLINICAL HISTORY: hx vascular dementia, subacute ischemic stroke TECHNIQUE: CT angiography of the head was performed in a dynamic helical fashion during intravenous a dministration of 117 cc of Optiray 320. MIP imaging was performed. A dose lowering technique was util ized adhering to the principles of ALARA. CT DOSE: 353.60 mGy.cm COMPARISON STUDY: Noncontrast head CT dated 07/30/2019 FINDINGS: There are no lesion suspicious for aneurysm. There are no major intracranial branch occlusi ons. The dural venous sinuses appear patent. There are no pathologically enhancing masses. There are multiple bilateral infarcts. Inflammatory changes are present within the paranasal sinuses. IMPRESSION: 1. No evidence of major intracranial branch occlusion 2. No evidence of major intracranial stenosis 3. No evidence of aneurysm ACT 112: Negative or not required by law. Electronically signed by: Reji Wallace M.D. 07/30/2019 5:30 PM
--- NOTE | 2019-07-30 17:32 | Emergency Department Note ---
Entered by Rae Lopez acting as a scribe for History of Present Illness General Chief complaint: Urinary Symptoms Stated complaint: L FOOT PAIN Time Seen by Provider: 07/30/19 14:42 Source: patient and other (caretakers) Mode of arrival: wheelchair Limitations: altered mental status (history of dementia) History of Present Illness Onset (ago): day(s) 2 Location: pelvis (urinary) Radiation: non-radiation Pain Consistency: + constant Relieved By: + none Exacerbated By: + none Associated symptoms: + weakness Treatments prior to arrival: other (Cipro 250 mg BID) The patient is an 88 year old white female w/ PMHx of CKD, UTI, Hypothyroidism, CVA and atrial fibrillation who presents to the ED w/ CC of urinary symptoms beginning a few days [employer]. She does have a history of recurrent UTIs. She saw her PCP in the office on 07/19 and a UA showed greater than 30 WBC, and was positive for nitrates. A urine culture on the was castro sensitive to e-coli. She was then placed on Cipro 250 mg BID. Since then, she complains of increased urinary frequency. Her morning caregivers found her to be increasingly weak today, and state they had a hard time getting her out of bed. The patient has also been refusing oral intake, so they decided to bring her to the ED. Home Medications Home Medications Medication Instructions Recorded Confirmed Type aspirin 81 mg PO QAM #0 06/18/17 07/30/19 History acetaminophen 500 mg tablet 500 mg PO Q4 PRN tab MDD 6 tabs 03/22/19 07/30/19 History Florastor 250 mg PO Q12H 05/21/19 07/30/19 History Xarelto 15 mg PO HS 05/21/19 07/30/19 History trimethoprim 50 mg PO HS 05/21/19 07/30/19 History venlafaxine 37.5 mg tablet 37.5 mg PO QAM #90 tab 07/02/19 07/30/19 Rx atorvastatin [Lipitor] 10 mg PO QAM 07/30/19 07/30/19 History benzonatate [Tessalon Perles] 100 mg PO TID PRN 07/30/19 07/30/19 History ciprofloxacin HCl [Cipro] 250 mg PO BID 07/30/19 07/30/19 History cranberry 450 mg PO BID 07/30/19 07/30/19 History diclofenac sodium [Voltaren] 2 gm TOP QID PRN 07/30/19 07/30/19 History docusate sodium [Colace] 100 mg PO QAM 07/30/19 07/30/19 History famotidine [Pepcid] 20 mg PO QAM 07/30/19 07/30/19 History levothyroxine [Synthroid] 75 mcg PO QAM 07/30/19 07/30/19 History metoprolol succinate [Toprol XL] 25 mg PO QAM 07/30/19 07/30/19 History Allergies Allergy/AdvReac Type Severity Reaction Status Date / Time codeine Allergy Unknown UNK Verified 07/30/19 16:50 ferrous sulfate Allergy Unknown 0 Verified 07/30/19 16:50 folic acid Allergy Unknown 0 Verified 07/30/19 16:50 Macrolide Antibiotics Allergy Unknown ` Verified 07/30/19 16:50 pantoprazole Allergy Unknown 0 Verified 07/30/19 16:50 Penicillins Allergy Unknown UNK-TOLERATES Verified 07/30/19 16:50 CEPHS morphine AdvReac Unknown HYPOTENSION Verified 07/30/19 16:50 Past Med/Surg History Social History Preferred Language: Bhutanese Communication Ability: Effective Visual Impairment: No Limitations Hearing Ability: Normal [employer] Architect Required: No Beliefs That Will Affect Care: None marital status: / Current Living Situation: Alone Current Living Situation Comment: caregivers current occupational status: retired Feels Safe at Home: Yes Safety Concerns: Feels Safe At This Time Smoking Status: Never smoker Second Hand Exposure: No ; Hx Alcohol Use: No Hx Substance Use: No Review of Systems See HPI for pertinent positives & negatives. and A total of 10 systems reviewed and were otherwise negative Physical Exam Vital Signs Vital Signs - 24 hr 07/30/19 14:25 07/30/19 16:22 07/30/19 18:23 Temperature 36.3 C L Temperature Source Oral Pulse Rate 74 Pulse Rate [Finger] 63 Pulse Rhythm [Finger] Regular Respiratory Rate 20 18 18 Respiratory Effort / Characteristics Non-Labored Spontaneous Non-Labored Spontaneous Respiratory Depth Normal Normal Respiratory Pattern Regular Blood Pressure 139/78 Blood Pressure [Right Arm] 169/78 H Blood Pressure Mean 98 Blood Pressure Mean [Right Arm] 108 Pulse Oximetry 96 96 Oxygen Delivery Method Room Air Room Air Sepsis Recent Fever Within 48 Hours Yes Sepsis New/Unexplained Change in Mental Status Yes Sepsis Action Taken by Nursing No Action Required GENERAL: NAD, non-toxic. EYE EXAM: Normal conjunctiva. PERRL, no anisocoria and EOM's grossly intact w/o pain. OROPHARYNX: Dry mucous membranes. Grossly normal dentition. NECK: Supple, no nuchal rigidity, no adenopathy, non-tender. No signs of meningismus. LUNGS: Clear to auscultation. Normal chest wall mechanics. HEART: NSR, no MRG. ABDOMEN: Abdomen soft, non-tender, normo-active bowel sounds, no masses, no rebound or guarding. BACK: No CVA TTP. SKIN: No rashes and no bruising. UPPER EXTREMITIES: Upper extremities are grossly normal. LOWER EXTREMITIES: No pitting edema. No calf pain. No obvious wounds, redness or deformity to the bilateral feet. NEURO EXAM: A&O x3, cranial nerves II-XII grossly intact, normal speech, moves all 4 extremities on command w/o issue. Course Course 1500: The patient was evaluated in room A12B and a complete history and physical were performed. 1645: I discussed the patients case with Dr. Lilly, [facility] Neurology. He recommended additional imaging. 1650: We spoke with the POA, they would like the testing done versus more conservative treatment. 1657: I discussed the patients case with Dr. Marino, [facility] Hospitalist. The patient will be further evaluated. Administered Medications Ioversol (Optiray 320 125ml) 117 ml IV ONCE PRN PRN Reason: Interaction Checking Stop: 08/03/19 17:14 Last Admin: 07/30/19 17:15 Dose: 117 ml Documented by: [id number] Discontinued Medications Aspirin (Aspirin) 324 mg PO NOW STA Stop: 07/30/19 16:50 Last Admin: 07/30/19 17:27 Dose: 324 mg Documented by: [id number] Sodium Chloride (Nss 1000ml) 500 mls @ 999 mls/hr IV .Q31M ONE Stop: 07/30/19 15:27 Last Infusion: 07/30/19 16:39 Dose: 0 mls/hr Documented by: [id number] Admin: 07/30/19 15:12 Dose: 999 mls/hr Documented by: [id number] Sodium Chloride (Nss 1000ml) 1,000 mls @ 999 mls/hr IV .Q1H1M ONE Stop: 07/30/19 16:52 Last Infusion: 07/30/19 17:46 Dose: 0 mls/hr Documented by: [id number] Admin: 07/30/19 16:42 Dose: 999 mls/hr Documented by: [id number] Medical Decision Making Differential Diagnosis Differential diagnoses includes but is not limited to toxic, metabolic, infectious, traumatic, cardiac, neurologic, hematologic, psychiatric and inflammatory etiologies. Medical Records Attestation: I reviewed the patient's medical records. Home Medications Current Medication List: was personally reviewed by me Laboratory Data Attestation: I reviewed the patient's lab results. Result diagrams: 07/30/19 15:10 07/30/19 15:10 Lab Results 07/30/19 07/30/19 07/30/19 Range/Units 15:10 15:10 15:10 WBC 5.92 (4.8-10.8) K/uL RBC 3.83 L (4.2-5.4) M/uL Hgb 11.7 L (12.0-16.0) g/dL Hct 35.4 L (37-47) % MCV 92.4 (80-100) fL MCH 30.5 (25-34) pg MCHC 33.1 (32-36) g/dL RDW Std Deviation 45.4 (36.4-46.3) fL RDW Coeff of Clarita 13.5 (11.5-14.5) % Plt Count 197 (130-400) K/uL MPV 9.9 (7.4-10.4) fL Immature Gran % (Auto) 0.0 % Neut % (Auto) 61.0 % Lymph % (Auto) 20.8 % [place] % (Auto) 10.3 % Eos % (Auto) 7.4 % Baso % (Auto) 0.5 % Immature Gran # (Auto) 0.00 (0.00-0.02) K/uL Neut # (Auto) 3.61 (1.4-6.5) K/uL Lymph # (Auto) 1.23 (1.2-3.4) K/uL [place] # (Auto) 0.61 H (0.11-0.59) K/uL Eos # (Auto) 0.44 (0-0.5) K/uL Baso # (Auto) 0.03 (0-0.2) K/uL Sodium 141 (136-145) mmol/L Potassium 4.0 (3.5-5.1) mmol/L Chloride 107 (98-107) mmol/L Carbon Dioxide 30 (21-32) mmol/L Anion Gap 4.0 (3-11) BUN 27 H (7-18) mg/dl Creatinine 0.89 (0.6-1.2) mg/dl Est Cr Clr Drug Dosing Not Reportable Est GFR ( Amer) 66.6 Est GFR (Non-Af Amer) 57.5 BUN/Creatinine Ratio 29.8 H (10-20) Glucose 83 (70-99) mg/dl Calcium 8.8 (8.5-10.1) mg/dl Total Bilirubin 0.4 (0.2-1) mg/dl AST 16 (15-37) U/L ALT 16 (12-78) U/L Alkaline Phosphatase 88 (45-117) U/L Total Protein 7.1 (6.4-8.2) gm/dl Albumin 3.0 L (3.4-5.0) gm/dl Globulin 4.1 H (2.5-4.0) gm/dl Albumin/Globulin Ratio 0.7 L (0.9-2) Urine Color Yellow Urine Appearance Clear (Clear) Urine pH 6.0 (4.5-7.5) Ur Specific [place] 1.013 (1.000-1.030) Urine Protein Negative (Negative) Urine Glucose (UA) Negative (Negative) Urine Ketones Negative (Negative) Urine Blood Negative (Negative) Urine Nitrite Negative (Negative) Urine Bilirubin Negative (Negative) Urine Urobilinogen Negative (Negative) Ur Leukocyte Esterase Negative (Negative) Imaging Data Radiologist's Impression: Radiology results as stated below per my review and the radiologist's interpretation: CT OF THE HEAD WITHOUT CONTRAST CLINICAL HISTORY: falls, dementia, worsening mental status COMPARISON STUDY: Head CT May 21, 2019. MRI of the brain May 22, 2019. CT DOSE: 729.78 mGycm TECHNIQUE: Helical axial images of the head were obtained without IV contrast. Automated exposure control was utilized for the study. A dose lowering technique was utilized adhering to the principles of ALARA. FINDINGS: No acute intracranial hemorrhage, midline shift or mass effect is present. Ventricular system is stable. The basilar cisterns are patent. There are no extra-axial collections. Multiple old infarcts are unchanged since MRI of May 22, [address] May 21, 2019. A left anterior inferior frontal lobe infarct is new since prior exams, shown on axial images and 15 . However, this does not appear acute. There is no calvarial fracture. Left frontal, ethmoid and right sphenoid sinus opacification is noted. This is likely chronic. IMPRESSION: 1. No acute intracranial hemorrhage or mass effect. 2. Interval, but likely chronic, infarct within the left frontal lobe since prior imaging studies. 3. Numerous additional old infarcts. 4. Left frontal, ethmoid and right sphenoid sinus opacification. ACT 112: Negative or not required by law. Electronically signed by: Alek Mcqueen M.D. 07/30/2019 3:50 PM Blood Pressure Blood Pressure Findings: Elevated blood pressure Blood Pressure Disposition: further management by hospitalist MDM Narrative The patient is an 88 year old white female w/ PMHx of CKD, UTI, Hypothyroidism, CVA and atrial fibrillation who presents to the ED w/ CC of urinary symptoms beginning a few days [employer]. Resident Physician Supervision Note: I did perform an independent evaluation and examination of this patient as described. I also saw this patient in conjunction with the resident, Dr. Rahel Cornelius MD , and guided management for the patient. Patient was seen and evaluated the after being seen and evaluated by the resident physician. The patient had had a slight change in mental status. The patient on my exam was awake alert and follows basic commands. The patient only complaint is mild foot pain and she had seen the corporate claims examiner earlier today for some ingrown toenail. Did examine the feet which appear unremarkable no obvious deformities and no concerning redness or cellulitic change or abscess or drainage. The patient did have a CT of the head along with some blood work completed. There was a new left frontal lobe finding. Given this concern and her history of vascular dementia with an unremarkable blood work and urinalysis did speak with the on-call neurologist who recommended additional imaging. The resident did speak with the patient's POA who is the son we did discuss that we could do further testing but the treatment may be no different. Nevertheless, the son would like the testing done. Patient was given full dose aspirin and was subsequently admitted to the medicine service pending additional imaging. Impression & Plan Frontal lobe and executive function deficit following cerebral infarction, Dehydration, Altered mental status Discharge Plan Visit Data *Final* Discharge Date/Time: 07/30/19 18:57 Chief Complaint: Urinary Symptoms Stated Complaint: L FOOT PAIN ED Provider: Francisco Andersen ED Midlevel Provider: Rahel Cornelius Discharge Problem: Frontal lobe and executive function deficit following cerebral infarction, Dehydration, Altered mental status Patient Disposition: Admitted As Inpatient Discharge Instructions Interventions: ED Discharge Assessment Last Done: 07/30/19 18:57 The scribe's documentation has been prepared under my direction and personally reviewed by me in its entirety. I confirm that the note above accurately ref lects all work, treatment, procedures, and medical decision making performed by me.
--- NOTE | 2019-07-30 17:42 | CT Scan Report ---
CT ANGIOGRAPHY OF THE NECK WITH CONTRAST CLINICAL HISTORY: hx vascular dementia; subacute stroke COMPARISON STUDY: Carotid ultrasound April 08, 2018. Technique: CT angiography of the carotid and vertebral arteries was obtained using StepOneraLoladex 320 IV and 3D reconstruction on an independent workstation. NASCET criteria was utilized. Automated exposure c ontrol was utilized for the study. A dose lowering technique was utilized adhering to the principles of ALARA. Findings: Biapical scarring within the lungs is unchanged. There is mild interlobular septal thickeni ng. The bilateral common carotid, cervical internal carotid and vertebral arteries are patent. There is mild plaque within the major vessels of the neck. There is no stenosis or dissection within these vessels. 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 The CTA of the head will be reported separately. Patient is status post C5-C7 anterior discectomy and fu ale. There is no cervical spine fracture. IMPRESSION: Unremarkable CTA of the neck. Mild plaque. No stenosis. ACT 112: Negative or not required by law. Electronically signed by: Alek Mcqueen M.D. 07/30/2019 5:40 PM
--- NOTE | 2019-07-30 17:52 | XRay Report ---
KUB CLINICAL HISTORY: Abdominal pain. COMPARISON STUDY: CT of the abdomen and pelvis June 26, 2018. FINDINGS: There is contrast within the collecting systems, ureters and bladder from recent contrast-e nhanced CT. No hydronephrosis is present. Bilateral hip arthroplasties are partially imaged. There ar e median sternotomy wires. The bowel gas pattern is normal. There is a moderate amount of stool withi n the right colon. IMPRESSION: 1. No evidence for a bowel obstruction. 2. Moderate amount of stool within the right colon. ACT 112: Negative or not required by law. Electronically signed by: Alek Mcqueen M.D. 07/30/2019 5:51 PM
[2019-07-30] MEDS ORDERED: ONDANSETRON INJ 2 MG/ML 2 ML VIAL IV PRN (18:45)
[2019-07-30] MEDS ORDERED: ZOLPIDEM TARTRATE 5 MG TAB PO PRN (18:45)
[2019-07-30] MEDS ORDERED: ACETAMINOPHEN 325 MG TAB PO PRN (18:45)
[2019-07-30] MEDS ORDERED: BENZONATATE 100 MG CAPSULE PO PRN (18:45)
[2019-07-30] MEDS ORDERED: PHARMACIST DISCHARGE MED REC CONSULT PRN (18:45)
--- NOTE | 2019-07-30 18:45 | History & Physical Report ---
Date of Service July 30, 2019 Assessment & Plan (1) CVA (cerebral vascular accident): As noted on initial CT scan, patient has an interval development of a left frontal lobe infarct that was felt to be chronic. This can certainly account for the patient's change in mental status. We will admit the patient under stroke protocol. Patient is on atorvastatin and low-dose aspirin which we will continue. She is chronically anticoagulated with Xarelto which we will continue as well. (2) Vascular dementia: Patient will require ongoing supportive care. I am concerned that she may not be able to return to her previous living arrangements in the short-term. We will ask PT/OT to evaluate for possible placement in the short-term. (3) UTI (urinary tract infection): Patient has been on ciprofloxacin for possible urinary tract infection. However, with normal urine, and no sign of infection including fever or white count, will discontinue this today. (4) History of atrial fibrillation: History of Present Illness Chief Complaint: Change in mental status Primary Care Provider: Alejandro Quinones MD This is an 88-year-old female with past medical history of vascular dementia and previous CVAs, atrial fibrillation that presents with possible change in mental status and weakness. Patient is unable to give any history. She is accompanied by an aide from home who unfortunately cannot give much more information. The aide tells me that the patient lives at home with 24-hour supervision provided by the staff. She does have a history of dementia but is able to ambulate and is typically easy to engage. They noted earlier today that the patient was having difficulty getting up and seemed to be more confused than prior. Patient was recently treated with urinary tract infection and they were concerned that the infection had returned. However work-up showed a negative urinalysis. However, the patient does appear to have a extension of of a chronic CVA is seen on CT scan. Patient is therefore being admitted for further work-up and therapy. The patient herself is confused vote does verbalize. She tells me she is concerned she had another stroke as she was told she would not have 1 without appropriate medication. She was unable to give any further history. Allergies Allergy/AdvReac Type Severity Reaction Status Date / Time codeine Allergy Unknown UNK Verified 07/30/19 16:50 ferrous sulfate Allergy Unknown 0 Verified 07/30/19 16:50 folic acid Allergy Unknown 0 Verified 07/30/19 16:50 Macrolide Antibiotics Allergy Unknown ` Verified 07/30/19 16:50 pantoprazole Allergy Unknown 0 Verified 07/30/19 16:50 Penicillins Allergy Unknown UNK-TOLERATES Verified 07/30/19 16:50 CEPHS morphine AdvReac Unknown HYPOTENSION Verified 07/30/19 16:50 Home Medications Home Medications Medication Instructions Recorded Confirmed Type aspirin 81 mg PO QAM #0 06/18/17 07/30/19 History acetaminophen 500 mg tablet 500 mg PO Q4 PRN tab MDD 6 tabs 03/22/19 07/30/19 History Florastor 250 mg PO Q12H 05/21/19 07/30/19 History Xarelto 15 mg PO HS 05/21/19 07/30/19 History trimethoprim 50 mg PO HS 05/21/19 07/30/19 History venlafaxine 37.5 mg tablet 37.5 mg PO QAM #90 tab 07/02/19 07/30/19 Rx atorvastatin [Lipitor] 10 mg PO QAM 07/30/19 07/30/19 History benzonatate [Tessalon Perles] 100 mg PO TID PRN 07/30/19 07/30/19 History ciprofloxacin HCl [Cipro] 250 mg PO BID 07/30/19 07/30/19 History cranberry 450 mg PO BID 07/30/19 07/30/19 History diclofenac sodium [Voltaren] 2 gm TOP QID PRN 07/30/19 07/30/19 History docusate sodium [Colace] 100 mg PO QAM 07/30/19 07/30/19 History famotidine [Pepcid] 20 mg PO QAM 07/30/19 07/30/19 History levothyroxine [Synthroid] 75 mcg PO QAM 07/30/19 07/30/19 History metoprolol succinate [Toprol XL] 25 mg PO QAM 07/30/19 07/30/19 History Past Med/Surg History Social History Preferred Language: Estonian Communication Ability: Impaired Visual Impairment: No Limitations Hearing Ability: Normal District Attorney Required: No Beliefs That Will Affect Care: None marital status: / Current Living Situation: Alone Current Living Situation Comment: caregivers current occupational status: retired Feels Safe at Home: Yes Smoking Status: Never smoker Second Hand Exposure: No ; Hx Alcohol Use: No Hx Substance Use: No Review of Systems Review of Systems: Unobtainable due to cognitive status Would not consider review of systems unreliable in this patient. Physical Exam Constitutional: well nourished, + altered mental status (Per aide, patient is not at baseline but is awake and alert.) and cooperative; no acute distress Neck: trachea midline, no thyromegaly Respiratory: normal respiratory effort, lungs clear to auscultation Auscultation: lungs clear to auscultation bilaterally Cardiovascular: RRR, no murmur, no edema Rate/Rhythm: regular rate and regular rhythm Heart Sounds: normal S1 and normal S2 Gastrointestinal (Abdomen): normal bowel sounds, soft, nontender, no hepatosplenomegaly Musculoskeletal: no cyanosis or clubbing, extremities motor strength 5/5 Skin: no rashes, warm and dry Psychiatric: Orientation: alert and oriented to person Results & Data Vital Signs (Past 12 Hours) Vital Signs Temp Pulse Pulse Resp BP BP Pulse Ox 07/30/19 16:22 63 18 169/78 H 96 07/30/19 14:25 36.3 C L 74 20 139/78 96 Laboratory Results Laboratory work reviewed. Patient is mildly anemic at 11.7/35.4. Blood sugar is 83. Patient's UA is essentially normal Diagnostic Findings CT OF THE HEAD WITHOUT CONTRAST CLINICAL HISTORY: falls, dementia, worsening mental status COMPARISON STUDY: Head CT May 21, 2019. MRI of the brain May 22, 2019. CT DOSE: 729.78 mGycm TECHNIQUE: Helical axial images of the head were obtained without IV contrast. Automated exposure control was utilized for the study. A dose lowering technique was utilized adhering to the principles of ALARA. FINDINGS: No acute intracranial hemorrhage, midline shift or mass effect is present. Ventricular system is stable. The basilar cisterns are patent. There are no extra-axial collections. Multiple old infarcts are unchanged since MRI of May 22, [address] May 21, 2019. A left anterior inferior frontal lobe infarct is new since prior exams, shown on axial images and 15 . However, this does not appear acute. There is no calvarial fracture. Left frontal, ethmoid and right sphenoid sinus opacification is noted. This is likely chronic. IMPRESSION: 1. No acute intracranial hemorrhage or mass effect. 2. Interval, but likely chronic, infarct within the left frontal lobe since prior imaging studies. 3. Numerous additional old infarcts. 4. Left frontal, ethmoid and right sphenoid sinus opacification. --- CT ANGIOGRAPHY OF THE NECK WITH CONTRAST CLINICAL HISTORY: hx vascular dementia; subacute stroke COMPARISON STUDY: Carotid ultrasound April 08, 2018. Technique: CT angiography of the carotid and vertebral arteries was obtained using Optiray 320 IV and 3D reconstruction on an independent workstation. NASCET criteria was utilized. Automated exposure control was utilized for the study. A dose lowering technique was utilized adhering to the principles of ALARA. Findings: Biapical scarring within the lungs is unchanged. There is mild interlobular septal thickening. The bilateral common carotid, cervical internal carotid and vertebral arteries are patent. There is mild plaque within the major vessels of the neck. There is no stenosis or dissection within these vessels. 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 The CTA of the head will be reported separately. Patient is status post C5-C7 anterior discectomy and fusion. There is no cervical spine fracture. IMPRESSION: Unremarkable CTA of the neck. Mild plaque. No stenosis. --- CT angio head w con CLINICAL HISTORY: hx vascular dementia, subacute ischemic stroke TECHNIQUE: CT angiography of the head was performed in a dynamic helical fashion during intravenous administration of 117 cc of Optiray 320. MIP imaging was performed. A dose lowering technique was utilized adhering to the principles of ALARA. CT DOSE: 353.60 mGy.cm COMPARISON STUDY: Noncontrast head CT dated 07/30/2019 FINDINGS: There are no lesion suspicious for aneurysm. There are no major intracranial branch occlusions. The dural venous sinuses appear patent. There are no pathologically enhancing masses. There are multiple bilateral infarcts. Inflammatory changes are present within the paranasal sinuses. IMPRESSION: 1. No evidence of major intracranial branch occlusion 2. No evidence of major intracranial stenosis 3. No evidence of aneurysm PG Care Time/CCT Total # of Minutes Spent Total Time Spent with Patient: Total time spent is greater than 50% in coordination of care (as documented) at patient's floor/unit and/or counseling patient: (1) UTI (urinary tract infection) Hematuria presence: without hematuria Urinary tract infection type: site unspecified Qualified Code(s): N39.0 - Urinary tract infection, site not specified (2) Vascular dementia Dementia behavioral disturbance: without behavioral disturbance Qualified Code(s): F01.50 - Vascular dementia without behavioral disturbance
[2019-07-30] MEDS: SACCHAROMYCES BOULARDII 250 MG CAP PO SCH (20:49)
[2019-07-30] MEDS ORDERED: RIVAROXABAN 15 MG TAB PO SCH (21:00)
[2019-07-30] MEDS ORDERED: NON-FORMULARY MEDICATION (Cranberry Fruit [Cranberry] 450 MG) PO SCH (21:00)
--- NOTE | 2019-07-30 21:47 | Magnetic Resonance Report ---
MRI OF THE BRAIN WITHOUT CONTRAST CLINICAL HISTORY: Worsening mental status. SUBACUTE INFARCT. HISTORY OF VASCULAR DEMENTIA. COMPARISON STUDY: CT scan the head dated 07/30/2019, MRI the brain dated 05/22/2019 FINDINGS: Sagittal T1, axial diffusion, proton density and T2 weighted axial, coronal FLAIR, and axial T1-weigh nayana images were acquired. No intra or extra-axial mass lesions are visualized Axial diffusion-weighted images reveal no evidence of acute or subacute infarction. There is mild ventricular prominence, finding which is felt to be secondary to volume loss. Proton density T2-weighted and FLAIR images reveal scattered foci of increased T2 signal within the w bryant matter, likely on a small vessel basis. There are old bilateral infarcts the largest of which in volves the right frontal lobe. Old infarcts are also visualized within the left frontal lobe, right p arietal lobe, and left thalamus. There are no abnormal flow voids. Inflammatory changes are visualized within the paranasal sinuses. IMPRESSION: 1. No acute intracranial findings 2. No evidence of acute or subacute infarction 3. Multiple old infarcts. ACT 112: Negative or not required by law. Electronically signed by: Reji Wallace M.D. 07/30/2019 9:46 PM
[2019-07-31 04:26] LABS: Basophils # (auto) 0.02 K/uL (0-0.2); Basophils % (auto) 0.3 %; Eosinophils # (auto) 0.51 K/uL (0-0.5); Eosinophils % (auto) 8.8 %; Hematocrit (blood only) 34.1 % (37-47); Hemoglobin 11.4 g/dL (12.0-16.0); Immature Granulocytes # (auto) 0.02 K/uL (0.00-0.02); Immature Granulocytes % (auto) 0.3 %; Lymphocytes # (auto) 1.46 K/uL (1.2-3.4); Lymphocytes % (auto) 25.3 %; Mean Corpuscular Hemoglobin 30.6 pg (25-34); Mean Corpuscular Hgb Conc 33.4 g/dL (32-36); Mean Corpuscular Volume 91.7 fL (80-100); Mean Platelet Volume 9.4 fL (7.4-10.4); Monocytes # (auto) 0.57 K/uL (0.11-0.59); Monocytes % (auto) 9.9 %; Neutrophils % (auto) 55.4 %; Platelet Count 165 K/uL (130-400); RDW Coefficient of Variation 13.3 % (11.5-14.5); RDW Standard Deviation 44.7 fL (36.4-46.3); Red Blood Count 3.72 M/uL (4.2-5.4); White Blood Count 5.78 K/uL (4.8-10.8)
[2019-07-31 04:48] LABS: BUN Creatinine Ratio 29.1 (10-20); Calcium 8.3 mg/dl (8.5-10.1); Creatinine Clr Calc Pharmacy 42.5 ml/min; Est GFR (African American) 87.5; Est GFR (Non-African American) 75.5; Potassium 3.6 mmol/L (3.5-5.1)
[2019-07-31 06:05] LABS: Estimated Average Glucose 114 mg/dl; Hemoglobin A1C 5.6 % (4.5-5.6)
[2019-07-31] MEDS ORDERED: LEVOTHYROXINE SODIUM 75 MCG TABLET PO SCH (06:30)
[2019-07-31 07:53] VITALS: PULSE 76
[2019-07-31] MEDS: SACCHAROMYCES BOULARDII 250 MG CAP PO SCH (08:16)
[2019-07-31] MEDS ORDERED: FAMOTIDINE 20 MG TAB PO SCH (09:00)
[2019-07-31] MEDS ORDERED: METOPROLOL SUCC 25MG EXT REL TAB PO SCH (09:00)
[2019-07-31] MEDS ORDERED: ATORVASTATIN 10 MG TAB PO SCH (09:00)
[2019-07-31] MEDS ORDERED: ASPIRIN 81 MG ECTAB PO SCH (09:00)
[2019-07-31] MEDS ORDERED: VENLAFAXINE HCL 37.5 MG TAB PO SCH (09:00)
[2019-07-31] MEDS ORDERED: DOCUSATE SODIUM 100 MG CAP PO SCH (09:00)
--- NOTE | 2019-07-31 10:19 | Neurology Consultation ---
Date of Consultation July 31, 2019 Assessment & Plan (1) CVA (cerebral vascular accident): Interval development of a basal left frontal lobe infarct not seen on previous imaging done this past May. Nonetheless, the finding is chronic, probably at least 3 to 4 weeks old as there is no associated restricted diffusion on MRI. Patient's history of atrial fibrillation is likely her most significant stroke risk factor. There is no evidence of a hemodynamically significant stenosis within the cranial or cervical circulation. A PFO may not be completely excluded. This more recent left frontal lobe infarct may further contribute to this patient's tendency for confusion when under physiologic stress. Infection, antibiotic therapy, confusion, lethargy and weakness have been a recurrent clinical scenario. She probably has a baseline mild vascular dementia as well. She appears to be clinically stable this morning and is probably back to her baseline functional status. Patient should continue with her current medication regimen including daily low- dose aspirin, Xarelto, Lipitor, and metoprolol. I would not start a cholinesterase inhibitor for suspected mild vascular dementia at this time. Follow-up with results of echocardiogram. Consultations with PT/OT No further immediate recommendations. Please contact me if I may be of further assistance. History of Present Illness Reason for Consultation: Interval stroke seen on imaging Requesting Physician: Tin Marino DO Attending Physician: Alejo Miguel History of Present Illness The patient is an 88-year-old female with a history of multiple chronic strokes, the largest of which is in the right cerebral hemisphere and has resulted in a persistent mild left hemiparesis. Patient also likely has a mild vascular dementia with a tendency for confusion under physiologic stress/infection such as UTI. She presented to the emergency department yesterday with confusion and generalized weakness occurring in the context of recurrent UTI, recently treated with antibiotics. She did not present with any new or focal neurological signs or symptoms, however. Yet, a CT of the head had revealed a new or interval ischemic infarct within the left basal frontal lobe, not seen on her previous imaging during a brief hospitalization in May for lethargy and altered mental status potentially related to sinusitis/UTI on antibiotic therapy. Patient's past medical history is notable for atrial fibrillation for which she is taking Xarelto. The patient lives at home but does have 24-hour care. I had evaluated this patient during a hospitalization in April 2018 for a syncopal episode with associated amnesia. An EEG at that time was unremarkable. She does not have a diagnosis of seizure disorder and is not prescribed an anticonvulsant. The patient currently denies any new neurological symptoms such as headache or new weakness or incoordination. She does admit to some chronic weakness affecting the left arm and leg related to her old right hemispheric stroke. She has completed some additional follow-up imaging including CT angiography of the head and neck as well as an up-to-date brain MRI. These results are as described below. She is scheduled for an up-to-date echo cardiogram to be done this morning. Allergies Allergy/AdvReac Type Severity Reaction Status Date / Time codeine Allergy Unknown UNK Verified 07/30/19 16:50 ferrous sulfate Allergy Unknown 0 Verified 07/30/19 16:50 folic acid Allergy Unknown 0 Verified 07/30/19 16:50 Macrolide Antibiotics Allergy Unknown ` Verified 07/30/19 16:50 pantoprazole Allergy Unknown 0 Verified 07/30/19 16:50 Penicillins Allergy Unknown UNK-TOLERATES Verified 07/30/19 16:50 CEPHS morphine AdvReac Unknown HYPOTENSION Verified 07/30/19 16:50 Home Medications Home Medications Medication Instructions Recorded Confirmed Type aspirin 81 mg PO QAM #0 06/18/17 07/30/19 History acetaminophen 500 mg tablet 500 mg PO Q4 PRN tab MDD 6 tabs 03/22/19 07/30/19 History Florastor 250 mg PO Q12H 05/21/19 07/30/19 History Xarelto 15 mg PO HS 05/21/19 07/30/19 History trimethoprim 50 mg PO HS 05/21/19 07/30/19 History venlafaxine 37.5 mg tablet 37.5 mg PO QAM #90 tab 07/02/19 07/30/19 Rx atorvastatin [Lipitor] 10 mg PO QAM 07/30/19 07/30/19 History benzonatate [Tessalon Perles] 100 mg PO TID PRN 07/30/19 07/30/19 History ciprofloxacin HCl [Cipro] 250 mg PO BID 07/30/19 07/30/19 History cranberry 450 mg PO BID 07/30/19 07/30/19 History diclofenac sodium [Voltaren] 2 gm TOP QID PRN 07/30/19 07/30/19 History docusate sodium [Colace] 100 mg PO QAM 07/30/19 07/30/19 History famotidine [Pepcid] 20 mg PO QAM 07/30/19 07/30/19 History levothyroxine [Synthroid] 75 mcg PO QAM 07/30/19 07/30/19 History metoprolol succinate [Toprol XL] 25 mg PO QAM 07/30/19 07/30/19 History Patient History Medical History Atrial fibrillation (Chronic) Chest pain on breathing (Acute) Constipation CVA (cerebral vascular accident) (Inactive) GI bleed (Acute) History of anticoagulant use (Acute) History of atrial fibrillation (Chronic) Hx of recurrent urinary tract infection (Chronic) Hypothyroidism (Chronic) Left hemiparesis (Chronic) 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) Mitral valve prolapse (Chronic) Rectal bleeding (Acute) Seizure (Ruled-out) Syncope (Inactive) UTI (urinary tract infection) (Acute) Vascular dementia (Chronic) Vascular parkinsonism (Chronic) Surgical History S/P mitral valve repair (Chronic) Family History Other Anxiety Atrial fibrillation Chest pain on breathing GI bleed History of anticoagulant use History of atrial fibrillation Hx of recurrent urinary tract infection Hypothyroidism Left hemiparesis intermediate (current) use of anticoagulants Mitral valve prolapse Rectal bleeding S/P mitral valve repair Seizure Stroke Syncope Vascular dementia Vascular parkinsonism Social History Preferred Language: Ukrainian Communication Ability: Effective Visual Impairment: No Limitations Hearing Ability: Normal Intake Clinician Required: No Beliefs That Will Affect Care: None marital status: / Current Living Situation: Alone Current Living Situation Comment: caregivers current occupational status: retired Feels Safe at Home: Yes Safety Concerns: Feels Safe At This Time Smoking Status: Never smoker Second Hand Exposure: No ; Hx Alcohol Use: No Hx Substance Use: No Review of Systems Constitutional: no fever, no chills and no fatigue Eyes: no blind spots and no diplopia Ear, Nose, Mouth, Throat: no hearing loss Respiratory: no cough and no dyspnea Cardiovascular: no chest pain and no palpitations Gastrointestinal: no nausea and no vomiting Genitourinary: + dysuria Musculoskeletal: no back pain, no neck pain and no myalgia Integumentary: no rash and no lesions Neurologic: as per Subjective / HPI, + localized weakness and + confusion; no tremor(s), no seizure-like activity and no headache(s) Psychiatric: no depression, no anxiety and no hallucinations Hematologic / Lymphatic: no easy bleeding Physical Exam Physical Exam: The patient is a well-developed, well-nourished elderly female. She is alert and oriented to person and place although misses the day of the week. Recent and remote memory intact. Attention and concentration normal. Patient exhibits a normal spontaneous speech pattern. She is able to name objects and repeat phrases. Patient exhibits an age-appropriate fund of knowledge and normal comprehension of vocabulary. Visual candelario full to confrontation. Visual acuity normal. Pupils equal round reactive to light and accommodation. Eye movements normal. There is no ptosis, nystagmus, or ophthalmoplegia. Facial sensation intact. There is no facial droop or weakness. Hearing intact. Palate elevates to midline. Shoulder shrug intact. Tongue protrudes to midline. Sensation intact to all modalities in all 4 limbs. Patient does not extinguish to double simultaneous stimulation. No obvious signs of nondominant parietal lobe neglect. Deep tendon reflexes are intact and symmetrical for the arms and legs. Plantar responses equivocal bilaterally. There is no dysdiadochokinesia. There is mild dysmetria otdyac-bu-vwag on the left and fgej-vs-aprt on the left. No dysmetria with eltzms-mu-abpz or llcw-qm-uolo on the right. Ophthalmoscopic examination reveals normal-appearing optic disks and posterior segments. No papilledema or hemorrhages. Carotid pulses normal bilaterally, no bruits to auscultation. Gait and station not tested due to safety concerns. Patient exhibits normal muscle strength and tone for all 4 limbs proximally and distally. However, she does have a mild left upper extremity pronator drift. Muscle tone normal throughout. No atrophy. No abnormal movements observed. Results & Data Vital Signs (Past 12 Hours) Vital Signs Temp Pulse Pulse Resp BP BP Pulse Ox 07/31/19 07:52 36.8 C 76 18 138/76 98 07/31/19 07:40 72 07/31/19 03:26 62 14 142/71 H 94 12/24/19 02:26 63 12 130/74 95 07/31/19 01:26 65 18 153/74 H 97 07/31/19 00:26 59 L 15 136/63 96 07/30/19 23:26 61 17 164/79 H 07/30/19 22:26 61 17 159/82 H 07/30/19 21:54 61 15 161/84 H 96 Laboratory Results WBC 5.78, hemoglobin 11.4, hematocrit 34.1, platelet count 165, sodium 142, potassium 3.6, BUN 21, creatinine 0.71, glucose 73, calcium 8.3, triglycerides 72, cholesterol 132, LDL 60, VLDL 14, HDL 58, urinalysis negative Diagnostic Findings CT of the head completed yesterday negative for hemorrhage or acute process. There is an interval chronic appearing infarct within the basal left frontal lobe, not appreciated on previous imaging done in May. There are multiple chronic infarcts observed as well. I reviewed the images as well as the radiolo gist interpretation of this test. CT angiography of the head and neck are unremarkable. No hemodynamically significant stenosis. No occlusion, dissection, or aneurysm. Brain MRI negative for acute or subacute infarct. The new/interval basal left frontal lobe infarct is best seen on coronal FLAIR sequences, image 7 out of 26, when comparing the most recent MRI with the MRI done in May. The finding appears chronic as there is no associated restricted diffusion. I reviewed the images as well as the radiologist interpretation of these tests. An electrocardiogram reveals a normal sinus rhythm, 74 bpm. An echocardiogram completed in April 2018 was fairly normal-appearing, ejection fraction 60 to 65%, no regional wall motion abnormalities, normal left ventricular systolic function, mild to moderate left ventricular hypertrophy, grade 1 diastolic dysfunction. PG Care Time/CCT Total # of Minutes Spent Total Time Spent with Patient: Total time spent is greater than 50% in coordination of care (as documented) at patient's floor/unit and/or counseling patient:
[2019-07-31 12:11] VITALS: BP 150/72; TEMP 98.6; O2SAT 95
[2019-07-31] MEDS ORDERED: STROKE PATIENT DISCHARGE STA ×2 (12:46→14:10)
--- NOTE | 2019-07-31 14:46 | Pharmacy Report ---
Pharmacist Stroke Counseling - Date of Service July 31, 2019 - Scope: Pharmacy has been consulted to provide medication discharge counseling for this patient admitted with [ischemic stroke] [hemorrhagic stroke] [transient ischemic attack] as per the Pharmacist Discharge Counseling for Stroke Patients Pro tocol. - Medications on Discharge: Home Medications Medication Instructions Recorded Confirmed aspirin 81 mg PO QAM #0 06/18/17 07/30/19 acetaminophen 500 mg tablet 500 mg PO Q4 PRN tab MDD 6 tabs 03/22/19 07/30/19 Florastor 250 mg PO Q12H 05/21/19 07/30/19 Xarelto 15 mg PO HS 05/21/19 07/30/19 trimethoprim 50 mg PO HS 05/21/19 07/30/19 atorvastatin [Lipitor] 10 mg PO QAM 07/30/19 07/30/19 benzonatate [Tessalon Perles] 100 mg PO TID PRN 07/30/19 07/30/19 ciprofloxacin HCl [Cipro] 250 mg PO BID 07/30/19 07/30/19 cranberry 450 mg PO BID 07/30/19 07/30/19 diclofenac sodium [Voltaren] 2 gm TOP QID PRN 07/30/19 07/30/19 docusate sodium [Colace] 100 mg PO QAM 07/30/19 07/30/19 famotidine [Pepcid] 20 mg PO QAM 07/30/19 07/30/19 levothyroxine [Synthroid] 75 mcg PO QAM 07/30/19 07/30/19 metoprolol succinate [Toprol XL] 25 mg PO QAM 07/30/19 07/30/19 New Rx's Medication Instructions Recorded venlafaxine 37.5 mg tablet 37.5 mg PO QAM #90 tab 07/02/19 - Action: The above medications, specifically ones for stroke treatment/prophylaxis, have been reviewed in detail with the patient's caregiver Kasandra prior to discharge. This includes indication, common adverse reactions, drug interactions, and medication administration. Medication counseling has been employed using the teach-back method to ensure understanding. - Outcome: The patient's billing representative Kasandra has demonstrated understanding of the medicati ons. Please note, they are aware that the pharmacist will call them within 72 hours post-discharge to confirm that the appropriate medications are being taken and answer any further medication related questions the patient might have at that time. Contact information Individual to be contacted: Kasandra Relationship to patient (if applicable): patient's caregiver Phone number: [phone] Best time to call: MORNING Additional comments: Patient has dementia and is cared for 28/02. Caregivers are very involved and aware of the patient's medications. Informed Dr Miguel to include why the patient is on Lipitor 10 mg not high intensity statin. Thank you for allowing pharmacy to be involved in the care of this patient. Please call [phone] with any additional questions
--- NOTE | 2019-07-31 14:53 | Pharmacy Report ---
Pharmacist Stroke Counseling - Date of Service July 31, 2019 - Scope: Pharmacy has been consulted to provide medication discharge counseling for this patient admitted with transient ischemic attack as per the Pharmacist Discharge Counseling for Stroke Patients Protocol. - Medications on Discharge: Home Medications Medication Instructions Recorded Confirmed aspirin 81 mg PO QAM #0 06/18/17 07/30/19 acetaminophen 500 mg tablet 500 mg PO Q4 PRN tab MDD 6 tabs 03/22/19 07/30/19 Florastor 250 mg PO Q12H 05/21/19 07/30/19 Xarelto 15 mg PO HS 05/21/19 07/30/19 trimethoprim 50 mg PO HS 05/21/19 07/30/19 atorvastatin [Lipitor] 10 mg PO QAM 07/30/19 07/30/19 benzonatate [Tessalon Perles] 100 mg PO TID PRN 07/30/19 07/30/19 ciprofloxacin HCl [Cipro] 250 mg PO BID 07/30/19 07/30/19 cranberry 450 mg PO BID 07/30/19 07/30/19 diclofenac sodium [Voltaren] 2 gm TOP QID PRN 07/30/19 07/30/19 docusate sodium [Colace] 100 mg PO QAM 07/30/19 07/30/19 famotidine [Pepcid] 20 mg PO QAM 07/30/19 07/30/19 levothyroxine [Synthroid] 75 mcg PO QAM 07/30/19 07/30/19 metoprolol succinate [Toprol XL] 25 mg PO QAM 07/30/19 07/30/19 New Rx's Medication Instructions Recorded venlafaxine 37.5 mg tablet 37.5 mg PO QAM #90 tab 07/02/19 - Action: The above medications, specifically ones for stroke treatment/prophylaxis, have been reviewed in detail with the patient and/or patient civil rights representative(s) prior to discharge. This includes indication, common adverse reactions, drug interactions, and medication administration. Medication counseling has been employed using the teach-back method to ensure understanding. - Outcome: The patient and/or patient civil rights representative(s) have demonstrated understanding of the medications. Please note, they are aware that the pharmacist will call them within 72 hours post-discharge to confirm that the appropriate medications are being taken and answer any further medication related questions the patient might have at that time. Contact information Individual to be contacted: [] Relationship to patient (if applicable): [] Phone number: [] Best time to call: [] Additional comments: [] Thank you for allowing pharmacy to be involved in the care of this patient. Please call [phone] with any additional questions
--- NOTE | 2019-07-31 15:15 | Communication Note ---
Sequelae (prior/old) of cerebral infarction As noted on MRI. NOT GIVING HIGH INTENSITY STATIN PATIENT IS ALREADY AT GOAL WITH HER LDL.
--- NOTE | 2019-08-03 11:44 | Pharmacy Report ---
Pharmacist Post D/C Phone Note - Phone Note: Date of phone call: August 03, 2019. Individual with whom pharmacist spoke to: Kasandra, patient's caregiver The following questions were reviewed during the phone call with responses listed below each: Can you tell me the medications that you are currently taking as well as when and how you take each medication? -See Table Below When have you missed any doses of your medications? - No missed doses What side effects are you having from your medications, specifically, the new medications you were started on? - No side effects, no new medications were initiated on discharge What questions do you have about your medications? - None What problems are you having obtaining your medications? - None, uses all through [facility] When is your next appointment with your primary care doctor? - 08/13 with cardiology, 08/[address] Quinones Additional comments: - I noted that Xarelto scheduled to be administered at HS and this should be given with dinner or at least a snack. Caregiver informed me that patient typically has ice cream, cookie, etc for a bedtime snack. No need to adjust administration time. - Kasandra noted that patient doing quite well, walked the lauren 10x yesterday As per the Pharmacist Discharge Counseling for Stroke Patients Protocol, this phone call has been completed within 72 hours of discharge. Thank you for allowing us to be involved in the care of this patient. - Home Medications: Home Medications Medication Instructions Recorded Confirmed aspirin 81 mg PO QAM #0 06/18/17 07/30/19 acetaminophen 500 mg tablet 500 mg PO Q4 PRN tab MDD 6 tabs 03/22/19 07/30/19 Florastor 250 mg PO Q12H 05/21/19 07/30/19 Xarelto 15 mg PO HS 05/21/19 07/30/19 trimethoprim 50 mg PO HS 05/21/19 07/30/19 atorvastatin [Lipitor] 10 mg PO QAM 07/30/19 07/30/19 benzonatate [Tessalon Perles] 100 mg PO TID PRN 07/30/19 07/30/19 ciprofloxacin HCl [Cipro] 250 mg PO BID 07/30/19 07/30/19 cranberry 450 mg PO BID 07/30/19 07/30/19 diclofenac sodium [Voltaren] 2 gm TOP QID PRN 07/30/19 07/30/19 docusate sodium [Colace] 100 mg PO QAM 07/30/19 07/30/19 famotidine [Pepcid] 20 mg PO QAM 07/30/19 07/30/19 levothyroxine [Synthroid] 75 mcg PO QAM 07/30/19 07/30/19 metoprolol succinate [Toprol XL] 25 mg PO QAM 07/30/19 07/30/19 venlafaxine 37.5 mg tablet 37.5 mg PO QAM #90 tab 07/02/19
--- NOTE | 2019-08-05 21:50 | Discharge Summary ---
Date of Service July 31, 2019 Admission HPI Per Admitting Provider This is an 88-year-old female with past medical history of vascular dementia and previous CVAs, atrial fibrillation that presents with possible change in mental status and weakness. Patient is unable to give any history. She is accompanied by an aide from home who unfortunately cannot give much more information. The aide tells me that the patient lives at home with 24-hour supervision provided by the staff. She does have a history of dementia but is able to ambulate and is typically easy to engage. They noted earlier today that the patient was having difficulty getting up and seemed to be more confused than prior. Patient was recently treated with urinary tract infection and they were concerned that the infection had returned. However work-up showed a negative urinalysis. However, the patient does appear to have a extension of of a chronic CVA is seen on CT scan. Patient is therefore being admitted for further work-up and therapy. The patient herself is confused vote does verbalize. She tells me she is concerned she had another stroke as she was told she would not have 1 without appropriate medication. She was unable to give any further history. Principal Diagnosis CVA Discharge Exam Constitutional: well nourished, awake and alert.) and cooperative; no acute distress Neck: trachea midline, no thyromegaly Respiratory: normal respiratory effort, lungs clear to auscultation Auscultation: lungs clear to auscultation bilaterally Cardiovascular: RRR, no murmur, no edema Rate/Rhythm: regular rate and regular rhythm Heart Sounds: normal S1 and normal S2 Gastrointestinal (Abdomen): normal bowel sounds, soft, nontender, no hepatosplenomegaly Musculoskeletal: no cyanosis or clubbing, extremities motor strength 5/5 Skin: no rashes, warm and dry Psychiatric: Orientation: alert and oriented to person Discharge Data Allergies Allergy/AdvReac Type Severity Reaction Status Date / Time codeine Allergy Unknown UNK Verified 07/30/19 16:50 ferrous sulfate Allergy Unknown 0 Verified 07/30/19 16:50 folic acid Allergy Unknown 0 Verified 07/30/19 16:50 Macrolide Antibiotics Allergy Unknown ` Verified 07/30/19 16:50 pantoprazole Allergy Unknown 0 Verified 07/30/19 16:50 Penicillins Allergy Unknown UNK-TOLERATES Verified 07/30/19 16:50 CEPHS morphine AdvReac Unknown HYPOTENSION Verified 07/30/19 16:50 Consultations 07/30/19 17:25 ED Decision to Admit Stat 07/30/19 18:45 Consult Neurology Routine 07/30/19 18:47 Consult Case Management - Discharge Planning Routine Ordered Studies 07/30/19 15:10 CT head/brain wo con Stat 07/30/19 16:48 CT angio neck with con Stat MR brain wo con Stat 07/30/19 16:49 CT angio head w con Stat Hospital Course (1) CVA (cerebral vascular accident): As noted on initial CT scan, patient has an interval development of a left frontal lobe infarct that was felt to be chronic. This can certainly account for the patient's change in mental status. We will admit the patient under stroke protocol. Patient is on atorvastatin and low-dose aspirin which we will continue. She is chronically anticoagulated with Xarelto which we will continue as well. NOT GIVING HIGH INTENSITY STATIN PATIENT IS ALREADY AT GOAL WITH HER LDL. Appreciate input from Neuro. Interval development of a basal left frontal lobe infarct not seen on previous imaging done this past May. Nonetheless, the finding is chronic, probably at least 3 to 4 weeks old as there is no associated restricted diffusion on MRI. Patient's history of atrial fibrillation is likely her most significant stroke risk factor. There is no evidence of a hemodynamically significant stenosis within the cranial or cervical circulation. A PFO may not be completely excluded. This more recent left frontal lobe infarct may further contribute to this patient's tendency for confusion when under physiologic stress. Infection, antibiotic therapy, confusion, lethargy and weakness have been a recurrent clinical scenario. She probably has a baseline mild vascular dementia as well. She appears to be clinically stable this morning and is probably back to her baseline functional status. Patient should continue with her current medication regimen including daily low- dose aspirin, Xarelto, Lipitor, and metoprolol. I would not start a cholinesterase inhibitor for suspected mild vascular dementia at this time. Follow-up with results of echocardiogram. Consultations with PT/OT . (2) Vascular dementia: Patient will require ongoing supportive care. I am concerned that she may not be able to return to her previous living arrangements in the short-term. We will ask PT/OT to evaluate for possible placement in the short-term. (3) UTI (urinary tract infection): Patient has been on ciprofloxacin for possible urinary tract infection. However, with normal urine, and no sign of infection including fever or white count, will discontinue this today. (4) History of atrial fibrillation: Total Time Total Time Spent Total Time Spent (In Minutes): 32 Total Time Includes: Examination of the Patient, Discharge Planning and Medication Reconciliation Discharge Plan Discharge Items Patient Disposition: Home - Self-Care Reason For Visit: CHANGE OF MS,CVA Discharge Diagnosis: Stroke Activity: As commented below Activity Comment: continue PT/OT Non-emergency contact: Primary Care Provider Call non-emergency contact if: you have any medication questions Follow-up/Referrals: Aljeandro Quinones MD [Primary Care Provider] - Diet: Heart Healthy Addtl Attending Provider Instructions: Risk Factors for Stroke: You can reduce your chances of stroke by working with your medical provider to adopt a healthy lifestyle. Some specific ways to lower your chance of stroke are: * If you are a smoker, now is the time to stop smoking cigarettes * If you are diabetic, improve the control of your blood sugars * Avoid excessive amounts of alcohol * Control high blood pressure * Lose weight if you are overweight * Be sure to lead an active lifestyle * Eat a healthy diet low in salt, cholesterol and fat You should know about other risk factors for stroke that you are unable to control. These include: * Age 55 years or older * Male gender * Certain racial groups: , or / * Family History of Stroke, Mini stroke or Heart Attack * Sickle Cell Disease Follow Up: It is important for you to keep your follow up appointments with your medical provider. Who to Call and When: Medical Emergencies: Call 911 immediately if you experience any of the following warning signs and symptoms of Stroke: * Sudden numbness or weakness of the face, arm or leg, especially on one side of the body * Sudden confusion, trouble speaking or understanding * Sudden trouble seeing in one or both eyes * Sudden trouble walking, dizziness, loss of balance or coordination * Sudden severe headache with no cause Do not delay calling 911 if you experience any warning signs or symptoms of a stroke. Delay in seeking medical attention may affect what treatments can be given to you. . Pending Studies at Discharge: No Stand-Alone Forms: Medications to Prevent Stroke, Thing5, Smoking Cessation Medications and DC Order Prescriptions: Continued aspirin 81 mg Tablet,Delayed Release (Dr/Ec) 81 mg PO QAM Qty: 0 RF: 0 venlafaxine 37.5 mg tablet 37.5 mg PO QAM Qty: 90 RF: 3 acetaminophen [Acetaminophen Extra Strength] 500 mg tablet 500 mg PO Q4 MDD 6 tabs PRN (Reason: Fever Or Pain) RF: 0 Florastor 250 mg capsule 250 mg PO Q12H RF: 0 Xarelto 15 mg tablet 15 mg PO HS RF: 0 trimethoprim 100 mg tablet 50 mg PO HS RF: 0 cranberry 450 mg Tablet 450 mg PO BID RF: 0 atorvastatin [Lipitor] 10 mg tablet 10 mg PO QAM RF: 0 ciprofloxacin HCl [Cipro] 250 mg tablet 250 mg PO BID RF: 0 levothyroxine [Synthroid] 75 mcg tablet 75 mcg PO QAM RF: 0 famotidine [Pepcid] 20 mg tablet 20 mg PO QAM RF: 0 benzonatate [Tessalon Perles] 100 mg capsule 100 mg PO TID PRN (Reason: Cough) RF: 0 docusate sodium [Colace] 100 mg capsule 100 mg PO QAM RF: 0 metoprolol succinate [Toprol XL] 25 mg tablet extended release 24 hr 25 mg PO QAM RF: 0 diclofenac sodium [Voltaren] 1 % gel 2 gm TOP QID PRN (Reason: pain, moderate) RF: 0 Discharge Orders: Discharge Order (Routine); Ordered 07/31/19 Ordered By: Alejo Orantes/Other Patient Handouts: Dehydration Admission Data Admit Date/Time: 07/30/19 18:45 Attending Provider: Alejo Miguel Admit Provider: Tin Marino Primary Care Provider: Alejandro Quinones Other Providers: Tin Marino ; Sebastian Lilly Other Interventions: Discharge Summary Assessment (RN) Last Done: 07/31/19 14:14 DC Date/Time DO NOT enter until pt leaves facility: 07/31/19 15:42
== END 2019-07-31 15:42 | disposition home or self-care (01) | DRG 57 ==
LOC: ED 14:21 → SUATTDRO 18:45 → 1E 18:45 → 2S 07-31 07:32